=== PATIENT | female | born 1950 | race Caucasian/White ===

== ENCOUNTER 2017-06-19 12:05 | Inpatient (IN) | payer BC, OTHER ==
[2017-06-19 12:10] VITALS: BMI 24.2
--- NOTE | 2017-06-19 12:41 | PDOC ---
History of Present Illness <Dominique Nation - Last Filed: 06/19/17 14:27> - History of Present Illness Initial Comments: 06/19/17 12:51 67-year-old female history of hypertension, hyperlipidemia, , non-insulin- dependent diabetes, CAD status post stents 2 years ago, aortic graft repair 2 years ago presents with 3 weeks of progressive shortness of breath and dyspnea on exertion. Patient reports her exercise tolerance is reduced to walking across the room. Reports being unable to sleep flat. She initially thought she had bronchitis but yesterday noticed that her feet and lower extremities were becoming swollen and her family prompted her to come to the emergency department. She was told two years ago that she had heart failure when she had her stents placed but is not on a water pill. Her sister from complications of heart failure. She denies any current chest pain. Denies any fevers, chills, nausea, vomiting, diaphoresis. Does report a cough productive of white sputum for one month. Denies abdominal pain. On arrival to the emergency department the patient was hypoxic to 71%. Nonrebreather mask was placed with recovery of her pulse ox to the low 90s, and then quickly titrated down to 4 L with a pulse ox in the low 90s. Home Therapy Clinician: Dr. Cassidy 06/19/17 13:17 <Gen Camp - Last Filed: 06/19/17 15:10> - General Chief Complaint: Shortness of Breath Stated Complaint: SOB Time Seen by Provider: 06/19/17 12:21 Past History <Dominique Nation - Last Filed: 06/19/17 14:27> - Past Medical History COPD: Yes ([place]) GI Disorders: Yes (diverticulitis) - Surgical History Appendectomy: Yes - Immunization History Immunization Up to Date: Yes - Psycho/Social/Smoking Cessation Hx Anxiety: No Suicidal Ideation: No Smoking History: Former smoker Have you smoked in the past 12 months: Yes Number of Cigarettes Smoked Daily: 20 If you are a former smoker, when did you quit?: 2 WKS Information on smoking cessation initiated: No 'Breaking Loose' booklet given: 09/14/14 Hx Alcohol Use: No Drug/Substance Use Hx: No Substance Use Type: None <Gen Camp - Last Filed: 06/19/17 15:10> - Past Medical History Allergies/Adverse Reactions: Allergies Allergy/AdvReac Type Severity Reaction Status Date / Time Penicillins Allergy Intermediate Rash Verified 06/19/17 12:11 Home Medications: Ambulatory Orders Fenofibrate Nanocrystallized [Fenofibrate] 145 mg PO DAILY 06/19/17 Linagliptin/Metformin HCl [Jentadueto 2.5 mg-1000 mg Tab] 1 each PO DAILY Metoprolol Tartrate [Lopressor -] 25 mg PO DAILY 06/19/17 Simvastatin [Zocor -] 20 mg PO HS 06/19/17 *Physical Exam - Vital Signs Last Vital Signs Temp Pulse Resp BP Pulse Ox 97.8 F 82 20 152/65 71 L 06/19/17 12:06 06/19/17 12:06 06/19/17 12:06 06/19/17 12:06 06/19/17 12:06 <Dominique Nation - Last Filed: 06/19/17 14:27> - Vital Signs Last Vital Signs Temp Pulse Resp BP Pulse Ox 97.8 F 82 20 152/65 71 L 06/19/17 12:06 06/19/17 12:06 06/19/17 12:06 06/19/17 12:06 06/19/17 12:06 <Gen Camp - Last Filed: 06/19/17 15:10> Heart Score/ECG Review - History History: Moderately suspicious - Electrocardiogram EKG: Non specific repolarization disturbance - Age Age: >/= 65 - Risk Factors Risk Factors Heart Score: Yes Hx Hypercholesterolemia, Yes Hx Hypertension, Yes Hx Diabetes, Yes Smoking History Based on the list above the patient has:: >/=3 risk factors or Hx atherosclerotic disease - Troponin Troponin: </= normal limit - Score Heart Score - Total: 6 #1 06/19/17 13:12 My read: Normal sinus rhythm, rate of 76 normal axis and intervals no ST elevations or T-wave inversions. Mild T-wave flattening in lead 3 and lead V2. <Gen Camp - Last Filed: 06/19/17 15:10> ED Treatment Course - LABORATORY CBC & Chemistry Diagram: 06/19/17 13:01 06/19/17 13:01 - RADIOLOGY Radiograph Interpretation: 06/19/17 14:27 Chest x-ray Impression: No evidence of active pulmonary disease Reported by: Yordy Alcala MD <Dominique Nation - Last Filed: 06/19/17 14:27> - LABORATORY CBC & Chemistry Diagram: 06/19/17 13:01 06/19/17 13:01 <Gen Camp - Last Filed: 06/19/17 15:10> Medical Decision Making - Medical Decision Making 06/19/17 13:13 67-year-old female history of CAD, smoking, aortic graft repair, hypertension, and diabetes presents with progressive shortness of breath for 3 weeks. Initial vitals remarkable for hypoxia to 71% that improved with nasal cannula to low 90s. Exam remarkable for diffuse wheezing, fair air movement and lower extremity edema. Differential includes COPD +/- CHF exacerbation. PE also on differential however patient with no recent immobility and no other risk factors. Absence of chest pain and shortness of breath for a many weeks also not likely consistent with PE. Pneumonia also on the differential however patient has no fevers. ACS also on differential given hx CAD. -labs -nebs, steroids, azithro -portable CXR -likely admit 06/19/17 15:05 labs unremarkable, mildly elevated BNP. Chest x-ray with no acute findings. Likely COPD exacerbation. Patient has been given nebs, steroids, and IV Zithromax with improvement in symptoms. Patient also reports significant improvement in shortness of breath with nasal cannula. I spoke with Dr. Funk and will admit the patient. He requests that we consult Dr. Cedeño from pul - a consult has been placed. I also contacted the patient's monument setter Dr. Rodarte and am awaiting a call back. 06/19/17 15:09 Discussed the case with Dr. Cedeño who will see the patient <Gen Camp - Last Filed: 06/19/17 15:10> *DC/Admit/Observation/Transfer <Dominique Nation - Last Filed: 06/19/17 14:27> - Discharge Dispostion Admit: Yes - Attestations Physician Attestion: 06/19/17 15:09 I, Dr. Gen Camp MD, attest that this document has been prepared under my direction and personally reviewed by me in its entirety. I further attest, that it accurately reflects all work, treatment, procedures and medical decision -making performed by me. <Gen Camp - Last Filed: 06/19/17 15:10> Diagnosis at time of Disposition: Shortness of breath - Discharge Dispostion Condition at time of disposition: Stable
[2017-06-19] MEDS ORDERED: ALBUTEROL SO4 2.5/IPRATROPIUM 0.5 INH SOL 3 ML VIAL.NEB. NEB ONE ×4 (12:55→18:40)
[2017-06-19] MEDS ORDERED: methylPREDNISolone NA SUCC 125 MG/2 ML VIAL IVPB ONE (13:05)
[2017-06-19] MEDS ORDERED: AZITHROMYCIN IVPB 500 MG in DEXTROSE 5%-WATER - 250 ML IVPB ONE (13:06)
[2017-06-19] MEDS ORDERED: methylPREDNISolone NA SUCC 125 MG/2 ML VIAL ONE ×2 (13:28)
[2017-06-19] MEDS ORDERED: AZITHROMYCIN IVPB 250 ML IVPB ONE (13:28)
[2017-06-19 13:32] LABS: BASOPHIL 0.8 % (0-2.0); EOSINOPHIL 10.7 % (0-4.5); MCH 29.1 pg (25.7-33.7); MCHC 31.2 g/dl (32.0-36.0); MEAN CELL VOLUME 93.2 fl (80-96); MEAN PLT VOLUME 8.4 fl (7.5-11.1); NEUTROPHILS 58.8 % (42.8-82.8); PLATELET COUNT 239 K/MM3 (134-434); RDW 15.2 % (11.6-15.6)
[2017-06-19 14:17] LABS: ALBUMIN 3.8 g/dl (3.4-5.0); ALK PHOS 50 U/L (45-117); ANION GAP 6 (8-16); BILIRUBIN,TOTAL 0.7 mg/dL (0.2-1.0); CALCIUM 9.2 mg/dL (8.5-10.1); CO2 33 mmol/L (21-32); CREATININE 0.9 mg/dL (0.55-1.02); GLUCOSE,RANDOM 110 mg/dL (74-106); SGOT/AST 17 U/L (15-37); SGPT/ALT 20 U/L (12-78); TOT PROT 7.2 g/dl (6.4-8.2)
[2017-06-19 14:19] LABS: TROPONIN I < 0.02 ng/ml (0.00-0.05)
[2017-06-19] MEDS ORDERED: ALBUTEROL SO4 0.083% IH SOL 2.5 MG/3 ML VIAL.NEB. NEB ONE ×2 (15:16→15:21)
[2017-06-19] MEDS ORDERED: ONDANSETRON 4 MG/2 ML VIAL IVPUSH ONE (15:17)
[2017-06-19] MEDS ORDERED: ONDANSETRON 4 MG/2 ML VIAL ONE (15:21)
--- NOTE | 2017-06-19 16:22 | EKG ---
Test Reason : Blood Pressure : / mmHG Vent. Rate : 076 BPM Atrial Rate : 076 BPM P-R Int : 122 ms QRS Dur : 082 ms QT Int : 390 ms P-R-T Axes : 067 073 069 degrees QTc Int : 438 ms NORMAL SINUS RHYTHM LOW VOLTAGE QRS BORDERLINE ECG WHEN COMPARED WITH ECG OF 16-SEP-2014 08:36, NONSPECIFIC T WAVE ABNORMALITY NO LONGER EVIDENT IN INFERIOR LEADS T WAVE INVERSION NO LONGER EVIDENT IN LATERAL LEADS Confirmed by HAWA MOTT MD ([id number]) on 06/19/2017 4:21:37 PM Referred By: Confirmed By:HAWA MOTT MD
[2017-06-19] MEDS ORDERED: ACETAMINOPHEN 325 MG TABLET (FP) PO PRN (17:56)
[2017-06-19] MEDS ORDERED: ALBUTEROL SO4 2.5/IPRATROPIUM 0.5 INH SOL 3 ML VIAL.NEB. NEB PRN (17:56)
--- NOTE | 2017-06-19 18:09 | PDOC ---
*Physical Exam - Vital Signs Last Vital Signs Temp Pulse Resp BP Pulse Ox 98.7 F 92 H 22 142/78 98 06/19/17 16:29 06/19/17 17:54 06/19/17 17:54 06/19/17 17:54 06/19/17 17:54 ED Treatment Course - LABORATORY CBC & Chemistry Diagram: 06/19/17 13:01 06/19/17 13:01 - ADDITIONAL ORDERS Additional order review: Laboratory Results 06/19/17 06/19/17 13:20 13:01 Sodium 141 Potassium 5.1 Chloride 102 Carbon Dioxide 33 H D Anion Gap 6 L BUN 23 H D Creatinine 0.9 Creat Clearance w eGFR > 60 Random Glucose 110 H D Calcium 9.2 Magnesium 2.0 Total Bilirubin 0.7 D AST 17 ALT 20 D Alkaline Phosphatase 50 D Troponin I < 0.02 B-Natriuretic Peptide 255.27 H Total Protein 7.2 Albumin 3.8 D 06/19/17 13:01 RBC 5.35 H MCV 93.2 MCHC 31.2 L RDW 15.2 MPV 8.4 Neutrophils % 58.8 Lymphocytes % 21.9 D Monocytes % 7.8 Eosinophils % 10.7 H Basophils % 0.8 - Medications Given in the ED: ED Medications Discontinued Medications Generic Name Dose Route Start Last Admin Trade Name Maryjo PRN Reason Stop Dose Admin Albuterol Sulfate 1 amp 06/19/17 15:16 06/19/17 15:27 Ventolin 0.083% Nebulizer Soln - NEB 06/19/17 15:17 1 amp ONCE ONE Administration Albuterol/Ipratropium 1 amp 06/19/17 13:06 06/19/17 13:14 Duoneb - NEB 06/19/17 13:07 1 amp ONCE ONE Administration Azithromycin 500 mg/ Dextrose 250 mls @ 250 mls/hr 06/19/17 13:06 06/19/17 13: 37 IVPB 06/19/17 14:05 250 mls/hr ONCE ONE Administration Methylprednisolone Sodium Succinate 125 mg 06/19/17 13:05 06/19/17 13:37 Solu-Medrol - IVPB 06/19/17 13:06 125 mg ONCE ONE Administration Ondansetron HCl 4 mg 06/19/17 15:17 06/19/17 15:27 Zofran Injection IVPUSH 06/19/17 15:18 4 mg ONCE ONE Administration Medical Decision Making - Medical Decision Making 06/19/17 18:07 pt signed out to me by dr Humphreys. admitted, awaiting a bed. pt h/o DM CAD HTN HLD, long time smoker here with progressive sob, and exertional dyspnea, today more sleepy. repsonded to nebs prior to my arrival. now called to bedside for difficult to arrouse. on eval. pt arousable to loud voice, oxygen saturation on room air 78%, entidal oxygen 42. repeat gas given. given repeat neb. will start on BIPAP. called dr hutson to update ( admiting physician) will consult the ICU) 06/19/17 21:10 pt failed Bipap, Co2 worsening and pt more lethargic. intubated with RSI. etomidate, succ, tolerated well. informed Dr. Funk, awaiting ICU bed. *DC/Admit/Observation/Transfer Diagnosis at time of Disposition: Shortness of breath - Discharge Dispostion Condition at time of disposition: Stable
[2017-06-19 18:25] LABS: ARTERIAL BLD GAS O2 SATURATION 81.9 % (90-98.9); ARTERIAL BLOOD GAS PO2 54.4 mmHg (80-100)
[2017-06-19 18:28] LABS: LPM/O2% 3L; PT. ON O2? yes
[2017-06-19 18:29] LABS: ARTERIAL BLOOD GAS pH 7.15 (7.35-7.45)
[2017-06-19 20:00] LABS: ARTERIAL BLD GAS O2 SATURATION 98.5 % (90-98.9); ARTERIAL BLOOD GAS BASE EXCESS -2.1 meq/l (-2-2); ARTERIAL BLOOD GAS HCO3 32.9 meq/L (22-26)
[2017-06-19 20:10] LABS: ALLENS TEST POSITIVE; ART PUNCT SITE RIGHT RADIAL
[2017-06-19 20:11] LABS: LPM/O2% 60; PT. ON O2? YES; TYPE OF O2 BIPAP; VENT RATE 14; VT/PRESS 14/6
[2017-06-19 20:12] LABS: ARTERIAL BLOOD GAS pH 7.08 (7.35-7.45)
[2017-06-19] MEDS ORDERED: RAPID SEQUENCE INTUBATION KIT NR ONE (20:22)
[2017-06-19] MEDS ORDERED: ETOMIDATE 40 MG/20 ML VIAL IVPUSH ONE (21:06)
[2017-06-19] MEDS ORDERED: SUCCINYLCHOLINE CHLORIDE 200 MG/10 ML VIAL IVPUSH ONE (21:06)
[2017-06-19] MEDS ORDERED: MIDAZOLAM HCL 2 MG/2 ML SINGLE DOSE VIAL IVPUSH ONE (21:23)
[2017-06-19] MEDS ORDERED: SODIUM CHLORIDE 0.9% 1000 ML INFUS.BAG IV ONE (21:24)
[2017-06-19] MEDS ORDERED: MIDAZOLAM HCL 2 MG/2 ML SINGLE DOSE VIAL ONE (21:24)
[2017-06-19] MEDS ORDERED: MIDAZOLAM 100 MG in SODIUM CHLORIDE 100 ML IVPB SCH (21:30)
[2017-06-19] MEDS: ATORVASTATIN CA 20 MG TABLET (FP) PO SCH (22:00)
[2017-06-19] MEDS: INSULIN SLIDING SCALE (NOVOLOG) 1 VIAL SQ SCH (22:30)
[2017-06-19] MEDS ORDERED: PROPOFOL 100 ML ONE (22:39)
[2017-06-19] MEDS: PROPOFOL 100 ML IVPB SCH ×2 (22:45→23:30)
[2017-06-19] MEDS ORDERED: FENTANYL INJECTION 500 MCG in DEXTROSE 5%-WATER - 90 ML IJ SCH (22:45)
--- NOTE | 2017-06-19 23:05 | CONSULT ---
Consult Consult Specialty:: Pulmonary Critical Care Referred by:: Dr. Funk Reason for Consultation:: Respiratory failure - History of Present Illness Chief Complaint: SOB History of Present Illness: 67 yo female with h/o HTN ,HL, DM2, CAD s/p stents (2 yrs ago), aortic graft repair 2 yrs ago who presents with SOB for the past 3 weeks. Pt also reports decreased exercise tolerance and orthopnea and recently lower extremity edema. Patient has family history of heart failure and has been told that she had heart failure 2 years ago when she had her stents placed. On arrival to ER denied any chest pain, fevers, n/v. Upon arrival to ER patient hypoxic to 71%, she was placed on NRB with initial improvement in her sats however shortly thereafter she became unresponsive. ABG 7.15/97/54. She was placed on BiPAP, repeat ABG 1.5 hours after initiation was 7.08/114/145. She was then intubated and transferred to ICU for further monitoring. Prior to transfer she had received a dose of methylpred, was also started on Azithro. As per report pt with undiagnosed COPD. Current Medications Acetaminophen (Tylenol -) 650 mg PO Q6H PRN PRN Reason: FEVER OR PAIN Albuterol/Ipratropium (Duoneb -) 1 amp NEB Q6H PRN PRN Reason: SHORTNESS OF BREATH Atorvastatin Calcium (Lipitor -) 20 mg PO HS MICKEY Ceftriaxone Sodium (Rocephin 1gm Ivpb (Pre-Docked)) 1 gm IVPB DAILY MICKEY Midazolam HCl 100 mg/ Sodium (Chloride) 100 mls @ 1 mls/hr IVPB TITR MICKEY; 1 MG/ HR PRN Reason: Protocol Stop: 06/20/17 21:29 Last Titration: 06/19/17 22:01 Dose: 4 mg/hr Propofol (Diprivan -) 100 mls @ 2.041 mls/hr IVPB TITR MICKEY; 5 MCG/KG/MIN PRN Reason: Protocol Fentanyl 500 mcg/ Dextrose 100 mls @ 5 mls/hr IJ TITR MICKEY PRN Reason: 25 MCG/HR Stop: 06/20/17 22:44 Insulin Aspart (Novolog Vial Sliding Scale -) 1 vial SQ ACHS MICKEY PRN Reason: Protocol Methylprednisolone Sodium Succinate (Solu-Medrol -) 40 mg IVPB Q8H-IV MICKEY Metoprolol Tartrate (Lopressor -) 25 mg PO DAILY [facility] Sitagliptin Phosphate (Januvia -) 25 mg PO DAILY@0700 MICKEY - History Source History Provided By: Medical Record Limitations to Obtaining History: Intubated - Past Medical History Cardio/Vascular: Yes: CAD, HTN Pulmonary: Yes: COPD Gastrointestinal: Yes: Diverticulitis Renal/: Yes: Renal Calculi - Past Surgical History Past Surgical History: Yes: Appendectomy, , Tubal Ligation - Alcohol/Substance Use Hx Alcohol Use: No History of Substance Use: reports: None - Smoking History Smoking history: Former smoker Have you smoked in the past 12 months: Yes Aproximately how many cigarettes per day: 20 If you are a former smoker, when did you quit?: 2 WKS - Social History Usual Living Arrangement: With Spouse ADL: Independent Occupation: works for [employer] History of Recent Travel: No Home Medications - Allergies Allergies/Adverse Reactions: Allergies Allergy/AdvReac Type Severity Reaction Status Date / Time Penicillins Allergy Intermediate Rash Verified 06/19/17 12:11 - Home Medications Home Medications: Ambulatory Orders Fenofibrate Nanocrystallized [Fenofibrate] 145 mg PO DAILY 06/19/17 Linagliptin/Metformin HCl [Jentadueto 2.5 mg-1000 mg Tab] 1 each PO DAILY Metoprolol Tartrate [Lopressor -] 25 mg PO DAILY 06/19/17 Simvastatin [Zocor -] 20 mg PO HS 06/19/17 Family Disease History - Family Disease History Family History: Unable to Obtain Family Disease History: Diabetes: Mother, Brother, Sister Review of Systems Unable to obtain ROS, reason: pt intubated Physical Exam Vital Signs: Vital Signs Temperature 98.7 F 06/19/17 16:29 Pulse Rate 83 06/19/17 18:57 Respiratory Rate 20 06/19/17 21:30 Blood Pressure 115/42 06/19/17 18:57 O2 Sat by Pulse Oximetry (%) 99 06/19/17 18:57 Eyes: Yes: PERRL HENT: Yes: WNL Cardiovascular: Yes: Regular Rate and Rhythm Respiratory: Yes: Intubated, Rhonchi Gastrointestinal: Yes: Normal Bowel Sounds, Abdomen, Obese Edema: No Peripheral Pulses WNL: Yes Integumentary: Yes: WNL Neurological: Yes: Other (sedated) Labs: ABG Results ABG pH 7.08 (7.35-7.45) L* 06/19/17 20:00 ABG pCO2 at Pt Temp 115.0 mmHg (35-45) H* 06/19/17 20:00 ABG pO2 at Pt Temp 145.0 mmHg (80-100) H D 06/19/17 20:00 ABG HCO3 32.9 meq/L (22-26) H 06/19/17 20:00 ABG O2 Sat (Measured) 98.5 % (90-98.9) 06/19/17 20:00 ABG O2 Content 20.6 % vol (15-22) 06/19/17 20:00 ABG Base Excess -2.1 meq/l (-2-2) L 06/19/17 20:00 CBCD WBC 9.0 K/mm3 (4.0-10.0) 06/19/17 13:01 RBC 5.35 M/mm3 (3.60-5.2) H 06/19/17 13:01 Hgb 15.6 GM/dL (10.7-15.3) H 06/19/17 13:01 Hct 49.9 % (32.4-45.2) H 06/19/17 13:01 MCV 93.2 fl (80-96) 06/19/17 13:01 MCHC 31.2 g/dl (32.0-36.0) L 06/19/17 13:01 RDW 15.2 % (11.6-15.6) 06/19/17 13:01 Plt Count 239 K/MM3 (134-434) D 06/19/17 13:01 MPV 8.4 fl (7.5-11.1) 06/19/17 13:01 CMP Sodium 141 mmol/L (136-145) 06/19/17 13:01 Potassium 5.1 mmol/L (3.5-5.1) 06/19/17 13:01 Chloride 102 mmol/L (98-107) 06/19/17 13:01 Carbon Dioxide 33 mmol/L (21-32) H D 06/19/17 13:01 Anion Gap 6 (8-16) L 06/19/17 13:01 BUN 23 mg/dL (7-18) H D 06/19/17 13:01 Creatinine 0.9 mg/dL (0.55-1.02) 06/19/17 13:01 Creat Clearance w eGFR > 60 (>60) 06/19/17 13:01 Calcium 9.2 mg/dL (8.5-10.1) 06/19/17 13:01 Total Bilirubin 0.7 mg/dL (0.2-1.0) D 06/19/17 13:01 AST 17 U/L (15-37) 06/19/17 13:01 ALT 20 U/L (12-78) D 06/19/17 13:01 Alkaline Phosphatase 50 U/L (45-117) D 06/19/17 13:01 Total Protein 7.2 g/dl (6.4-8.2) 06/19/17 13:01 Albumin 3.8 g/dl (3.4-5.0) D 06/19/17 13:01 Imaging - Results Chest X-ray: Image Reviewed Problem List - Problems (1) Shortness of breath Code(s): R06.02 - SHORTNESS OF BREATH (2) COPD (chronic obstructive pulmonary disease) Code(s): J44.9 - CHRONIC OBSTRUCTIVE PULMONARY DISEASE, UNSPECIFIED (3) Coronary artery disease Code(s): I25.10 - ATHSCL HEART DISEASE OF [place] CORONARY ARTERY W/O ANG PCTRS (4) Diabetes Code(s): E11.9 - TYPE 2 DIABETES MELLITUS WITHOUT COMPLICATIONS (5) Respiratory failure with hypercapnia Code(s): J96.92 - RESPIRATORY FAILURE, UNSPECIFIED WITH HYPERCAPNIA Assessment/Plan Hypercapnic respiratory failure of unclear etiology (?aspiration vs PNA vs fluid overload). -full vent support -recheck ABG (RR increased on arrival to ICU) -azithro/ceftriaxone for CAP coverage -send sputum cx -send viral swab -TTE to r/o cardiac cause of SOB (h/o heart failure) -LE dopplers (r/o PE) -nebs -cont methylpred (?report of COPD) -propofol/fent for sedation -SBT francisco morning CCT: 35 minutes Evelin AREVALO
[2017-06-20 00:27] LABS: ARTERIAL BLD GAS O2 SATURATION 96.2 % (90-98.9); ARTERIAL BLOOD GAS BASE EXCESS 2.9 meq/l (-2-2); ARTERIAL BLOOD GAS PO2 67.7 mmHg (80-100)
[2017-06-20 00:29] LABS: ALLENS TEST POSITIVE; ART PUNCT SITE RIGHT BRACHIAL; LPM/O2% 40%; MECH. VENT. YES; PT. ON O2? YES; TYPE OF O2 MECH VENT; VENT RATE 24; VT/PRESS 400
[2017-06-20 00:30] LABS: ARTERIAL BLOOD GAS pH 7.43 (7.35-7.45)
[2017-06-20 01:08] LABS: PH,URINE 5.5 (5.0-8.0); URINE APPEARANCE CLEAR; URINE BILIRUBIN NEGATIVE (NEGATIVE); URINE BLOOD NEGATIVE (NEGATIVE); URINE COLOR YELLOW; URINE GLUCOSE (UA) NEGATIVE (NEGATIVE); URINE KETONE NEGATIVE (NEGATIVE); URINE LEUK ESTERASE NEGATIVE (NEGATIVE); URINE NITRITE NEGATIVE (NEGATIVE); URINE UROBILINOGEN 0.2 mg/dL (0.2-1.0)
[2017-06-20 01:18] LABS: URINE PROTEIN 2+ (NEGATIVE)
[2017-06-20 01:25] LABS: URINE BACTERIA MANY /hpf (NONE SEEN); URINE HYALINE CAST 41 /lpf; URINE MUCUS MANY; URINE RBC 2 /hpf (0-3); URINE WBC 3 /hpf (3-5)
[2017-06-20] MEDS: methylPREDNISolone NA SUCC 40 MG/1 ML VIAL IVPB SCH ×2 (02:00→10:43)
[2017-06-20] MEDS ORDERED: PT OWN MED DRAWER 7, Y5N ONE (06:19)
[2017-06-20 06:43] LABS: MCH 29.8 pg (25.7-33.7); MCHC 32.6 g/dl (32.0-36.0); MEAN CELL VOLUME 91.7 fl (80-96); PLATELET COUNT 228 K/MM3 (134-434); RDW 14.9 % (11.6-15.6); WHITE BLOOD COUNT 7.1 K/mm3 (4.0-10.0)
[2017-06-20 07:02] LABS: ALBUMIN 3.1 g/dl (3.4-5.0); ALK PHOS 41 U/L (45-117); ANION GAP 7 (8-16); BILIRUBIN,TOTAL 0.6 mg/dL (0.2-1.0); CALCIUM 8.2 mg/dL (8.5-10.1); CHOLESTEROL 113 mg/dL (50-200); CO2 29 mmol/L (21-32); CREATININE 0.8 mg/dL (0.55-1.02); GLUCOSE,RANDOM 120 mg/dL (74-106); LDL CHOLESTEROL (ONLY SJRH) 48 mg/dL (5-100); SGOT/AST 17 U/L (15-37); SGPT/ALT 15 U/L (12-78); TOT PROT 5.8 g/dl (6.4-8.2)
[2017-06-20] MEDS: INSULIN SLIDING SCALE (NOVOLOG) 1 VIAL SQ SCH ×4 (07:03→23:58)
--- NOTE | 2017-06-20 09:09 | PN ---
Progress Note, Physician History of Present Illness: 67 year old female with a past medical history of hypertension, hyperlipidemia, diabetes mellitus type II, CAD s/p 2 stents, aortic graft repair 2 years ago, CHF, and 50 pack years of smoking presented to the ED yesterday for shortness of breath of 3 weeks duration and decreased exercise tolerance. Patient was noted to have an O2sat of 71%. She was put on a non-rebreather mask, after which she desaturated further and required intubation. ABG showed acidosis suggestive of hypercapnic respiratory failure. She was given methylprednisolone and azithromycin for COPD prophylaxis and transferred to ICU for management. - Current Medication List Current Medications: Active Medications Acetaminophen (Tylenol -) 650 mg PO Q6H PRN PRN Reason: FEVER OR PAIN Albuterol/Ipratropium (Duoneb -) 1 amp NEB Q6H PRN PRN Reason: SHORTNESS OF BREATH Atorvastatin Calcium (Lipitor -) 20 mg PO HS MICKEY Last Admin: 06/19/17 22:00 Dose: Not Given Ceftriaxone Sodium (Rocephin 1gm Ivpb (Pre-Docked)) 1 gm IVPB DAILY MICKEY Midazolam HCl 100 mg/ Sodium (Chloride) 100 mls @ 1 mls/hr IVPB TITR MICKEY; 1 MG/ HR PRN Reason: Protocol Stop: 06/20/17 21:29 Last Titration: 06/19/17 22:01 Dose: 4 mg/hr Propofol (Diprivan -) 100 mls @ 2.041 mls/hr IVPB TITR MICKEY; 5 MCG/KG/MIN PRN Reason: Protocol Last Admin: 06/19/17 22:45 Dose: 2.041 mls/hr Fentanyl 500 mcg/ Dextrose 100 mls @ 5 mls/hr IJ TITR MICKEY PRN Reason: 25 MCG/HR Stop: 06/20/17 22:44 Last Admin: 06/19/17 22:45 Dose: 5 mls/hr Insulin Aspart (Novolog Vial Sliding Scale -) 1 vial SQ ACHS MICKEY PRN Reason: Protocol Last Admin: 06/20/17 07:03 Dose: Not Given Methylprednisolone Sodium Succinate (Solu-Medrol -) 40 mg IVPB Q8H-IV MICKEY Last Admin: 06/20/17 02:00 Dose: 40 mg Metoprolol Tartrate (Lopressor -) 25 mg PO DAILY MICKEY Sitagliptin Phosphate (Januvia -) 25 mg PO DAILY@0700 [facility] - Objective Vital Signs: Vital Signs Temperature 98.4 F 06/20/17 06:00 Pulse Rate 65 06/20/17 06:00 Respiratory Rate 24 06/20/17 07:24 Blood Pressure 107/57 06/20/17 06:00 O2 Sat by Pulse Oximetry (%) 99 06/20/17 00:25 Constitutional: Yes: No Distress, Other (Intubated and sedated) Eyes: Yes: Conjunctiva Clear HENT: Yes: Atraumatic, Normocephalic Neck: Yes: Supple, Trachea Midline Cardiovascular: Yes: Regular Rate and Rhythm. No: Gallop, Murmur, Rub Respiratory: Yes: Intubated, Rales, Wheezes Gastrointestinal: Yes: Normal Bowel Sounds, Soft Extremities: Yes: WNL Edema: No Peripheral Pulses WNL: Yes Integumentary: Yes: WNL Neurological: No: Alert, Oriented Psychiatric: No: Alert, Oriented Labs: CBC, BMP 06/20/17 05:15 06/20/17 05:15 Problem List - Problems (1) Respiratory failure with hypercapnia Code(s): J96.92 - RESPIRATORY FAILURE, UNSPECIFIED WITH HYPERCAPNIA (2) COPD (chronic obstructive pulmonary disease) Code(s): J44.9 - CHRONIC OBSTRUCTIVE PULMONARY DISEASE, UNSPECIFIED (3) Coronary artery disease Code(s): I25.10 - ATHSCL HEART DISEASE OF [place] CORONARY ARTERY W/O ANG PCTRS (4) Diabetes Code(s): E11.9 - TYPE 2 DIABETES MELLITUS WITHOUT COMPLICATIONS Assessment/Plan Imaging: CXR (06/20): prominent mediastinum without signs of an acute process Echo (06/20): small pericardial effusion with trace tricuspid regurgitation, otherwise within normal limits Assessment/Plan: 67yo F with pmh HTN, HLD, DMII, CAD s/p 2 stents, aortic graft repair, 50 year smoking hx, and CHF in the ICU with acute hypercapnic respiratory failure. Neuro: pt is sedated on propofol, versed and fentanyl while intubated -continue propofol, versed and fentanyl for sedation Cardiovascular: patient has a history of HTN, CAD, and possible new diagnosis of CHF -Continue atorvastatin 20mg PO -Continue metoprolol 25mg PO QD Pulmonary: acute hypercapnic respiratory failure on mechanical ventilation, patient is still in bronchospasm -Start methylprednisolone 80mg IV TID -continue ceftriaxone 1gm IV QD for prophylaxis during COPD exacerbation -continue to mechanically ventilate -start duoneb standing order -AM CXR -assess pulmonary status in AM and potential extubation Gastrointestinal: no acute issues Endocrine: hx of diabetes mellitus type II -hold sitagliptin 25mg PO QD until tomorrow -hold insulin sliding scale until tomorrow FEN: -replete AM electrolytes -no current standing fluids -provide nutrition in am, hold insulin medications Proph: -SCDs for prophylaxis Dispo: -Continue to monitor in ICU, potential extubation tomorrow -critical care time 30 min
[2017-06-20] MEDS ORDERED: CEFTRIAXONE 1 GM in DEXTROSE 5%-WATER - 50 ML IVPB SCH (10:00)
[2017-06-20] MEDS: METOPROLOL TARTRATE 25 MG TABLET (FP) PO SCH (10:14)
[2017-06-20] MEDS: cefTRIAXone 1 GM/50 ML BAG (PRE-DOCKED) IVPB SCH (10:14)
[2017-06-20] MEDS: sitaGLIPtin PHOSPHATE 25 MG TABLET (FP) PO SCH (10:14)
[2017-06-20] MEDS ORDERED: ALBUTEROL SO4 2.5/IPRATROPIUM 0.5 INH SOL 3 ML VIAL.NEB. NEB SCH (11:15)
--- NOTE | 2017-06-20 11:29 | PN ---
Teaching Attending Note Name of Resident: Nathaniel Morales ATTENDING PHYSICIAN STATEMENT I saw and evaluated the patient. I reviewed the resident's note and discussed the case with the resident. I agree with the resident's findings and plan as documented. SUBJECTIVE: Patient seen and examined in the ICU. Remains intubated and sedated. AC mod of vent. No pressors. Obstructive Flow Loops. Intake & Output 06/17/17 06/18/17 06/19/17 06/20/17 23:59 23:59 23:59 23:59 Output Total 400 Balance -400 Weight 150 lb Last Vital Signs Temp Pulse Resp BP Pulse Ox 97.5 F L 65 24 100/57 97 06/20/17 10:00 06/20/17 10:12 06/20/17 10:12 06/20/17 10:00 06/20/17 10:13 Active Medications Acetaminophen (Tylenol -) 650 mg PO Q6H PRN PRN Reason: FEVER OR PAIN Albuterol/Ipratropium (Duoneb -) 1 amp NEB Q6H MICKEY Atorvastatin Calcium (Lipitor -) 20 mg PO HS MICKEY Last Admin: 06/19/17 22:00 Dose: Not Given Ceftriaxone Sodium (Rocephin 1gm Ivpb (Pre-Docked)) 1 gm IVPB DAILY [facility] Last Admin: 06/20/17 10:14 Dose: 1 gm Midazolam HCl 100 mg/ Sodium (Chloride) 100 mls @ 1 mls/hr IVPB TITR MICKEY; 1 MG/ HR PRN Reason: Protocol Stop: 06/20/17 21:29 Last Titration: 06/19/17 22:01 Dose: 4 mg/hr Propofol (Diprivan -) 100 mls @ 2.041 mls/hr IVPB TITR MICKEY; 5 MCG/KG/MIN PRN Reason: Protocol Last Admin: 06/19/17 22:45 Dose: 2.041 mls/hr Fentanyl 500 mcg/ Dextrose 100 mls @ 5 mls/hr IJ TITR MICKEY PRN Reason: 25 MCG/HR Stop: 06/20/17 22:44 Last Admin: 06/19/17 22:45 Dose: 5 mls/hr Insulin Aspart (Novolog Vial Sliding Scale -) 1 vial SQ ACHS MICKEY PRN Reason: Protocol Last Admin: 06/20/17 10:57 Dose: Not Given Methylprednisolone Sodium Succinate (Solu-Medrol -) 80 mg IVPB Q8H-IV MICKEY Metoprolol Tartrate (Lopressor -) 25 mg PO DAILY [facility] Last Admin: 06/20/17 10:14 Dose: 25 mg Sitagliptin Phosphate (Januvia -) 25 mg PO DAILY@0700 [facility] Last Admin: 06/20/17 10:14 Dose: 25 mg Eyes: Yes: (-) Pallor HENT: Yes: Orally intubated Cardiovascular: Yes: Regular Rate and Rhythm Respiratory: Yes: Intubated, Bilateral expiratory wheeze Gastrointestinal: Yes: Normal Bowel Sounds, Abdomen, Obese Edema: No Peripheral Pulses WNL: Yes Integumentary: Yes: WNL Neurological: Yes: Other (sedated) Labs: Laboratory Results - last 24 hr 06/19/17 06/19/17 06/19/17 13:01 13:01 13:20 WBC 9.0 RBC 5.35 H Hgb 15.6 H Hct 49.9 H MCV 93.2 MCH 29.1 MCHC 31.2 L RDW 15.2 Plt Count 239 D MPV 8.4 Neutrophils % 58.8 Lymphocytes % 21.9 D Monocytes % 7.8 Eosinophils % 10.7 H Basophils % 0.8 Puncture Site ABG pH ABG pCO2 at Pt Temp ABG pO2 at Pt Temp ABG HCO3 ABG O2 Sat (Measured) ABG O2 Content ABG Base Excess Carlo Test O2 Delivery Device Oxygen Flow Rate Vent Mode Vent Rate Mechanical Rate PEEP Pressure Support Vent Sodium 141 Potassium 5.1 Chloride 102 Carbon Dioxide 33 H D Anion Gap 6 L BUN 23 H D Creatinine 0.9 Creat Clearance w eGFR > 60 POC Glucometer Random Glucose 110 H D Hemoglobin A1c % Calcium 9.2 Magnesium 2.0 Total Bilirubin 0.7 D AST 17 ALT 20 D Alkaline Phosphatase 50 D Troponin I < 0.02 B-Natriuretic Peptide 255.27 H Total Protein 7.2 Albumin 3.8 D Triglycerides Cholesterol Total LDL Cholesterol HDL Cholesterol Urine Color Urine Appearance Urine pH Ur Specific Rives Urine Protein Urine Glucose (UA) Urine Ketones Urine Blood Urine Nitrite Urine Bilirubin Urine Urobilinogen Ur Leukocyte Esterase Urine RBC Urine WBC Ur Epithelial Cells Urine Bacteria Hyaline Casts Urine Mucus 06/19/17 06/19/17 06/19/17 18:13 20:00 23:00 WBC RBC Hgb Hct MCV MCH MCHC RDW Plt Count MPV Neutrophils % Lymphocytes % Monocytes % Eosinophils % Basophils % Puncture Site Md puncture Right radial ABG pH 7.15 L* 7.08 L* ABG pCO2 at Pt Temp 96.9 H* 115.0 H* ABG pO2 at Pt Temp 54.4 L 145.0 H D ABG HCO3 32.0 H 32.9 H ABG O2 Sat (Measured) 81.9 L 98.5 ABG O2 Content 17.5 20.6 ABG Base Excess -1.0 -2.1 L Carlo Test Not applicable Positive O2 Delivery Device nasal Bipap Oxygen Flow Rate 3l 60 Vent Mode S/t Vent Rate 14 Mechanical Rate PEEP 0.0 Pressure Support Vent 14/6 Sodium Potassium Chloride Carbon Dioxide Anion Gap BUN Creatinine Creat Clearance w eGFR POC Glucometer Random Glucose Hemoglobin A1c % Calcium Magnesium Total Bilirubin AST ALT Alkaline Phosphatase Troponin I B-Natriuretic Peptide Total Protein Albumin Triglycerides Cholesterol Total LDL Cholesterol HDL Cholesterol Urine Color Yellow Urine Appearance Clear Urine pH 5.5 Ur Specific Rives >= 1.030 H Urine Protein 2+ H Urine Glucose (UA) Negative Urine Ketones Negative Urine Blood Negative Urine Nitrite Negative Urine Bilirubin Negative Urine Urobilinogen 0.2 Ur Leukocyte Esterase Negative Urine RBC 2 Urine WBC 3 Ur Epithelial Cells Rare Urine Bacteria Many Hyaline Casts 41 Urine Mucus Many 06/20/17 06/20/17 06/20/17 00:15 01:44 05:15 WBC 7.1 RBC 4.53 Hgb 13.5 D Hct 41.6 D MCV 91.7 MCH 29.8 MCHC 32.6 RDW 14.9 Plt Count 228 MPV 9.0 Neutrophils % Lymphocytes % Monocytes % Eosinophils % Basophils % Puncture Site Right brachial ABG pH 7.43 D ABG pCO2 at Pt Temp 41.1 D ABG pO2 at Pt Temp 67.7 L D ABG HCO3 27.0 H ABG O2 Sat (Measured) 96.2 ABG O2 Content 18.5 ABG Base Excess 2.9 H Carlo Test Positive O2 Delivery Device Mech vent Oxygen Flow Rate 40% Vent Mode A/c Vent Rate 24 Mechanical Rate Yes PEEP 5.0 Pressure Support Vent 400 Sodium Potassium Chloride Carbon Dioxide Anion Gap BUN Creatinine Creat Clearance w eGFR POC Glucometer 186.32558 Random Glucose Hemoglobin A1c % Calcium Magnesium Total Bilirubin AST ALT Alkaline Phosphatase Troponin I B-Natriuretic Peptide Total Protein Albumin Triglycerides Cholesterol Total LDL Cholesterol HDL Cholesterol Urine Color Urine Appearance Urine pH Ur Specific Rives Urine Protein Urine Glucose (UA) Urine Ketones Urine Blood Urine Nitrite Urine Bilirubin Urine Urobilinogen Ur Leukocyte Esterase Urine RBC Urine WBC Ur Epithelial Cells Urine Bacteria Hyaline Casts Urine Mucus 06/20/17 06/20/17 06/20/17 05:15 05:15 05:33 WBC RBC Hgb Hct MCV MCH MCHC RDW Plt Count MPV Neutrophils % Lymphocytes % Monocytes % Eosinophils % Basophils % Puncture Site ABG pH ABG pCO2 at Pt Temp ABG pO2 at Pt Temp ABG HCO3 ABG O2 Sat (Measured) ABG O2 Content ABG Base Excess Carlo Test O2 Delivery Device Oxygen Flow Rate Vent Mode Vent Rate Mechanical Rate PEEP Pressure Support Vent Sodium 139 Potassium 4.9 Chloride 103 Carbon Dioxide 29 Anion Gap 7 L BUN 23 H Creatinine 0.8 Creat Clearance w eGFR > 60 POC Glucometer 147.82995 Random Glucose 120 H Hemoglobin A1c % 6.4 H D Calcium 8.2 L Magnesium Total Bilirubin 0.6 AST 17 ALT 15 D Alkaline Phosphatase 41 L Troponin I B-Natriuretic Peptide Total Protein 5.8 L Albumin 3.1 L Triglycerides 141 Cholesterol 113 Total LDL Cholesterol 48 HDL Cholesterol 51 D Urine Color Urine Appearance Urine pH Ur Specific Rives Urine Protein Urine Glucose (UA) Urine Ketones Urine Blood Urine Nitrite Urine Bilirubin Urine Urobilinogen Ur Leukocyte Esterase Urine RBC Urine WBC Ur Epithelial Cells Urine Bacteria Hyaline Casts Urine Mucus 06/20/17 10:56 WBC RBC Hgb Hct MCV MCH MCHC RDW Plt Count MPV Neutrophils % Lymphocytes % Monocytes % Eosinophils % Basophils % Puncture Site ABG pH ABG pCO2 at Pt Temp ABG pO2 at Pt Temp ABG HCO3 ABG O2 Sat (Measured) ABG O2 Content ABG Base Excess Carlo Test O2 Delivery Device Oxygen Flow Rate Vent Mode Vent Rate Mechanical Rate PEEP Pressure Support Vent Sodium Potassium Chloride Carbon Dioxide Anion Gap BUN Creatinine Creat Clearance w eGFR POC Glucometer 95.30857 Random Glucose Hemoglobin A1c % Calcium Magnesium Total Bilirubin AST ALT Alkaline Phosphatase Troponin I B-Natriuretic Peptide Total Protein Albumin Triglycerides Cholesterol Total LDL Cholesterol HDL Cholesterol Urine Color Urine Appearance Urine pH Ur Specific Rives Urine Protein Urine Glucose (UA) Urine Ketones Urine Blood Urine Nitrite Urine Bilirubin Urine Urobilinogen Ur Leukocyte Esterase Urine RBC Urine WBC Ur Epithelial Cells Urine Bacteria Hyaline Casts Urine Mucus Problem List - Problems (1) Shortness of breath Code(s): R06.02 - SHORTNESS OF BREATH (2) COPD (chronic obstructive pulmonary disease) Code(s): J44.9 - CHRONIC OBSTRUCTIVE PULMONARY DISEASE, UNSPECIFIED (3) Coronary artery disease Code(s): I25.10 - ATHSCL HEART DISEASE OF [place] CORONARY ARTERY W/O ANG PCTRS (4) Diabetes Code(s): E11.9 - TYPE 2 DIABETES MELLITUS WITHOUT COMPLICATIONS (5) Respiratory failure with hypercapnia Code(s): J96.92 - RESPIRATORY FAILURE, UNSPECIFIED WITH HYPERCAPNIA Assessment/Plan Medrol BD TX Standing and PRN VTE prophylaxis ECHO Noted ABX -> Will D/C after cultures are (-) AC mode of vent Sedation for vent synchrony Hopeful SBTs in the AM Dr Cedeño CCTime 35" The care of this patient involved high complexity decision making to prevent further life threatening deterioration of the patient's condition and/or to evaluate & treat vital organ system(s) failure or risk of failure.
[2017-06-20] MEDS: ALBUTEROL SO4 2.5/IPRATROPIUM 0.5 INH SOL 3 ML VIAL.NEB. NEB SCH ×2 (17:25→23:01)
[2017-06-20] MEDS: methylPREDNISolone NA SUCC 125 MG/2 ML VIAL IVPB SCH (17:30)
[2017-06-20] MEDS ORDERED: SODIUM CHLORIDE 1,000 ML IV SCH (19:00)
--- NOTE | 2017-06-20 19:00 | PN ---
Progress Note (short form) - Note Progress Note: Was informed by nurse that the patient has put out 50 cc of urine today. -patient's echo checked; within normal limits -blood pressure 105/54 and MAP of 68 -patient has no standing fluids ordered -BUN 64, Cr 0.8 -will begin gentle hydration of NS @ 75mls/hr
--- NOTE | 2017-06-20 20:59 | HP ---
Admitting History and Physical - Primary Care Physician PCP: Benoit Funk - Admission Chief Complaint: PATIENT IN ICU INTUBATED AND SEDATED DYSPNEA/CHEST PAIN History of Present Illness: 67-year-old female history of hypertension, hyperlipidemia, , non-insulin- dependent diabetes, CAD status post stents 2 years ago, aortic graft repair 2 years ago presents with 3 weeks of progressive shortness of breath and dyspnea on exertion. Patient reports her exercise tolerance is reduced to walking across the room. Reports being unable to sleep flat. She initially thought she had bronchitis but yesterday noticed that her feet and lower extremities were becoming swollen and her family prompted her to come to the emergency department. She was told two years ago that she had heart failure when she had her stents placed but is not on a water pill. Her sister from complications of heart failure. She denies any current chest pain. Denies any fevers, chills, nausea, vomiting, diaphoresis. Does report a cough productive of white sputum for one month. Denies abdominal pain. On arrival to the emergency department the patient was hypoxic to 71%. Nonrebreather mask was placed with recovery of her pulse ox to the low 90s, and then quickly titrated down to 4 L with a pulse ox in the low 90s. History Source: Medical Record Limitations to Obtaining History: Clinical Condition - Past Medical History Cardiovascular: Yes: CAD, HTN Pulmonary: Yes: COPD Gastrointestinal: Yes: Diverticulitis Renal/: Yes: Renal Calculi - Past Surgical History Past Surgical History: Yes: Appendectomy, , Tubal Ligation - Smoking History Smoking history: Former smoker Have you smoked in the past 12 months: Yes Aproximately how many cigarettes per day: 20 If you are a former smoker, when did you quit?: 2 WKS - Alcohol/Substance Use Hx Alcohol Use: No History of Substance Use: reports: None - Social History ADL: Independent Occupation: works for [employer] History of Recent Travel: No Home Medications - Allergies Allergies/Adverse Reactions: Allergies Allergy/AdvReac Type Severity Reaction Status Date / Time Penicillins Allergy Intermediate Rash Verified 06/19/17 12:11 - Home Medications Home Medications: Ambulatory Orders Fenofibrate Nanocrystallized [Fenofibrate] 145 mg PO DAILY 06/19/17 Linagliptin/Metformin HCl [Jentadueto 2.5 mg-1000 mg Tab] 1 each PO DAILY Metoprolol Tartrate [Lopressor -] 25 mg PO DAILY 06/19/17 Simvastatin [Zocor -] 20 mg PO HS 06/19/17 Family Disease History - Family Disease History Family Disease History: Diabetes: Mother, Brother, Sister Review of Systems - Review of Systems Constitutional: reports: Weakness Eyes: reports: No Symptoms HENT: reports: No Symptoms Neck: reports: No Symptoms Cardiovascular: reports: Chest Pain, Edema, Palpitations, Shortness of Breath Respiratory: reports: SOB, SOB on Exertion, Other Gastrointestinal: reports: No Symptoms Genitourinary: reports: Incontinence Musculoskeletal: reports: Muscle Weakness Integumentary: reports: No Symptoms Neurological: reports: Weakness Endocrine: reports: No Symptoms Hematology/Lymphatic: reports: No Symptoms Physical Examination Vital Signs: Vital Signs Temperature 97.6 F 06/20/17 14:00 Pulse Rate 60 06/20/17 20:12 Respiratory Rate 24 06/20/17 18:44 Blood Pressure 121/59 06/20/17 20:12 O2 Sat by Pulse Oximetry (%) 97 06/20/17 10:13 Constitutional: Yes: Severe Distress Eyes: Yes: WNL HENT: Yes: WNL Neck: Yes: WNL Cardiovascular: Yes: Pulse Irregular, Murmur Respiratory: Yes: Mechanically Ventilated, Poor Air Entry Gastrointestinal: Yes: WNL Renal/: No: WNL Musculoskeletal: Yes: Muscle Weakness Extremities: Yes: WNL Edema: No Peripheral Pulses WNL: Yes Integumentary: Yes: WNL Wound/Incision: Yes: Clean/Dry Neurological: Yes: Pre-Existing Deficit ...Motor Strength: LLE, RLE Psychiatric: Yes: Other Labs: CBC, BMP 06/20/17 05:15 06/20/17 05:15 Imaging - Results Chest X-ray: Report Reviewed Problem List - Problems (1) Respiratory failure with hypercapnia Code(s): J96.92 - RESPIRATORY FAILURE, UNSPECIFIED WITH HYPERCAPNIA (2) Shortness of breath Code(s): R06.02 - SHORTNESS OF BREATH (3) Abnormal ECG Code(s): R94.31 - ABNORMAL ELECTROCARDIOGRAM [ECG] [EKG] (4) COPD (chronic obstructive pulmonary disease) Code(s): J44.9 - CHRONIC OBSTRUCTIVE PULMONARY DISEASE, UNSPECIFIED (5) Coronary artery disease Code(s): I25.10 - ATHSCL HEART DISEASE OF [place] CORONARY ARTERY W/O ANG PCTRS (6) Diabetes Code(s): E11.9 - TYPE 2 DIABETES MELLITUS WITHOUT COMPLICATIONS Assessment/Plan VENT INTUBATED MONITOR VITALS/ABG/PULMONARY EVAL CARDIOLOGY FOLLOW UP DVT PROPHYLAXIS LASIX BGM CHECKS
[2017-06-20] MEDS: ATORVASTATIN CA 20 MG TABLET (FP) PO SCH (23:51)
[2017-06-21] MEDS: methylPREDNISolone NA SUCC 125 MG/2 ML VIAL IVPB SCH ×3 (01:49→18:24)
[2017-06-21 06:37] LABS: MCH 29.4 pg (25.7-33.7); MCHC 32.5 g/dl (32.0-36.0); MEAN CELL VOLUME 90.5 fl (80-96); MEAN PLT VOLUME 8.9 fl (7.5-11.1); PLATELET COUNT 215 K/MM3 (134-434); RDW 14.8 % (11.6-15.6); WHITE BLOOD COUNT 9.2 K/mm3 (4.0-10.0)
[2017-06-21] MEDS ORDERED: PT OWN MED DRAWER 7, Y5N ONE ×2 (06:37→07:31)
[2017-06-21] MEDS: ALBUTEROL SO4 2.5/IPRATROPIUM 0.5 INH SOL 3 ML VIAL.NEB. NEB SCH ×4 (06:37→23:43)
[2017-06-21] MEDS: INSULIN SLIDING SCALE (NOVOLOG) 1 VIAL SQ SCH ×4 (06:40→22:54)
[2017-06-21 07:21] LABS: ANION GAP 8 (8-16); CALCIUM 8.5 mg/dL (8.5-10.1); CO2 27 mmol/L (21-32); CREATININE 0.8 mg/dL (0.55-1.02); GLUCOSE,RANDOM 183 mg/dL (74-106)
[2017-06-21] MEDS: sitaGLIPtin PHOSPHATE 25 MG TABLET (FP) PO SCH (07:29)
[2017-06-21] MEDS: METOPROLOL TARTRATE 25 MG TABLET (FP) PO SCH ×3 (09:14→21:50)
[2017-06-21] MEDS: cefTRIAXone 1 GM/50 ML BAG (PRE-DOCKED) IVPB SCH (09:14)
--- NOTE | 2017-06-21 09:23 | CON.CARD ---
Consult Consult Specialty:: cardiology Reason for Consultation:: respiratory failure - History of Present Illness History of Present Illness: 67-year-old white woman with PMHx history of hypertension, hyperlipidemia, , non -insulin-dependent diabetes, CAD status post stents 2 years ago, aortic graft repair 2 years ago, now presents with 3 weeks of progressive shortness of breath and dyspnea on exertion. Patient reports her exercise tolerance is reduced to walking across the room for the past 2 weeks. Reports being unable to sleep flat. She initially thought she had bronchitis but yesterday noticed that her feet and lower extremities were becoming swollen and her family prompted her to come to the emergency department. She was told two years ago that she had heart failure when she had her stents placed but is not on a water pill. Her sister from complications of heart failure. She denies any current chest pain. Denies any fevers, chills, nausea, vomiting, diaphoresis. Does report a cough productive of white sputum for one month. Denies abdominal pain. On arrival to the emergency department the patient was hypoxic to 71%. Nonrebreather mask was placed with recovery of her pulse ox to the low 90s, and then quickly titrated down to 4 L with a pulse ox in the low 90s. Floor Scraper: Dr. Cassidy - History Source History Provided By: Patient, Medical Record Limitations to Obtaining History: Intubated - Past Medical History Cardio/Vascular: Yes: CAD, HTN Pulmonary: Yes: COPD Gastrointestinal: Yes: Diverticulitis Renal/: Yes: Renal Calculi - Past Surgical History Past Surgical History: Yes: Appendectomy, , Tubal Ligation - Alcohol/Substance Use Hx Alcohol Use: No History of Substance Use: reports: None - Smoking History Smoking history: Former smoker Have you smoked in the past 12 months: Yes Aproximately how many cigarettes per day: 20 If you are a former smoker, when did you quit?: 2 WKS - Social History Usual Living Arrangement: With Spouse ADL: Independent Occupation: works for [employer] [place] History of Recent Travel: No Home Medications - Allergies Allergies/Adverse Reactions: Allergies Allergy/AdvReac Type Severity Reaction Status Date / Time Penicillins Allergy Intermediate Rash Verified 06/19/17 12:11 - Home Medications Home Medications: Ambulatory Orders Fenofibrate Nanocrystallized [Fenofibrate] 145 mg PO DAILY 06/19/17 Linagliptin/Metformin HCl [Jentadueto 2.5 mg-1000 mg Tab] 1 each PO DAILY Metoprolol Tartrate [Lopressor -] 25 mg PO DAILY 06/19/17 Simvastatin [Zocor -] 20 mg PO HS 06/19/17 Family Disease History - Family Disease History Family Disease History: Diabetes: Mother, Brother, Sister Review of Systems - Review of Systems Constitutional: reports: No Symptoms Eyes: reports: No Symptoms HENT: reports: No Symptoms Neck: reports: No Symptoms Cardiovascular: reports: Shortness of Breath Respiratory: reports: SOB Gastrointestinal: reports: No Symptoms Genitourinary: reports: No Symptoms Breasts: reports: No Symptoms Reported Musculoskeletal: reports: No Symptoms Integumentary: reports: No Symptoms Neurological: reports: No Symptoms Endocrine: reports: No Symptoms Hematology/Lymphatic: reports: No Symptoms Psychiatric: reports: No Symptoms - Risk Factors Known Risk Factors: Yes: Age, Diabetes Mellitus, Other (COPD) Vital Signs: Vital Signs Temperature 97.8 F 06/21/17 08:00 Pulse Rate 51 L 06/21/17 08:00 Respiratory Rate 24 06/21/17 08:00 Blood Pressure 110/55 06/21/17 08:00 O2 Sat by Pulse Oximetry (%) 93 L 06/21/17 08:00 Constitutional: Yes: No Distress Eyes: Yes: WNL HENT: Yes: WNL Neck: Yes: WNL Respiratory: Yes: Diminished Gastrointestinal: Yes: WNL Renal/: No: Anuria Cardiovascular: Yes: Regular Rate and Rhythm JVD: No Carotid Bruit: No PMI: Non-Displaced Heart Sounds: Yes: S1, S2 Murmur: Yes: Systolic Murmur, Grade 1 Musculoskeletal: Yes: WNL Extremities: Yes: WNL Edema: No Peripheral Pulses WNL: Yes Integumentary: Yes: WNL Neurological: Yes: WNL Psychiatric: Yes: WNL - Other Data Labs, Other Data: CBC, BMP 06/21/17 05:30 06/21/17 05:30 Ejection Fraction %: LVEF > or = 40 % Imaging - Results Chest X-ray: Image Reviewed (increased IS markings) EKG: Image Reviewed Problem List - Problems (1) Respiratory failure with hypercapnia Assessment/Plan: intubated; plans for weaning per tack cutter. ECHO: normal LVEF; normal RVSP; small pericardial effusion. TNI < 9.92; f/u serially. EKG: NSR; no acute STT changes. Code(s): J96.92 - RESPIRATORY FAILURE, UNSPECIFIED WITH HYPERCAPNIA (2) Shortness of breath Code(s): R06.02 - SHORTNESS OF BREATH (3) COPD (chronic obstructive pulmonary disease) Code(s): J44.9 - CHRONIC OBSTRUCTIVE PULMONARY DISEASE, UNSPECIFIED (4) Coronary artery disease Code(s): I25.10 - ATHSCL HEART DISEASE OF [place] CORONARY ARTERY W/O ANG PCTRS (5) Diabetes Assessment/Plan: start ACEI for DM, HTN, renal protection. Code(s): E11.9 - TYPE 2 DIABETES MELLITUS WITHOUT COMPLICATIONS
[2017-06-21 09:28] LABS: ALLENS TEST POSITIVE; ART PUNCT SITE RIGHT RADIAL; ARTERIAL BLD GAS O2 SATURATION 92.8 % (90-98.9); ARTERIAL BLOOD GAS BASE EXCESS 2.9 meq/l (-2-2); ARTERIAL BLOOD GAS HCO3 26.6 meq/L (22-26); ARTERIAL BLOOD GAS pH 7.45 (7.35-7.45)
[2017-06-21 09:29] LABS: ARTERIAL BLOOD GAS PO2 65.3 mmHg (80-100); LPM/O2% 40%; MECH. VENT. YES; PT. ON O2? YES; TYPE OF O2 VENTILATOR; VENT RATE 24; VT/PRESS 400
--- NOTE | 2017-06-21 11:18 | PN ---
Teaching Attending Note Name of Resident: Placido Rodriguez ATTENDING PHYSICIAN STATEMENT I saw and evaluated the patient. I reviewed the resident's note and discussed the case with the resident. I agree with the resident's findings and plan as documented. SUBJECTIVE: Patient seen and examined in the ICU. Remains intubated and sedated. AC mod of vent. No pressors. Flow loops still Obstructive but better than yesterday. Intake & Output 06/18/17 06/19/17 06/20/17 06/21/17 23:59 23:59 23:59 23:59 Intake Total 507.2 1002.9 Output Total 450 350 Balance 57.2 652.9 Weight 150 lb 155 lb 13.869 oz 158 lb 8.198 oz Last Vital Signs Temp Pulse Resp BP Pulse Ox 97.7 F 49 L 24 126/52 93 L 06/21/17 10:00 06/21/17 10:00 06/21/17 09:13 06/21/17 10:00 06/21/17 09:13 Active Medications Acetaminophen (Tylenol -) 650 mg PO Q6H PRN PRN Reason: FEVER OR PAIN Albuterol/Ipratropium (Duoneb -) 1 amp NEB QIDR [facility] Last Admin: 06/21/17 06:37 Dose: 1 amp Atorvastatin Calcium (Lipitor -) 20 mg PO HS [facility] Last Admin: 06/20/17 23:51 Dose: 20 mg Ceftriaxone Sodium (Rocephin 1gm Ivpb (Pre-Docked)) 1 gm IVPB DAILY [facility] Last Admin: 06/21/17 09:14 Dose: 1 gm Propofol (Diprivan -) 100 mls @ 2.041 mls/hr IVPB TITR MICKEY; 5 MCG/KG/MIN PRN Reason: Protocol Last Titration: 06/21/17 01:00 Dose: 30 mcg/kg/min Sodium Chloride (Normal Saline -) 1,000 mls @ 75 mls/hr IV ASDIR [facility] Last Admin: 06/20/17 23:48 Dose: 75 mls/hr Insulin Aspart (Novolog Vial Sliding Scale -) 1 vial SQ ACHS MICKEY PRN Reason: Protocol Last Admin: 06/21/17 06:40 Dose: Not Given Methylprednisolone Sodium Succinate (Solu-Medrol -) 80 mg IVPB Q8H-IV [facility] Last Admin: 06/21/17 09:14 Dose: 80 mg Metoprolol Tartrate (Lopressor -) 12.5 mg PO BID [facility] Last Admin: 06/21/17 10:30 Dose: Not Given Sitagliptin Phosphate (Januvia -) 25 mg PO DAILY@0700 [facility] Last Admin: 06/21/17 07:29 Dose: 25 mg Eyes: Yes: (-) Pallor HENT: Yes: Orally intubated Cardiovascular: Yes: Regular Rate and Rhythm Respiratory: Yes: Intubated, Minimal bilateral expiratory wheeze Gastrointestinal: Yes: Normal Bowel Sounds, Abdomen, Obese Edema: No Peripheral Pulses WNL: Yes Integumentary: Yes: WNL Neurological: Yes: Other (sedated) Labs: Laboratory Results - last 24 hr 06/20/17 06/20/17 06/20/17 10:56 17:28 23:57 WBC RBC Hgb Hct MCV MCH MCHC RDW Plt Count MPV Puncture Site ABG pH ABG pCO2 at Pt Temp ABG pO2 at Pt Temp ABG HCO3 ABG O2 Sat (Measured) ABG O2 Content ABG Base Excess Carlo Test O2 Delivery Device Oxygen Flow Rate Vent Mode Vent Rate Mechanical Rate PEEP Pressure Support Vent Sodium Potassium Chloride Carbon Dioxide Anion Gap BUN Creatinine POC Glucometer 95.10546 170.07327 218.22067 Random Glucose Calcium Creatine Kinase Troponin I 06/21/17 06/21/17 06/21/17 05:30 05:30 06:19 WBC 9.2 RBC 4.59 Hgb 13.5 Hct 41.5 MCV 90.5 MCH 29.4 MCHC 32.5 RDW 14.8 Plt Count 215 MPV 8.9 Puncture Site ABG pH ABG pCO2 at Pt Temp ABG pO2 at Pt Temp ABG HCO3 ABG O2 Sat (Measured) ABG O2 Content ABG Base Excess Carlo Test O2 Delivery Device Oxygen Flow Rate Vent Mode Vent Rate Mechanical Rate PEEP Pressure Support Vent Sodium 139 Potassium 4.3 Chloride 104 Carbon Dioxide 27 Anion Gap 8 BUN 29 H D Creatinine 0.8 POC Glucometer 191.08574 Random Glucose 183 H D Calcium 8.5 Creatine Kinase Troponin I 06/21/17 06/21/17 09:00 09:18 WBC RBC Hgb Hct MCV MCH MCHC RDW Plt Count MPV Puncture Site Right radial ABG pH 7.45 ABG pCO2 at Pt Temp 39.3 ABG pO2 at Pt Temp 65.3 L ABG HCO3 26.6 H ABG O2 Sat (Measured) 92.8 ABG O2 Content 17.5 ABG Base Excess 2.9 H Carlo Test Positive O2 Delivery Device Ventilator Oxygen Flow Rate 40% Vent Mode A/c Vent Rate 24 Mechanical Rate Yes PEEP 5.0 Pressure Support Vent 400 Sodium Potassium Chloride Carbon Dioxide Anion Gap BUN Creatinine POC Glucometer Random Glucose Calcium Creatine Kinase Cancelled Troponin I Cancelled Problem List - Problems (1) Shortness of breath Code(s): R06.02 - SHORTNESS OF BREATH (2) COPD (chronic obstructive pulmonary disease) Code(s): J44.9 - CHRONIC OBSTRUCTIVE PULMONARY DISEASE, UNSPECIFIED (3) Coronary artery disease Code(s): I25.10 - ATHSCL HEART DISEASE OF [place] CORONARY ARTERY W/O ANG PCTRS (4) Diabetes Code(s): E11.9 - TYPE 2 DIABETES MELLITUS WITHOUT COMPLICATIONS (5) Respiratory failure with hypercapnia Code(s): J96.92 - RESPIRATORY FAILURE, UNSPECIFIED WITH HYPERCAPNIA Assessment/Plan IV Medrol BD TX Standing and PRN VTE prophylaxis ECHO Noted ABX -> Will D/C after cultures are (-) AC mode of vent Wean Sedation SBTs as tolerated Dr Cedeño CCTime 35" The care of this patient involved high complexity decision making to prevent further life threatening deterioration of the patient's condition and/or to evaluate & treat vital organ system(s) failure or risk of failure.
[2017-06-21] MEDS ORDERED: INSULIN (NOVOLOG) ASPART 100 UNITS/ML 10ML VIAL ONE (11:20)
[2017-06-21 11:26] LABS: CPK 25 IU/L (26-192); TROPONIN I < 0.02 ng/ml (0.00-0.05)
--- NOTE | 2017-06-21 14:26 | PN ---
Progress Note, Physician History of Present Illness: Patient intubated and sedated. She is alert and responding to commands on sedation. Will wean to extubate today. - Current Medication List Current Medications: Active Medications Acetaminophen (Tylenol -) 650 mg PO Q6H PRN PRN Reason: FEVER OR PAIN Albuterol/Ipratropium (Duoneb -) 1 amp NEB QIDR [facility] Last Admin: 06/21/17 11:04 Dose: 1 amp Atorvastatin Calcium (Lipitor -) 20 mg PO HS [facility] Last Admin: 06/20/17 23:51 Dose: 20 mg Ceftriaxone Sodium (Rocephin 1gm Ivpb (Pre-Docked)) 1 gm IVPB DAILY [facility] Last Admin: 06/21/17 09:14 Dose: 1 gm Insulin Aspart (Novolog Vial Sliding Scale -) 1 vial SQ ACHS [facility] PRN Reason: Protocol Last Admin: 06/21/17 11:00 Dose: 2 units Methylprednisolone Sodium Succinate (Solu-Medrol -) 80 mg IVPB Q8H-IV [facility] Last Admin: 06/21/17 09:14 Dose: 80 mg Metoprolol Tartrate (Lopressor -) 12.5 mg PO BID [facility] Last Admin: 06/21/17 10:30 Dose: Not Given Sitagliptin Phosphate (Januvia -) 25 mg PO DAILY@0700 [facility] Last Admin: 06/21/17 07:29 Dose: 25 mg - Objective Vital Signs: Vital Signs Temperature 97.7 F 06/21/17 14:00 Pulse Rate 79 06/21/17 14:00 Respiratory Rate 16 06/21/17 14:00 Blood Pressure 150/65 06/21/17 14:00 O2 Sat by Pulse Oximetry (%) 94 L 06/21/17 10:55 Constitutional: Yes: Other (patient intubated and sedated. alert and responding to commands) HENT: Yes: Atraumatic, Normocephalic Neck: Yes: Supple, Trachea Midline Cardiovascular: Yes: Regular Rate and Rhythm, S1, S2. No: Gallop, Murmur, Rub Respiratory: Yes: Regular, Hyperresonant, Mechanically Ventilated, Wheezes ( expiratory wheezes bilaterally in all lung lara) Gastrointestinal: Yes: Normal Bowel Sounds, Soft. No: Tenderness Neurological: Yes: Alert, Cran Nerves II-XII Intact Labs: CBC, BMP 06/21/17 05:30 06/21/17 05:30 Problem List - Problems (1) Respiratory failure with hypercapnia Code(s): J96.92 - RESPIRATORY FAILURE, UNSPECIFIED WITH HYPERCAPNIA (2) Shortness of breath Code(s): R06.02 - SHORTNESS OF BREATH (3) COPD (chronic obstructive pulmonary disease) Code(s): J44.9 - CHRONIC OBSTRUCTIVE PULMONARY DISEASE, UNSPECIFIED (4) Diabetes Code(s): E11.9 - TYPE 2 DIABETES MELLITUS WITHOUT COMPLICATIONS Assessment/Plan 67yo F with pmh HTN, HLD, DMII, CAD s/p 2 stents, aortic graft repair, 50 year smoking hx, and CHF in the ICU with acute hypercapnic respiratory failure. Neuro: -pt intubated and sedated on propofol and fentanyl; alert and responding to basic commands -will remove sedation and wean with a goal of extubation. Cardiovascular: -PMH HTN, CAD, and possible new diagnosis of CHF -BP controlled -atorvastatin 20mg PO -metoprolol 25mg PO QD; held this morning 2/2 bradycardia Pulmonary: -acute hypercapnic respiratory failure on mechanical ventilation, patient is still in bronchospasm -methylprednisolone 80mg IV TID -ceftriaxone 1gm IV QD for prophylaxis during COPD exacerbation -duoneb standing order -wean to extubate Endocrine: -hx of diabetes mellitus type II -sitagliptin 25mg PO QD -insulin sliding scale FEN: -no indication for fluids at this time -monitor lytes -will resume diet once patient extubated Proph: -SCDs for prophylaxis Dispo: -Continue to monitor in ICU
--- NOTE | 2017-06-21 14:36 | PN ---
Progress Note, Physician Chief Complaint: AWAKE ALERT AND EXTUBATED FAMILY BEDSIDE - Current Medication List Current Medications: Active Medications Acetaminophen (Tylenol -) 650 mg PO Q6H PRN PRN Reason: FEVER OR PAIN Albuterol/Ipratropium (Duoneb -) 1 amp NEB QIDR [facility] Last Admin: 06/21/17 11:04 Dose: 1 amp Atorvastatin Calcium (Lipitor -) 20 mg PO HS [facility] Last Admin: 06/20/17 23:51 Dose: 20 mg Ceftriaxone Sodium (Rocephin 1gm Ivpb (Pre-Docked)) 1 gm IVPB DAILY [facility] Last Admin: 06/21/17 09:14 Dose: 1 gm Insulin Aspart (Novolog Vial Sliding Scale -) 1 vial SQ ACHS [facility] PRN Reason: Protocol Last Admin: 06/21/17 11:00 Dose: 2 units Methylprednisolone Sodium Succinate (Solu-Medrol -) 80 mg IVPB Q8H-IV [facility] Last Admin: 06/21/17 09:14 Dose: 80 mg Metoprolol Tartrate (Lopressor -) 12.5 mg PO BID [facility] Last Admin: 06/21/17 10:30 Dose: Not Given Sitagliptin Phosphate (Januvia -) 25 mg PO DAILY@0700 [facility] Last Admin: 06/21/17 07:29 Dose: 25 mg - Objective Vital Signs: Vital Signs Temperature 97.7 F 06/21/17 14:00 Pulse Rate 79 06/21/17 14:00 Respiratory Rate 16 06/21/17 14:00 Blood Pressure 150/65 06/21/17 14:00 O2 Sat by Pulse Oximetry (%) 94 L 06/21/17 10:55 Constitutional: Yes: Mild Distress Eyes: Yes: WNL HENT: Yes: WNL Neck: Yes: WNL Cardiovascular: Yes: WNL Respiratory: Yes: On Nasal O2, SOB Gastrointestinal: Yes: WNL Genitourinary: Yes: WNL Integumentary: Yes: WNL Wound/Incision: Yes: Clean/Dry Neurological: Yes: WNL ...Motor Strength: WNL Psychiatric: Yes: WNL Labs: CBC, BMP 06/21/17 05:30 06/21/17 05:30 Problem List - Problems (1) Respiratory failure with hypercapnia Code(s): J96.92 - RESPIRATORY FAILURE, UNSPECIFIED WITH HYPERCAPNIA (2) Shortness of breath Code(s): R06.02 - SHORTNESS OF BREATH (3) Abnormal ECG Code(s): R94.31 - ABNORMAL ELECTROCARDIOGRAM [ECG] [EKG] (4) COPD (chronic obstructive pulmonary disease) Code(s): J44.9 - CHRONIC OBSTRUCTIVE PULMONARY DISEASE, UNSPECIFIED (5) Coronary artery disease Code(s): I25.10 - ATHSCL HEART DISEASE OF [place] CORONARY ARTERY W/O ANG PCTRS (6) Diabetes Code(s): E11.9 - TYPE 2 DIABETES MELLITUS WITHOUT COMPLICATIONS Assessment/Plan PULMONARY F/U OUTPATIENT WILL NEED BIPAP FOR HOME CARE CARDIOLOGY EVAL CHECK ECHO LABS OOB TO CHAIR PT EVAL
[2017-06-21] MEDS ORDERED: ONDANSETRON 4 MG/2 ML VIAL IVPB ONE (19:14)
[2017-06-21] MEDS ORDERED: ONDANSETRON 4 MG/2 ML VIAL ONE (19:16)
[2017-06-21] MEDS: ATORVASTATIN CA 20 MG TABLET (FP) PO SCH (21:50)
[2017-06-21] MEDS ORDERED: HEMOQUE TEST 1 EACH EACH ONE (22:50)
[2017-06-22] MEDS: methylPREDNISolone NA SUCC 125 MG/2 ML VIAL IVPB SCH ×3 (01:09→17:48)
[2017-06-22] MEDS ORDERED: PT OWN MED DRAWER 7, Y5N ONE (06:39)
[2017-06-22] MEDS: sitaGLIPtin PHOSPHATE 25 MG TABLET (FP) PO SCH (06:40)
[2017-06-22 06:49] LABS: MCH 29.4 pg (25.7-33.7); MEAN CELL VOLUME 91.7 fl (80-96); PLATELET COUNT 232 K/MM3 (134-434); RDW 15.2 % (11.6-15.6); WHITE BLOOD COUNT 11.8 K/mm3 (4.0-10.0)
[2017-06-22] MEDS: INSULIN SLIDING SCALE (NOVOLOG) 1 VIAL SQ SCH ×4 (07:04→21:34)
[2017-06-22 07:24] LABS: ALBUMIN 3.2 g/dl (3.4-5.0); ALK PHOS 40 U/L (45-117); ANION GAP 8 (8-16); BILIRUBIN,TOTAL 0.4 mg/dL (0.2-1.0); CALCIUM 8.7 mg/dL (8.5-10.1); CO2 30 mmol/L (21-32); CREATININE 0.6 mg/dL (0.55-1.02); GLUCOSE,RANDOM 165 mg/dL (74-106); MAGNESIUM 2.3 mg/dL (1.8-2.4); PHOSPHOROUS 3.7 mg/dL (2.5-4.9); SGOT/AST 13 U/L (15-37); SGPT/ALT 16 U/L (12-78)
[2017-06-22] MEDS: ALBUTEROL SO4 2.5/IPRATROPIUM 0.5 INH SOL 3 ML VIAL.NEB. NEB SCH ×4 (07:45→23:40)
[2017-06-22] MEDS: cefTRIAXone 1 GM/50 ML BAG (PRE-DOCKED) IVPB SCH (09:31)
[2017-06-22] MEDS: METOPROLOL TARTRATE 25 MG TABLET (FP) PO SCH ×2 (09:31→21:20)
--- NOTE | 2017-06-22 10:03 | PN ---
Progress Note (short form) - Note Progress Note: PULMONARY/CCM Pt seen and examined in the ICU. Extubated yesterday without incident. Still some shortness of breath, cough with pinkish sputum. +wheezing. Saturaing high 80s on nasal cannula. Last Vital Signs Temp Pulse Resp BP Pulse Ox 98.1 F 98 H 20 132/59 94 L 06/22/17 06:00 06/22/17 06:00 06/22/17 06:00 06/22/17 06:00 06/21/17 20:38 Intake & Output 06/19/17 06/20/17 06/21/17 06/22/17 23:59 23:59 23:59 23:59 Intake Total 507.2 1607.9 200 Output Total 450 1750 500 Balance 57.2 -142.1 -300 Weight 150 lb 155 lb 13.869 oz 158 lb 8.198 oz 156 lb 7 oz Gen: tachypneic with speaking Heart: RRR Lung: bilateral rhonchi, wheezes Abd: soft, nontender Ext: no edema CBC, BMP 06/22/17 05:15 06/22/17 05:15 Active Medications Acetaminophen (Tylenol -) 650 mg PO Q6H PRN PRN Reason: FEVER OR PAIN Albuterol/Ipratropium (Duoneb -) 1 amp NEB QIDR [facility] Last Admin: 06/22/17 07:45 Dose: 1 amp Atorvastatin Calcium (Lipitor -) 20 mg PO HS [facility] Last Admin: 06/21/17 21:50 Dose: 20 mg Ceftriaxone Sodium (Rocephin 1gm Ivpb (Pre-Docked)) 1 gm IVPB DAILY [facility] Last Admin: 06/22/17 09:31 Dose: 1 gm Insulin Aspart (Novolog Vial Sliding Scale -) 1 vial SQ ACHS [facility] PRN Reason: Protocol Last Admin: 06/22/17 07:04 Dose: Not Given Methylprednisolone Sodium Succinate (Solu-Medrol -) 80 mg IVPB Q8H-IV [facility] Last Admin: 06/22/17 09:31 Dose: 80 mg Metoprolol Tartrate (Lopressor -) 12.5 mg PO BID [facility] Last Admin: 06/22/17 09:31 Dose: 12.5 mg Sitagliptin Phosphate (Januvia -) 25 mg PO DAILY@0700 [facility] Last Admin: 06/22/17 06:40 Dose: 25 mg A/P s/p Acute Hypercapneic Respiratory Failure Acute COPD Exacerbation LV Diastolic Dysfunction CAD HTN DM - continue medrol at current dose - inhaled bronchodilators standing and PRN - O2 to keep SpO2 >88% - complete empiric antibiotics - continued smoking cessation - will need screening CT chest when stable - PO as tolerated - DVT prophylaxis - continue ICU monitoring critical care time spent in reviewing chart, evaluating patient and formulating plan 35 min
--- NOTE | 2017-06-22 20:41 | PN ---
Progress Note, Physician Chief Complaint: Patient came in because of SOB, intubated and admitted to ICU, S/P extubation At present, still complains of shortness of breath History of Present Illness: Patient awake, still noted to be catching her breath at times, denies pain. Reported she feel much better than yesterday. - Current Medication List Current Medications: Active Medications Acetaminophen (Tylenol -) 650 mg PO Q6H PRN PRN Reason: FEVER OR PAIN Albuterol/Ipratropium (Duoneb -) 1 amp NEB QIDR [facility] Last Admin: 06/22/17 17:45 Dose: 1 amp Atorvastatin Calcium (Lipitor -) 20 mg PO HS [facility] Last Admin: 06/21/17 21:50 Dose: 20 mg Ceftriaxone Sodium (Rocephin 1gm Ivpb (Pre-Docked)) 1 gm IVPB DAILY [facility] Last Admin: 06/22/17 09:31 Dose: 1 gm Insulin Aspart (Novolog Vial Sliding Scale -) 1 vial SQ ACHS [facility] PRN Reason: Protocol Last Admin: 06/22/17 16:27 Dose: 4 units Methylprednisolone Sodium Succinate (Solu-Medrol -) 80 mg IVPB Q8H-IV [facility] Last Admin: 06/22/17 17:48 Dose: 80 mg Metoprolol Tartrate (Lopressor -) 12.5 mg PO BID [facility] Last Admin: 06/22/17 09:31 Dose: 12.5 mg Sitagliptin Phosphate (Januvia -) 25 mg PO DAILY@0700 [facility] Last Admin: 06/22/17 06:40 Dose: 25 mg - Objective Vital Signs: Vital Signs Temperature 98.4 F 06/22/17 12:00 Pulse Rate 85 06/22/17 20:00 Respiratory Rate 20 06/22/17 20:00 Blood Pressure 152/85 06/22/17 20:00 O2 Sat by Pulse Oximetry (%) 94 L 06/21/17 20:38 Labs: CBC, BMP 06/22/17 05:15 06/22/17 05:15 Problem List - Problems (1) Respiratory failure with hypercapnia Code(s): J96.92 - RESPIRATORY FAILURE, UNSPECIFIED WITH HYPERCAPNIA (2) Shortness of breath Code(s): R06.02 - SHORTNESS OF BREATH (3) COPD (chronic obstructive pulmonary disease) Code(s): J44.9 - CHRONIC OBSTRUCTIVE PULMONARY DISEASE, UNSPECIFIED (4) Coronary artery disease Code(s): I25.10 - ATHSCL HEART DISEASE OF [place] CORONARY ARTERY W/O ANG PCTRS (5) Diabetes Code(s): E11.9 - TYPE 2 DIABETES MELLITUS WITHOUT COMPLICATIONS Assessment/Plan -seen by pulmonary -continue medrol, and inhaled bronchodilators -keep O2 sat >88% -continue IV antibiotics -monitor labs in am -PT eval
[2017-06-22] MEDS: ATORVASTATIN CA 20 MG TABLET (FP) PO SCH (21:20)
[2017-06-22] MEDS ORDERED: HEMOQUE TEST 1 EACH EACH ONE (21:26)
[2017-06-23] MEDS: methylPREDNISolone NA SUCC 125 MG/2 ML VIAL IVPB SCH ×3 (01:54→17:17)
[2017-06-23] MEDS ORDERED: PT OWN MED DRAWER 7, Y5N ONE ×2 (05:49→22:33)
[2017-06-23] MEDS: ALBUTEROL SO4 2.5/IPRATROPIUM 0.5 INH SOL 3 ML VIAL.NEB. NEB SCH ×4 (06:25→23:30)
[2017-06-23 06:33] LABS: BASOPHIL 0.2 % (0-2.0); MCH 29.9 pg (25.7-33.7); MCHC 32.9 g/dl (32.0-36.0); NEUTROPHILS 89.6 % (42.8-82.8); PLATELET COUNT 220 K/MM3 (134-434); RDW 14.6 % (11.6-15.6); WHITE BLOOD COUNT 10.5 K/mm3 (4.0-10.0)
[2017-06-23 06:59] LABS: ALBUMIN 3.2 g/dl (3.4-5.0); ALK PHOS 41 U/L (45-117); ANION GAP 6 (8-16); BILIRUBIN,TOTAL 0.5 mg/dL (0.2-1.0); CALCIUM 8.8 mg/dL (8.5-10.1); CO2 31 mmol/L (21-32); CREATININE 0.7 mg/dL (0.55-1.02); GLUCOSE,RANDOM 181 mg/dL (74-106); MAGNESIUM 2.1 mg/dL (1.8-2.4); PHOSPHOROUS 2.6 mg/dL (2.5-4.9); SGOT/AST 15 U/L (15-37); SGPT/ALT 19 U/L (12-78); TOT PROT 6.3 g/dl (6.4-8.2)
[2017-06-23] MEDS: INSULIN SLIDING SCALE (NOVOLOG) 1 VIAL SQ SCH ×4 (08:12→22:52)
[2017-06-23] MEDS: sitaGLIPtin PHOSPHATE 25 MG TABLET (FP) PO SCH (08:12)
--- NOTE | 2017-06-23 09:22 | PN ---
Progress Note (short form) - Note Progress Note: PULMONARY/CCM Pt seen and examined in the ICU. Still some shortness of breath, cough but improving. Saturating high 80s on 3L nasal cannula. Last Vital Signs Temp Pulse Resp BP Pulse Ox 98.4 F 68 20 150/68 90 L 06/23/17 06:00 06/23/17 06:00 06/23/17 06:00 06/23/17 06:00 06/22/17 21:00 Intake & Output 06/20/17 06/21/17 06/22/17 06/23/17 23:59 23:59 23:59 23:59 Intake Total 507.2 1607.9 1620 140 Output Total 450 1750 1100 200 Balance 57.2 -142.1 520 -60 Weight 155 lb 13.869 oz 158 lb 8.198 oz 156 lb 7 oz 152 lb 14.4 oz Gen: less tachypneic Heart: RRR Lung: distant breath sounds, less wheezes Abd: soft, nontender Ext: no edema CBC, BMP 06/23/17 05:15 06/23/17 05:15 Active Medications Acetaminophen (Tylenol -) 650 mg PO Q6H PRN PRN Reason: FEVER OR PAIN Albuterol/Ipratropium (Duoneb -) 1 amp NEB QIDR [facility] Last Admin: 06/23/17 06:25 Dose: 1 amp Atorvastatin Calcium (Lipitor -) 20 mg PO HS [facility] Last Admin: 06/22/17 21:20 Dose: 20 mg Ceftriaxone Sodium (Rocephin 1gm Ivpb (Pre-Docked)) 1 gm IVPB DAILY [facility] Last Admin: 06/22/17 09:31 Dose: 1 gm Insulin Aspart (Novolog Vial Sliding Scale -) 1 vial SQ ACHS [facility] PRN Reason: Protocol Last Admin: 06/23/17 08:12 Dose: 2 units Methylprednisolone Sodium Succinate (Solu-Medrol -) 80 mg IVPB Q8H-IV [facility] Last Admin: 06/23/17 01:54 Dose: 80 mg Metoprolol Tartrate (Lopressor -) 12.5 mg PO BID [facility] Last Admin: 06/22/17 21:20 Dose: 12.5 mg Sitagliptin Phosphate (Januvia -) 25 mg PO DAILY@0700 [facility] Last Admin: 06/23/17 08:12 Dose: 25 mg A/P s/p Acute Hypercapneic Respiratory Failure Acute COPD Exacerbation LV Diastolic Dysfunction CAD HTN DM - will decrease medrol to 60mg q8h - inhaled bronchodilators standing and PRN - O2 to keep SpO2 >88% - complete empiric antibiotics - continued smoking cessation - will need screening CT chest when stable - PO as tolerated - DVT prophylaxis - will likely need home O2 when ready for discharge critical care time spent in reviewing chart, evaluating patient and formulating plan 35 min
[2017-06-23] MEDS ORDERED: methylPREDNISolone NA SUCC 125 MG/2 ML VIAL ONE (09:51)
--- NOTE | 2017-06-23 09:57 | PN ---
Progress Note, Physician Chief Complaint: Pt A&Ox3; OOB in chair; no chest pain; difficulty with spirometer ("it's too hard to make it move"). History of Present Illness: 67-year-old white woman with PMHx history of hypertension, hyperlipidemia, , non -insulin-dependent diabetes, CAD status post stents 2 years ago, aortic graft repair 2 years ago, now presents with 3 weeks of progressive shortness of breath and dyspnea on exertion. Patient reports her exercise tolerance is reduced to walking across the room for the past 2 weeks. Reports being unable to sleep flat. She initially thought she had bronchitis but yesterday noticed that her feet and lower extremities were becoming swollen and her family prompted her to come to the emergency department. She was told two years ago that she had heart failure when she had her stents placed but is not on a water pill. Her sister from complications of heart failure. She denies any current chest pain. Denies any fevers, chills, nausea, vomiting, diaphoresis. Does report a cough productive of white sputum for one month. Denies abdominal pain. On arrival to the emergency department the patient was hypoxic to 71%. Nonrebreather mask was placed with recovery of her pulse ox to the low 90s, and then quickly titrated down to 4 L with a pulse ox in the low 90s. Ramp Flight Attendant: Dr. Cassidy - Current Medication List Current Medications: Active Medications Acetaminophen (Tylenol -) 650 mg PO Q6H PRN PRN Reason: FEVER OR PAIN Albuterol/Ipratropium (Duoneb -) 1 amp NEB QIDR [facility] Last Admin: 06/23/17 06:25 Dose: 1 amp Atorvastatin Calcium (Lipitor -) 20 mg PO HS [facility] Last Admin: 06/22/17 21:20 Dose: 20 mg Ceftriaxone Sodium (Rocephin 1gm Ivpb (Pre-Docked)) 1 gm IVPB DAILY [facility] Last Admin: 06/22/17 09:31 Dose: 1 gm Insulin Aspart (Novolog Vial Sliding Scale -) 1 vial SQ ACHS [facility] PRN Reason: Protocol Last Admin: 06/23/17 08:12 Dose: 2 units Lisinopril (Prinivil) 2.5 mg PO DAILY [facility] Methylprednisolone Sodium Succinate (Solu-Medrol -) 60 mg IVPB Q8H-IV [facility] Metoprolol Tartrate (Lopressor -) 12.5 mg PO BID [facility] Last Admin: 06/22/17 21:20 Dose: 12.5 mg Sitagliptin Phosphate (Januvia -) 25 mg PO DAILY@0700 [facility] Last Admin: 06/23/17 08:12 Dose: 25 mg - Objective Vital Signs: Vital Signs Temperature 98.4 F 06/23/17 06:00 Pulse Rate 68 06/23/17 06:00 Respiratory Rate 20 06/23/17 06:00 Blood Pressure 150/68 06/23/17 06:00 O2 Sat by Pulse Oximetry (%) 90 L 06/22/17 21:00 Constitutional: Yes: Calm Eyes: Yes: WNL HENT: Yes: WNL Neck: Yes: WNL Cardiovascular: Yes: Regular Rate and Rhythm Respiratory: Yes: Regular Gastrointestinal: Yes: WNL ...Rectal Exam: Yes: Deferred Genitourinary: No: Anuria Breast(s): Yes: WNL Musculoskeletal: Yes: WNL Extremities: Yes: WNL Peripheral Pulses WNL: Yes Integumentary: Yes: WNL Neurological: Yes: WNL Labs: CBC, BMP 06/23/17 05:15 06/23/17 05:15 Problem List - Problems (1) Respiratory failure with hypercapnia Assessment/Plan: iNow extubated; doing well. TNI < 0.02 x 2. Code(s): J96.92 - RESPIRATORY FAILURE, UNSPECIFIED WITH HYPERCAPNIA (2) Shortness of breath Code(s): R06.02 - SHORTNESS OF BREATH (3) COPD (chronic obstructive pulmonary disease) Code(s): J44.9 - CHRONIC OBSTRUCTIVE PULMONARY DISEASE, UNSPECIFIED (4) Coronary artery disease Assessment/Plan: f/u recent coronary angiogram/PCI. Aggressive control of lipids; on statin. Smoking cessation is a must. ASA 81 mg daily. Code(s): I25.10 - ATHSCL HEART DISEASE OF [place] CORONARY ARTERY W/O ANG PCTRS (5) Diabetes Code(s): E11.9 - TYPE 2 DIABETES MELLITUS WITHOUT COMPLICATIONS (6) HTN (hypertension) Assessment/Plan: On metoprolol. Lisinopril added (DM; HTN). Code(s): I10 - ESSENTIAL (PRIMARY) HYPERTENSION
--- NOTE | 2017-06-23 09:59 | PN ---
Progress Note, Physician Chief Complaint: Pt A&Ox3; remains intubated and sedated, but awakens easily; follows commands; periods of agitation. History of Present Illness: 67-year-old white woman with PMHx history of COPD, hypertension, hyperlipidemia , , sli-[id number]-lycytdfrh diabetes, CAD status post stents 2 years ago, aortic graft repair 2 years ago, now presents with 3 weeks of progressive shortness of breath and dyspnea on exertion. Patient reports her exercise tolerance is reduced to walking across the room for the past 2 weeks. Reports being unable to sleep flat. She initially thought she had bronchitis but yesterday noticed that her feet and lower extremities were becoming swollen and her family prompted her to come to the emergency department. She was told two years ago that she had heart failure when she had her stents placed but is not on a water pill. Her sister from complications of heart failure. She denies any current chest pain. Denies any fevers, chills, nausea, vomiting, diaphoresis. Does report a cough productive of white sputum for one month. Denies abdominal pain. On arrival to the emergency department the patient was hypoxic to 71%. Nonrebreather mask was placed with recovery of her pulse ox to the low 90s, and then quickly titrated down to 4 L with a pulse ox in the low 90s. Estate Planning Counselor: Dr. Cassidy - Current Medication List Current Medications: Active Medications Acetaminophen (Tylenol -) 650 mg PO Q6H PRN PRN Reason: FEVER OR PAIN Albuterol/Ipratropium (Duoneb -) [address] [facility] Last Admin: 06/23/17 06:25 Dose: 1 amp Atorvastatin Calcium (Lipitor -) [address] [facility] Last Admin: 06/22/17 21:20 Dose: 20 mg Ceftriaxone Sodium (Rocephin 1gm Ivpb (Pre-Docked)) [address] [facility] Last Admin: 06/22/17 09:31 Dose: 1 gm Insulin Aspart (Novolog Vial Sliding Scale -) [address] [facility] PRN Reason: Protocol Last Admin: 06/23/17 08:12 Dose: 2 units Lisinopril (Prinivil) 2.[address] [facility] Methylprednisolone Sodium Succinate (Solu-Medrol -) 60 mg IVPB Q8H-IV [facility] Metoprolol Tartrate (Lopressor -) 12.[address] [facility] Last Admin: 06/22/17 21:20 Dose: 12.5 mg Sitagliptin Phosphate (Januvia -) 25 mg PO DAILY@0700 [facility] Last Admin: 06/23/17 08:12 Dose: 25 mg - Objective Vital Signs: Vital Signs Temperature 98.4 F 06/23/17 06:00 Pulse Rate 68 06/23/17 06:00 Respiratory Rate 20 06/23/17 06:00 Blood Pressure 150/68 06/23/17 06:00 O2 Sat by Pulse Oximetry (%) 90 L 06/22/17 21:00 Constitutional: Yes: Mild Distress Eyes: Yes: WNL HENT: Yes: WNL Neck: Yes: WNL Cardiovascular: Yes: Regular Rate and Rhythm Respiratory: Yes: Diminished Gastrointestinal: Yes: Soft ...Rectal Exam: Yes: Deferred Genitourinary: No: Anuria Musculoskeletal: Yes: WNL Extremities: Yes: WNL Edema: No Peripheral Pulses WNL: Yes Integumentary: Yes: WNL Neurological: Yes: Alert Labs: CBC, BMP 06/23/17 05:15 06/23/17 05:15 - ....Imaging Chest X-ray: Image Reviewed (no acute changes) EKG: Image Reviewed (NSR) Problem List - Problems (1) Respiratory failure with hypercapnia Assessment/Plan: Weaning per pulmonary. TNI < 0.02 x 2. ECHO: normal LVEF. Code(s): J96.92 - RESPIRATORY FAILURE, UNSPECIFIED WITH HYPERCAPNIA (2) Shortness of breath Code(s): R06.02 - SHORTNESS OF BREATH (3) COPD (chronic obstructive pulmonary disease) Assessment/Plan: risks for COPD (at least 40 pack-yr smoking hx). CT chest. Code(s): J44.9 - CHRONIC OBSTRUCTIVE PULMONARY DISEASE, UNSPECIFIED (4) Coronary artery disease Assessment/Plan: f/u recent coronary angiogram/PCI. Aggressive control of lipids. Smoking cessation is a must. Code(s): I25.10 - ATHSCL HEART DISEASE OF [place] CORONARY ARTERY W/O ANG PCTRS (5) Diabetes Assessment/Plan: start ACEI for DM, HTN, renal protection. Code(s): E11.9 - TYPE 2 DIABETES MELLITUS WITHOUT COMPLICATIONS (6) Cigarette nicotine dependence Assessment/Plan: both pt and her smoke. Code(s): F17.210 - NICOTINE DEPENDENCE, CIGARETTES, UNCOMPLICATED
[2017-06-23] MEDS: METOPROLOL TARTRATE 25 MG TABLET (FP) PO SCH ×2 (10:33→22:44)
[2017-06-23] MEDS: LISINOPRIL 5 MG TABLET (FP) PO SCH (10:33)
[2017-06-23] MEDS: cefTRIAXone 1 GM/50 ML BAG (PRE-DOCKED) IVPB SCH (10:34)
--- NOTE | 2017-06-23 12:47 | EKG ---
Test Reason : Blood Pressure : / mmHG Vent. Rate : 082 BPM Atrial Rate : 082 BPM P-R Int : 114 ms QRS Dur : 084 ms QT Int : 386 ms P-R-T Axes : 069 066 067 degrees QTc Int : 450 ms NORMAL SINUS RHYTHM POSSIBLE LEFT ATRIAL ENLARGEMENT BORDERLINE ECG WHEN COMPARED WITH ECG OF 19-JUN-2017 13:07, NO SIGNIFICANT CHANGE WAS FOUND PATIENT SITTING IN CHAIR DURING EKG Confirmed by SONA PALOMO, NEELA ([id number]) on 06/23/2017 12:46:56 PM Referred By: Jermaine HORTA Confirmed By:NEELA MAGALLANES MD
--- NOTE | 2017-06-23 15:19 | PN ---
Progress Note, Physician Chief Complaint: Patient came in because of SOB, intubated and admitted to ICU, S/P extubation At present, still complains of episodes of shortness of breath. History of Present Illness: Patient awake, still noted to be catching her breath at times, denies pain. - Current Medication List Current Medications: Active Medications Acetaminophen (Tylenol -) 650 mg PO Q6H PRN PRN Reason: FEVER OR PAIN Albuterol/Ipratropium (Duoneb -) 1 amp NEB QIDR [facility] Last Admin: 06/23/17 11:30 Dose: 1 amp Atorvastatin Calcium (Lipitor -) 20 mg PO HS [facility] Last Admin: 06/22/17 21:20 Dose: 20 mg Ceftriaxone Sodium (Rocephin 1gm Ivpb (Pre-Docked)) 1 gm IVPB DAILY [facility] Last Admin: 06/23/17 10:34 Dose: 1 gm Insulin Aspart (Novolog Vial Sliding Scale -) 1 vial SQ ACHS [facility] PRN Reason: Protocol Last Admin: 06/23/17 11:11 Dose: Not Given Lisinopril (Prinivil) 2.5 mg PO DAILY [facility] Last Admin: 06/23/17 10:33 Dose: 2.5 mg Methylprednisolone Sodium Succinate (Solu-Medrol -) 60 mg IVPB Q8H-IV [facility] Last Admin: 06/23/17 10:34 Dose: 60 mg Metoprolol Tartrate (Lopressor -) 12.5 mg PO BID [facility] Last Admin: 06/23/17 10:33 Dose: 12.5 mg Sitagliptin Phosphate (Januvia -) 25 mg PO DAILY@0700 [facility] Last Admin: 06/23/17 08:12 Dose: 25 mg - Objective Vital Signs: Vital Signs Temperature 98.2 F 06/23/17 10:00 Pulse Rate 92 H 06/23/17 12:00 Respiratory Rate 22 06/23/17 12:00 Blood Pressure 146/78 06/23/17 12:00 O2 Sat by Pulse Oximetry (%) 90 L 06/23/17 09:00 Labs: CBC, BMP 06/23/17 05:15 06/23/17 05:15 Problem List - Problems (1) Respiratory failure with hypercapnia Code(s): J96.92 - RESPIRATORY FAILURE, UNSPECIFIED WITH HYPERCAPNIA (2) Shortness of breath Code(s): R06.02 - SHORTNESS OF BREATH (3) COPD (chronic obstructive pulmonary disease) Code(s): J44.9 - CHRONIC OBSTRUCTIVE PULMONARY DISEASE, UNSPECIFIED (4) Coronary artery disease Code(s): I25.10 - ATHSCL HEART DISEASE OF [place] CORONARY ARTERY W/O ANG PCTRS (5) Diabetes Code(s): E11.9 - TYPE 2 DIABETES MELLITUS WITHOUT COMPLICATIONS Assessment/Plan -pulmonary on board -continue medrol (taper dose as per pulmo) -continue inhaled bronchodilators -keep O2 sat >88% -continue IV antibiotics -monitor labs in am -PT eval
--- NOTE | 2017-06-23 21:53 | PN ---
Progress Note, Physician Chief Complaint: Pt A&Ox3; extubated. History of Present Illness: 67-year-old white woman with PMHx history of COPD, hypertension, hyperlipidemia , , [id number] diabetes, CAD status post stents 2 years ago, aortic graft repair 2 years ago, now presents with 3 weeks of progressive shortness of breath and dyspnea on exertion. Patient reports her exercise tolerance is reduced to walking across the room for the past 2 weeks. Reports being unable to sleep flat. She initially thought she had bronchitis but yesterday noticed that her feet and lower extremities were becoming swollen and her family prompted her to come to the emergency department. She was told two years ago that she had heart failure when she had her stents placed but is not on a water pill. Her sister from complications of heart failure. She denies any current chest pain. Denies any fevers, chills, nausea, vomiting, diaphoresis. Does report a cough productive of white sputum for one month. Denies abdominal pain. On arrival to the emergency department the patient was hypoxic to 71%. Nonrebreather mask was placed with recovery of her pulse ox to the low 90s, and then quickly titrated down to 4 L with a pulse ox in the low 90s. Lasting Room Machine Operator: Dr. Cassidy - Current Medication List Current Medications: Active Medications Acetaminophen (Tylenol -) 650 mg PO Q6H PRN PRN Reason: FEVER OR PAIN Albuterol/Ipratropium (Duoneb -) 1 amp NEB QIDR [facility] Last Admin: 06/23/17 17:15 Dose: 1 amp Atorvastatin Calcium (Lipitor -) 20 mg PO HS [facility] Last Admin: 06/22/17 21:20 Dose: 20 mg Ceftriaxone Sodium (Rocephin 1gm Ivpb (Pre-Docked)) 1 gm IVPB DAILY [facility] Last Admin: 06/23/17 10:34 Dose: 1 gm Insulin Aspart (Novolog Vial Sliding Scale -) 1 vial SQ ACHS [facility] PRN Reason: Protocol Last Admin: 06/23/17 17:05 Dose: Not Given Lisinopril (Prinivil) 2.5 mg PO DAILY [facility] Last Admin: 06/23/17 10:33 Dose: 2.5 mg Methylprednisolone Sodium Succinate (Solu-Medrol -) 60 mg IVPB Q8H-IV [facility] Last Admin: 06/23/17 17:17 Dose: 60 mg Metoprolol Tartrate (Lopressor -) 12.5 mg PO BID [facility] Last Admin: 06/23/17 10:33 Dose: 12.5 mg Sitagliptin Phosphate (Januvia -) 25 mg PO DAILY@0700 [facility] Last Admin: 06/23/17 08:12 Dose: 25 mg - Objective Vital Signs: Vital Signs Temperature 99.2 F 06/23/17 18:00 Pulse Rate 87 06/23/17 20:00 Respiratory Rate 06/23/17 21:00 Blood Pressure 160/64 06/23/17 20:00 O2 Sat by Pulse Oximetry (%) 90 L 06/23/17 21:00 Constitutional: Yes: Calm Eyes: Yes: WNL Neck: Yes: WNL Cardiovascular: Yes: WNL Respiratory: Yes: Regular Gastrointestinal: Yes: Soft ...Rectal Exam: Yes: Deferred Genitourinary: No: Anuria Breast(s): Yes: WNL Extremities: Yes: WNL Edema: No Peripheral Pulses WNL: Yes Integumentary: Yes: WNL Psychiatric: Yes: WNL Labs: CBC, BMP 06/23/17 05:15 06/23/17 05:15 - ....Imaging Other: Image Reviewed (telemetry: NSR) Problem List - Problems (1) Respiratory failure with hypercapnia Assessment/Plan: Extubated; dyspneic with mild exertion. TNI < 0.02 x 2. ECHO: normal LVEF. Code(s): J96.92 - RESPIRATORY FAILURE, UNSPECIFIED WITH HYPERCAPNIA (2) Shortness of breath Code(s): R06.02 - SHORTNESS OF BREATH (3) COPD (chronic obstructive pulmonary disease) Assessment/Plan: risks for COPD (at least 40 pack-yr smoking hx). CT chest. Code(s): J44.9 - CHRONIC OBSTRUCTIVE PULMONARY DISEASE, UNSPECIFIED (4) Coronary artery disease Assessment/Plan: f/u recent coronary angiogram/PCI. Aggressive control of lipids; on statin. Smoking cessation is a must. ASA 81 mg daily. Code(s): I25.10 - ATHSCL HEART DISEASE OF [place] CORONARY ARTERY W/O ANG PCTRS (5) Diabetes Assessment/Plan: start ACEI for DM, HTN, renal protection. Code(s): E11.9 - TYPE 2 DIABETES MELLITUS WITHOUT COMPLICATIONS (6) Cigarette nicotine dependence Code(s): F17.210 - NICOTINE DEPENDENCE, CIGARETTES, UNCOMPLICATED Assessment/Plan ccu time spent perusing chart, discussing case, examining pt, formulatin plan: 35 minutes.
[2017-06-23] MEDS ORDERED: HEMOQUE TEST 1 EACH EACH ONE (22:34)
[2017-06-23] MEDS: ATORVASTATIN CA 20 MG TABLET (FP) PO SCH (22:44)
[2017-06-24] MEDS: methylPREDNISolone NA SUCC 125 MG/2 ML VIAL IVPB SCH ×3 (01:10→18:50)
[2017-06-24] MEDS: sitaGLIPtin PHOSPHATE 25 MG TABLET (FP) PO SCH (06:19)
[2017-06-24] MEDS: INSULIN SLIDING SCALE (NOVOLOG) 1 VIAL SQ SCH ×4 (06:19→21:58)
[2017-06-24] MEDS: ALBUTEROL SO4 2.5/IPRATROPIUM 0.5 INH SOL 3 ML VIAL.NEB. NEB SCH ×2 (06:27→10:45)
[2017-06-24 06:45] LABS: BASOPHIL 0.3 % (0-2.0); EOSINOPHIL 0.2 % (0-4.5); MCH 29.7 pg (25.7-33.7); MCHC 32.8 g/dl (32.0-36.0); MEAN CELL VOLUME 90.7 fl (80-96); MEAN PLT VOLUME 9.1 fl (7.5-11.1); PLATELET COUNT 225 K/MM3 (134-434); RDW 14.9 % (11.6-15.6); WHITE BLOOD COUNT 9.6 K/mm3 (4.0-10.0)
--- NOTE | 2017-06-24 08:13 | PN ---
Progress Note, Physician History of Present Illness: feels better no cp no palpitations - Current Medication List Current Medications: Active Medications Acetaminophen (Tylenol -) 650 mg PO Q6H PRN PRN Reason: FEVER OR PAIN Albuterol/Ipratropium (Duoneb -) 1 amp NEB QIDR [facility] Last Admin: 06/24/17 06:27 Dose: 1 amp Atorvastatin Calcium (Lipitor -) 20 mg PO HS [facility] Last Admin: 06/23/17 22:44 Dose: 20 mg Ceftriaxone Sodium (Rocephin 1gm Ivpb (Pre-Docked)) 1 gm IVPB DAILY [facility] Last Admin: 06/23/17 10:34 Dose: 1 gm Insulin Aspart (Novolog Vial Sliding Scale -) 1 vial SQ ACHS [facility] PRN Reason: Protocol Last Admin: 06/24/17 06:19 Dose: 2 units Lisinopril (Prinivil) 2.5 mg PO DAILY [facility] Last Admin: 06/23/17 10:33 Dose: 2.5 mg Methylprednisolone Sodium Succinate (Solu-Medrol -) 60 mg IVPB Q8H-IV [facility] Last Admin: 06/24/17 01:10 Dose: 60 mg Metoprolol Tartrate (Lopressor -) 12.5 mg PO BID [facility] Last Admin: 06/23/17 22:44 Dose: 12.5 mg Sitagliptin Phosphate (Januvia -) 25 mg PO DAILY@0700 [facility] Last Admin: 06/24/17 06:19 Dose: 25 mg - Objective Vital Signs: Vital Signs Temperature 99.1 F 06/24/17 04:00 Pulse Rate 76 06/24/17 06:00 Respiratory Rate 18 06/24/17 06:00 Blood Pressure 152/80 06/24/17 06:00 O2 Sat by Pulse Oximetry (%) 90 L 06/23/17 21:00 Cardiovascular: Yes: Regular Rate and Rhythm Respiratory: Yes: Regular, CTA Bilaterally Gastrointestinal: Yes: Normal Bowel Sounds, Soft. No: Tenderness Labs: CBC, BMP 06/24/17 05:20 Problem List - Problems (1) HTN (hypertension) Code(s): I10 - ESSENTIAL (PRIMARY) HYPERTENSION (2) Respiratory failure with hypercapnia Assessment/Plan: STEROIDS NEBS PULM ON BOARD MONITOR SATS Code(s): J96.92 - RESPIRATORY FAILURE, UNSPECIFIED WITH HYPERCAPNIA (3) COPD (chronic obstructive pulmonary disease) Assessment/Plan: ABOVE Code(s): J44.9 - CHRONIC OBSTRUCTIVE PULMONARY DISEASE, UNSPECIFIED (4) Coronary artery disease Assessment/Plan: S/P PCI STATIN ASA CARDIO ON BOARD Laboratory Tests 06/20/17 05:15 Triglycerides 141 Cholesterol 113 Total LDL Cholesterol 48 HDL Cholesterol 51 D Code(s): I25.10 - ATHSCL HEART DISEASE OF [place] CORONARY ARTERY W/O ANG PCTRS
[2017-06-24 08:21] LABS: ALBUMIN 3.3 g/dl (3.4-5.0)
[2017-06-24 08:27] LABS: ALK PHOS 42 U/L (45-117); ANION GAP 8 (8-16); BILIRUBIN,TOTAL 0.6 mg/dL (0.2-1.0); CO2 32 mmol/L (21-32); CREATININE 0.7 mg/dL (0.55-1.02); GLUCOSE,RANDOM 221 mg/dL (74-106); MAGNESIUM 2.1 mg/dL (1.8-2.4); PHOSPHOROUS 3.3 mg/dL (2.5-4.9); SGOT/AST 15 U/L (15-37); SGPT/ALT 21 U/L (12-78); TOT PROT 6.1 g/dl (6.4-8.2)
[2017-06-24] MEDS: METOPROLOL TARTRATE 25 MG TABLET (FP) PO SCH ×2 (10:50→21:31)
[2017-06-24] MEDS: LISINOPRIL 5 MG TABLET (FP) PO SCH (10:53)
[2017-06-24] MEDS: cefTRIAXone 1 GM/50 ML BAG (PRE-DOCKED) IVPB SCH (11:00)
--- NOTE | 2017-06-24 11:29 | PN ---
Teaching Attending Note Name of Resident: Placido Rodriguez ATTENDING PHYSICIAN STATEMENT I saw and evaluated the patient. I reviewed the resident's note and discussed the case with the resident. I agree with the resident's findings and plan as documented. SUBJECTIVE: Pt seen and examined in the ICU. Continues to improve. Breathing slowly improving. Less cough and wheezing. saturating 90% on 4 L nasal cannula. OBJECTIVE: Last Vital Signs Temp Pulse Resp BP Pulse Ox 99.1 F 88 18 129/65 92 L 06/24/17 04:00 06/24/17 10:30 06/24/17 10:00 06/24/17 10:00 06/24/17 10:30 Intake & Output 06/21/17 06/22/17 06/23/17 06/24/17 23:59 23:59 23:59 23:59 Intake Total 1607.9 1620 1380 140 Output Total 1750 1100 1700 400 Balance -142.1 520 -320 -260 Weight 158 lb 8.198 oz 156 lb 7 oz 152 lb 14.4 oz 151 lb 11.2 oz Gen: NAD in chair Heart: RRR Lung: distant breath sounds, scattered rhonchi Abd: soft, nontender Ext: no edema CBC, BMP 06/24/17 05:20 06/24/17 05:20 Active Medications Acetaminophen (Tylenol -) 650 mg PO Q6H PRN PRN Reason: FEVER OR PAIN Albuterol/Ipratropium (Duoneb -) 1 amp NEB QIDR [facility] Last Admin: 06/24/17 10:45 Dose: 1 amp Atorvastatin Calcium (Lipitor -) 20 mg PO HS [facility] Last Admin: 06/23/17 22:44 Dose: 20 mg Ceftriaxone Sodium (Rocephin 1gm Ivpb (Pre-Docked)) 1 gm IVPB DAILY [facility] Last Admin: 06/23/17 10:34 Dose: 1 gm Insulin Aspart (Novolog Vial Sliding Scale -) 1 vial SQ ACHS [facility] PRN Reason: Protocol Last Admin: 06/24/17 06:19 Dose: 2 units Lisinopril (Prinivil) 2.5 mg PO DAILY [facility] Last Admin: 06/24/17 10:53 Dose: 2.5 mg Methylprednisolone Sodium Succinate (Solu-Medrol -) 60 mg IVPB Q8H-IV [facility] Last Admin: 08/21/17 10:56 Dose: 60 mg Metoprolol Tartrate (Lopressor -) 12.5 mg PO BID [facility] Last Admin: 06/24/17 10:50 Dose: 12.5 mg Sitagliptin Phosphate (Januvia -) 25 mg PO DAILY@0700 [facility] Last Admin: 06/24/17 06:19 Dose: 25 mg ASSESSMENT AND PLAN: s/p Acute Hypercapneic Respiratory Failure Acute COPD Exacerbation LV Diastolic Dysfunction CAD HTN DM - continue medrol 60mg q8h today, likely can decrease to 40mg q8h in AM - inhaled bronchodilators standing and PRN - O2 to keep SpO2 >88% - complete empiric antibiotics - continued smoking cessation - will need screening CT chest when stable or as outpt - PO as tolerated - DVT prophylaxis - will likely need home O2 when ready for discharge
--- NOTE | 2017-06-24 12:56 | PN ---
Progress Note, Physician History of Present Illness: Patient seen and examined in the ICU. She has no new complaints and states that her breathing has improved. She is saturating 92% on 4L nasal cannula. - Current Medication List Current Medications: Active Medications Acetaminophen (Tylenol -) 650 mg PO Q6H PRN PRN Reason: FEVER OR PAIN Albuterol/Ipratropium (Duoneb -) 1 amp NEB QIDR [facility] Last Admin: 06/24/17 10:45 Dose: 1 amp Atorvastatin Calcium (Lipitor -) 20 mg PO HS [facility] Last Admin: 06/23/17 22:44 Dose: 20 mg Ceftriaxone Sodium (Rocephin 1gm Ivpb (Pre-Docked)) 1 gm IVPB DAILY [facility] Last Admin: 06/23/17 10:34 Dose: 1 gm Insulin Aspart (Novolog Vial Sliding Scale -) 1 vial SQ ACHS [facility] PRN Reason: Protocol Last Admin: 06/24/17 06:19 Dose: 2 units Lisinopril (Prinivil) 2.5 mg PO DAILY [facility] Last Admin: 06/24/17 10:53 Dose: 2.5 mg Methylprednisolone Sodium Succinate (Solu-Medrol -) 60 mg IVPB Q8H-IV [facility] Last Admin: 06/24/17 10:56 Dose: 60 mg Metoprolol Tartrate (Lopressor -) 12.5 mg PO BID [facility] Last Admin: 06/24/17 10:50 Dose: 12.5 mg Sitagliptin Phosphate (Januvia -) 25 mg PO DAILY@0700 [facility] Last Admin: 06/24/17 06:19 Dose: 25 mg - Objective Vital Signs: Vital Signs Temperature 99.1 F 06/24/17 04:00 Pulse Rate 85 06/24/17 12:00 Respiratory Rate 18 06/24/17 10:00 Blood Pressure 136/76 06/24/17 12:00 O2 Sat by Pulse Oximetry (%) 92 L 06/24/17 10:30 Constitutional: Yes: Well Nourished, No Distress, Calm HENT: Yes: Atraumatic, Normocephalic Neck: Yes: Supple, Trachea Midline Cardiovascular: Yes: Regular Rate and Rhythm, S1, S2. No: JVD, Gallop, Murmur, Rub Respiratory: Yes: Regular, Rhonchi (scattered ronchi in all lung lara) Gastrointestinal: Yes: Normal Bowel Sounds, Soft Neurological: Yes: Alert, Oriented Psychiatric: Yes: Alert, Oriented Labs: CBC, BMP 06/24/17 05:20 06/24/17 05:20 Problem List - Problems (1) Respiratory failure with hypercapnia Code(s): J96.92 - RESPIRATORY FAILURE, UNSPECIFIED WITH HYPERCAPNIA (2) Shortness of breath Code(s): R06.02 - SHORTNESS OF BREATH (3) COPD (chronic obstructive pulmonary disease) Code(s): J44.9 - CHRONIC OBSTRUCTIVE PULMONARY DISEASE, UNSPECIFIED (4) Diabetes Code(s): E11.9 - TYPE 2 DIABETES MELLITUS WITHOUT COMPLICATIONS Assessment/Plan 67yo F with pmh HTN, HLD, DMII, CAD s/p 2 stents, aortic graft repair, 50 year smoking hx, and CHF in the ICU with acute hypercapnic respiratory failure. Neuro: -pt extubated 06/21, alert and oriented x3 Cardiovascular: -PMH HTN, CAD, and possible new diagnosis of CHF -BP controlled -atorvastatin 20mg PO -metoprolol 12.5 mg PO QD -lisinopril 2.5 PO QD Pulmonary: -acute hypercapnic respiratory failure on mechanical ventilation, improved today saturating in high 80's on average w/ 4L NC -methylprednisolone 60mg IV Q8H -antibiotic course completed -duoneb standing order Endocrine: -hx of diabetes mellitus type II -sitagliptin 25mg PO QD -insulin sliding scale FEN: -no indication for fluids at this time -monitor lytes -sodium controlled diet Proph: -SCDs for prophylaxis Dispo: -stable for transfer to telemetry floor with pulse oximetry monitoring -critical care time 35 mins
--- NOTE | 2017-06-24 17:38 | PN ---
Progress Note, Physician History of Present Illness: 67-year-old white woman with PMHx history of hypertension, hyperlipidemia, , non -insulin-dependent diabetes, CAD status post stents 2 years ago, aortic graft repair 2 years ago, now presents with 3 weeks of progressive shortness of breath and dyspnea on exertion. Patient reports her exercise tolerance is reduced to walking across the room for the past 2 weeks. Reports being unable to sleep flat. She initially thought she had bronchitis but yesterday noticed that her feet and lower extremities were becoming swollen and her family prompted her to come to the emergency department. She was told two years ago that she had heart failure when she had her stents placed but is not on a water pill. Her sister from complications of heart failure. She denies any current chest pain. Denies any fevers, chills, nausea, vomiting, diaphoresis. Does report a cough productive of white sputum for one month. Denies abdominal pain. On arrival to the emergency department the patient was hypoxic to 71%. Nonrebreather mask was placed with recovery of her pulse ox to the low 90s, and then quickly titrated down to 4 L with a pulse ox in the low 90s. Solar Energy Installation Manager: Dr. Cassidy - Current Medication List Current Medications: Active Medications Acetaminophen (Tylenol -) 650 mg PO Q6H PRN PRN Reason: FEVER OR PAIN Albuterol/Ipratropium (Duoneb -) 1 amp NEB QIDR [facility] Last Admin: 06/24/17 10:45 Dose: 1 amp Atorvastatin Calcium (Lipitor -) 20 mg PO HS [facility] Last Admin: 06/23/17 22:44 Dose: 20 mg Ceftriaxone Sodium (Rocephin 1gm Ivpb (Pre-Docked)) 1 gm IVPB DAILY [facility] Last Admin: 06/24/17 11:00 Dose: 1 gm Insulin Aspart (Novolog Vial Sliding Scale -) 1 vial SQ ACHS [facility] PRN Reason: Protocol Last Admin: 06/24/17 13:06 Dose: 8 units Lisinopril (Prinivil) 2.5 mg PO DAILY [facility] Last Admin: 06/24/17 10:53 Dose: 2.5 mg Methylprednisolone Sodium Succinate (Solu-Medrol -) 60 mg IVPB Q8H-IV [facility] Last Admin: 06/24/17 10:56 Dose: 60 mg Metoprolol Tartrate (Lopressor -) 12.5 mg PO BID [facility] Last Admin: 06/24/17 10:50 Dose: 12.5 mg Sitagliptin Phosphate (Januvia -) 25 mg PO DAILY@0700 [facility] Last Admin: 06/24/17 06:19 Dose: 25 mg - Objective Vital Signs: Vital Signs Temperature 98.8 F 06/24/17 14:00 Pulse Rate 87 06/24/17 14:00 Respiratory Rate 20 06/24/17 14:00 Blood Pressure 156/74 06/24/17 14:00 O2 Sat by Pulse Oximetry (%) 92 L 06/24/17 10:30 Eyes: Yes: WNL, Conjunctiva Clear, EOM Intact HENT: Yes: WNL, Atraumatic, Normocephalic Neck: Yes: WNL, Supple, Trachea Midline Cardiovascular: Yes: WNL, Regular Rate and Rhythm Respiratory: Yes: WNL, Regular, CTA Bilaterally Gastrointestinal: Yes: WNL, Normal Bowel Sounds Genitourinary: Yes: WNL Musculoskeletal: Yes: WNL Extremities: Yes: WNL Edema: No Integumentary: Yes: WNL Neurological: Yes: WNL, Alert, Oriented ...Motor Strength: WNL Psychiatric: Yes: WNL Labs: CBC, BMP 06/24/17 05:20 06/24/17 05:20 Assessment/Plan - Problems (1) Respiratory failure with hypercapnia Assessment/Plan: iNow extubated; doing well. TNI < 0.02 x 2. Code(s): J96.92 - RESPIRATORY FAILURE, UNSPECIFIED WITH HYPERCAPNIA (2) Shortness of breath Code(s): R06.02 - SHORTNESS OF BREATH (3) COPD (chronic obstructive pulmonary disease) Code(s): J44.9 - CHRONIC OBSTRUCTIVE PULMONARY DISEASE, UNSPECIFIED (4) Coronary artery disease Assessment/Plan: f/u recent coronary angiogram/PCI. Aggressive control of lipids; on statin. Smoking cessation is a must. ASA 81 mg daily. Code(s): I25.10 - ATHSCL HEART DISEASE OF [place] CORONARY ARTERY W/O ANG PCTRS (5) Diabetes Code(s): E11.9 - TYPE 2 DIABETES MELLITUS WITHOUT COMPLICATIONS (6) HTN (hypertension) Assessment/Plan: On metoprolol. Lisinopril added (DM; HTN). Code(s): I10 - ESSENTIAL (PRIMARY) HYPERTENSION cc time 35 min
[2017-06-24] MEDS ORDERED: INSULIN (NOVOLOG) ASPART 100 UNITS/ML 10ML VIAL ONE (18:01)
[2017-06-24] MEDS ORDERED: BISACODYL 5 MG TABLET.DR (FP) PO ONE (20:00)
[2017-06-24] MEDS: ATORVASTATIN CA 20 MG TABLET (FP) PO SCH (21:31)
[2017-06-24] MEDS ORDERED: ACETAMINOPHEN 325 MG TABLET (FP) PO PRN (22:05)
[2017-06-25] MEDS: methylPREDNISolone NA SUCC 125 MG/2 ML VIAL IVPB SCH ×2 (02:02→10:04)
[2017-06-25] MEDS: ALBUTEROL SO4 2.5/IPRATROPIUM 0.5 INH SOL 3 ML VIAL.NEB. NEB SCH ×4 (06:00→17:10)
[2017-06-25] MEDS ORDERED: PT OWN MED DRAWER 7, Y5N ONE (06:19)
[2017-06-25] MEDS: INSULIN SLIDING SCALE (NOVOLOG) 1 VIAL SQ SCH ×4 (06:21→21:31)
[2017-06-25 06:52] LABS: MCH 29.5 pg (25.7-33.7); MCHC 32.5 g/dl (32.0-36.0); MEAN CELL VOLUME 90.6 fl (80-96); MEAN PLT VOLUME 8.8 fl (7.5-11.1); PLATELET COUNT 250 K/MM3 (134-434); RDW 14.7 % (11.6-15.6); WHITE BLOOD COUNT 11.2 K/mm3 (4.0-10.0)
[2017-06-25 07:18] LABS: ALBUMIN 3.4 g/dl (3.4-5.0); ANION GAP 8 (8-16); BILIRUBIN,TOTAL 0.5 mg/dL (0.2-1.0); CALCIUM 8.9 mg/dL (8.5-10.1); CO2 33 mmol/L (21-32); CREATININE 0.8 mg/dL (0.55-1.02); GLUCOSE,RANDOM 247 mg/dL (74-106); MAGNESIUM 2.1 mg/dL (1.8-2.4); PHOSPHOROUS 3.4 mg/dL (2.5-4.9); SGOT/AST 14 U/L (15-37); SGPT/ALT 24 U/L (12-78); TOT PROT 6.3 g/dl (6.4-8.2)
[2017-06-25 07:19] LABS: ALK PHOS 45 U/L (45-117)
[2017-06-25] MEDS: sitaGLIPtin PHOSPHATE 25 MG TABLET (FP) PO SCH (08:50)
--- NOTE | 2017-06-25 10:03 | PN ---
Progress Note, Physician History of Present Illness: 67-year-old white woman with PMHx history of hypertension, hyperlipidemia, , non -insulin-dependent diabetes, CAD status post stents 2 years ago, aortic graft repair 2 years ago, now presents with 3 weeks of progressive shortness of breath and dyspnea on exertion. Patient reports her exercise tolerance is reduced to walking across the room for the past 2 weeks. Reports being unable to sleep flat. She initially thought she had bronchitis but yesterday noticed that her feet and lower extremities were becoming swollen and her family prompted her to come to the emergency department. She was told two years ago that she had heart failure when she had her stents placed but is not on a water pill. Her sister from complications of heart failure. She denies any current chest pain. Denies any fevers, chills, nausea, vomiting, diaphoresis. Does report a cough productive of white sputum for one month. Denies abdominal pain. On arrival to the emergency department the patient was hypoxic to 71%. Nonrebreather mask was placed with recovery of her pulse ox to the low 90s, and then quickly titrated down to 4 L with a pulse ox in the low 90s. Stoneworker: Dr. Cassidy - Current Medication List Current Medications: Active Medications Acetaminophen (Tylenol -) 650 mg PO Q6H PRN PRN Reason: FEVER OR PAIN Albuterol/Ipratropium (Duoneb -) 1 amp NEB QIDR [facility] Last Admin: 06/25/17 06:00 Dose: 1 amp Atorvastatin Calcium (Lipitor -) 20 mg PO HS [facility] Ceftriaxone Sodium (Rocephin 1gm Ivpb (Pre-Docked)) 1 gm IVPB DAILY [facility] Insulin Aspart (Novolog Vial Sliding Scale -) 1 vial SQ ACHS [facility] PRN Reason: Protocol Last Admin: 06/25/17 06:21 Dose: 6 units Lisinopril (Prinivil) 2.5 mg PO DAILY [facility] Methylprednisolone Sodium Succinate (Solu-Medrol -) 60 mg IVPB Q8H-IV [facility] Last Admin: 06/25/17 02:02 Dose: 60 mg Metoprolol Tartrate (Lopressor -) 12.5 mg PO BID [facility] Sitagliptin Phosphate (Januvia -) 25 mg PO DAILY@0700 [facility] Last Admin: 06/25/17 08:50 Dose: 25 mg - Objective Vital Signs: Vital Signs Temperature 98.1 F 06/25/17 08:54 Pulse Rate 85 06/25/17 08:54 Respiratory Rate 16 06/25/17 08:54 Blood Pressure 143/71 06/25/17 08:54 O2 Sat by Pulse Oximetry (%) 92 L 06/24/17 21:00 Eyes: Yes: WNL, Conjunctiva Clear, EOM Intact HENT: Yes: WNL, Atraumatic, Normocephalic Neck: Yes: WNL, Supple, Trachea Midline Cardiovascular: Yes: WNL, Regular Rate and Rhythm Respiratory: Yes: Poor Air Entry Gastrointestinal: Yes: WNL, Normal Bowel Sounds Genitourinary: Yes: WNL Musculoskeletal: Yes: WNL Extremities: Yes: WNL Edema: No Integumentary: Yes: WNL Neurological: Yes: WNL, Alert, Oriented ...Motor Strength: WNL Psychiatric: Yes: WNL Labs: CBC, BMP 06/25/17 05:20 06/25/17 05:20 Assessment/Plan - Problems (1) Respiratory failure with hypercapnia Assessment/Plan: Extubated; doing well. TNI < 0.02 x 2. Code(s): J96.92 - RESPIRATORY FAILURE, UNSPECIFIED WITH HYPERCAPNIA (2) Shortness of breath Code(s): R06.02 - SHORTNESS OF BREATH (3) COPD (chronic obstructive pulmonary disease) Code(s): J44.9 - CHRONIC OBSTRUCTIVE PULMONARY DISEASE, UNSPECIFIED (4) Coronary artery disease Assessment/Plan: f/u recent coronary angiogram/PCI. Aggressive control of lipids; on statin. Smoking cessation is a must. ASA 81 mg daily. Code(s): I25.10 - ATHSCL HEART DISEASE OF [place] CORONARY ARTERY W/O ANG PCTRS (5) Diabetes Code(s): E11.9 - TYPE 2 DIABETES MELLITUS WITHOUT COMPLICATIONS (6) HTN (hypertension) Assessment/Plan: On metoprolol. Lisinopril added (DM; HTN). Code(s): I10 - ESSENTIAL (PRIMARY) HYPERTENSION cc time 35 min
[2017-06-25] MEDS: cefTRIAXone 1 GM/50 ML BAG (PRE-DOCKED) IVPB SCH (10:05)
[2017-06-25] MEDS: LISINOPRIL 5 MG TABLET (FP) PO SCH (10:05)
[2017-06-25] MEDS: METOPROLOL TARTRATE 25 MG TABLET (FP) PO SCH ×2 (10:06→21:31)
--- NOTE | 2017-06-25 13:17 | PN ---
Progress Note (short form) - Note Progress Note: PULMONARY/CCM Pt seen and examined in the ICU. Still some shortness of breath, cough but continues to improve. Saturating mid 90s on 4L nasal cannula. Last Vital Signs Temp Pulse Resp BP Pulse Ox 98.2 F 78 18 159/65 94 L 06/25/17 12:37 06/25/17 12:37 06/25/17 12:37 06/25/17 12:37 06/25/17 09:00 Intake & Output 06/22/17 06/23/17 06/24/17 06/25/17 23:59 23:59 23:59 23:59 Intake Total 1620 1380 140 50 Output Total 1100 1700 400 Balance 520 -320 -260 50 Weight 156 lb 7 oz 152 lb 14.4 oz 151 lb 11.2 oz Gen: less tachypneic Heart: RRR Lung: distant breath sounds, less wheezes Abd: soft, nontender Ext: no edema CBC, BMP 06/25/17 05:20 06/25/17 05:20 Active Medications Acetaminophen (Tylenol -) 650 mg PO Q6H PRN PRN Reason: FEVER OR PAIN Albuterol/Ipratropium (Duoneb -) 1 amp NEB QIDR [facility] Last Admin: 06/25/17 06:00 Dose: 1 amp Atorvastatin Calcium (Lipitor -) 20 mg PO HS [facility] Ceftriaxone Sodium (Rocephin 1gm Ivpb (Pre-Docked)) 1 gm IVPB DAILY [facility] Last Admin: 06/25/17 10:05 Dose: 1 gm Insulin Aspart (Novolog Vial Sliding Scale -) 1 vial SQ ACHS [facility] PRN Reason: Protocol Last Admin: 06/25/17 11:35 Dose: 6 units Lisinopril (Prinivil) 2.5 mg PO DAILY [facility] Last Admin: 06/25/17 10:05 Dose: 2.5 mg Methylprednisolone Sodium Succinate (Solu-Medrol -) 60 mg IVPB Q8H-IV [facility] Last Admin: 06/25/17 10:04 Dose: 60 mg Metoprolol Tartrate (Lopressor -) 12.5 mg PO BID [facility] Last Admin: 06/25/17 10:06 Dose: 12.5 mg Sitagliptin Phosphate (Januvia -) 25 mg PO DAILY@0700 [facility] Last Admin: 06/25/17 08:50 Dose: 25 mg A/P s/p Acute Hypercapneic Respiratory Failure Acute COPD Exacerbation LV Diastolic Dysfunction CAD HTN DM - will decrease medrol to 40mg q8h - inhaled bronchodilators standing and PRN - O2 to keep SpO2 >88% - complete empiric antibiotics - continued smoking cessation - will need screening CT chest when stable - PO as tolerated - DVT prophylaxis - will likely need home O2 when ready for discharge
--- NOTE | 2017-06-25 17:14 | PN ---
Progress Note, Physician Chief Complaint: seen in icu, on nebulizer treatment comfortable mild distress - Current Medication List Current Medications: Active Medications Acetaminophen (Tylenol -) 650 mg PO Q6H PRN PRN Reason: FEVER OR PAIN Albuterol/Ipratropium (Duoneb -) 1 amp NEB QIDR [facility] Last Admin: 06/25/17 06:00 Dose: 1 amp Atorvastatin Calcium (Lipitor -) 20 mg PO HS [facility] Ceftriaxone Sodium (Rocephin 1gm Ivpb (Pre-Docked)) 1 gm IVPB DAILY [facility] Last Admin: 06/25/17 10:05 Dose: 1 gm Insulin Aspart (Novolog Vial Sliding Scale -) 1 vial SQ ACHS [facility] PRN Reason: Protocol Last Admin: 06/25/17 11:35 Dose: 6 units Lisinopril (Prinivil) 2.5 mg PO DAILY [facility] Last Admin: 06/25/17 10:05 Dose: 2.5 mg Methylprednisolone Sodium Succinate (Solu-Medrol -) 40 mg IVPB Q8H-IV [facility] Metoprolol Tartrate (Lopressor -) 12.5 mg PO BID [facility] Last Admin: 06/25/17 10:06 Dose: 12.5 mg Sitagliptin Phosphate (Januvia -) 25 mg PO DAILY@0700 [facility] Last Admin: 06/25/17 08:50 Dose: 25 mg - Objective Vital Signs: Vital Signs Temperature 98.2 F 06/25/17 12:37 Pulse Rate 78 06/25/17 12:37 Respiratory Rate 18 06/25/17 12:37 Blood Pressure 159/65 06/25/17 12:37 O2 Sat by Pulse Oximetry (%) 94 L 06/25/17 09:00 Constitutional: Yes: Mild Distress Eyes: Yes: WNL HENT: Yes: WNL Neck: Yes: WNL Cardiovascular: Yes: WNL Respiratory: Yes: On Venti-Mask, Poor Air Entry, SOB Gastrointestinal: Yes: WNL Genitourinary: Yes: WNL Musculoskeletal: Yes: WNL Extremities: Yes: WNL Edema: No Peripheral Pulses WNL: Yes Integumentary: Yes: WNL Wound/Incision: Yes: Clean/Dry Neurological: Yes: WNL ...Motor Strength: WNL Psychiatric: Yes: WNL Labs: CBC, BMP 06/25/17 05:20 08/22/17 05:20 Problem List - Problems (1) Respiratory failure with hypercapnia Code(s): J96.92 - RESPIRATORY FAILURE, UNSPECIFIED WITH HYPERCAPNIA (2) Shortness of breath Code(s): R06.02 - SHORTNESS OF BREATH (3) Abnormal ECG Code(s): R94.31 - ABNORMAL ELECTROCARDIOGRAM [ECG] [EKG] (4) COPD (chronic obstructive pulmonary disease) Code(s): J44.9 - CHRONIC OBSTRUCTIVE PULMONARY DISEASE, UNSPECIFIED (5) Coronary artery disease Code(s): I25.10 - ATHSCL HEART DISEASE OF [place] CORONARY ARTERY W/O ANG PCTRS (6) Diabetes Code(s): E11.9 - TYPE 2 DIABETES MELLITUS WITHOUT COMPLICATIONS Assessment/Plan Home 02 when ready for discharge Home bipap for discharge smoking cessation labs reviewed steroid taper oob to chair
[2017-06-25] MEDS: methylPREDNISolone NA SUCC 40 MG/1 ML VIAL IVPB SCH (18:02)
[2017-06-25] MEDS: ATORVASTATIN CA 20 MG TABLET (FP) PO SCH (21:30)
[2017-06-26] MEDS ORDERED: HEMOQUE TEST 1 EACH EACH ONE (04:54)
[2017-06-26] MEDS ORDERED: INSULIN (NOVOLOG) ASPART 100 UNITS/ML 10ML VIAL ONE (05:41)
[2017-06-26] MEDS ORDERED: PT OWN MED DRAWER 7, Y5N ONE (05:42)
[2017-06-26] MEDS: INSULIN SLIDING SCALE (NOVOLOG) 1 VIAL SQ SCH ×4 (08:00→21:57)
--- NOTE | 2017-06-26 09:54 | PN ---
Progress Note, Physician History of Present Illness: 67-year-old white woman with PMHx history of hypertension, hyperlipidemia, , non -insulin-dependent diabetes, CAD status post stents 2 years ago, aortic graft repair 2 years ago, now presents with 3 weeks of progressive shortness of breath and dyspnea on exertion. Patient reports her exercise tolerance is reduced to walking across the room for the past 2 weeks. Reports being unable to sleep flat. She initially thought she had bronchitis but yesterday noticed that her feet and lower extremities were becoming swollen and her family prompted her to come to the emergency department. She was told two years ago that she had heart failure when she had her stents placed but is not on a water pill. Her sister from complications of heart failure. She denies any current chest pain. Denies any fevers, chills, nausea, vomiting, diaphoresis. Does report a cough productive of white sputum for one month. Denies abdominal pain. On arrival to the emergency department the patient was hypoxic to 71%. Nonrebreather mask was placed with recovery of her pulse ox to the low 90s, and then quickly titrated down to 4 L with a pulse ox in the low 90s. Childhood Teacher: Dr. Cassidy - Current Medication List Current Medications: Active Medications Acetaminophen (Tylenol -) 650 mg PO Q6H PRN PRN Reason: FEVER OR PAIN Albuterol/Ipratropium (Duoneb -) 1 amp NEB QIDR [facility] Last Admin: 06/25/17 17:10 Dose: 1 amp Atorvastatin Calcium (Lipitor -) 20 mg PO HS [facility] Last Admin: 06/25/17 21:30 Dose: 20 mg Ceftriaxone Sodium (Rocephin 1gm Ivpb (Pre-Docked)) 1 gm IVPB DAILY [facility] Last Admin: 06/25/17 10:05 Dose: 1 gm Insulin Aspart (Novolog Vial Sliding Scale -) 1 vial SQ ACHS [facility] PRN Reason: Protocol Last Admin: 06/26/17 08:00 Dose: 4 units Lisinopril (Prinivil) 2.5 mg PO DAILY [facility] Last Admin: 06/25/17 10:05 Dose: 2.5 mg Methylprednisolone Sodium Succinate (Solu-Medrol -) 40 mg IVPB Q8H-IV [facility] Last Admin: 06/25/17 18:02 Dose: 40 mg Metoprolol Tartrate (Lopressor -) 12.5 mg PO BID [facility] Last Admin: 06/25/17 21:31 Dose: 12.5 mg Sitagliptin Phosphate (Januvia -) 25 mg PO DAILY@0700 [facility] Last Admin: 06/25/17 08:50 Dose: 25 mg - Objective Vital Signs: Vital Signs Temperature 98 F 06/25/17 23:52 Pulse Rate 78 06/26/17 07:53 Respiratory Rate 22 06/26/17 07:53 Blood Pressure 149/68 06/26/17 07:53 O2 Sat by Pulse Oximetry (%) 96 06/25/17 22:00 Eyes: Yes: WNL, Conjunctiva Clear, EOM Intact HENT: Yes: WNL, Atraumatic, Normocephalic Neck: Yes: WNL, Supple, Trachea Midline Cardiovascular: Yes: WNL, Regular Rate and Rhythm Respiratory: Yes: WNL, Regular, CTA Bilaterally Gastrointestinal: Yes: WNL, Normal Bowel Sounds Genitourinary: Yes: WNL Musculoskeletal: Yes: WNL Extremities: Yes: WNL Edema: No Integumentary: Yes: WNL Neurological: Yes: WNL, Alert, Oriented ...Motor Strength: WNL Psychiatric: Yes: WNL Labs: CBC, BMP 06/25/17 05:20 06/25/17 05:20 Assessment/Plan - Problems (1) Respiratory failure with hypercapnia Assessment/Plan: Extubated; doing well. TNI < 0.02 x 2. Code(s): J96.92 - RESPIRATORY FAILURE, UNSPECIFIED WITH HYPERCAPNIA (2) Shortness of breath Code(s): R06.02 - SHORTNESS OF BREATH (3) COPD (chronic obstructive pulmonary disease) Code(s): J44.9 - CHRONIC OBSTRUCTIVE PULMONARY DISEASE, UNSPECIFIED (4) Coronary artery disease Assessment/Plan: f/u recent coronary angiogram/PCI. Aggressive control of lipids; on statin. Smoking cessation is a must. ASA 81 mg daily. Code(s): I25.10 - ATHSCL HEART DISEASE OF [place] CORONARY ARTERY W/O ANG PCTRS (5) Diabetes Code(s): E11.9 - TYPE 2 DIABETES MELLITUS WITHOUT COMPLICATIONS (6) HTN (hypertension) Assessment/Plan: On metoprolol. Lisinopril added (DM; HTN). Code(s): I10 - ESSENTIAL (PRIMARY) HYPERTENSION cc time 35 min
[2017-06-26] MEDS: METOPROLOL TARTRATE 25 MG TABLET (FP) PO SCH ×2 (10:12→21:55)
[2017-06-26] MEDS: methylPREDNISolone NA SUCC 40 MG/1 ML VIAL IVPB SCH ×2 (10:12→17:00)
[2017-06-26] MEDS: cefTRIAXone 1 GM/50 ML BAG (PRE-DOCKED) IVPB SCH (10:13)
[2017-06-26] MEDS: LISINOPRIL 5 MG TABLET (FP) PO SCH (10:13)
--- NOTE | 2017-06-26 11:26 | PN ---
Progress Note (short form) - Note Progress Note: PULMONARY/CCM Pt seen and examined in the ICU. Breathing continues to improve. Saturating low 90s on 4L nasal cannula. Last Vital Signs Temp Pulse Resp BP Pulse Ox 98 F 78 20 118/70 94 L 06/25/17 23:52 06/26/17 10:26 06/26/17 10:26 06/26/17 10:26 06/26/17 09:00 Intake & Output 06/23/17 06/24/17 06/25/17 06/26/17 23:59 23:59 23:59 23:59 Intake Total 1380 140 780 Output Total 1700 400 Balance -320 -260 780 Weight 152 lb 14.4 oz 151 lb 11.2 oz Gen: less tachypneic Heart: RRR Lung: distant breath sounds, less wheezes Abd: soft, nontender Ext: no edema CBC, BMP 06/25/17 05:20 06/25/17 05:20 Active Medications Acetaminophen (Tylenol -) 650 mg PO Q6H PRN PRN Reason: FEVER OR PAIN Albuterol/Ipratropium (Duoneb -) 1 amp NEB QIDR [facility] Last Admin: 06/25/17 17:10 Dose: 1 amp Atorvastatin Calcium (Lipitor -) 20 mg PO HS [facility] Last Admin: 06/25/17 21:30 Dose: 20 mg Ceftriaxone Sodium (Rocephin 1gm Ivpb (Pre-Docked)) 1 gm IVPB DAILY [facility] Last Admin: 06/26/17 10:13 Dose: 1 gm Insulin Aspart (Novolog Vial Sliding Scale -) 1 vial SQ ACHS [facility] PRN Reason: Protocol Last Admin: 06/26/17 08:00 Dose: 4 units Lisinopril (Prinivil) 2.5 mg PO DAILY [facility] Last Admin: 06/26/17 10:13 Dose: 2.5 mg Methylprednisolone Sodium Succinate (Solu-Medrol -) 40 mg IVPB Q8H-IV [facility] Last Admin: 06/26/17 10:12 Dose: 40 mg Metoprolol Tartrate (Lopressor -) 12.5 mg PO BID [facility] Last Admin: 06/26/17 10:12 Dose: 12.5 mg Sitagliptin Phosphate (Januvia -) 25 mg PO DAILY@0700 [facility] Last Admin: 06/25/17 08:50 Dose: 25 mg A/P s/p Acute Hypercapneic Respiratory Failure Acute COPD Exacerbation LV Diastolic Dysfunction CAD HTN DM - will decrease medrol to 40mg q12h - if continues to improve, can change steroids to PO in AM - inhaled bronchodilators standing and PRN - O2 to keep SpO2 >88% - complete empiric antibiotics - continued smoking cessation - will need screening CT chest when stable - PO as tolerated - DVT prophylaxis - will likely need home O2 when ready for discharge, check ambulatory SpO2 on room air to assess for home O2
[2017-06-26] MEDS: ALBUTEROL SO4 2.5/IPRATROPIUM 0.5 INH SOL 3 ML VIAL.NEB. NEB SCH ×2 (12:25→19:25)
--- NOTE | 2017-06-26 17:07 | PN ---
Progress Note, Physician Chief Complaint: AWAKE ALERT ON 02 NC FEELING BETTER - Current Medication List Current Medications: Active Medications Acetaminophen (Tylenol -) 650 mg PO Q6H PRN PRN Reason: FEVER OR PAIN Albuterol/Ipratropium (Duoneb -) 1 amp NEB QIDR [facility] Last Admin: 06/26/17 12:25 Dose: 1 amp Atorvastatin Calcium (Lipitor -) 20 mg PO HS [facility] Last Admin: 06/25/17 21:30 Dose: 20 mg Ceftriaxone Sodium (Rocephin 1gm Ivpb (Pre-Docked)) 1 gm IVPB DAILY [facility] Last Admin: 06/26/17 10:13 Dose: 1 gm Insulin Aspart (Novolog Vial Sliding Scale -) 1 vial SQ ACHS [facility] PRN Reason: Protocol Last Admin: 06/26/17 16:56 Dose: 10 units Lisinopril (Prinivil) 2.5 mg PO DAILY [facility] Last Admin: 06/26/17 10:13 Dose: 2.5 mg Methylprednisolone Sodium Succinate (Solu-Medrol -) 40 mg IVPB Q8H-IV [facility] Last Admin: 06/26/17 17:00 Dose: 40 mg Metoprolol Tartrate (Lopressor -) 12.5 mg PO BID [facility] Last Admin: 06/26/17 10:12 Dose: 12.5 mg Sitagliptin Phosphate (Januvia -) 25 mg PO DAILY@0700 [facility] Last Admin: 06/25/17 08:50 Dose: 25 mg - Objective Vital Signs: Vital Signs Temperature 98.7 F 06/26/17 16:00 Pulse Rate 75 06/26/17 16:00 Respiratory Rate 18 06/26/17 16:00 Blood Pressure 138/81 06/26/17 16:00 O2 Sat by Pulse Oximetry (%) 89 L 06/26/17 11:39 Constitutional: Yes: Mild Distress Eyes: Yes: WNL HENT: Yes: WNL Neck: Yes: WNL Cardiovascular: Yes: WNL Respiratory: Yes: On Nasal O2, Poor Air Entry Gastrointestinal: Yes: WNL Genitourinary: Yes: WNL Musculoskeletal: Yes: WNL Extremities: Yes: WNL Edema: No Peripheral Pulses WNL: Yes Integumentary: Yes: WNL Wound/Incision: Yes: Clean/Dry Neurological: Yes: WNL ...Motor Strength: WNL Psychiatric: Yes: WNL Labs: CBC, BMP 06/25/17 05:20 06/26/17 12:20 Problem List - Problems (1) Respiratory failure with hypercapnia Code(s): J96.92 - RESPIRATORY FAILURE, UNSPECIFIED WITH HYPERCAPNIA (2) Shortness of breath Code(s): R06.02 - SHORTNESS OF BREATH (3) Abnormal ECG Code(s): R94.31 - ABNORMAL ELECTROCARDIOGRAM [ECG] [EKG] (4) COPD (chronic obstructive pulmonary disease) Code(s): J44.9 - CHRONIC OBSTRUCTIVE PULMONARY DISEASE, UNSPECIFIED (5) Coronary artery disease Code(s): I25.10 - ATHSCL HEART DISEASE OF [place] CORONARY ARTERY W/O ANG PCTRS (6) Diabetes Code(s): E11.9 - TYPE 2 DIABETES MELLITUS WITHOUT COMPLICATIONS Assessment/Plan HOME 02 ORDERED WILL NEED MONITORING WITH PULMONARY NEEDS HOME HEALTH AID WILL DISCUSS WITH RETURNS PROCESSOR BP CONTROL SMOKING CESSATION
[2017-06-26] MEDS: ATORVASTATIN CA 20 MG TABLET (FP) PO SCH (21:55)
[2017-06-27] MEDS: methylPREDNISolone NA SUCC 40 MG/1 ML VIAL IVPB SCH (02:30)
[2017-06-27] MEDS: ALBUTEROL SO4 2.5/IPRATROPIUM 0.5 INH SOL 3 ML VIAL.NEB. NEB SCH ×2 (06:20)
[2017-06-27] MEDS ORDERED: PT OWN MED DRAWER 7, Y5N ONE (06:27)
[2017-06-27] MEDS: sitaGLIPtin PHOSPHATE 25 MG TABLET (FP) PO SCH (06:30)
--- NOTE | 2017-06-27 06:31 | DS ---
Physical Examination Vital Signs: Vital Signs Temperature 98.2 F 06/27/17 02:00 Pulse Rate 69 06/27/17 02:00 Respiratory Rate 17 06/27/17 02:00 Blood Pressure 128/60 06/27/17 02:00 O2 Sat by Pulse Oximetry (%) 93 L 06/26/17 21:00 Findings/Remarks: feeling better, dc home with Home 02 and nurseing home care [facility] Constitutional: Yes: Mild Distress Eyes: Yes: WNL HENT: Yes: WNL Neck: Yes: WNL Cardiovascular: Yes: WNL Respiratory: Yes: Diminished, On Nasal O2 Gastrointestinal: Yes: WNL Renal/: Yes: WNL Musculoskeletal: Yes: WNL Extremities: Yes: WNL Edema: No Peripheral Pulses WNL: Yes Integumentary: Yes: WNL Wound/Incision: Yes: Clean/Dry ...Motor Strength: WNL Psychiatric: Yes: WNL Labs: CBC, BMP 06/25/17 05:20 06/26/17 12:20 Discharge Summary Reason For Visit: COPD EXACERBATION,SOB Current Active Problems Cigarette nicotine dependence (Acute) HTN (hypertension) (Acute) Respiratory failure with hypercapnia (Acute) Shortness of breath (Acute) Procedures: Principal: ct scan Other Procedures: labs/cultures Hospital Course: admitted for acute respiratory distress, in icu and treated with iv abx and steroids, intubated on vent then slowly improved with critical care team and primary team. patient extubated on steroid taper can dc home with strict home 02 use and support group. Home health [facility]. Smoking cessation Condition: Stable - Instructions Diet, Activity, Other Instructions: low salt/ada follow with pulmonary in [address] Funk in 3-4 days for prednisone taper smoking cessation Referrals: Benoit Funk MD [Primary Care Provider] - Disposition: VNS/HOME HEALTH CARE - Home Medications Comprehensive Discharge Medication List: Ambulatory Orders Fenofibrate Nanocrystallized [Fenofibrate] 145 mg PO DAILY 06/19/17 Linagliptin/Metformin HCl [Jentadueto 2.5 mg-1000 mg Tab] 1 each PO DAILY Metoprolol Tartrate [Lopressor -] 25 mg PO DAILY 06/19/17 Simvastatin [Zocor -] 20 mg PO HS 06/19/17
[2017-06-27] MEDS: INSULIN SLIDING SCALE (NOVOLOG) 1 VIAL SQ SCH (08:19)
[2017-06-27] MEDS ORDERED: predniSONE 10 MG TABLET (UD) ONE (09:49)
[2017-06-27] MEDS ORDERED: predniSONE 20 MG TABLET (UD) ONE (09:49)
[2017-06-27] MEDS: LISINOPRIL 5 MG TABLET (FP) PO SCH (09:57)
[2017-06-27] MEDS: METOPROLOL TARTRATE 25 MG TABLET (FP) PO SCH (09:57)
[2017-06-27] MEDS: cefTRIAXone 1 GM/50 ML BAG (PRE-DOCKED) IVPB SCH (09:57)
[2017-06-27] MEDS ORDERED: predniSONE 20 MG TABLET (UD) PO SCH (10:00)
[2017-06-27] MEDS ORDERED: PREDNISONE 40 MG, PREDNISONE 10 MG PO SCH (10:00)
--- NOTE | 2017-06-27 10:14 | PN ---
Progress Note, Physician History of Present Illness: 67-year-old white woman with PMHx history of hypertension, hyperlipidemia, , non -insulin-dependent diabetes, CAD status post stents 2 years ago, aortic graft repair 2 years ago, now presents with 3 weeks of progressive shortness of breath and dyspnea on exertion. Patient reports her exercise tolerance is reduced to walking across the room for the past 2 weeks. Reports being unable to sleep flat. She initially thought she had bronchitis but yesterday noticed that her feet and lower extremities were becoming swollen and her family prompted her to come to the emergency department. She was told two years ago that she had heart failure when she had her stents placed but is not on a water pill. Her sister from complications of heart failure. She denies any current chest pain. Denies any fevers, chills, nausea, vomiting, diaphoresis. Does report a cough productive of white sputum for one month. Denies abdominal pain. On arrival to the emergency department the patient was hypoxic to 71%. Nonrebreather mask was placed with recovery of her pulse ox to the low 90s, and then quickly titrated down to 4 L with a pulse ox in the low 90s. Hydrometeorologist: Dr. Cassidy - Current Medication List Current Medications: Active Medications Acetaminophen (Tylenol -) 650 mg PO Q6H PRN PRN Reason: FEVER OR PAIN Albuterol/Ipratropium (Duoneb -) 1 amp NEB QIDR [facility] Last Admin: 06/27/17 06:20 Dose: 1 amp Atorvastatin Calcium (Lipitor -) 20 mg PO HS [facility] Last Admin: 06/26/17 21:55 Dose: 20 mg Ceftriaxone Sodium (Rocephin 1gm Ivpb (Pre-Docked)) 1 gm IVPB DAILY [facility] Last Admin: 06/27/17 09:57 Dose: 1 gm Insulin Aspart (Novolog Vial Sliding Scale -) 1 vial SQ ACHS [facility] PRN Reason: Protocol Last Admin: 06/27/17 08:19 Dose: Not Given Lisinopril (Prinivil) 2.5 mg PO DAILY [facility] Last Admin: 06/27/17 09:57 Dose: 2.5 mg Metoprolol Tartrate (Lopressor -) 12.5 mg PO BID [facility] Last Admin: 06/27/17 09:57 Dose: 12.5 mg Prednisone 40 mg/ Prednisone (10 mg) 50 mg PO DAILY [facility] Last Admin: 06/27/17 09:57 Dose: 50 mg Sitagliptin Phosphate (Januvia -) 25 mg PO DAILY@0700 [facility] Last Admin: 06/27/17 06:30 Dose: 25 mg - Objective Vital Signs: Vital Signs Temperature 98.5 F 06/27/17 06:00 Pulse Rate 66 06/27/17 06:00 Respiratory Rate 18 06/27/17 06:00 Blood Pressure 121/53 06/27/17 06:00 O2 Sat by Pulse Oximetry (%) 93 L 06/26/17 21:00 Eyes: Yes: WNL, Conjunctiva Clear, EOM Intact HENT: Yes: WNL, Atraumatic, Normocephalic Neck: Yes: WNL, Supple, Trachea Midline Cardiovascular: Yes: WNL, Regular Rate and Rhythm Respiratory: Yes: WNL, Regular, CTA Bilaterally Gastrointestinal: Yes: WNL, Normal Bowel Sounds Genitourinary: Yes: WNL Musculoskeletal: Yes: WNL Extremities: Yes: WNL Edema: No Integumentary: Yes: WNL Neurological: Yes: WNL, Alert, Oriented ...Motor Strength: WNL Psychiatric: Yes: WNL Labs: CBC, BMP 06/25/17 05:20 06/26/17 12:20 Assessment/Plan - Problems (1) Respiratory failure with hypercapnia Assessment/Plan: Extubated; doing well. TNI < 0.02 x 2. Code(s): J96.92 - RESPIRATORY FAILURE, UNSPECIFIED WITH HYPERCAPNIA (2) Shortness of breath Code(s): R06.02 - SHORTNESS OF BREATH (3) COPD (chronic obstructive pulmonary disease) Code(s): J44.9 - CHRONIC OBSTRUCTIVE PULMONARY DISEASE, UNSPECIFIED (4) Coronary artery disease Assessment/Plan: f/u recent coronary angiogram/PCI. Aggressive control of lipids; on statin. Smoking cessation is a must. ASA 81 mg daily. Code(s): I25.10 - ATHSCL HEART DISEASE OF [place] CORONARY ARTERY W/O ANG PCTRS (5) Diabetes Code(s): E11.9 - TYPE 2 DIABETES MELLITUS WITHOUT COMPLICATIONS (6) HTN (hypertension) Assessment/Plan: On metoprolol. Lisinopril added (DM; HTN). Code(s): I10 - ESSENTIAL (PRIMARY) HYPERTENSION cc time 35 min
[2017-06-27 11:53] VITALS: BP 116/49; PULSE 65; TEMP 98.6
--- NOTE | 2017-06-27 14:02 | PN ---
Progress Note (short form) - Note Progress Note: PULMONARY/CCM Pt seen and examined in the ICU. Breathing continues to improve, feels at baseline. Saturating low 90s on 4L nasal cannula. Last Vital Signs Temp Pulse Resp BP Pulse Ox 98.6 F 65 18 116/49 90 L 06/27/17 10:00 06/27/17 10:00 06/27/17 10:00 06/27/17 10:00 06/27/17 10:00 Intake & Output 06/24/17 06/25/17 06/26/17 06/27/17 23:59 23:59 23:59 23:59 Intake Total 839 810 6085 80 Output Total 400 Balance -833 862 6964 80 Weight 151 lb 11.2 oz 153 lb 4 oz Gen: NAD at rest Heart: RRR Lung: distant breath sounds, less wheezes Abd: soft, nontender Ext: no edema CBC, BMP 06/25/17 05:20 06/26/17 12:20 A/P s/p Acute Hypercapneic Respiratory Failure Acute COPD Exacerbation LV Diastolic Dysfunction CAD HTN DM - change steroids to PO - inhaled bronchodilators standing and PRN - O2 to keep SpO2 >88% - complete empiric antibiotics - continued smoking cessation - will need screening CT chest when stable - PO as tolerated - DVT prophylaxis - home O2 - outpt PFTs and f/u
== END 2017-06-27 11:45 | disposition home health service (06) | DRG 208 ==
LOC: JER 12:05 → JERBED 15:10 → JICU 22:27 → J2W 06-24 15:40
PROVIDERS: ADMIT Family Medicine; ATTEND Family Medicine
PROC: 0BH17EZ Insertion of Endotracheal Airway into Trachea, Via Natural or Artificial Opening (ICD-10-PCS; principal; 2017-06-19)
PROC: 5A1945Z Respiratory Ventilation, 24-96 Consecutive Hours (ICD-10-PCS; 2017-06-19)
DX: J96.02 Acute respiratory failure with hypercapnia (principal); J44.1 Chronic obstructive pulmonary disease with (acute) exacerbation; E78.5 Hyperlipidemia, unspecified; E11.9 Type 2 diabetes mellitus without complications; I25.10 Atherosclerotic heart disease of native coronary artery without angina pectoris; I10 Essential (primary) hypertension; R94.31 Abnormal electrocardiogram [ECG] [EKG]; Z87.442 Personal history of urinary calculi; Z87.891 Personal history of nicotine dependence; Z95.5 Presence of coronary angioplasty implant and graft
CPT/HCPCS: 36415; 36600; 71010-TC; 80048; 80053; 80061; 81003; 81015; 82803; 82947; 83036; 83721; 83735; 83880; 84100; 84484; 85025; 85027; 93005; 93010; 93306-TC; 94002; 94640; 94660; 94761; 97116-GP; 97161-GP; 99284-25

== ENCOUNTER 2017-11-10 21:33 | Inpatient (IN) | payer BC, OTHER ==
[2017-11-10 22:15] VITALS: BMI 23.3
[2017-11-10] MEDS ORDERED: ALBUTEROL SO4 2.5/IPRATROPIUM 0.5 INH SOL 3 ML VIAL.NEB. NEB ONE ×3 (22:51→23:12)
[2017-11-10] MEDS ORDERED: methylPREDNISolone NA SUCC 125 MG/2 ML VIAL ONE (22:52)
[2017-11-10] MEDS ORDERED: MAGNESIUM SULF 50% (8.12 MEQ/2 ML-1 GM VIAL) ONE (22:52)
[2017-11-10] MEDS ORDERED: SODIUM CHLORIDE 0.9% 1000 ML INFUS.BAG IV STA (22:55)
[2017-11-10] MEDS ORDERED: ACETAMINOPHEN 325 MG TABLET (FP) PO ONE (22:56)
[2017-11-10] MEDS ORDERED: methylPREDNISolone NA SUCC 125 MG/2 ML VIAL IVPB ONE (22:59)
[2017-11-10] MEDS ORDERED: MAGNESIUM SULF 50% (8.12 MEQ/2 ML-1 GM VIAL) IVPB ONE (22:59)
--- NOTE | 2017-11-10 23:12 | PDOC ---
History of Present Illness - History of Present Illness Initial Comments: 11/10/17 23:21 The patient is a 67 year old female, with a significant past medical history of hypertension, hyperlipidemia, , [id number] diabetes, CAD status post stents 3 years ago, aortic graft repair 3 years ago, COPD, and extensive h/o tobacco use, who presents to the emergency department with her family members for worsening SOB for a week. Patients family states that her SOB has worsened today. They also states that patient is unable to walk more than 15 ft without becoming short of breath. Patients family states patient is oxygen dependent ( PRN-3L), shes uses a nebulizer and C-pap machine at night. Patient also presents with a productive cough and low grade fever. She denies recent, chills, headache or dizziness. She denies recent nausea, vomit, diarrhea or constipation. She denies recent dysuria, frequency, urgency or hematuria. She denies recent chest pain Allergies: penicillins Social Hx: 40 year h/o tobacco use Primary Care Physician: Dr Funk Germination Testing Manager: Dr. Alaniz Housing Relocation: Dr. Gonzalez <Dominique Nation - Last Filed: 11/11/17 00:54> <Margie Robertson - Last Filed: 11/11/17 01:43> - General Chief Complaint: Respiratory Stated Complaint: S.O.B Time Seen by Provider: 11/10/17 21:58 Past History <Dominique Nation - Last Filed: 11/11/17 00:54> - Past Medical History COPD: Yes (BRONCHITIS) Diabetes: Yes GI Disorders: Yes (diverticulitis) HTN: Yes Hypercholesterolemia: Yes - Surgical History Appendectomy: Yes - Immunization History Immunization Up to Date: Yes - Suicide/Smoking/Psychosocial Hx Smoking History: Former smoker Have you smoked in the past 12 months: Yes Number of Cigarettes Smoked Daily: 20 If you are a former smoker, when did you quit?: 06/2017 Information on smoking cessation initiated: No 'Breaking Loose' booklet given: 09/14/14 Hx Alcohol Use: No Drug/Substance Use Hx: No Substance Use Type: None <Margie Robertson - Last Filed: 11/11/17 01:43> - Past Medical History Allergies/Adverse Reactions: Allergies Allergy/AdvReac Type Severity Reaction Status Date / Time Penicillins Allergy Intermediate Rash Verified 06/19/17 12:11 Home Medications: Ambulatory Orders Fenofibrate Nanocrystallized [Fenofibrate] 145 mg PO DAILY 06/19/17 Linagliptin/Metformin HCl [Jentadueto 2.5 mg-1000 mg Tab] 1 each PO DAILY Metoprolol Tartrate [Lopressor -] 25 mg PO DAILY 06/19/17 Simvastatin [Zocor -] 20 mg PO HS 06/19/17 Acetaminophen [Tylenol .Regular Strength -] 650 mg PO Q6H PRN #0 tablet Albuterol 2.5/Ipratropium 0.5 [Duoneb -] 1 amp NEB QIDR #120 amp 06/27/17 Lisinopril [Prinivil] 2.5 mg PO DAILY #30 tablet 06/27/17 Metoprolol Tartrate [Lopressor -] 12.5 mg PO BID tablet 06/27/17 Prednisone [Deltasone -] 50 mg PO DAILY #10 tablet 06/27/17 Review of Systems - Review of Systems Comments:: 11/10/17 23:19 CONSTITUTIONAL: Present: low-grade fever Absent: chills, diaphoresis, generalized weakness, malaise, loss of appetite HEENT: Absent: rhinorrhea, nasal congestion, throat pain, throat swelling, difficulty swallowing, mouth swelling, ear pain, eye pain, visual changes CARDIOVASCULAR: Absent: chest pain, syncope, palpitations, irregular heart rate, lightheadedness , peripheral edema RESPIRATORY: Present: productive cough, SOB (worse on exertion), wheezing Absent: orthopnea, stridor, hemoptysis GASTROINTESTINAL: Absent: abdominal pain, abdominal distension, nausea, vomiting, diarrhea, constipation, melena, hematochezia GENITOURINARY: Absent: dysuria, frequency, urgency, hesitancy, hematuria, flank pain, genital pain MUSCULOSKELETAL: Absent: myalgia, arthralgia, joint swelling SKIN: Absent: rash, itching, pallor HEMATOLOGIC/IMMUNOLOGIC: Absent: easy bleeding, easy bruising, lymphadenopathy, frequent infections ENDOCRINE: Absent: unexplained weight gain, unexplained weight loss, heat intolerance, cold intolerance NEUROLOGIC: Absent: headache, focal weakness or paresthesias, dizziness, unsteady gait, seizure, mental status changes, bladder or bowel incontinence <Dominique Nation - Last Filed: 11/11/17 00:54> *Physical Exam - Vital Signs Last Vital Signs Temp Pulse Resp BP Pulse Ox 99.6 F 110 H 36 H 144/91 99 11/10/17 21:40 11/10/17 21:40 11/10/17 21:40 11/10/17 21:40 11/10/17 21:40 - Physical Exam Comments: 11/10/17 23:18 GENERAL: Thin 67 year old female looking older than her chronological age in moderate respiratory distress. Low grade fever. HEENT: Normocephalic, atraumatic. PERRLA, EOMI. No conjunctival pallor. Sclera are non- icteric. Moist mucous membranes. Oropharynx is clear. NECK: Supple. Full ROM. No JVD. Carotid pulses 2+ and symmetric, without bruits. No thyromegaly. No lymphadenopathy. CARDIOVASCULAR: Tachycardic. No murmurs, rubs, or gallops. Distal pulses are 2+ and symmetric. PULMONARY: Tachypneic. tugging, using accessory muscles to breathe. Bronchiectatic lung sounds, Scattered wheezing in all lung lara. Hypoxic, requiring supplemental oxygen. ABDOMINAL: Soft. Non-tender. Non-distended. No rebound or guarding. No organomegaly. Normoactive bowel sounds. MUSCULOSKELETAL Normal range of motion at all joints. No bony deformities or tenderness. No CVA tenderness. EXTREMITIES: No cyanosis. No clubbing. No edema. No calf tenderness. SKIN: Warm and dry. Normal capillary refill. No rashes. No jaundice. NEUROLOGICAL: Alert, awake, appropriate. Cranial nerves 2-12 intact. No motor deficits in the in face, upper extremities and lower extremities. Normoreflexic in the upper and lower extremities. Normal speech. <Dominique Nation - Last Filed: 11/11/17 00:54> - Vital Signs Last Vital Signs Temp Pulse Resp BP Pulse Ox 99.6 F 110 H 36 H 144/91 99 11/10/17 21:40 11/10/17 21:40 11/10/17 21:40 11/10/17 21:40 11/10/17 21:40 <Margie Robertson - Last Filed: 11/11/17 01:43> Heart Score/ECG Review - ECG Intrepretation Comment:: 11/11/17 23:38:05 EKG Interpretation: Sinus tachycardia Otherwise normal ECG Vent. rate 103 bpm <Dominique Nation - Last Filed: 11/11/17 00:54> ED Treatment Course - LABORATORY CBC & Chemistry Diagram: 11/10/17 23:22 11/10/17 23:22 <Dominique Nation - Last Filed: 11/11/17 00:54> - LABORATORY CBC & Chemistry Diagram: 11/10/17 23:22 11/10/17 23:22 - RADIOLOGY Radiology Studies Ordered: Category Date Time Status CHEST X-RAY PORTABLE* [RAD] Stat Radiology 11/10/17 22:55 Taken <Margie Robertson - Last Filed: 11/11/17 01:43> Medical Decision Making - Medical Decision Making 11/11/17 00:47 67-year-old female brought in by family for increasing difficulty breathing Past medical history of COPD who is oxygen dependent 3 L at home and uses cpap as needed during the evenings. - She has a low-grade temp and cough. On exam, she has use of respiratory accessory muscles, increased respiratory rate PMH , coronary artery disease, status post stents, diabetes, tobacco dependence for 40 years, PCP DR Jermaine Funk -imp copd exacerbation plan - resp tx, antibiotics,steroids,mg bipap 10/5, resp 12 40 % o2 <Margie Robertson - Last Filed: 11/11/17 01:43> *DC/Admit/Observation/Transfer - Attestations Scribe Attestion: 11/10/17 23:21 Documentation prepared by Dominique Nation, acting as medical staffing coordinator for Margie Robertson MD. <Dominique Nation - Last Filed: 11/11/17 00:54> - Discharge Dispostion Admit: Yes <Margie Robertson - Last Filed: 11/11/17 01:43> Diagnosis at time of Disposition: Respiratory failure with hypercapnia Qualifiers: Chronicity: acute on chronic Qualified Code(s): J96.22 - Acute and chronic respiratory failure with hypercapnia - Discharge Dispostion Condition at time of disposition: Good
[2017-11-10] MEDS ORDERED: ACETAMINOPHEN 325 MG TABLET (FP) ONE (23:26)
[2017-11-10 23:36] LABS: BASO % 1.1 % (0-2.0); EOS % 1.4 % (0-4.5); HEMATOCRIT 42.3 % (32.4-45.2); HEMOGLOBIN 13.8 GM/dL (10.7-15.3); MCH 29.2 pg (25.7-33.7); MCHC 32.5 g/dl (32.0-36.0); MEAN PLT VOLUME 8.6 fl (7.5-11.1); MONO % 13.4 % (3.8-10.2); NEUT % 62.1 % (42.8-82.8); PLATELET COUNT 158 K/MM3 (134-434); RBC 4.71 M/mm3 (3.60-5.2); RDW 14.3 % (11.6-15.6); WHITE BLOOD COUNT 8.8 K/mm3 (4.0-10.0)
[2017-11-11 00:01] LABS: ALBUMIN 4.1 g/dl (3.4-5.0); ANION GAP 7 (8-16); BILIRUBIN,TOTAL 0.3 mg/dL (0.2-1.0); BLOOD UREA NITROGEN 35 mg/dL (7-18); CALCIUM 9.6 mg/dL (8.5-10.1); CHLORIDE 103 mmol/L (98-107); CO2 29 mmol/L (21-32); CREATININE 0.9 mg/dL (0.55-1.02); GLUCOSE,RANDOM 167 mg/dL (74-106); POTASSIUM 4.9 mmol/L (3.5-5.1); SGOT/AST 17 U/L (15-37); SGPT/ALT 20 U/L (12-78); SODIUM 139 mmol/L (136-145); TOT PROT 7.5 g/dl (6.4-8.2)
[2017-11-11 00:03] LABS: ALK PHOS 66 U/L (45-117)
[2017-11-11 00:04] LABS: INR 1.01 (0.82-1.09); PROTHROMBIN TIME (PATIENT) 11.4 SEC (9.98-11.88)
[2017-11-11 00:07] LABS: ACTIVATED PTT 32.4 SECONDS (26.9-34.4)
[2017-11-11] MEDS ORDERED: LEVOFLOXACIN 500 MG IVPB 500 MG/100 ML BAG IVPB ONE ×3 (00:16→09:15)
[2017-11-11] MEDS ORDERED: ALBUTEROL SO4 2.5/IPRATROPIUM 0.5 INH SOL 3 ML VIAL.NEB. NEB ONE ×2 (00:31→00:35)
[2017-11-11 00:38] LABS: ARTERIAL BLD GAS O2 SATURATION 92.7 % (90-98.9); ARTERIAL BLOOD GAS PO2 76.8 mmHg (80-100)
[2017-11-11 00:41] LABS: ALLENS TEST POSITIVE
--- NOTE | 2017-11-11 01:09 | HP ---
Admitting History and Physical - Primary Care Physician PCP: Benoit Funk - Admission Chief Complaint: SOB History of Present Illness: This is a 67 y/o woman with a past medical history of HTN, HLD, NIDDM, CAD(stent ), COPD (O2 dep-3L), Former Smoker. Who presents to the Ed with SOB x 1 week. Patient's was at bedside and reports that the patient had a productive cough and low grade fever at home. Patient reports only being able to take 5 steps before she is out of breath. Patient denies CP, palpitations, AP, N/V/D, constipation, dysuria. History Source: Patient, Family Member Limitations to Obtaining History: Clinical Condition - Past Medical History Cardiovascular: Yes: CAD (stent), HTN, Hyperlipdemia Pulmonary: Yes: COPD, O2 Dependent (3L) Gastrointestinal: Yes: Diverticulitis Renal/: Yes: Renal Calculi - Past Surgical History Past Surgical History: Yes: Appendectomy, , Tubal Ligation - Smoking History Smoking history: Former smoker Have you smoked in the past 12 months: Yes Aproximately how many cigarettes per day: 20 If you are a former smoker, when did you quit?: 06/2017 - Alcohol/Substance Use Hx Alcohol Use: No History of Substance Use: reports: None - Social History Usual Living Arrangement: Yes: With Spouse ADL: Independent Occupation: works for [employer] [place] History of Recent Travel: No Home Medications - Allergies Allergies/Adverse Reactions: Allergies Allergy/AdvReac Type Severity Reaction Status Date / Time Penicillins Allergy Intermediate Rash Verified 06/19/17 12:11 - Home Medications Home Medications: Ambulatory Orders Fenofibrate Nanocrystallized [Fenofibrate] 145 mg PO DAILY 06/19/17 Linagliptin/Metformin HCl [Jentadueto 2.5 mg-1000 mg Tab] 1 each PO DAILY Metoprolol Tartrate [Lopressor -] 25 mg PO DAILY 06/19/17 Simvastatin [Zocor -] 20 mg PO HS 06/19/17 Acetaminophen [Tylenol .Regular Strength -] 650 mg PO Q6H PRN #0 tablet Albuterol 2.5/Ipratropium 0.5 [Duoneb -] 1 amp NEB QIDR #120 amp 06/27/17 Lisinopril [Prinivil] 2.5 mg PO DAILY #30 tablet 06/27/17 Family Disease History - Family Disease History Family Disease History: Diabetes: Mother, Brother, Sister Review of Systems - Review of Systems Constitutional: reports: Fever Eyes: reports: No Symptoms HENT: reports: No Symptoms Neck: reports: No Symptoms Cardiovascular: reports: Edema, Shortness of Breath Respiratory: reports: Cough, Orthopnea, SOB, SOB on Exertion, Wheezing Gastrointestinal: reports: No Symptoms Genitourinary: reports: No Symptoms Breasts: reports: No Symptoms Reported Musculoskeletal: reports: No Symptoms Integumentary: reports: No Symptoms Neurological: reports: No Symptoms Endocrine: reports: No Symptoms Hematology/Lymphatic: reports: No Symptoms Psychiatric: reports: No Symptoms Physical Examination Vital Signs: Vital Signs Temperature 99.6 F 11/10/17 21:40 Pulse Rate 110 H 11/10/17 21:40 Respiratory Rate 36 H 11/10/17 21:40 Blood Pressure 144/91 11/10/17 21:40 O2 Sat by Pulse Oximetry (%) 98 11/11/17 00:45 Constitutional: Yes: Moderate Distress Eyes: Yes: WNL, Conjunctiva Clear, EOM Intact, PERRL HENT: Yes: WNL, Atraumatic, Normocephalic Neck: Yes: WNL, Supple, Trachea Midline Cardiovascular: Yes: Tachycardia, S1, S2 Respiratory: Yes: On BiPap, Rales, Rhonchi, SOB, SOB on Exertion Gastrointestinal: Yes: WNL, Normal Bowel Sounds, Soft ...Rectal Exam: Yes: Deferred Renal/: Yes: WNL Breast(s): Yes: WNL Musculoskeletal: Yes: WNL Extremities: Yes: WNL Peripheral Pulses WNL: Yes Neurological: Yes: WNL, Alert, Oriented, Cran Nerves II-XII Intact ...Motor Strength: WNL Psychiatric: Yes: WNL, Alert, Oriented Labs: CBC, BMP 11/10/17 23:22 11/10/17 23:22 Laboratory Results - last 24 hr 11/10/17 11/10/17 11/10/17 22:55 23:22 23:22 WBC 8.8 RBC 4.71 Hgb 13.8 Hct 42.3 MCV 90.0 MCH 29.2 MCHC 32.5 RDW 14.3 Plt Count 158 D MPV 8.6 Neutrophils % 62.1 D Lymphocytes % 22.0 D Monocytes % 13.4 H D Eosinophils % 1.4 D Basophils % 1.1 D PT with INR 11.40 INR 1.01 PTT (Actin FS) 32.4 Anticoagulation Therapy Puncture Site ABG pH ABG pCO2 at Pt Temp ABG pO2 at Pt Temp ABG HCO3 ABG O2 Sat (Measured) ABG O2 Content ABG Base Excess Carlo Test O2 Delivery Device Oxygen Flow Rate Vent Mode Vent Rate Mechanical Rate Pressure Support Vent Sodium Potassium Chloride Carbon Dioxide Anion Gap BUN Creatinine Creat Clearance w eGFR Random Glucose Lactic Acid Calcium Phosphorus Magnesium Total Bilirubin AST ALT Alkaline Phosphatase Creatine Kinase Troponin I B-Natriuretic Peptide Total Protein Albumin Urine Color Urine Appearance Urine pH Ur Specific [place] Urine Protein Urine Glucose (UA) Urine Ketones Urine Blood Urine Nitrite Urine Bilirubin Urine Urobilinogen Ur Leukocyte Esterase Urine WBC (Auto) Urine RBC (Auto) Ur Epithelial Cells Urine Bacteria Hyaline Casts Urine Mucus Blood Type O POSITIVE Antibody Screen Negative 11/10/17 11/10/17 11/11/17 23:22 23:22 00:30 WBC RBC Hgb Hct MCV MCH MCHC RDW Plt Count MPV Neutrophils % Lymphocytes % Monocytes % Eosinophils % Basophils % PT with INR INR PTT (Actin FS) Anticoagulation Therapy No Result Required. Puncture Site Right radial ABG pH 7.20 L* D ABG pCO2 at Pt Temp 66.0 H* D ABG pO2 at Pt Temp 76.8 L ABG HCO3 24.9 ABG O2 Sat (Measured) 92.7 ABG O2 Content 16.8 ABG Base Excess -4.0 L Carlo Test Positive O2 Delivery Device Nasal Oxygen Flow Rate 3l Vent Mode No Result Required. Vent Rate No Result Required. Mechanical Rate No Result Required. Pressure Support Vent No Result Required. Sodium 139 Potassium 4.9 Chloride 103 Carbon Dioxide 29 Anion Gap 7 L BUN 35 H Creatinine 0.9 Creat Clearance w eGFR > 60 Random Glucose 167 H D Lactic Acid 2.0 Calcium 9.6 Phosphorus Magnesium Total Bilirubin 0.3 D AST 17 D ALT 20 Alkaline Phosphatase 66 D Creatine Kinase 30 Troponin I < 0.02 B-Natriuretic Peptide Total Protein 7.5 Albumin 4.1 D Urine Color Urine Appearance Urine pH Ur Specific [place] Urine Protein Urine Glucose (UA) Urine Ketones Urine Blood Urine Nitrite Urine Bilirubin Urine Urobilinogen Ur Leukocyte Esterase Urine WBC (Auto) Urine RBC (Auto) Ur Epithelial Cells Urine Bacteria Hyaline Casts Urine Mucus Blood Type Antibody Screen 11/11/17 11/11/17 11/11/17 00:36 02:00 05:37 WBC 4.1 D RBC 3.83 Hgb 11.3 D Hct 34.8 D MCV 90.9 MCH 29.6 MCHC 32.6 RDW 14.5 Plt Count 119 L D MPV 8.5 Neutrophils % 87.0 H D Lymphocytes % 10.4 D Monocytes % 2.3 L D Eosinophils % 0.0 D Basophils % 0.3 PT with INR INR PTT (Actin FS) Anticoagulation Therapy Puncture Site Right radial ABG pH 7.22 L* ABG pCO2 at Pt Temp 57.6 H ABG pO2 at Pt Temp 128.0 H D ABG HCO3 22.7 ABG O2 Sat (Measured) 98.2 ABG O2 Content 16.8 ABG Base Excess -5.2 L Carlo Test No Result Required. O2 Delivery Device Bipap Oxygen Flow Rate 40% Vent Mode Vent Rate 12 Mechanical Rate Pressure Support Vent 10/5 Sodium Potassium Chloride Carbon Dioxide Anion Gap BUN Creatinine Creat Clearance w eGFR Random Glucose Lactic Acid 2.1 H* Calcium Phosphorus Magnesium Total Bilirubin AST ALT Alkaline Phosphatase Creatine Kinase Troponin I B-Natriuretic Peptide Total Protein Albumin Urine Color Urine Appearance Urine pH Ur Specific [place] Urine Protein Urine Glucose (UA) Urine Ketones Urine Blood Urine Nitrite Urine Bilirubin Urine Urobilinogen Ur Leukocyte Esterase Urine WBC (Auto) Urine RBC (Auto) Ur Epithelial Cells Urine Bacteria Hyaline Casts Urine Mucus Blood Type Antibody Screen 11/11/17 11/11/17 05:37 07:48 WBC RBC Hgb Hct MCV MCH MCHC RDW Plt Count MPV Neutrophils % Lymphocytes % Monocytes % Eosinophils % Basophils % PT with INR INR PTT (Actin FS) Anticoagulation Therapy Puncture Site ABG pH ABG pCO2 at Pt Temp ABG pO2 at Pt Temp ABG HCO3 ABG O2 Sat (Measured) ABG O2 Content ABG Base Excess Carlo Test O2 Delivery Device Oxygen Flow Rate Vent Mode Vent Rate Mechanical Rate Pressure Support Vent Sodium Potassium Chloride Carbon Dioxide Anion Gap BUN Creatinine Creat Clearance w eGFR Random Glucose Lactic Acid Calcium Phosphorus 5.2 H D Magnesium 2.0 Total Bilirubin AST ALT Alkaline Phosphatase Creatine Kinase Troponin I B-Natriuretic Peptide 182.34 H Total Protein Albumin Urine Color Yellow Urine Appearance Slcloudy Urine pH 5.0 Ur Specific [place] 1.018 Urine Protein 1+ H Urine Glucose (UA) Negative Urine Ketones Negative Urine Blood Negative Urine Nitrite Negative Urine Bilirubin Negative Urine Urobilinogen Negative Ur Leukocyte Esterase Negative Urine WBC (Auto) 1 Urine RBC (Auto) 1 Ur Epithelial Cells Rare Urine Bacteria Rare Hyaline Casts 43 Urine Mucus Rare Blood Type Antibody Screen Current Medications Generic Name Dose Route Start Last Admin Trade Name Maryjo PRN Reason Stop Dose Admin Acetaminophen 650 mg 11/11/17 01:27 Tylenol - PO Q6H PRN FEVER OR PAIN Levofloxacin 500 mg in 100 mls @ 100 mls/hr 11/11/17 10:00 11/11/17 09:24 Levaquin 500 Mg Premixed Ivpb - IVPB 100 mls/hr DAILY MICKEY Administration Methylprednisolone Sodium Succinate 40 mg 11/11/17 09:00 11/11/17 09:24 Solu-Medrol - IVPUSH 40 mg Q6H-IV MICKEY Administration Intake & Output 11/08/17 11/09/17 11/10/17 11/11/17 23:59 23:59 23:59 23:59 Weight 63.503 kg Imaging - Results Chest X-ray: Image Reviewed EKG: Image Reviewed (ST 103 VT int 116 QT/QTc 340/445) Problem List - Problems (1) Respiratory failure with hypercapnia Code(s): J96.92 - RESPIRATORY FAILURE, UNSPECIFIED WITH HYPERCAPNIA Qualifiers: Chronicity: acute on chronic Qualified Code(s): J96.22 - Acute and chronic respiratory failure with hypercapnia (2) Shortness of breath Code(s): R06.02 - SHORTNESS OF BREATH (3) COPD (chronic obstructive pulmonary disease) Code(s): J44.9 - CHRONIC OBSTRUCTIVE PULMONARY DISEASE, UNSPECIFIED (4) Coronary artery disease Code(s): I25.10 - ATHSCL HEART DISEASE OF [place] CORONARY ARTERY W/O ANG PCTRS (5) Diabetes Code(s): E11.9 - TYPE 2 DIABETES MELLITUS WITHOUT COMPLICATIONS (6) HTN (hypertension) Code(s): I10 - ESSENTIAL (PRIMARY) HYPERTENSION (7) DVT prophylaxis Code(s): WNW6279 - Assessment/Plan This is a 67 y/o woman with a PMHx of HTN, HLD, NIDDM, CAD (s/p stent), COPD ( O2 dep, 3L), Former Smoker. Admitted to Telemetry for Acute Respiratory failure with Hypercapnia, Acute COPD Exacerbation. Plan: 1. Pulm: Acute Resp Failure w/ Hypercapnia likely secondary to COPD vs Pneumonia - Initial ABG- 7., Placed on BIPAP, will order repeat ABG and adjust settings accordingly. Chest Xray- image reviewed. Blood Cultures-pending Solumederol, Magnesium Sulfate given in ED, will continue Corticosteroid w/taper , Appreciate Pulm consult. Appreciate ID consult, Continue Albuterol nebs prn. Continue Levofloxacin, Continue cardiac monitoring, Repeat CBC, BMP in am, Sputum culture, Urine Legionella 2. Card: CAD// HTN//HLD- Continue home meds, EKG reviewed 3. Endocrine- Monitor BGMs, ISS when diet resumed, Hold Metformin secondary to concern for Lactic Acidosis 4. F/E/N- Replete lytes prn, NPO 5. DVT Prophylaxis- OOB, SCDs, Lovenox SQ Code Status: Full Code Dispo: Requires Inpatient Care Visit type - Emergency Visit Emergency Visit: Yes ED Registration Date: 11/10/17 Care time: The patient presented to the Emergency Department on the above date and was hospitalized for further evaluation of their emergent condition. - New Patient This patient is new to me today: Yes Date on this admission: 11/11/17 - Critical Care Critical Care patient: No
[2017-11-11] MEDS ORDERED: ACETAMINOPHEN 325 MG TABLET (FP) PO PRN (01:27)
[2017-11-11 02:05] LABS: ARTERIAL BLD GAS O2 SATURATION 98.2 % (90-98.9); ARTERIAL BLOOD GAS BASE EXCESS -5.2 meq/l (-2-2); ARTERIAL BLOOD GAS PCO2 57.6 mmHg (35-45)
[2017-11-11 02:09] LABS: ARTERIAL BLOOD GAS pH 7.22 (7.35-7.45)
[2017-11-11 05:57] LABS: BASO % 0.3 % (0-2.0); HEMATOCRIT 34.8 % (32.4-45.2); HEMOGLOBIN 11.3 GM/dL (10.7-15.3); LYMPH % 10.4 % (8-40); MCH 29.6 pg (25.7-33.7); MCHC 32.6 g/dl (32.0-36.0); MEAN CELL VOLUME 90.9 fl (80-96); MEAN PLT VOLUME 8.5 fl (7.5-11.1); MONO % 2.3 % (3.8-10.2); PLATELET COUNT 119 K/MM3 (134-434); RBC 3.83 M/mm3 (3.60-5.2); RDW 14.5 % (11.6-15.6); WHITE BLOOD COUNT 4.1 K/mm3 (4.0-10.0)
[2017-11-11 06:35] LABS: PHOSPHOROUS 5.2 mg/dL (2.5-4.9)
[2017-11-11 06:36] LABS: N-TERMINAL BNP 182.34 pg/ml (5-125)
[2017-11-11 08:22] LABS: URINE APPEARANCE SLCLOUDY; URINE BILIRUBIN NEGATIVE (NEGATIVE); URINE BLOOD NEGATIVE (NEGATIVE); URINE COLOR YELLOW; URINE GLUCOSE (UA) NEGATIVE (NEGATIVE); URINE KETONE NEGATIVE (NEGATIVE); URINE LEUK ESTERASE NEGATIVE (NEGATIVE); URINE NITRITE NEGATIVE (NEGATIVE); URINE UROBILINOGEN NEGATIVE mg/dL (0.2-1.0)
[2017-11-11 08:29] LABS: URINE PROTEIN 1+ (NEGATIVE)
[2017-11-11 08:32] LABS: EPI CELLS RARE /HPF (FEW); URINE BACTERIA RARE /hpf (NONE SEEN); URINE HYALINE CAST 43 /lpf; URINE MUCUS RARE
[2017-11-11] MEDS ORDERED: methylPREDNISolone NA SUCC 40 MG/1 ML VIAL ONE (09:15)
[2017-11-11] MEDS: methylPREDNISolone NA SUCC 40 MG/1 ML VIAL IVPUSH SCH ×3 (09:24→21:31)
[2017-11-11 09:45] LABS: ANION GAP 10 (8-16); BLOOD UREA NITROGEN 37 mg/dL (7-18); CALCIUM 8.4 mg/dL (8.5-10.1); CHLORIDE 106 mmol/L (98-107); CO2 23 mmol/L (21-32); CREATININE 1.2 mg/dL (0.55-1.02); GLUCOSE,RANDOM 256 mg/dL (74-106); POTASSIUM 5.1 mmol/L (3.5-5.1); SODIUM 139 mmol/L (136-145)
[2017-11-11] MEDS ORDERED: LEVOFLOXACIN 500 MG IVPB 500 MG/100 ML BAG IVPB SCH (10:00)
--- NOTE | 2017-11-11 10:23 | PN ---
Progress Note (short form) - Note Progress Note: ID Consult dictated Acute exacerbation COPD Possible CAP PCN allergy (rash) CAD/PCI NIDDM lactic acidosis Thrombocytopenia Hx Aortic graft repair Pending c/s empiric zithromax/ ceftriaxone
--- NOTE | 2017-11-11 11:20 | CON.CARD ---
Consult - History of Present Illness History of Present Illness: This is a 67 y/o woman with a past medical history of HTN, HLD, NIDDM, CAD(stent ), COPD (O2 dep-3L), Former Smoker. Who presents to the Ed with SOB x 1 week. Patient's was at bedside and reports that the patient had a productive cough and low grade fever at home. Patient reports only being able to take 5 steps before she is out of breath. Patient denies CP, palpitations, AP, N/V/D, constipation, dysuria. PMH Nica of mid LAD 09/29/2014 Left common iliac stent 09/27/2014 ([place]) COPD; chronic bronchitis; emphysema diverticulitis DM HTN nephrolithiasis PVD - Past Medical History Cardio/Vascular: Yes: CAD (stent), HTN, Hyperlipdemia Pulmonary: Yes: COPD, O2 Dependent (3L) Gastrointestinal: Yes: Diverticulitis Renal/: Yes: Renal Calculi - Past Surgical History Past Surgical History: Yes: Appendectomy, , Tubal Ligation - Alcohol/Substance Use Hx Alcohol Use: No History of Substance Use: reports: None - Smoking History Smoking history: Former smoker Have you smoked in the past 12 months: Yes Aproximately how many cigarettes per day: 20 If you are a former smoker, when did you quit?: 06/2017 - Social History Usual Living Arrangement: With Spouse ADL: Independent Occupation: works for [employer] History of Recent Travel: No Home Medications - Allergies Allergies/Adverse Reactions: Allergies Allergy/AdvReac Type Severity Reaction Status Date / Time Penicillins Allergy Intermediate Rash Verified 06/19/17 12:11 - Home Medications Home Medications: Ambulatory Orders RX: Fenofibrate Nanocrystallized [Fenofibrate] 145 mg PO DAILY 06/19/17 RX: Linagliptin/Metformin HCl [Jentadueto 2.5 mg-1000 mg Tab] 1 each PO DAILY RX: Simvastatin [Zocor -] 20 mg PO HS 06/19/17 RX: Acetaminophen [Tylenol .Regular Strength -] 650 mg PO Q6H PRN #0 tablet RX: Albuterol 2.5/Ipratropium 0.5 [Duoneb -] 1 amp NEB QIDR #120 amp 06/27/17 RX: Lisinopril [Prinivil] 2.5 mg PO DAILY #30 tablet 06/27/17 Metoprolol Succinate [Toprol Xl -] 25 mg PO DAILY 11/11/17 Family Disease History - Family Disease History Family Disease History: Diabetes: Mother, Brother, Sister Review of Systems - Review of Systems Constitutional: reports: No Symptoms Eyes: reports: No Symptoms HENT: reports: No Symptoms Neck: reports: No Symptoms Cardiovascular: reports: No Symptoms Respiratory: reports: SOB, SOB on Exertion Gastrointestinal: reports: No Symptoms Genitourinary: reports: No Symptoms Breasts: reports: No Symptoms Reported Musculoskeletal: reports: No Symptoms Integumentary: reports: No Symptoms Neurological: reports: No Symptoms Endocrine: reports: No Symptoms Hematology/Lymphatic: reports: No Symptoms Psychiatric: reports: No Symptoms Vital Signs: Vital Signs Temperature 97.8 F 11/11/17 06:34 Pulse Rate 81 11/11/17 08:32 Respiratory Rate 19 11/11/17 08:32 Blood Pressure 111/51 11/11/17 08:32 O2 Sat by Pulse Oximetry (%) 98 11/11/17 08:32 Constitutional: Yes: Well Nourished, No Distress, Calm Eyes: Yes: WNL, Conjunctiva Clear, EOM Intact HENT: Yes: WNL, Atraumatic, Normocephalic Neck: Yes: WNL, Supple, Trachea Midline Respiratory: Yes: WNL, Regular, Diminished Gastrointestinal: Yes: WNL, Normal Bowel Sounds Renal/: Yes: WNL Cardiovascular: Yes: WNL, Regular Rate and Rhythm Musculoskeletal: Yes: WNL Extremities: Yes: WNL Integumentary: Yes: WNL Neurological: Yes: WNL, Alert, Oriented ...Motor Strength: WNL Psychiatric: Yes: WNL, Alert, Oriented - Other Data Labs, Other Data: CBC, BMP 11/11/17 05:37 11/11/17 05:37 INR, PTT INR 1.01 (0.82-1.09) 11/10/17 23:22 Troponin, BNP 11/10/17 11/11/17 23:22 05:37 Troponin I < 0.02 B-Natriuretic Peptide 182.34 H Troponin, BNP 11/10/17 11/11/17 23:22 05:37 Troponin I < 0.02 B-Natriuretic Peptide 182.34 H Laboratory Tests 11/10/17 11/10/17 11/10/17 22:55 23:22 23:22 WBC 8.8 RBC 4.71 Hgb 13.8 Hct 42.3 MCV 90.0 MCH 29.2 MCHC 32.5 RDW 14.3 Plt Count 158 D MPV 8.6 Neutrophils % 62.1 D Lymphocytes % 22.0 D Monocytes % 13.4 H D Eosinophils % 1.4 D Basophils % 1.1 D PT with INR 11.40 INR 1.01 PTT (Actin FS) 32.4 Anticoagulation Therapy Puncture Site ABG pH ABG pCO2 at Pt Temp ABG pO2 at Pt Temp ABG HCO3 ABG O2 Sat (Measured) ABG O2 Content ABG Base Excess Carlo Test O2 Delivery Device Oxygen Flow Rate Vent Mode Vent Rate Mechanical Rate Pressure Support Vent Sodium Potassium Chloride Carbon Dioxide Anion Gap BUN Creatinine Creat Clearance w eGFR Random Glucose Lactic Acid Calcium Phosphorus Magnesium Total Bilirubin AST ALT Alkaline Phosphatase Creatine Kinase Troponin I B-Natriuretic Peptide Total Protein Albumin Urine Color Urine Appearance Urine pH Ur Specific [place] Urine Protein Urine Glucose (UA) Urine Ketones Urine Blood Urine Nitrite Urine Bilirubin Urine Urobilinogen Ur Leukocyte Esterase Urine WBC (Auto) Urine RBC (Auto) Ur Epithelial Cells Urine Bacteria Hyaline Casts Urine Mucus Blood Type O POSITIVE Antibody Screen Negative 11/10/17 11/10/17 11/11/17 23:22 23:22 00:30 WBC RBC Hgb Hct MCV MCH MCHC RDW Plt Count MPV Neutrophils % Lymphocytes % Monocytes % Eosinophils % Basophils % PT with INR INR PTT (Actin FS) Anticoagulation Therapy No Result Required. Puncture Site Right radial ABG pH 7.20 L* D ABG pCO2 at Pt Temp 66.0 H* D ABG pO2 at Pt Temp 76.8 L ABG HCO3 24.9 ABG O2 Sat (Measured) 92.7 ABG O2 Content 16.8 ABG Base Excess -4.0 L Carlo Test Positive O2 Delivery Device Nasal Oxygen Flow Rate 3l Vent Mode No Result Required. Vent Rate No Result Required. Mechanical Rate No Result Required. Pressure Support Vent No Result Required. Sodium 139 Potassium 4.9 Chloride 103 Carbon Dioxide 29 Anion Gap 7 L BUN 35 H Creatinine 0.9 Creat Clearance w eGFR > 60 Random Glucose 167 H D Lactic Acid 2.0 Calcium 9.6 Phosphorus Magnesium Total Bilirubin 0.3 D AST 17 D ALT 20 Alkaline Phosphatase 66 D Creatine Kinase 30 Troponin I < 0.02 B-Natriuretic Peptide Total Protein 7.5 Albumin 4.1 D Urine Color Urine Appearance Urine pH Ur Specific [place] Urine Protein Urine Glucose (UA) Urine Ketones Urine Blood Urine Nitrite Urine Bilirubin Urine Urobilinogen Ur Leukocyte Esterase Urine WBC (Auto) Urine RBC (Auto) Ur Epithelial Cells Urine Bacteria Hyaline Casts Urine Mucus Blood Type Antibody Screen 11/11/17 11/11/17 11/11/17 00:36 02:00 05:37 WBC 4.1 D RBC 3.83 Hgb 11.3 D Hct 34.8 D MCV 90.9 MCH 29.6 MCHC 32.6 RDW 14.5 Plt Count 119 L D MPV 8.5 Neutrophils % 87.0 H D Lymphocytes % 10.4 D Monocytes % 2.3 L D Eosinophils % 0.0 D Basophils % 0.3 PT with INR INR PTT (Actin FS) Anticoagulation Therapy Puncture Site Right radial ABG pH 7.22 L* ABG pCO2 at Pt Temp 57.6 H ABG pO2 at Pt Temp 128.0 H D ABG HCO3 22.7 ABG O2 Sat (Measured) 98.2 ABG O2 Content 16.8 ABG Base Excess -5.2 L Carlo Test No Result Required. O2 Delivery Device Bipap Oxygen Flow Rate 40% Vent Mode Vent Rate 12 Mechanical Rate Pressure Support Vent 10/5 Sodium Potassium Chloride Carbon Dioxide Anion Gap BUN Creatinine Creat Clearance w eGFR Random Glucose Lactic Acid 2.1 H* Calcium Phosphorus Magnesium Total Bilirubin AST ALT Alkaline Phosphatase Creatine Kinase Troponin I B-Natriuretic Peptide Total Protein Albumin Urine Color Urine Appearance Urine pH Ur Specific [place] Urine Protein Urine Glucose (UA) Urine Ketones Urine Blood Urine Nitrite Urine Bilirubin Urine Urobilinogen Ur Leukocyte Esterase Urine WBC (Auto) Urine RBC (Auto) Ur Epithelial Cells Urine Bacteria Hyaline Casts Urine Mucus Blood Type Antibody Screen 11/11/17 11/11/17 05:37 07:48 WBC RBC Hgb Hct MCV MCH MCHC RDW Plt Count MPV Neutrophils % Lymphocytes % Monocytes % Eosinophils % Basophils % PT with INR INR PTT (Actin FS) Anticoagulation Therapy Puncture Site ABG pH ABG pCO2 at Pt Temp ABG pO2 at Pt Temp ABG HCO3 ABG O2 Sat (Measured) ABG O2 Content ABG Base Excess Carlo Test O2 Delivery Device Oxygen Flow Rate Vent Mode Vent Rate Mechanical Rate Pressure Support Vent Sodium 139 Potassium 5.1 Chloride 106 Carbon Dioxide 23 D Anion Gap 10 BUN 37 H Creatinine 1.2 H D Creat Clearance w eGFR Random Glucose 256 H D Lactic Acid Calcium 8.4 L Phosphorus 5.2 H D Magnesium 2.0 Total Bilirubin AST ALT Alkaline Phosphatase Creatine Kinase Troponin I B-Natriuretic Peptide 182.34 H Total Protein Albumin Urine Color Yellow Urine Appearance Slcloudy Urine pH 5.0 Ur Specific [place] 1.018 Urine Protein 1+ H Urine Glucose (UA) Negative Urine Ketones Negative Urine Blood Negative Urine Nitrite Negative Urine Bilirubin Negative Urine Urobilinogen Negative Ur Leukocyte Esterase Negative Urine WBC (Auto) 1 Urine RBC (Auto) 1 Ur Epithelial Cells Rare Urine Bacteria Rare Hyaline Casts 43 Urine Mucus Rare Blood Type Antibody Screen Imaging - Results Chest X-ray: Image Reviewed (hyperinfation) EKG: Image Reviewed (s. tachycardia o/w wnl) Problem List - Problems (1) DVT prophylaxis Code(s): [id number] - (2) Respiratory failure with hypercapnia Code(s): J96.92 - RESPIRATORY FAILURE, UNSPECIFIED WITH HYPERCAPNIA Qualifiers: Chronicity: acute on chronic Qualified Code(s): J96.22 - Acute and chronic respiratory failure with hypercapnia (3) Abnormal CT scan, gallbladder Code(s): R93.2 - ABNORMAL FINDINGS ON DX IMAGING OF LIVER AND BILIARY TRACT (4) Abnormal ECG Code(s): R94.31 - ABNORMAL ELECTROCARDIOGRAM [ECG] [EKG] (5) COPD (chronic obstructive pulmonary disease) Code(s): J44.9 - CHRONIC OBSTRUCTIVE PULMONARY DISEASE, UNSPECIFIED (6) Cigarette nicotine dependence Code(s): F17.210 - NICOTINE DEPENDENCE, CIGARETTES, UNCOMPLICATED (7) Coronary artery disease Code(s): I25.10 - ATHSCL HEART DISEASE OF [place] CORONARY ARTERY W/O ANG PCTRS (8) Diabetes Code(s): E11.9 - TYPE 2 DIABETES MELLITUS WITHOUT COMPLICATIONS (9) Diverticulitis of intestine with abscess Code(s): K57.80 - DVTRCLI OF INTEST, PART UNSP, W PERF AND ABSCESS W/O BLEED (10) HTN (hypertension) Code(s): I10 - ESSENTIAL (PRIMARY) HYPERTENSION (11) Hyperglycemia Code(s): R73.9 - HYPERGLYCEMIA, UNSPECIFIED (12) Shortness of breath Code(s): R06.02 - SHORTNESS OF BREATH (13) Stenosis of infrarenal abdominal aorta due to arteriosclerosis Code(s): I70.0 - ATHEROSCLEROSIS OF AORTA Assessment/Plan copd exacerbation respiratory acidosis lactic acidosis ?chf Nica of mid LAD 09/29/2014 Left common iliac stent 09/27/2014 ([place]) COPD; chronic bronchitis; emphysema diverticulitis DM HTN nephrolithiasis PVD Plan ABX as per ID Pulmonary evaluation clinically not in chf dvt prophylaxis cardiac w/uu when stable from pulmonary point of view
[2017-11-11] MEDS: ENOXAPARIN NA (PORCINE) 30 MG/0.3 ML DISP.SYRIN SQ SCH (11:35)
[2017-11-11] MEDS ORDERED: AZITHROMYCIN IVPB 250 ML IVPB ONE (11:39)
[2017-11-11] MEDS: AZITHROMYCIN IVPB 500 MG in DEXTROSE 5%-WATER - 250 ML IVPB SCH (11:39)
[2017-11-11] MEDS ORDERED: ENOXAPARIN NA (PORCINE) 30 MG/0.3 ML DISP.SYRIN SQ ONE (11:40)
[2017-11-11] MEDS: CEFTRIAXONE IN IS-OSM DEXTROSE 2 GM/50 ML BAG IVPB SCH (12:13)
--- NOTE | 2017-11-11 12:22 | EKG ---
Test Reason : Blood Pressure : / mmHG Vent. Rate : 103 BPM Atrial Rate : 103 BPM P-R Int : 116 ms QRS Dur : 078 ms QT Int : 340 ms P-R-T Axes : 086 079 072 degrees QTc Int : 445 ms SINUS TACHYCARDIA OTHERWISE NORMAL ECG WHEN COMPARED WITH ECG OF 23-JUN-2017 10:37, NO SIGNIFICANT CHANGE WAS FOUND Confirmed by LAURA HERRMANN MD ([id number]) on 11/11/2017 12:22:09 PM Referred By: Confirmed By:LAURA HERRMANN MD
--- NOTE | 2017-11-11 12:31 | CONS ---
DATE OF CONSULTATION: 11/11/2017 HISTORY: The patient is a 67-year-old female with a history of O2-dependent COPD evaluated for possible pneumonia. The patient was admitted from home with a several-day history of worsening shortness of breath, cough productive of whitish sputum, and a fever. She presented to the emergency room where she was found to be tachypneic. She was using accessory muscles of respiration. The patient was placed on BiPAP mask. She was treated with inhaled bronchodilators and intravenous corticosteroids. She was given a dose of Levaquin. The patient reports cough productive of whitish sputum. She denies any hemoptysis. No complaints of chest pain. She lives at home. She is on oxygen. She wears a CPAP. She is not steroid dependent. According to the chart, her last admission for exacerbation of COPD was in June 2017. The patient states several contacts have had respiratory tract illnesses. She denies any recent travel or antibiotic therapy. No recent hospitalizations. She was unsure with respect to influenza and pneumococcal vaccines. PAST MEDICAL HISTORY: Positive for COPD, oxygen dependent, coronary artery disease status post coronary artery stents, hypertension, hyperlipidemia, [id number] diabetes mellitus, diverticulitis. PAST SURGICAL HISTORY: Status post aorta graft repair approximately 3 years ago, appendectomy, section and tubal ligation. ALLERGIES: PENICILLIN. The patient reports developing a rash years ago. No history of anaphylaxis. MEDICATIONS: Zocor, Lopressor, Prinivil, fenofibrate, albuterol. SOCIAL HISTORY: Lives at home. Former smoker. Heavy tobacco use history. No history of alcohol abuse or illicit drug use. SYSTEMS REVIEW: Neurologic: No loss of consciousness, seizure activity, focal weakness. Cardiac: History of coronary artery disease, coronary artery stents, and aortic graft repair. Respiratory: As per HPI. Gastrointestinal: Negative vomiting or diarrhea. Genitourinary: Negative for urinary tract infection. LABORATORY DATA: White count 4.1, 87 neutrophils, 10 lymphocytes, 2 monocytes, hematocrit 34.8, platelet count 119, BUN 37, creatinine 1.2. Influenza screen negative. Urinalysis: 1 white cell, lactic acid 2.1. Legionella and pneumococcal antigens negative. Arterial blood gas: PH 7.2, PCO2 is 66, PO2 of 76. Chest x-ray read as needed for acute infiltrate. There appear to be some increased markings at the right base. PHYSICAL EXAMINATION: General: She is awake. She is no BiPAP mask. She is dyspneic at rest. Vital Signs: Temperature 97.8, blood pressure 111/51, pulse 81 and regular, respirations 19 per minute. HEENT: Sclerae anicteric. Heart: Sounds S1, S2. Lungs: Diminished breath sounds bilaterally. No rhonchi or wheezing. Abdomen: Soft. No tenderness elicited. No mass, rebound, or rigidity. Extremities: Negative for edema. IMPRESSION: 1. Acute exacerbation of chronic obstructive pulmonary disease. 2. Possible community-acquired pneumonia. 3. PENICILLIN allergy (rash). 4. Coronary artery disease status post coronary artery stents. 5. Zpa-fybvxsy-hthimabvh diabetes mellitus. 6. History of aortic graft repair. PLAN: Await culture results. Continue inhaled bronchodilators and intravenous corticosteroids. Empiric antibiotic coverage for community-acquired pneumonia versus atypical pneumonia with Zithromax and ceftriaxone. Aware of PENICILLIN allergy. We will follow. Thank you for the kind referral. GEMINI SEGURA M.D. [id number]
--- NOTE | 2017-11-11 13:47 | CON.PULM ---
Consult Consult Specialty:: PULMONARY Referred by:: Dr. Funk Reason for Consultation:: respiratory failure - History of Present Illness Chief Complaint: shortness of breath History of Present Illness: 67yo female with h/o HTN, hyperlipidemia, DM, CAD, COPD, chronic hypoxic respiratory failure who presents with worsening shortness of breath x 1 week. Reports multiple sick contacts at home. Denies subjective fevers or chills but per chart, reported low grade fever. +cough productive of white sputum and wheezing. No chest pain or palpitations. No nausea, vomiting but reports diarrhea. Uses proair and nebulizers at home. - History Source History Provided By: Patient, Medical Record Limitations to Obtaining History: No Limitations - Past Medical History Cardio/Vascular: Yes: CAD (stent), HTN, Hyperlipdemia Pulmonary: Yes: COPD, O2 Dependent (3L) Gastrointestinal: Yes: Diverticulitis Renal/: Yes: Renal Calculi - Past Surgical History Past Surgical History: Yes: Appendectomy, , Tubal Ligation - Alcohol/Substance Use Hx Alcohol Use: No History of Substance Use: reports: None - Smoking History Smoking history: Former smoker Have you smoked in the past 12 months: Yes Aproximately how many cigarettes per day: 20 If you are a former smoker, when did you quit?: 06/2017 - Social History Usual Living Arrangement: With Spouse ADL: Independent Occupation: works for [employer] History of Recent Travel: No Home Medications - Allergies Allergies/Adverse Reactions: Allergies Allergy/AdvReac Type Severity Reaction Status Date / Time Penicillins Allergy Intermediate Rash Verified 06/19/17 12:11 - Home Medications Home Medications: Ambulatory Orders Fenofibrate Nanocrystallized [Fenofibrate] 145 mg PO DAILY 06/19/17 Linagliptin/Metformin HCl [Jentadueto 2.5 mg-1000 mg Tab] 1 each PO DAILY Simvastatin [Zocor -] 20 mg PO HS 06/19/17 Acetaminophen [Tylenol .Regular Strength -] 650 mg PO Q6H PRN #0 tablet Albuterol 2.5/Ipratropium 0.5 [Duoneb -] 1 amp NEB QIDR #120 amp 06/27/17 Lisinopril [Prinivil] 2.5 mg PO DAILY #30 tablet 06/27/17 Metoprolol Succinate [Toprol Xl -] 25 mg PO DAILY 11/11/17 Family Disease History - Family Disease History Family Disease History: Diabetes: Mother, Brother, Sister Review of Systems - Review of Systems Constitutional: reports: Weakness. denies: Chills, Fever Eyes: denies: Recent Change in Vision HENT: denies: Nasal Congestion, Throat Pain Neck: denies: Stiffness, Tenderness Cardiovascular: reports: Shortness of Breath. denies: Chest Pain, Edema, Palpitations Respiratory: reports: Cough, Exercise Intolerance, SOB on Exertion, Wheezing. denies: Hemoptysis Gastrointestinal: reports: Diarrhea. denies: Abdominal Pain, Nausea, Vomiting Genitourinary: denies: Dysuria, Hematuria Neurological: denies: Dizziness, Headache Endocrine: denies: Unexplained Weight Gain, Unexplained Weight Loss Physical Exam Vital Sings: Vital Signs Temperature 98 F 11/11/17 11:46 Pulse Rate 80 11/11/17 11:46 Respiratory Rate 18 11/11/17 11:46 Blood Pressure 114/83 11/11/17 11:46 O2 Sat by Pulse Oximetry (%) 99 11/11/17 12:34 Constitutional: Yes: Mild Distress (mildly tachypneic with speaking) Eyes: Yes: Conjunctiva Clear, EOM Intact HENT: Yes: Atraumatic, Normocephalic Neck: Yes: Supple, Trachea Midline Cardiovascular: Yes: Regular Rate and Rhythm Respiratory: Yes: Diminished (distant breath sounds), Poor Air Entry ...Clubbing: No Gastrointestinal: Yes: Normal Bowel Sounds, Soft. No: Tenderness Edema: No Neurological: Yes: Alert, Oriented Labs: CBC, BMP 11/11/17 05:37 11/11/17 05:37 ABG Results ABG pH 7.22 (7.35-7.45) L* 11/11/17 02:00 ABG pCO2 at Pt Temp 57.6 mmHg (35-45) H 11/11/17 02:00 ABG pO2 at Pt Temp 128.0 mmHg (80-100) H D 11/11/17 02:00 ABG HCO3 22.7 meq/L (22-26) 11/11/17 02:00 ABG O2 Sat (Measured) 98.2 % (90-98.9) 11/11/17 02:00 ABG O2 Content 16.8 % vol (15-22) 11/11/17 02:00 ABG Base Excess -5.2 meq/l (-2-2) L 11/11/17 02:00 Imaging - Results Chest X-ray: Report Reviewed, Image Reviewed (bibasilar atelectasis) Problem List - Problems (1) Acute respiratory failure with hypercapnia Code(s): J96.02 - ACUTE RESPIRATORY FAILURE WITH HYPERCAPNIA (2) Acute and chronic respiratory failure with hypoxia Code(s): J96.21 - ACUTE AND CHRONIC RESPIRATORY FAILURE WITH HYPOXIA (3) COPD with acute exacerbation Code(s): J44.1 - CHRONIC OBSTRUCTIVE PULMONARY DISEASE W (ACUTE) EXACERBATION (4) Coronary artery disease Code(s): I25.10 - ATHSCL HEART DISEASE OF [place] CORONARY ARTERY W/O ANG PCTRS (5) Diabetes Code(s): E11.9 - TYPE 2 DIABETES MELLITUS WITHOUT COMPLICATIONS (6) HTN (hypertension) Code(s): I10 - ESSENTIAL (PRIMARY) HYPERTENSION Assessment/Plan Acute on Chronic Hypoxic Respiratory Failure Acute Hypercapneic Respiratory Failure Acute COPD Exacerbation CAD HTN DM Hyperlipidemia - IV medrol - inhaled bronchodilators - O2 to keep Spo2 >88% - empiric antibiotics - f/u cultures - flu swab - BiPAP at night and PRN during day - repeat ABG in AM - monitor CXR - DVT prophylaxis Thank you for this consult Uriel Berman MD
[2017-11-11] MEDS: ALBUTEROL SO4 2.5/IPRATROPIUM 0.5 INH SOL 3 ML VIAL.NEB. NEB SCH ×2 (17:10→22:30)
[2017-11-12] MEDS: methylPREDNISolone NA SUCC 40 MG/1 ML VIAL IVPUSH SCH ×4 (03:05→21:35)
[2017-11-12] MEDS: ALBUTEROL SO4 2.5/IPRATROPIUM 0.5 INH SOL 3 ML VIAL.NEB. NEB SCH ×4 (07:15→20:20)
[2017-11-12 07:56] LABS: ARTERIAL BLD GAS O2 SATURATION 97.2 % (90-98.9); ARTERIAL BLOOD GAS BASE EXCESS 0.3 meq/l (-2-2); ARTERIAL BLOOD GAS PCO2 54.4 mmHg (35-45); ARTERIAL BLOOD GAS pH 7.31 (7.35-7.45)
[2017-11-12 08:13] LABS: ALLENS TEST POSITIVE
[2017-11-12] MEDS: ENOXAPARIN NA (PORCINE) 30 MG/0.3 ML DISP.SYRIN SQ SCH (09:15)
[2017-11-12] MEDS: AZITHROMYCIN IVPB 500 MG in DEXTROSE 5%-WATER - 250 ML IVPB SCH (09:47)
[2017-11-12] MEDS: CEFTRIAXONE IN IS-OSM DEXTROSE 2 GM/50 ML BAG IVPB SCH (09:48)
[2017-11-12] MEDS: ALBUTEROL SO4 0.083% IH SOL 2.5 MG/3 ML VIAL.NEB. NEB PRN (10:16)
--- NOTE | 2017-11-12 13:32 | PN ---
Progress Note, Physician History of Present Illness: Awake, alert Slightly tachypneic on nasal cannula O2 Reports less dyspnea. Occasional cough No fever/ chills WBC WNL repeat CXR no infiltrate - Current Medication List Current Medications: Active Medications Acetaminophen (Tylenol -) 650 mg PO Q6H PRN PRN Reason: FEVER OR PAIN Albuterol Sulfate (Ventolin 0.083% Nebulizer Soln -) 1 amp NEB Q4H PRN PRN Reason: SHORT OF BREATH/WHEEZING Last Admin: 11/12/17 10:16 Dose: 1 amp Albuterol/Ipratropium (Duoneb -) 1 amp NEB RQID [facility] Last Admin: 11/12/17 12:01 Dose: Not Given Enoxaparin Sodium (Lovenox -) 30 mg SQ DAILY [facility] Last Admin: 11/12/17 09:15 Dose: 30 mg Azithromycin 500 mg/ Dextrose 250 mls @ 250 mls/hr IVPB DAILY [facility] Last Admin: 11/12/17 09:47 Dose: 250 mls/hr CEFTRIAXONE IN IS-OSM DEXTROSE (Ceftriaxone 2 Gm-D5w Bag) 2 gm in 50 mls @ 100 mls/hr IVPB DAILY [facility] Last Admin: 11/12/17 09:48 Dose: 100 mls/hr Methylprednisolone Sodium Succinate (Solu-Medrol -) 40 mg IVPUSH Q6H-IV [facility] Last Admin: 11/12/17 09:14 Dose: 40 mg - Objective Vital Signs: Vital Signs Temperature 98.0 F 11/12/17 09:00 Pulse Rate 80 11/12/17 10:15 Respiratory Rate 20 11/12/17 09:00 Blood Pressure 123/50 11/12/17 09:00 O2 Sat by Pulse Oximetry (%) 94 L 11/12/17 10:15 Constitutional: Yes: No Distress Eyes: Yes: Conjunctiva Clear Cardiovascular: Yes: Regular Rate and Rhythm, S1, S2 Respiratory: Yes: Diminished Gastrointestinal: Yes: Normal Bowel Sounds, Soft. No: Tenderness Edema: No Labs: CBC, BMP 11/11/17 05:37 11/11/17 05:37 INR, PTT INR 1.01 (0.82-1.09) 11/10/17 23:22 Assessment/Plan Acute exacerbation COPD-improved Possible pneumonia UTI PCN allergy NIDDM Continue empiric zithromax/ ceftriaxone Steroids Bronchodilators
--- NOTE | 2017-11-12 15:14 | PN ---
Progress Note, Physician Chief Complaint: AWAKE STILL SOB ON 02 - Current Medication List Current Medications: Active Medications Acetaminophen (Tylenol -) 650 mg PO Q6H PRN PRN Reason: FEVER OR PAIN Albuterol Sulfate (Ventolin 0.083% Nebulizer Soln -) 1 amp NEB Q4H PRN PRN Reason: SHORT OF BREATH/WHEEZING Last Admin: 11/12/17 10:16 Dose: 1 amp Albuterol/Ipratropium (Duoneb -) 1 amp NEB RQID [facility] Last Admin: 11/12/17 12:01 Dose: Not Given Enoxaparin Sodium (Lovenox -) 30 mg SQ DAILY [facility] Last Admin: 11/12/17 09:15 Dose: 30 mg Azithromycin 500 mg/ Dextrose 250 mls @ 250 mls/hr IVPB DAILY [facility] Last Admin: 11/12/17 09:47 Dose: 250 mls/hr CEFTRIAXONE IN IS-OSM DEXTROSE (Ceftriaxone 2 Gm-D5w Bag) 2 gm in 50 mls @ 100 mls/hr IVPB DAILY [facility] Last Admin: 11/12/17 09:48 Dose: 100 mls/hr Insulin Aspart (Novolog Vial Sliding Scale -) 1 vial SQ ACHS [facility] PRN Reason: Protocol Metformin HCl (Glucophage -) 500 mg PO BID@0700,1630 [facility] Methylprednisolone Sodium Succinate (Solu-Medrol -) 40 mg IVPUSH Q6H-IV [facility] Last Admin: 11/12/17 14:41 Dose: 40 mg Metoprolol Succinate (Toprol Xl -) 25 mg PO DAILY [facility] - Objective Vital Signs: Vital Signs Temperature 98.0 F 11/12/17 14:49 Pulse Rate 96 H 11/12/17 14:49 Respiratory Rate 20 11/12/17 14:49 Blood Pressure 149/85 11/12/17 14:49 O2 Sat by Pulse Oximetry (%) 94 L 11/12/17 10:15 Constitutional: Yes: Mild Distress Eyes: Yes: WNL HENT: Yes: WNL Neck: Yes: WNL Cardiovascular: Yes: WNL Respiratory: Yes: Diminished, On Nasal O2 Gastrointestinal: Yes: WNL ...Rectal Exam: Yes: WNL Genitourinary: Yes: WNL Musculoskeletal: Yes: WNL Extremities: Yes: WNL Edema: No Peripheral Pulses WNL: Yes Integumentary: Yes: WNL Wound/Incision: Yes: Clean/Dry Neurological: Yes: WNL ...Motor Strength: WNL Psychiatric: Yes: WNL Labs: CBC, BMP 11/11/17 05:37 11/11/17 05:37 INR, PTT INR 1.01 (0.82-1.09) 11/10/17 23:22 Problem List - Problems (1) Acute and chronic respiratory failure with hypoxia Code(s): J96.21 - ACUTE AND CHRONIC RESPIRATORY FAILURE WITH HYPOXIA (2) Acute respiratory failure with hypercapnia Code(s): J96.02 - ACUTE RESPIRATORY FAILURE WITH HYPERCAPNIA (3) COPD with acute exacerbation Code(s): J44.1 - CHRONIC OBSTRUCTIVE PULMONARY DISEASE W (ACUTE) EXACERBATION (4) DVT prophylaxis Code(s): [id number] - (5) Diabetes Code(s): E11.9 - TYPE 2 DIABETES MELLITUS WITHOUT COMPLICATIONS Qualifiers: Diabetes mellitus type: type 2 (6) HTN (hypertension) Code(s): I10 - ESSENTIAL (PRIMARY) HYPERTENSION Assessment/Plan IV ABX NEBS SSI ADA/LOW SODIUM OOB TO CHAIR DVT PROPHYLAXIS
[2017-11-12] MEDS: METOPROLOL SUCCINATE 25 MG TAB.SR.24H (FP) PO SCH (15:28)
--- NOTE | 2017-11-12 15:37 | PN ---
Progress Note (short form) - Note Progress Note: PULMONARY States breathing is improving. Still with cough and wheezing but chest feels looser. Last Vital Signs Temp Pulse Resp BP Pulse Ox 98.0 F 96 H 20 149/85 94 L 11/12/17 14:49 11/12/17 14:49 11/12/17 14:49 11/12/17 14:49 11/12/17 10:15 Gen: less tachypneic Heart: RRR Lung: distant breath sounds, no wheezes Abd: soft, nontender Ext: no edema CBC, BMP 11/11/17 05:37 11/11/17 05:37 Active Medications Acetaminophen (Tylenol -) 650 mg PO Q6H PRN PRN Reason: FEVER OR PAIN Albuterol Sulfate (Ventolin 0.083% Nebulizer Soln -) 1 amp NEB Q4H PRN PRN Reason: SHORT OF BREATH/WHEEZING Last Admin: 11/12/17 10:16 Dose: 1 amp Albuterol/Ipratropium (Duoneb -) 1 amp NEB RQID [facility] Last Admin: 11/12/17 12:01 Dose: Not Given Enoxaparin Sodium (Lovenox -) 30 mg SQ DAILY [facility] Last Admin: 11/12/17 09:15 Dose: 30 mg Azithromycin 500 mg/ Dextrose 250 mls @ 250 mls/hr IVPB DAILY [facility] Last Admin: 11/12/17 09:47 Dose: 250 mls/hr CEFTRIAXONE IN IS-OSM DEXTROSE (Ceftriaxone 2 Gm-D5w Bag) 2 gm in 50 mls @ 100 mls/hr IVPB DAILY [facility] Last Admin: 11/12/17 09:48 Dose: 100 mls/hr Insulin Aspart (Novolog Vial Sliding Scale -) 1 vial SQ ACHS [facility] PRN Reason: Protocol Metformin HCl (Glucophage -) 500 mg PO BID@0700,1630 [facility] Methylprednisolone Sodium Succinate (Solu-Medrol -) 40 mg IVPUSH Q6H-IV [facility] Last Admin: 11/12/17 14:41 Dose: 40 mg Metoprolol Succinate (Toprol Xl -) 25 mg PO DAILY [facility] Last Admin: 11/12/17 15:28 Dose: 25 mg A/P Acute on Chronic Hypoxic Respiratory Failure Acute Hypercapneic Respiratory Failure Acute COPD Exacerbation CAD HTN DM Hyperlipidemia - continue medrol at current dose, can taper in AM if continues to improve - inhaled bronchodilators - O2 to keep Spo2 >88% - empiric antibiotics - f/u cultures - BiPAP at night and PRN during day - DVT prophylaxis - will need outpt f/u, PFTs and pulmonary rehab Problem List - Problems (1) Acute respiratory failure with hypercapnia Code(s): J96.02 - ACUTE RESPIRATORY FAILURE WITH HYPERCAPNIA (2) Acute and chronic respiratory failure with hypoxia Code(s): J96.21 - ACUTE AND CHRONIC RESPIRATORY FAILURE WITH HYPOXIA (3) COPD with acute exacerbation Code(s): J44.1 - CHRONIC OBSTRUCTIVE PULMONARY DISEASE W (ACUTE) EXACERBATION (4) Coronary artery disease Code(s): I25.10 - ATHSCL HEART DISEASE OF [place] CORONARY ARTERY W/O ANG PCTRS (5) Diabetes Code(s): E11.9 - TYPE 2 DIABETES MELLITUS WITHOUT COMPLICATIONS Qualifiers: Diabetes mellitus type: type 2 (6) HTN (hypertension) Code(s): I10 - ESSENTIAL (PRIMARY) HYPERTENSION
[2017-11-12] MEDS ORDERED: metFORMIN HCL 500 MG TABLET (FP) PO SCH (16:30)
[2017-11-12] MEDS: INSULIN SLIDING SCALE (NOVOLOG) 1 VIAL SQ SCH ×2 (16:31→21:35)
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
[2017-11-13] MEDS ORDERED: INSULIN (NOVOLOG) ASPART 100 UNITS/ML 10ML VIAL ONE ×2 (00:02→20:38)
[2017-11-13] MEDS: methylPREDNISolone NA SUCC 40 MG/1 ML VIAL IVPUSH SCH ×3 (02:35→17:24)
[2017-11-13] MEDS: INSULIN SLIDING SCALE (NOVOLOG) 1 VIAL SQ SCH ×4 (06:07→21:14)
[2017-11-13 08:25] LABS: CHOLESTEROL 106 mg/dL (50-200); LDL CHOLESTEROL (ONLY SJRH) 50 mg/dL (5-100); TRIGLYCERIDES 105 mg/dL (35-160)
[2017-11-13 08:26] LABS: HDL CHOLESTEROL 45 mg/dL (40-60)
[2017-11-13] MEDS: ALBUTEROL SO4 2.5/IPRATROPIUM 0.5 INH SOL 3 ML VIAL.NEB. NEB SCH ×4 (08:45→21:00)
[2017-11-13] MEDS: ENOXAPARIN NA (PORCINE) 30 MG/0.3 ML DISP.SYRIN SQ SCH (09:38)
[2017-11-13] MEDS: METOPROLOL SUCCINATE 25 MG TAB.SR.24H (FP) PO SCH (09:38)
[2017-11-13] MEDS: CEFTRIAXONE IN IS-OSM DEXTROSE 2 GM/50 ML BAG IVPB SCH (09:38)
--- NOTE | 2017-11-13 10:10 | EKG ---
Test Reason : Blood Pressure : / mmHG Vent. Rate : 076 BPM Atrial Rate : 076 BPM P-R Int : 120 ms QRS Dur : 090 ms QT Int : 366 ms P-R-T Axes : 076 069 075 degrees QTc Int : 411 ms NORMAL SINUS RHYTHM NORMAL ECG WHEN COMPARED WITH ECG OF 10-NOV-2017 23:38, NO SIGNIFICANT CHANGE WAS FOUND Confirmed by RUSSELL MONTEJO MD ([id number]) on 11/13/2017 10:10:30 AM Referred By: Jermaine HORTA Confirmed By:RUSSELL MONTEJO MD
[2017-11-13] MEDS: AZITHROMYCIN IVPB 500 MG in DEXTROSE 5%-WATER - 250 ML IVPB SCH (10:22)
--- NOTE | 2017-11-13 10:38 | PN ---
Progress Note, Physician Chief Complaint: NOW ESBL URINE+ FEELING BETTER BREATHING IMPROVED ON 02NC - Current Medication List Current Medications: Active Medications Acetaminophen (Tylenol -) 650 mg PO Q6H PRN PRN Reason: FEVER OR PAIN Albuterol Sulfate (Ventolin 0.083% Nebulizer Soln -) 1 amp NEB Q4H PRN PRN Reason: SHORT OF BREATH/WHEEZING Last Admin: 11/12/17 10:16 Dose: 1 amp Albuterol/Ipratropium (Duoneb -) 1 amp NEB RQID [facility] Last Admin: 11/13/17 08:45 Dose: 1 amp Enoxaparin Sodium (Lovenox -) 30 mg SQ DAILY [facility] Last Admin: 11/13/17 09:38 Dose: 30 mg Azithromycin 500 mg/ Dextrose 250 mls @ 250 mls/hr IVPB DAILY [facility] Last Admin: 11/13/17 10:22 Dose: 250 mls/hr CEFTRIAXONE IN IS-OSM DEXTROSE (Ceftriaxone 2 Gm-D5w Bag) 2 gm in 50 mls @ 100 mls/hr IVPB DAILY [facility] Last Admin: 11/13/17 09:38 Dose: 100 mls/hr Insulin Aspart (Novolog Vial Sliding Scale -) 1 vial SQ ACHS [facility] PRN Reason: Protocol Last Admin: 11/13/17 06:07 Dose: Not Given Methylprednisolone Sodium Succinate (Solu-Medrol -) 40 mg IVPUSH Q6H-IV [facility] Last Admin: 11/13/17 09:38 Dose: 40 mg Metoprolol Succinate (Toprol Xl -) 25 mg PO DAILY [facility] Last Admin: 11/13/17 09:38 Dose: 25 mg - Objective Vital Signs: Vital Signs Temperature 97.8 F 11/13/17 09:00 Pulse Rate 76 11/13/17 09:00 Respiratory Rate 20 11/13/17 09:00 Blood Pressure 128/51 11/13/17 09:00 O2 Sat by Pulse Oximetry (%) 96 11/13/17 08:29 Constitutional: Yes: Mild Distress Eyes: Yes: WNL HENT: Yes: WNL Neck: Yes: WNL Cardiovascular: Yes: WNL Respiratory: Yes: On Nasal O2, Poor Air Entry, Wheezes Gastrointestinal: Yes: WNL Genitourinary: Yes: WNL Musculoskeletal: Yes: Back Pain, Muscle Weakness Extremities: Yes: WNL Edema: No Peripheral Pulses WNL: Yes Integumentary: Yes: WNL Wound/Incision: Yes: Clean/Dry Neurological: Yes: WNL ...Motor Strength: WNL Psychiatric: Yes: WNL Labs: CBC, BMP 11/11/17 05:37 11/11/17 05:37 INR, PTT INR 1.01 (0.82-1.09) 11/10/17 23:22 Problem List - Problems (1) Acute and chronic respiratory failure with hypoxia Code(s): J96.21 - ACUTE AND CHRONIC RESPIRATORY FAILURE WITH HYPOXIA (2) Acute respiratory failure with hypercapnia Code(s): J96.02 - ACUTE RESPIRATORY FAILURE WITH HYPERCAPNIA (3) COPD with acute exacerbation Code(s): J44.1 - CHRONIC OBSTRUCTIVE PULMONARY DISEASE W (ACUTE) EXACERBATION (4) DVT prophylaxis Code(s): [id number] - (5) Diabetes Code(s): E11.9 - TYPE 2 DIABETES MELLITUS WITHOUT COMPLICATIONS Qualifiers: Diabetes mellitus type: type 2 (6) HTN (hypertension) Code(s): I10 - ESSENTIAL (PRIMARY) HYPERTENSION Assessment/Plan ESBL NEEDS ID F/U ON CEFTRIAXONE AND AZITHRO NEBS STEROIDS DVT PROPHYLAXIS PT EVAL
--- NOTE | 2017-11-13 10:39 | PN ---
Progress Note, Physician History of Present Illness: This is a 67 y/o woman with a past medical history of HTN, HLD, NIDDM, CAD(stent ), COPD (O2 dep-3L), Former Smoker. Who presents to the Ed with SOB x 1 week. Patient's was at bedside and reports that the patient had a productive cough and low grade fever at home. Patient reports only being able to take 5 steps before she is out of breath. Patient denies CP, palpitations, AP, N/V/D, constipation, dysuria. PMH Nica of mid LAD 09/29/2014 Left common iliac stent 09/27/2014 ([place]) COPD; chronic bronchitis; emphysema diverticulitis DM HTN nephrolithiasis PVD - Current Medication List Current Medications: Active Medications Acetaminophen (Tylenol -) 650 mg PO Q6H PRN PRN Reason: FEVER OR PAIN Albuterol Sulfate (Ventolin 0.083% Nebulizer Soln -) 1 amp NEB Q4H PRN PRN Reason: SHORT OF BREATH/WHEEZING Last Admin: 11/12/17 10:16 Dose: 1 amp Albuterol/Ipratropium (Duoneb -) 1 amp NEB RQID [facility] Last Admin: 11/13/17 08:45 Dose: 1 amp Enoxaparin Sodium (Lovenox -) 30 mg SQ DAILY [facility] Last Admin: 11/13/17 09:38 Dose: 30 mg Azithromycin 500 mg/ Dextrose 250 mls @ 250 mls/hr IVPB DAILY [facility] Last Admin: 11/13/17 10:22 Dose: 250 mls/hr CEFTRIAXONE IN IS-OSM DEXTROSE (Ceftriaxone 2 Gm-D5w Bag) 2 gm in 50 mls @ 100 mls/hr IVPB DAILY [facility] Last Admin: 11/13/17 09:38 Dose: 100 mls/hr Insulin Aspart (Novolog Vial Sliding Scale -) 1 vial SQ ACHS [facility] PRN Reason: Protocol Last Admin: 11/13/17 06:07 Dose: Not Given Methylprednisolone Sodium Succinate (Solu-Medrol -) 40 mg IVPUSH Q6H-IV [facility] Last Admin: 11/13/17 09:38 Dose: 40 mg Metoprolol Succinate (Toprol Xl -) 25 mg PO DAILY [facility] Last Admin: 11/13/17 09:38 Dose: 25 mg - Objective Vital Signs: Vital Signs Temperature 97.8 F 11/13/17 09:00 Pulse Rate 76 11/13/17 09:00 Respiratory Rate 20 11/13/17 09:00 Blood Pressure 128/51 11/13/17 09:00 O2 Sat by Pulse Oximetry (%) 96 11/13/17 08:29 Eyes: Yes: WNL, Conjunctiva Clear, EOM Intact HENT: Yes: WNL, Atraumatic, Normocephalic Neck: Yes: WNL, Supple, Trachea Midline Cardiovascular: Yes: WNL, Regular Rate and Rhythm Respiratory: Yes: WNL, Regular, Diminished Gastrointestinal: Yes: WNL, Normal Bowel Sounds Genitourinary: Yes: WNL Musculoskeletal: Yes: WNL Extremities: Yes: WNL Edema: No Integumentary: Yes: WNL Neurological: Yes: WNL, Alert, Oriented ...Motor Strength: WNL Psychiatric: Yes: WNL Labs: CBC, BMP 11/11/17 05:37 11/11/17 05:37 INR, PTT INR 1.01 (0.82-1.09) 11/10/17 23:22 Problem List - Problems (1) DVT prophylaxis Code(s): [id number] - (2) Respiratory failure with hypercapnia Code(s): J96.92 - RESPIRATORY FAILURE, UNSPECIFIED WITH HYPERCAPNIA Qualifiers: Chronicity: acute on chronic Qualified Code(s): J96.22 - Acute and chronic respiratory failure with hypercapnia (3) Abnormal CT scan, gallbladder Code(s): R93.2 - ABNORMAL FINDINGS ON DX IMAGING OF LIVER AND BILIARY TRACT (4) Abnormal ECG Code(s): R94.31 - ABNORMAL ELECTROCARDIOGRAM [ECG] [EKG] (5) COPD (chronic obstructive pulmonary disease) Code(s): J44.9 - CHRONIC OBSTRUCTIVE PULMONARY DISEASE, UNSPECIFIED (6) Cigarette nicotine dependence Code(s): F17.210 - NICOTINE DEPENDENCE, CIGARETTES, UNCOMPLICATED (7) Coronary artery disease Code(s): I25.10 - ATHSCL HEART DISEASE OF [place] CORONARY ARTERY W/O ANG PCTRS (8) Diabetes Code(s): E11.9 - TYPE 2 DIABETES MELLITUS WITHOUT COMPLICATIONS Qualifiers: Diabetes mellitus type: type 2 (9) Diverticulitis of intestine with abscess Code(s): K57.80 - DVTRCLI OF INTEST, PART UNSP, W PERF AND ABSCESS W/O BLEED (10) HTN (hypertension) Code(s): I10 - ESSENTIAL (PRIMARY) HYPERTENSION (11) Hyperglycemia Code(s): R73.9 - HYPERGLYCEMIA, UNSPECIFIED (12) Shortness of breath Code(s): R06.02 - SHORTNESS OF BREATH (13) Stenosis of infrarenal abdominal aorta due to arteriosclerosis Code(s): I70.0 - ATHEROSCLEROSIS OF [place] Assessment/Plan Problems (1) Chronic back pain Assessment/Plan: Pt has been planning to see Dr. Alvares. She is nearly incapacitated by back pain and tightness (unable to walk too far or use treadmill; unable to get out of the house much or drive). Discussed with DR. Funk; appreciate his input. Code(s): M54.9 - DORSALGIA, UNSPECIFIED; G89.29 - OTHER CHRONIC PAIN (2) COPD with acute exacerbation Code(s): J44.1 - CHRONIC OBSTRUCTIVE PULMONARY DISEASE W (ACUTE) EXACERBATION (3) Cigarette nicotine dependence Assessment/Plan: stopped 06/2017. Mild emphysema on CT 2016. Code(s): F17.210 - NICOTINE DEPENDENCE, CIGARETTES, UNCOMPLICATED (4) Coronary artery disease Assessment/Plan: coronary angiogram 09/2014-->PCI. Aggressive control of lipids; should be on statin (lipids pending). PT stopped cigarettes 06/2017. On metoprolol; problemeatic adding ACEI (for DM, HTN, CAD) duet to rising K+ and BUN/Cr. Code(s): I25.10 - ATHSCL HEART DISEASE OF [place] CORONARY ARTERY W/O ANG PCTRS (5) Diabetes Code(s): E11.9 - TYPE 2 DIABETES MELLITUS WITHOUT COMPLICATIONS Qualifiers: Diabetes mellitus type: type 2 (6) HTN (hypertension) Code(s): I10 - ESSENTIAL (PRIMARY) HYPERTENSION (7) Stenosis of infrarenal abdominal aorta due to arteriosclerosis Code(s): I70.0 - ATHEROSCLEROSIS OF [place]
--- NOTE | 2017-11-13 12:17 | PN ---
Progress Note, Physician History of Present Illness: Awake, alert Feeling and looking better Reports dyspnea with exertion. Occasional cough. Appears comfortable on nasal cannula at rest No urinary tract symptoms. Urine c/s ESBL No fever/ chills WBC WNL repeat CXR no infiltrate - Current Medication List Current Medications: Active Medications Acetaminophen (Tylenol -) 650 mg PO Q6H PRN PRN Reason: FEVER OR PAIN Albuterol Sulfate (Ventolin 0.083% Nebulizer Soln -) 1 amp NEB Q4H PRN PRN Reason: SHORT OF BREATH/WHEEZING Last Admin: 11/12/17 10:16 Dose: 1 amp Albuterol/Ipratropium (Duoneb -) 1 amp NEB RQID [facility] Last Admin: 11/13/17 11:41 Dose: 1 amp Azithromycin (Zithromax -) 250 mg PO DAILY [facility] Enoxaparin Sodium (Lovenox -) 30 mg SQ DAILY [facility] Last Admin: 11/13/17 09:38 Dose: 30 mg CEFTRIAXONE IN IS-OSM DEXTROSE (Ceftriaxone 2 Gm-D5w Bag) 2 gm in 50 mls @ 100 mls/hr IVPB DAILY [facility] Last Admin: 11/13/17 09:38 Dose: 100 mls/hr Insulin Aspart (Novolog Vial Sliding Scale -) 1 vial SQ ACHS [facility] PRN Reason: Protocol Last Admin: 11/13/17 11:52 Dose: 6 units Lactobacillus Acidophilus (Bacid -) 1 tab PO DAILY [facility] Methylprednisolone Sodium Succinate (Solu-Medrol -) 40 mg IVPUSH Q6H-IV [facility] Last Admin: 11/13/17 09:38 Dose: 40 mg Metoprolol Succinate (Toprol Xl -) 25 mg PO DAILY [facility] Last Admin: 11/13/17 09:38 Dose: 25 mg - Objective Vital Signs: Vital Signs Temperature 97.8 F 11/13/17 09:00 Pulse Rate 76 11/13/17 09:00 Respiratory Rate 20 11/13/17 09:00 Blood Pressure 128/51 11/13/17 09:00 O2 Sat by Pulse Oximetry (%) 97 11/13/17 09:00 Constitutional: Yes: No Distress Eyes: Yes: Conjunctiva Clear Cardiovascular: Yes: Regular Rate and Rhythm, S1, S2 Respiratory: Yes: Diminished Gastrointestinal: Yes: Normal Bowel Sounds, Soft, Abdomen, Obese. No: Tenderness Edema: No Labs: CBC, BMP 11/11/17 05:37 11/11/17 05:37 INR, PTT INR 1.01 (0.82-1.09) 11/10/17 23:22 Assessment/Plan Acute exacerbation COPD-improved Possible pneumonia + Urine c/s ESBL = contaminant/ colonizer PCN allergy NIDDM Continue empiric zithromax/ ceftriaxone Steroids Bronchodilators No treatment for ESBL in urine Contact precautions
--- NOTE | 2017-11-13 13:03 | PN ---
Progress Note (short form) - Note Progress Note: PULMONARY AWAKE/ALERT EATING LUNCH SUBJECTIVE IMPROVEMENT VSS/AFEBRILE ANICTERIC SCATTERED MILD EXP WHEEZE/RHONCHI S1S2 BS+ NO EDEMA LABS/MEDS/MICRO/NOTES REVIEWED Acute on Chronic Hypoxic Respiratory Failure Acute Hypercapneic Respiratory Failure Acute COPD Exacerbation CAD HTN DM Hyperlipidemia - medrol changed to Q8 - inhaled bronchodilators - O2 to keep Spo2 >88% - antibiotics - BiPAP at night and PRN during day - DVT prophylaxis - will need outpt f/u, PFTs and pulmonary rehab Ashlyn ORTEGA MD
[2017-11-13] MEDS: LACTOBACILLUS ACIDOPHILUS 1 EACH TAB (FP) PO SCH (14:08)
[2017-11-13] MEDS: ALBUTEROL SO4 0.083% IH SOL 2.5 MG/3 ML VIAL.NEB. NEB PRN (23:00)
[2017-11-14] MEDS: methylPREDNISolone NA SUCC 40 MG/1 ML VIAL IVPUSH SCH ×3 (02:53→17:32)
[2017-11-14] MEDS: INSULIN SLIDING SCALE (NOVOLOG) 1 VIAL SQ SCH ×4 (06:37→22:55)
[2017-11-14] MEDS: ALBUTEROL SO4 2.5/IPRATROPIUM 0.5 INH SOL 3 ML VIAL.NEB. NEB SCH ×4 (08:30→20:59)
[2017-11-14] MEDS: ENOXAPARIN NA (PORCINE) 30 MG/0.3 ML DISP.SYRIN SQ SCH (09:59)
[2017-11-14] MEDS ORDERED: AZITHROMYCIN 250 MG TABLET PO SCH (10:00)
[2017-11-14] MEDS: LACTOBACILLUS ACIDOPHILUS 1 EACH TAB (FP) PO SCH (10:00)
[2017-11-14] MEDS: CEFTRIAXONE IN IS-OSM DEXTROSE 2 GM/50 ML BAG IVPB SCH (10:00)
[2017-11-14] MEDS: METOPROLOL SUCCINATE 25 MG TAB.SR.24H (FP) PO SCH (10:00)
--- NOTE | 2017-11-14 10:46 | PN ---
Progress Note (short form) - Note Progress Note: PULMONARY States breathing is slowly improving. Still with cough and wheezing but chest feels looser and able to ambulate more. Last Vital Signs Temp Pulse Resp BP Pulse Ox 97.6 F 91 H 20 140/74 95 11/14/17 06:01 11/14/17 09:01 11/14/17 06:01 11/14/17 06:01 11/14/17 09:01 Gen: less tachypneic Heart: RRR Lung: distant breath sounds, scattered anterior wheezes Abd: soft, nontender Ext: no edema CBC, BMP 11/11/17 05:37 11/11/17 05:37 Active Medications Acetaminophen (Tylenol -) 650 mg PO Q6H PRN PRN Reason: FEVER OR PAIN Albuterol Sulfate (Ventolin 0.083% Nebulizer Soln -) 1 amp NEB Q4H PRN PRN Reason: SHORT OF BREATH/WHEEZING Last Admin: 11/13/17 23:00 Dose: 1 amp Albuterol/Ipratropium (Duoneb -) 1 amp NEB RQID [facility] Last Admin: 11/14/17 08:30 Dose: 1 amp Azithromycin (Zithromax -) 250 mg PO DAILY [facility] Last Admin: 11/14/17 10:00 Dose: 250 mg Enoxaparin Sodium (Lovenox -) 30 mg SQ DAILY [facility] Last Admin: 11/14/17 09:59 Dose: 30 mg CEFTRIAXONE IN IS-OSM DEXTROSE (Ceftriaxone 2 Gm-D5w Bag) 2 gm in 50 mls @ 100 mls/hr IVPB DAILY [facility] Last Admin: 11/14/17 10:00 Dose: 100 mls/hr Insulin Aspart (Novolog Vial Sliding Scale -) 1 vial SQ ACHS [facility] PRN Reason: Protocol Last Admin: 11/14/17 06:37 Dose: Not Given Lactobacillus Acidophilus (Bacid -) 1 tab PO DAILY [facility] Last Admin: 11/14/17 10:00 Dose: 1 tab Methylprednisolone Sodium Succinate (Solu-Medrol -) 40 mg IVPUSH Q8H-IV [facility] Last Admin: 11/14/17 10:00 Dose: 40 mg Metoprolol Succinate (Toprol Xl -) 25 mg PO DAILY [facility] Last Admin: 11/14/17 10:00 Dose: 25 mg A/P Acute on Chronic Hypoxic Respiratory Failure Acute Hypercapneic Respiratory Failure Acute COPD Exacerbation CAD HTN DM Hyperlipidemia - can change to PO prednisone and taper as outpt - inhaled bronchodilators - O2 to keep Spo2 >88% - empiric antibiotics - f/u cultures - BiPAP at night and PRN during day - DVT prophylaxis - will need outpt f/u, PFTs and pulmonary rehab Problem List - Problems (1) Acute respiratory failure with hypercapnia Code(s): J96.02 - ACUTE RESPIRATORY FAILURE WITH HYPERCAPNIA (2) Acute and chronic respiratory failure with hypoxia Code(s): J96.21 - ACUTE AND CHRONIC RESPIRATORY FAILURE WITH HYPOXIA (3) COPD with acute exacerbation Code(s): J44.1 - CHRONIC OBSTRUCTIVE PULMONARY DISEASE W (ACUTE) EXACERBATION (4) Coronary artery disease Code(s): I25.10 - ATHSCL HEART DISEASE OF [place] CORONARY ARTERY W/O ANG PCTRS (5) Diabetes Code(s): E11.9 - TYPE 2 DIABETES MELLITUS WITHOUT COMPLICATIONS Qualifiers: Diabetes mellitus type: type 2 (6) HTN (hypertension) Code(s): I10 - ESSENTIAL (PRIMARY) HYPERTENSION
[2017-11-14] MEDS ORDERED: INSULIN (NOVOLOG) ASPART 100 UNITS/ML 10ML VIAL ONE ×2 (11:47→21:01)
--- NOTE | 2017-11-14 13:03 | PN ---
Progress Note, Physician History of Present Illness: Awake, alert OOB in chair Reports dyspnea with exertion. Occasional cough. Looks comfortable on nasal cannula No urinary tract symptoms. Urine c/s ESBL No fever/ chills WBC WNL repeat CXR no infiltrate - Current Medication List Current Medications: Active Medications Acetaminophen (Tylenol -) 650 mg PO Q6H PRN PRN Reason: FEVER OR PAIN Albuterol Sulfate (Ventolin 0.083% Nebulizer Soln -) 1 amp NEB Q4H PRN PRN Reason: SHORT OF BREATH/WHEEZING Last Admin: 11/13/17 23:00 Dose: 1 amp Albuterol/Ipratropium (Duoneb -) 1 amp NEB RQID [facility] Last Admin: 11/14/17 12:42 Dose: 1 amp Azithromycin (Zithromax -) 250 mg PO DAILY [facility] Last Admin: 11/14/17 10:00 Dose: 250 mg Enoxaparin Sodium (Lovenox -) 30 mg SQ DAILY [facility] Last Admin: 11/14/17 09:59 Dose: 30 mg CEFTRIAXONE IN IS-OSM DEXTROSE (Ceftriaxone 2 Gm-D5w Bag) 2 gm in 50 mls @ 100 mls/hr IVPB DAILY [facility] Last Admin: 11/14/17 10:00 Dose: 100 mls/hr Insulin Aspart (Novolog Vial Sliding Scale -) 1 vial SQ ACHS [facility] PRN Reason: Protocol Last Admin: 11/14/17 12:30 Dose: 4 units Lactobacillus Acidophilus (Bacid -) 1 tab PO DAILY [facility] Last Admin: 11/14/17 10:00 Dose: 1 tab Methylprednisolone Sodium Succinate (Solu-Medrol -) 40 mg IVPUSH Q8H-IV [facility] Last Admin: 11/14/17 10:00 Dose: 40 mg Metoprolol Succinate (Toprol Xl -) 25 mg PO DAILY [facility] Last Admin: 11/14/17 10:00 Dose: 25 mg - Objective Vital Signs: Vital Signs Temperature 97.6 F 11/14/17 06:01 Pulse Rate 91 H 11/14/17 09:01 Respiratory Rate 20 11/14/17 06:01 Blood Pressure 140/74 11/14/17 06:01 O2 Sat by Pulse Oximetry (%) 95 11/14/17 09:01 Constitutional: Yes: No Distress Eyes: Yes: Conjunctiva Clear Cardiovascular: Yes: Regular Rate and Rhythm, S1, S2 Respiratory: Yes: CTA Bilaterally Gastrointestinal: Yes: Normal Bowel Sounds, Soft. No: Tenderness Edema: No Labs: CBC, BMP 11/11/17 05:37 11/11/17 05:37 INR, PTT INR 1.01 (0.82-1.09) 11/10/17 23:22 Assessment/Plan Acute exacerbation COPD-improved Possible pneumonia + Urine c/s ESBL = contaminant/ colonizer PCN allergy NIDDM May substitute po ceftin 500mg bid x 7d Steroids Bronchodilators No treatment for ESBL in urine Contact precautions
--- NOTE | 2017-11-14 13:03 | CONSULT ---
Consult Consult Specialty:: PM&R - History of Present Illness Chief Complaint: RETANA History of Present Illness: This is a 67 year old woman with a medical history of CAD s/p stent, HTN, HLD, COPD (O2 dependent), diverticulitis, s/p appendectomy, renal stones, DM, who presented to the ED 11/10/17 with SOB and productive cough x1 week, with low- grade fevers. ID consult felt she had acute COPD exacerbation vs PNA. Cards consult felt she had COPD without CHF component. Pulm consult diagnosed acute respiratory failure and COPD exacerbation. Her hospital course was also complicated by ESBL UTI. 11/14/17 Echo showed EF 65% with mild MR/ TR. She was seen by PT, and on 11/13/17 she ambulated 150 feet Supervision with IV pole. Physiatry is being consulted for further recommendations. - Past Medical History Cardio/Vascular: Yes: CAD (stent), HTN, Hyperlipdemia Pulmonary: Yes: COPD, O2 Dependent (3L) Gastrointestinal: Yes: Diverticulitis Renal/: Yes: Renal Calculi - Past Surgical History Past Surgical History: Yes: Appendectomy, , Tubal Ligation - Alcohol/Substance Use Hx Alcohol Use: No History of Substance Use: reports: None - Smoking History Smoking history: Former smoker Have you smoked in the past 12 months: Yes Aproximately how many cigarettes per day: 20 If you are a former smoker, when did you quit?: 06/2017 - Social History Usual Living Arrangement: With Spouse (lives with and son in house with 7 steps to enter and 1st floor set-up inside) ADL: Independent (Independent ADLs without AD) Occupation: works for [employer] History of Recent Travel: No Home Medications - Allergies Allergies/Adverse Reactions: Allergies Allergy/AdvReac Type Severity Reaction Status Date / Time Penicillins Allergy Intermediate Rash Verified 06/19/17 12:11 - Home Medications Home Medications: Ambulatory Orders Fenofibrate Nanocrystallized [Fenofibrate] 145 mg PO DAILY 06/19/17 Linagliptin/Metformin HCl [Jentadueto 2.5 mg-1000 mg Tab] 1 each PO DAILY Simvastatin [Zocor -] 20 mg PO HS 06/19/17 Acetaminophen [Tylenol .Regular Strength -] 650 mg PO Q6H PRN #0 tablet Albuterol 2.5/Ipratropium 0.5 [Duoneb -] 1 amp NEB QIDR #120 amp 06/27/17 Lisinopril [Prinivil] 2.5 mg PO DAILY #30 tablet 06/27/17 Metoprolol Succinate [Toprol Xl -] 25 mg PO DAILY 11/11/17 Family Disease History - Family Disease History Family Disease History: Diabetes: Mother, Brother, Sister Review of Systems Findings/Remarks: denies fevers, chills, changes in vision/ hearing/ mood, CP, abdominal pain, nausea, vomiting, constipation, diarrhea, dysuria. muscle/ joint pain. She notes RETANA and SOB, and chronic B hand numbness due to carpel tunnel syndrome s/ p release. Physical Exam Vital Signs: Vital Signs Temperature 97.6 F 11/14/17 06:01 Pulse Rate 91 H 11/14/17 09:01 Respiratory Rate 20 11/14/17 06:01 Blood Pressure 140/74 11/14/17 06:01 O2 Sat by Pulse Oximetry (%) 95 11/14/17 09:01 Musculoskeletal: Yes: Other (General: calm elderly F sitting in chair NAD, AAO x3, on supplemental O2 HEENT: NCAT EOMI OP clear N/M: CN II- XII grossly Intact; B shoulder flexion to 140 degrees, 5-/5 BUE/ BLE; Pinprick Intact BUE/ BLE, diffusely hyporeflexic BUE/ BLE, negative B Longoria's sign Extremities: no BLE pitting edema, no B calf tenderness) Labs: CBC, BMP 11/11/17 05:37 11/11/17 05:37 Assessment/Plan Impression: 1) Deficits mobility/ ADLs 2) Gait abnormality 3) Respiratory failure, improving 4) COPD exacerbation with hx O2 dependence 5) hx CAD s/p stent, HTN, HLD with EF 65% and mild TR/ MR 6) hx diverticulitis, s/p appendectomy 7) hx renal stones 8) hx DM 9) Anemia 10) BMI WNL 11) Up to date flu shot/ pneumovax Recommendations: 1) PT for functional mobility, ambulation, stairs, balance, endurance 2) Falls, safety precautions 3) Cardiopulmonary precautions: breathing techniques, energy conservation, endurance 4) Diabetic precautions 5) DVT ppx: on Lovenox 6) Skin protection: float heels, frequent turning 7) Denies constipation on current bowel regimen 8) Monitor CBC given anemia 9) Discharge planning: she will be able to return home once medically cleared. She is refusing home services. Thank you for this referral.
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
--- NOTE | 2017-11-14 19:04 | PN ---
Progress Note, Physician Chief Complaint: AWAKE ALERT COMFORTABLE ON - Current Medication List Current Medications: Active Medications Acetaminophen (Tylenol -) 650 mg PO Q6H PRN PRN Reason: FEVER OR PAIN Albuterol Sulfate (Ventolin 0.083% Nebulizer Soln -) 1 amp NEB Q4H PRN PRN Reason: SHORT OF BREATH/WHEEZING Last Admin: 11/13/17 23:00 Dose: 1 amp Albuterol/Ipratropium (Duoneb -) 1 amp NEB RQID [facility] Last Admin: 11/14/17 16:20 Dose: 1 amp Azithromycin (Zithromax -) 250 mg PO DAILY [facility] Last Admin: 11/14/17 10:00 Dose: 250 mg Enoxaparin Sodium (Lovenox -) 30 mg SQ DAILY [facility] Last Admin: 11/14/17 09:59 Dose: 30 mg CEFTRIAXONE IN IS-OSM DEXTROSE (Ceftriaxone 2 Gm-D5w Bag) 2 gm in 50 mls @ 100 mls/hr IVPB DAILY [facility] Last Admin: 11/14/17 10:00 Dose: 100 mls/hr Insulin Aspart (Novolog Vial Sliding Scale -) 1 vial SQ ACHS [facility] PRN Reason: Protocol Last Admin: 11/14/17 17:00 Dose: 4 units Lactobacillus Acidophilus (Bacid -) 1 tab PO DAILY [facility] Last Admin: 11/14/17 10:00 Dose: 1 tab Methylprednisolone Sodium Succinate (Solu-Medrol -) 40 mg IVPUSH Q8H-IV [facility] Last Admin: 11/14/17 17:32 Dose: 40 mg Metoprolol Succinate (Toprol Xl -) 25 mg PO DAILY [facility] Last Admin: 11/14/17 10:00 Dose: 25 mg - Objective Vital Signs: Vital Signs Temperature 98 F 11/14/17 14:35 Pulse Rate 89 11/14/17 14:35 Respiratory Rate 20 11/14/17 14:35 Blood Pressure 139/67 11/14/17 14:35 O2 Sat by Pulse Oximetry (%) 95 11/14/17 09:01 Constitutional: Yes: Mild Distress Eyes: Yes: WNL HENT: Yes: WNL Neck: Yes: WNL Cardiovascular: Yes: WNL Respiratory: Yes: On Nasal O2, Wheezes Gastrointestinal: Yes: WNL Musculoskeletal: Yes: Muscle Weakness Extremities: Yes: WNL Edema: No Peripheral Pulses WNL: Yes Integumentary: Yes: WNL Wound/Incision: Yes: Clean/Dry Neurological: Yes: Pre-Existing Deficit ...Motor Strength: LLE, RLE Psychiatric: Yes: WNL Labs: CBC, BMP 11/11/17 05:37 11/11/17 05:37 INR, PTT INR 1.01 (0.82-1.09) 11/10/17 23:22 Problem List - Problems (1) Acute and chronic respiratory failure with hypoxia Code(s): J96.21 - ACUTE AND CHRONIC RESPIRATORY FAILURE WITH HYPOXIA (2) Acute respiratory failure with hypercapnia Code(s): J96.02 - ACUTE RESPIRATORY FAILURE WITH HYPERCAPNIA (3) COPD with acute exacerbation Code(s): J44.1 - CHRONIC OBSTRUCTIVE PULMONARY DISEASE W (ACUTE) EXACERBATION (4) DVT prophylaxis Code(s): [id number] - (5) Diabetes Code(s): E11.9 - TYPE 2 DIABETES MELLITUS WITHOUT COMPLICATIONS Qualifiers: Diabetes mellitus type: type 2 (6) HTN (hypertension) Code(s): I10 - ESSENTIAL (PRIMARY) HYPERTENSION Assessment/Plan ESBL NEEDS ID F/U ON CEFTRIAXONE AND AZITHRO NEBS STEROIDS DVT PROPHYLAXIS PT EVAL
[2017-11-15] MEDS: methylPREDNISolone NA SUCC 40 MG/1 ML VIAL IVPUSH SCH ×2 (02:13→11:53)
[2017-11-15] MEDS: INSULIN SLIDING SCALE (NOVOLOG) 1 VIAL SQ SCH (06:30)
[2017-11-15 08:10] LABS: HEMATOCRIT 41.5 % (32.4-45.2); HEMOGLOBIN 13.4 GM/dL (10.7-15.3); MCH 28.8 pg (25.7-33.7); MCHC 32.2 g/dl (32.0-36.0); MEAN CELL VOLUME 89.2 fl (80-96); MEAN PLT VOLUME 9.4 fl (7.5-11.1); PLATELET COUNT 37 K/MM3 (134-434); RBC 4.65 M/mm3 (3.60-5.2); RDW 13.9 % (11.6-15.6); WHITE BLOOD COUNT 7.9 K/mm3 (4.0-10.0)
[2017-11-15 08:31] LABS: ALBUMIN 3.3 g/dl (3.4-5.0); ANION GAP 5 (8-16); BLOOD UREA NITROGEN 30 mg/dL (7-18); CHLORIDE 100 mmol/L (98-107); CO2 31 mmol/L (21-32); GLUCOSE,RANDOM 249 mg/dL (74-106); SODIUM 136 mmol/L (136-145)
[2017-11-15 08:35] LABS: ALK PHOS 55 U/L (45-117); BILIRUBIN,TOTAL 0.4 mg/dL (0.2-1.0); CREATININE 0.7 mg/dL (0.55-1.02); SGOT/AST 14 U/L (15-37); SGPT/ALT 30 U/L (12-78); TOT PROT 6.3 g/dl (6.4-8.2)
[2017-11-15] MEDS: ALBUTEROL SO4 2.5/IPRATROPIUM 0.5 INH SOL 3 ML VIAL.NEB. NEB SCH ×2 (09:07→11:32)
[2017-11-15] MEDS ORDERED: PT OWN MED DRAWER 7, Y5N ONE (10:53)
--- NOTE | 2017-11-15 11:25 | DS ---
Physical Examination Vital Signs: Vital Signs Temperature 97.8 F 11/15/17 06:00 Pulse Rate 80 11/15/17 09:33 Respiratory Rate 20 11/15/17 06:00 Blood Pressure 142/59 11/15/17 06:00 O2 Sat by Pulse Oximetry (%) 95 11/15/17 09:33 Constitutional: Yes: No Distress Eyes: Yes: WNL HENT: Yes: WNL Neck: Yes: WNL Cardiovascular: Yes: WNL Respiratory: Yes: Diminished Gastrointestinal: Yes: WNL Renal/: Yes: WNL Musculoskeletal: Yes: WNL Extremities: Yes: WNL Edema: No Peripheral Pulses WNL: Yes Integumentary: Yes: WNL Wound/Incision: Yes: Clean/Dry Neurological: Yes: WNL ...Motor Strength: WNL Psychiatric: Yes: WNL Labs: CBC, BMP 11/15/17 06:35 11/15/17 06:35 Discharge Summary Reason For Visit: RESPIRATORY FAILURE W HYPERCAPNIA,S.O.B., Current Active Problems Acute and chronic respiratory failure with hypoxia (Acute) Acute respiratory failure with hypercapnia (Acute) COPD with acute exacerbation (Acute) Chronic back pain (Acute) DVT prophylaxis (Acute) Respiratory failure with hypercapnia (Acute) Procedures: Principal: CXR/LABS Other Procedures: ECHO Hospital Course: ADMITTED FOR ACUTE ON CHRONIC COPD EXACERBATION, TREATED WITH IV ABX, AND IV STEROIDS, IMPROVED DC HOME ON PO ABX AND PREDNISONE Condition: Good - Instructions Diet, Activity, Other Instructions: LOW SODIUM SEE DR FUNK IN 1 WEEK Referrals: Benoit Funk MD [Primary Care Provider] - Disposition: HOME - Home Medications Comprehensive Discharge Medication List: Ambulatory Orders Fenofibrate Nanocrystallized [Fenofibrate] 145 mg PO DAILY 06/19/17 Linagliptin/Metformin HCl [Jentadueto 2.5 mg-1000 mg Tab] 1 each PO DAILY Simvastatin [Zocor -] 20 mg PO HS 06/19/17 Acetaminophen [Tylenol .Regular Strength -] 650 mg PO Q6H PRN #0 tablet Albuterol 2.5/Ipratropium 0.5 [Duoneb -] 1 amp NEB QIDR #120 amp 06/27/17 Lisinopril [Prinivil] 2.5 mg PO DAILY #30 tablet 06/27/17 Metoprolol Succinate [Toprol Xl -] 25 mg PO DAILY 11/11/17
[2017-11-15] MEDS: LACTOBACILLUS ACIDOPHILUS 1 EACH TAB (FP) PO SCH (11:42)
[2017-11-15] MEDS: METOPROLOL SUCCINATE 25 MG TAB.SR.24H (FP) PO SCH (11:43)
[2017-11-15 11:52] VITALS: BP 131/66; PULSE 92; TEMP 98.1
[2017-11-15] MEDS: ENOXAPARIN NA (PORCINE) 30 MG/0.3 ML DISP.SYRIN SQ SCH (11:53)
--- NOTE | 2017-11-15 12:33 | PN ---
Progress Note (short form) - Note Progress Note: PULMONARY AWAKE/ALERT EATING LUNCH SUBJECTIVE IMPROVEMENT VSS/AFEBRILE ANICTERIC SCATTERED MILD EXP WHEEZE/RHONCHI S1S2 BS+ NO EDEMA LABS/MEDS/MICRO/NOTES REVIEWED Acute on Chronic Hypoxic Respiratory Failure Acute Hypercapneic Respiratory Failure Acute COPD Exacerbation CAD HTN DM Hyperlipidemia - agree with continuing treatment as an outpatient - inhaled bronchodilators - O2 to keep Spo2 >88% - BiPAP at night and PRN during day - DVT prophylaxis - will need outpt f/u, PFTs and pulmonary rehab - patient follows with DR Cullen ORTEGA MD
== END 2017-11-15 13:32 | disposition home or self-care (01) | DRG 189 ==
LOC: JER 21:33 → JERBED 11-11 00:46 → J7W 11-11 12:03
PROVIDERS: ADMIT Family Medicine; ATTEND Family Medicine
PROC: 5A09557 Assistance with Respiratory Ventilation, Greater than 96 Consecutive Hours, Continuous Positive Airway Pressure (ICD-10-PCS; principal; 2017-11-11)
DX: J96.21 Acute and chronic respiratory failure with hypoxia (principal); J18.9 Pneumonia, unspecified organism; E87.2 Acidosis; J44.1 Chronic obstructive pulmonary disease with (acute) exacerbation; J96.22 Acute and chronic respiratory failure with hypercapnia; I10 Essential (primary) hypertension; E11.9 Type 2 diabetes mellitus without complications; I25.10 Atherosclerotic heart disease of native coronary artery without angina pectoris; Z95.5 Presence of coronary angioplasty implant and graft; Z87.891 Personal history of nicotine dependence; E78.5 Hyperlipidemia, unspecified; R00.0 Tachycardia, unspecified; Z99.89 Dependence on other enabling machines and devices; D69.6 Thrombocytopenia, unspecified; I73.9 Peripheral vascular disease, unspecified; Z99.81 Dependence on supplemental oxygen; Z79.84 Long term (current) use of oral hypoglycemic drugs; J96.02 Acute respiratory failure with hypercapnia; Z88.0 Allergy status to penicillin; D64.9 Anemia, unspecified; M54.9 Dorsalgia, unspecified
CPT/HCPCS: 36415; 36600; 71045-TC; 80048; 80053; 80061; 81003; 81015; 82550; 82803; 82962; 83605; 83721; 83735; 83880; 84100; 84443; 84484; 85025; 85027; 85610; 85730; 86850; 86900; 86901; 87040; 87086; 87186; 87804; 87899; 93005; 93010; 93306-TC; 94640; 94660; 97116-GP; 97161-GP; 99285-25

== ENCOUNTER 2018-07-09 13:20 | Inpatient (IN) | payer BC ==
[2018-07-09 13:28] VITALS: BMI 23.3
[2018-07-09] MEDS ORDERED: methylPREDNISolone NA SUCC 125 MG/2 ML VIAL IVPUSH ONE (13:55)
[2018-07-09] MEDS ORDERED: AZITHROMYCIN IVPB 500 MG in DEXTROSE 5%-WATER - 250 ML IVPB ONE (13:56)
[2018-07-09] MEDS ORDERED: ALBUTEROL SO4 2.5/IPRATROPIUM 0.5 INH SOL 3 ML VIAL.NEB. NEB ONE ×3 (14:12→17:24)
[2018-07-09] MEDS ORDERED: methylPREDNISolone NA SUCC 125 MG/2 ML VIAL ONE (14:12)
--- NOTE | 2018-07-09 14:13 | PDOC ---
History of Present Illness - General Chief Complaint: Shortness of Breath Stated Complaint: SOB Time Seen by Provider: 07/09/18 13:48 History Source: Patient, Family - History of Present Illness Timing/Duration: reports: other Associated Symptoms: reports: cough, shortness of breath. denies: chest pain/ soreness, wheezing Past History - Past Medical History Allergies/Adverse Reactions: Allergies Allergy/AdvReac Type Severity Reaction Status Date / Time Penicillins Allergy Intermediate Rash Verified 07/09/18 13:27 Home Medications: Ambulatory Orders Aspirin [Ecotrin] 81 mg PO DAILY 07/09/18 Ezetimibe [Zetia -] 10 mg PO DAILY 07/09/18 Icosapent Ethyl [Vascepa] 1 gm PO DAILY 07/09/18 Linagliptin/Metformin HCl [Jentadueto 2.5 mg-1000 mg Tab] 1 each PO BID Lisinopril [Zestril] 2.5 mg PO DAILY 07/09/18 Metoprolol Tartrate [Lopressor -] 25 mg PO BID 07/09/18 Simvastatin [Zocor -] 20 mg PO HS 07/09/18 COPD: Yes (BRONCHITIS) Diabetes: Yes GI Disorders: Yes (diverticulitis) HTN: Yes Hypercholesterolemia: Yes - Surgical History Appendectomy: Yes - Immunization History Immunization Up to Date: Yes - Suicide/Smoking/Psychosocial Hx Smoking History: Former smoker Have you smoked in the past 12 months: Yes Number of Cigarettes Smoked Daily: 20 If you are a former smoker, when did you quit?: 06/2017 Information on smoking cessation initiated: No 'Breaking Loose' booklet given: 09/14/14 Hx Alcohol Use: No Drug/Substance Use Hx: No Substance Use Type: None Review of Systems - Review of Systems Constitutional: No: Chills, Fever Respiratory: Yes: Cough, Shortness of Breath. No: Wheezing Cardiac (ROS): No: Chest Pain *Physical Exam - Vital Signs Last Vital Signs Temp Pulse Resp BP Pulse Ox 98.8 F 103 H 22 137/60 98 07/09/18 13:22 07/09/18 13:22 07/09/18 13:22 07/09/18 13:22 07/09/18 13:22 - Physical Exam General Appearance: Yes: Appropriately Dressed, Mild Distress HEENT: positive: Normal Voice Neck: positive: Supple Respiratory/Chest: positive: Lungs Clear, Normal Breath Sounds. negative: Wheezing Cardiovascular: positive: Regular Rate, S1, S2 Gastrointestinal/Abdominal: positive: Soft. negative: Tender Extremity: positive: Normal Inspection, Pedal Edema (trace edema b/l) Integumentary: positive: Dry, Warm Neurologic: positive: Fully Oriented, Alert, Normal Mood/Affect ED Treatment Course - LABORATORY CBC & Chemistry Diagram: 07/09/18 14:30 07/09/18 15:14 - RADIOLOGY Radiology Studies Ordered: Category Date Time Status CHEST X-RAY PORTABLE* [RAD] Stat Radiology 07/09/18 13:55 Ordered Medical Decision Making - Medical Decision Making 07/09/18 14:09 68-year-old female, history of hypertension, hyperlipidemia, non-insulin- dependent diabetes, CAD with stent, former smoker, COPD, oxygen dependent on 3 L , s/p admission 11/21 for respiratory failure w/ hypercapnia, presents with worsening shortness of breath. Patient states for the past 4 days has noticed worsening shortness of breath despite being on her her oxygen. + dry cough, no wheezing, chest pain, nausea, vomiting, fever or chills. Denies palpitations, acute lower extremity pain or swelling. see exam SOB COPD flare vs PNA vs ACS, less likely dissection or PE -sating 98% on 4L w/ clear chest/lungs -nebs -steroids -ekg -cxr -labs -anticipate admission 07/09/18 17:21 EKG and CXR unremarkable. Labs unremarkable except for BG of 352. IV hydration in progress. Pt continues to c/o sob despite tx in ED. Will order mag and admit at this time *DC/Admit/Observation/Transfer Diagnosis at time of Disposition: COPD exacerbation, Hyperglycemia - Discharge Dispostion Condition at time of disposition: Fair Decision to Admit order: Yes - Referrals Referrals: Benoit Funk MD [Primary Care Provider] - - Patient Instructions - Post Discharge Activity
[2018-07-09] MEDS ORDERED: AZITHROMYCIN IVPB 250 ML IVPB ONE (14:14)
[2018-07-09] MEDS: ALBUTEROL SO4 2.5/IPRATROPIUM 0.5 INH SOL 3 ML VIAL.NEB. NEB SCH ×3 (14:20→14:37)
[2018-07-09 14:42] LABS: BASO % 1.6 % (0-2.0); EOS % 0.6 % (0-4.5); HEMATOCRIT 38.7 % (32.4-45.2); HEMOGLOBIN 12.9 GM/dL (10.7-15.3); LYMPH % 14.6 % (8-40); MCH 29.3 pg (25.7-33.7); MCHC 33.4 g/dl (32.0-36.0); MEAN CELL VOLUME 87.7 fl (80-96); MEAN PLT VOLUME 8.8 fl (7.5-11.1); MONO % 4.5 % (3.8-10.2); NEUT % 78.7 % (42.8-82.8); PLATELET COUNT 205 K/MM3 (134-434); RBC 4.41 M/mm3 (3.60-5.2); WHITE BLOOD COUNT 9.8 K/mm3 (4.0-10.0)
[2018-07-09 15:24] LABS: ARTERIAL BLD GAS O2 SATURATION 86.3 % (90-98.9); ARTERIAL BLOOD GAS BASE EXCESS -0.7 meq/l (-2-2); ARTERIAL BLOOD GAS PCO2 47.9 mmHg (35-45); ARTERIAL BLOOD GAS PO2 51.4 mmHg (80-100); ARTERIAL BLOOD GAS pH 7.34 (7.35-7.45)
[2018-07-09 15:25] LABS: ALLENS TEST POSITIVE
--- NOTE | 2018-07-09 15:26 | EKG ---
Test Reason : Blood Pressure : / mmHG Vent. Rate : 099 BPM Atrial Rate : 099 BPM P-R Int : 108 ms QRS Dur : 076 ms QT Int : 332 ms P-R-T Axes : 077 066 083 degrees QTc Int : 426 ms POOR DATA QUALITY, INTERPRETATION MAY BE ADVERSELY AFFECTED SINUS RHYTHM WITH SHORT AK POSSIBLE LEFT ATRIAL ENLARGEMENT BORDERLINE ECG WHEN COMPARED WITH ECG OF 13-NOV-2017 09:39, NO SIGNIFICANT CHANGE WAS FOUND Confirmed by RUSSELL MONTEJO MD ([id number]) on 07/09/2018 3:25:51 PM Referred By: Confirmed By:RUSSELL MONTEJO MD
[2018-07-09 15:44] LABS: ALBUMIN 2.9 g/dl (3.4-5.0); ANION GAP 11 MMOL/L (8-16); BLOOD UREA NITROGEN 27 mg/dL (7-18); CALCIUM 8.4 mg/dL (8.5-10.1); CHLORIDE 101 mmol/L (98-107); CO2 25 mmol/L (21-32); CREATININE 0.9 mg/dL (0.55-1.02); POTASSIUM 4.3 mmol/L (3.5-5.1); SGOT/AST 15 U/L (15-37); SGPT/ALT 24 U/L (12-78); SODIUM 137 mmol/L (136-145); TOT PROT 5.6 g/dl (6.4-8.2)
[2018-07-09 15:46] LABS: ALK PHOS 45 U/L (45-117); BILIRUBIN,TOTAL 0.5 mg/dL (0.2-1.0)
[2018-07-09 15:49] LABS: GLUCOSE,RANDOM 375 mg/dL (74-106)
--- NOTE | 2018-07-09 15:49 | PDOC ---
*Physical Exam - Vital Signs Last Vital Signs Temp Pulse Resp BP Pulse Ox 98.8 F 103 H 22 137/60 98 07/09/18 13:22 07/09/18 13:22 07/09/18 13:22 07/09/18 13:22 07/09/18 13:22 - Physical Exam Comments: 07/09/18 15:49 The patient was examined by DEISY Strong under my direct supervision. I personally evaluated the patient. I concur with the above findings and the plan of care. ED Treatment Course - LABORATORY CBC & Chemistry Diagram: 07/12/18 11:30 07/12/18 11:30 - ADDITIONAL ORDERS Additional order review: Laboratory Results 07/09/18 07/09/18 07/09/18 15:15 14:30 14:30 Anticoagulation Therapy No Result Required. Puncture Site Left radial ABG pH 7.34 L ABG pCO2 at Pt Temp 47.9 H ABG pO2 at Pt Temp 51.4 L D ABG HCO3 25.0 ABG O2 Sat (Measured) 86.3 L ABG O2 Content 14.3 L ABG Base Excess -0.7 Carlo Test Positive O2 Delivery Device No Result Required. Oxygen Flow Rate No Vent Mode No Result Required. Vent Rate No Result Required. Mechanical Rate No Result Required. Pressure Support Vent No Result Required. Sodium Cancelled Potassium Cancelled Chloride Cancelled Carbon Dioxide Cancelled Anion Gap Cancelled BUN Cancelled Creatinine Cancelled Creat Clearance w eGFR Cancelled Random Glucose Cancelled Calcium Cancelled Total Bilirubin Cancelled AST Cancelled ALT Cancelled Alkaline Phosphatase Cancelled Creatine Kinase Cancelled Troponin I Cancelled B-Natriuretic Peptide Cancelled Cancelled Total Protein Cancelled Albumin Cancelled 07/09/18 14:30 RBC 4.41 MCV 87.7 MCHC 33.4 RDW 16.0 H MPV 8.8 Neutrophils % 78.7 Lymphocytes % 14.6 D Monocytes % 4.5 D Eosinophils % 0.6 D Basophils % 1.6 D - Medications Given in the ED: ED Medications Discontinued Medications Generic Name Dose Route Start Last Admin Trade Name Freq PRN Reason Stop Dose Admin Albuterol/Ipratropium 1 amp 07/09/18 14:00 07/09/18 14:37 Duoneb - NEB 07/09/18 14:46 1 amp Q15M MICKEY Administration Azithromycin 500 mg/ Dextrose 250 mls @ 250 mls/hr 07/09/18 13:56 07/09/18 14 :35 IVPB 07/09/18 14:55 250 mls/hr ONCE ONE Administration Methylprednisolone Sodium Succinate 125 mg 07/09/18 13:55 07/09/18 14:30 Solu-Medrol - IVPUSH 07/09/18 13:56 125 mg ONCE ONE Administration *DC/Admit/Observation/Transfer Diagnosis at time of Disposition: COPD exacerbation, Hyperglycemia - Discharge Dispostion Disposition: HOME Condition at time of disposition: Stable - Prescriptions - Referrals - Patient Instructions - Post Discharge Activity
[2018-07-09] MEDS ORDERED: MAGNESIUM SULF 50% (8.12 MEQ/2 ML-1 GM VIAL) IVPB ONE ×2 (16:20→17:20)
[2018-07-09] MEDS ORDERED: SODIUM CHLORIDE 500 ML IV STA (16:35)
[2018-07-09] MEDS ORDERED: MAGNESIUM 1GM/D5W - 2 GM/200 ML IVPB IVPB ONE (17:24)
--- NOTE | 2018-07-09 17:44 | HP ---
Admitting History and Physical - Primary Care Physician PCP: Benoit Funk - Admission Chief Complaint: DYSPNEA/MUSCLE WEAKNESS History of Present Illness: 68 Y/O FEMALE WITH SEVERE COPD EMPHYSEMA FORMER TOBACCO SMOKER FOR OVER 45YEARS HAS BEEN TRYING TO TREAT HER COPD OUTPATIENT ON PREDNISONE ORAL TABS HOWEVER WITH SEVERE HUMID WEATHER SHE IS HAVING SHORTNESS OF BREATH WITH WORSENING MUSCLE WEAKNESS. History Source: Patient Limitations to Obtaining History: Other - Past Medical History Cardiovascular: Yes: CAD (stent), HTN, Hyperlipdemia Pulmonary: Yes: COPD, O2 Dependent (3L) Gastrointestinal: Yes: Diverticulitis Renal/: Yes: Renal Calculi - Past Surgical History Past Surgical History: Yes: Appendectomy, , Tubal Ligation - Smoking History Smoking history: Former smoker Have you smoked in the past 12 months: Yes Aproximately how many cigarettes per day: 20 If you are a former smoker, when did you quit?: 06/2017 - Alcohol/Substance Use Hx Alcohol Use: No History of Substance Use: reports: None - Social History ADL: Independent (Independent ADLs without AD) Occupation: works for [employer] History of Recent Travel: No Home Medications - Allergies Allergies/Adverse Reactions: Allergies Allergy/AdvReac Type Severity Reaction Status Date / Time Penicillins Allergy Intermediate Rash Verified 07/09/18 13:27 - Home Medications Home Medications: Ambulatory Orders Aspirin [Ecotrin] 81 mg PO DAILY 07/09/18 Ezetimibe [Zetia -] 10 mg PO DAILY 07/09/18 Icosapent Ethyl [Vascepa] 1 gm PO DAILY 07/09/18 Linagliptin/Metformin HCl [Jentadueto 2.5 mg-1000 mg Tab] 1 each PO BID Lisinopril [Zestril] 2.5 mg PO DAILY 07/09/18 Metoprolol Tartrate [Lopressor -] 25 mg PO BID 07/09/18 Simvastatin [Zocor -] 20 mg PO HS 07/09/18 Family Disease History - Family Disease History Family Disease History: Diabetes: Mother, Brother, Sister Review of Systems - Review of Systems Constitutional: reports: Weakness Eyes: reports: No Symptoms HENT: reports: No Symptoms Neck: reports: No Symptoms Cardiovascular: reports: Shortness of Breath Respiratory: reports: Cough, SOB, SOB on Exertion, Wheezing Gastrointestinal: reports: No Symptoms Genitourinary: reports: No Symptoms Musculoskeletal: reports: Muscle Weakness Integumentary: reports: No Symptoms Neurological: reports: No Symptoms Endocrine: reports: No Symptoms Hematology/Lymphatic: reports: No Symptoms Psychiatric: reports: No Symptoms Physical Examination Vital Signs: Vital Signs Temperature 98.8 F 07/09/18 13:22 Pulse Rate 99 H 07/09/18 17:22 Respiratory Rate 22 07/09/18 13:22 Blood Pressure 101/56 07/09/18 17:22 O2 Sat by Pulse Oximetry (%) 100 07/09/18 17:22 Constitutional: Yes: Severe Distress Eyes: Yes: WNL HENT: Yes: WNL Neck: Yes: WNL Cardiovascular: Yes: Tachycardia Respiratory: Yes: Diminished, On Nasal O2 Gastrointestinal: Yes: WNL Renal/: Yes: WNL Musculoskeletal: Yes: Muscle Weakness Edema: Yes Edema: LLE: Trace, RLE: Trace Peripheral Pulses WNL: Yes Integumentary: Yes: Venous Stasis Changes Wound/Incision: Yes: Clean/Dry Neurological: Yes: Unsteady Gait, Weakness ...Motor Strength: LLE, RLE Psychiatric: Yes: WNL Labs: CBC, BMP 07/09/18 14:30 07/09/18 15:14 Imaging - Results X-ray: Report Reviewed Problem List - Problems (1) COPD exacerbation Code(s): J44.1 - CHRONIC OBSTRUCTIVE PULMONARY DISEASE W (ACUTE) EXACERBATION (2) Acute and chronic respiratory failure with hypoxia Code(s): J96.21 - ACUTE AND CHRONIC RESPIRATORY FAILURE WITH HYPOXIA (3) Acute respiratory failure with hypercapnia Code(s): J96.02 - ACUTE RESPIRATORY FAILURE WITH HYPERCAPNIA (4) DVT prophylaxis Code(s): [id number] - (5) Diabetes Code(s): E11.9 - TYPE 2 DIABETES MELLITUS WITHOUT COMPLICATIONS Qualifiers: Diabetes mellitus type: type 2 (6) HTN (hypertension) Code(s): I10 - ESSENTIAL (PRIMARY) HYPERTENSION (7) Steroid-induced myopathy Code(s): G72.0 - DRUG-INDUCED MYOPATHY; T38.0X5A - ADVERSE EFFECT OF GLUCOCORT/ SYNTH ANALOG, INIT Assessment/Plan ACUTE ON CHRONIC COPD EXACERBATION STEROID INDUCED MUSCLE MYOPATHY IV STEROIDS NEBS PULM EVAL PT EVAL [facility] FOR PULMONARY REHAB DVT PROPHYLAXIS OOB TO CHAIR WITH ASSIST
[2018-07-09 18:01] LABS: MACROCYTOSIS 1+; PLATELET ESTIMATE ADEQUATE
[2018-07-09] MEDS ORDERED: ACETAMINOPHEN 325 MG TABLET (FP) PO PRN (18:21)
[2018-07-09] MEDS: METOPROLOL TARTRATE 25 MG TABLET (FP) PO SCH (19:06)
[2018-07-09] MEDS ORDERED: METOPROLOL TARTRATE 25 MG TABLET (FP) ONE (19:38)
[2018-07-09] MEDS: methylPREDNISolone NA SUCC 40 MG/1 ML VIAL IVPUSH SCH (21:38)
[2018-07-09] MEDS: HEPARIN NA (PORCINE) 5,000 UNITS/ML 1ML VIAL SQ SCH (22:38)
[2018-07-09] MEDS: ATORVASTATIN CA 20 MG TABLET (FP) PO SCH (22:39)
[2018-07-09] MEDS ORDERED: HEMOQUE TEST 1 EACH EACH ONE (23:22)
[2018-07-09] MEDS ORDERED: ATORVASTATIN CA 10 MG TABLET (FP) ONE (23:28)
[2018-07-09] MEDS ORDERED: HEPARIN NA (PORCINE) 5,000 UNITS/ML 1ML VIAL ONE (23:29)
[2018-07-09] MEDS ORDERED: methylPREDNISolone NA SUCC 40 MG/1 ML VIAL ONE (23:29)
[2018-07-09] MEDS ORDERED: INSULIN (NOVOLOG) ASPART 100 UNITS/ML 10ML VIAL ONE (23:30)
[2018-07-09] MEDS: INSULIN SLIDING SCALE (NOVOLOG) 1 VIAL SQ SCH (23:39)
[2018-07-10] MEDS ORDERED: HEMOQUE CONTROL SOLUTION ONE (02:23)
[2018-07-10] MEDS ORDERED: INSULIN REGULAR HUMAN 100 UNITS/ML *VIAL IVPUSH ONE (02:38)
[2018-07-10] MEDS: methylPREDNISolone NA SUCC 40 MG/1 ML VIAL IVPUSH SCH ×4 (03:41→21:17)
[2018-07-10] MEDS ORDERED: methylPREDNISolone NA SUCC 40 MG/1 ML VIAL ONE ×2 (03:54→08:09)
[2018-07-10] MEDS ORDERED: INSULIN REGULAR HUMAN 100 UNITS/ML *VIAL ONE (03:55)
[2018-07-10] MEDS: HEPARIN NA (PORCINE) 5,000 UNITS/ML 1ML VIAL SQ SCH ×3 (06:02→21:18)
[2018-07-10 06:06] LABS: HEMATOCRIT 32.4 % (32.4-45.2); HEMOGLOBIN 10.6 GM/dL (10.7-15.3); MCH 28.8 pg (25.7-33.7); MCHC 32.6 g/dl (32.0-36.0); MEAN CELL VOLUME 88.4 fl (80-96); PLATELET COUNT 145 K/MM3 (134-434); RBC 3.66 M/mm3 (3.60-5.2); RDW 15.6 % (11.6-15.6)
[2018-07-10] MEDS ORDERED: HEPARIN NA (PORCINE) 5,000 UNITS/ML 1ML VIAL ONE (06:19)
[2018-07-10 06:31] LABS: ALBUMIN 2.6 g/dl (3.4-5.0); ANION GAP 7 MMOL/L (8-16); BILIRUBIN,TOTAL 0.3 mg/dL (0.2-1.0); BLOOD UREA NITROGEN 40 mg/dL (7-18); CALCIUM 8.4 mg/dL (8.5-10.1); CHLORIDE 99 mmol/L (98-107); CHOLESTEROL 164 mg/dL (50-200); CO2 32 mmol/L (21-32); CREATININE 1.1 mg/dL (0.55-1.02); HDL CHOLESTEROL 51 mg/dL (40-60); POTASSIUM 5.4 mmol/L (3.5-5.1); SGOT/AST 16 U/L (15-37); SGPT/ALT 23 U/L (12-78); SODIUM 138 mmol/L (136-145); TOT PROT 5.2 g/dl (6.4-8.2); TRIGLYCERIDES 217 mg/dL (35-160)
[2018-07-10 06:40] LABS: ALK PHOS 38 U/L (45-117)
[2018-07-10 06:41] LABS: GLUCOSE,RANDOM 349 mg/dL (74-106)
[2018-07-10] MEDS: INSULIN SLIDING SCALE (NOVOLOG) 1 VIAL SQ SCH ×4 (07:55→21:25)
[2018-07-10] MEDS ORDERED: metFORMIN HCL 500 MG TABLET (FP) ONE (07:56)
[2018-07-10] MEDS: metFORMIN HCL 500 MG TABLET (FP) PO SCH ×2 (07:57→16:46)
[2018-07-10] MEDS ORDERED: LISINOPRIL 5 MG TABLET (FP) ONE (08:09)
[2018-07-10] MEDS ORDERED: ASPIRIN COATED 81 MG TABLET.EC ONE (08:09)
[2018-07-10] MEDS ORDERED: METOPROLOL TARTRATE 25 MG TABLET (FP) ONE (08:19)
[2018-07-10] MEDS: ASPIRIN COATED 81 MG TABLET.EC PO SCH (09:02)
[2018-07-10] MEDS: METOPROLOL TARTRATE 25 MG TABLET (FP) PO SCH ×2 (09:03→21:17)
[2018-07-10] MEDS: ARFORMOTEROL TARTRATE 15 MCG/2 ML VIAL NEB SCH ×2 (09:55→20:26)
[2018-07-10] MEDS ORDERED: LISINOPRIL 5 MG TABLET (FP) PO SCH (10:00)
--- NOTE | 2018-07-10 10:24 | PN ---
Progress Note, Physician Chief Complaint: patient seen and examined sitting up in the bed no distress alert oriented says breathing is better - Current Medication List Current Medications: Active Medications Acetaminophen (Tylenol -) 650 mg PO Q6H PRN PRN Reason: FEVER Arformoterol Tartrate (Brovana (Restricted To Pulmonology/Resp) -) 1 amp NEB RBID [facility] Aspirin (Ecotrin -) 81 mg PO DAILY [facility] Last Admin: 07/10/18 09:02 Dose: 81 mg Atorvastatin Calcium (Lipitor -) 20 mg PO HS [facility] Last Admin: 07/09/18 22:39 Dose: 20 mg Ezetimibe (Zetia -) 10 mg PO DAILY [facility] Heparin Sodium (Porcine) (Heparin -) 5,000 unit SQ TID [facility] Last Admin: 07/10/18 06:02 Dose: 5,000 unit Insulin Aspart (Novolog Vial Sliding Scale -) 1 vial SQ [facility]; Protocol Last Admin: 07/10/18 07:55 Dose: 8 units Insulin Detemir (Levemir Vial) 10 units SQ [facility] Lisinopril (Prinivil) 2.5 mg PO DAILY [facility] Last Admin: 07/10/18 09:02 Dose: 2.5 mg Metformin HCl (Glucophage -) 1,000 mg PO BID@0700,1630 [facility] Last Admin: 07/10/18 07:57 Dose: 1,000 mg Methylprednisolone Sodium Succinate (Solu-Medrol -) 40 mg IVPUSH Q6H-IV [facility] Last Admin: 07/10/18 08:14 Dose: 40 mg Metoprolol Tartrate (Lopressor -) 25 mg PO DAILY [facility] Last Admin: 07/10/18 09:03 Dose: 25 mg - Objective Vital Signs: Vital Signs Temperature 98.9 F 07/10/18 06:23 Pulse Rate 80 07/10/18 09:15 Respiratory Rate 20 07/10/18 08:07 Blood Pressure 114/53 07/10/18 08:07 O2 Sat by Pulse Oximetry (%) 100 07/10/18 09:15 Constitutional: Yes: Calm Cardiovascular: Yes: Regular Rate and Rhythm, S1, S2 Respiratory: Yes: Diminished, Other (no wheezing) Edema: Yes Neurological: Yes: Alert, Oriented Labs: CBC, BMP 07/10/18 05:55 07/10/18 05:55 Problem List - Problems (1) COPD exacerbation Assessment/Plan: iv steroids nebulizers pulm eval PT eval -SNF? for pulm eval oxygen 3 litres Code(s): J44.1 - CHRONIC OBSTRUCTIVE PULMONARY DISEASE W (ACUTE) EXACERBATION (2) Hyperglycemia Assessment/Plan: secondary to steroids Code(s): R73.9 - HYPERGLYCEMIA, UNSPECIFIED (3) Diabetes Assessment/Plan: hgba1c 11.0 sliding scale levemir 10 units at night metformin bid januvia 100mg daily Code(s): E11.9 - TYPE 2 DIABETES MELLITUS WITHOUT COMPLICATIONS Qualifiers: Diabetes mellitus type: type 2 (4) Coronary artery disease Assessment/Plan: aspirin,statin and metoprolol Code(s): I25.10 - ATHSCL HEART DISEASE OF [place] CORONARY ARTERY W/O ANG PCTRS
[2018-07-10] MEDS ORDERED: SODIUM POLYSTYRENE SULFONATE 15 GM/60 ML BOTTLE PO ONE (11:00)
[2018-07-10] MEDS ORDERED: INSULIN (NOVOLOG) ASPART 100 UNITS/ML 10ML VIAL ONE ×3 (12:03→20:56)
[2018-07-10] MEDS ORDERED: SODIUM POLYSTYRENE SULFONATE 15 GM/60 ML BOTTLE ONE (12:24)
--- NOTE | 2018-07-10 12:41 | CON.CARD ---
Consult Consult Specialty:: cardiology Reason for Consultation:: shortness of breath; hx CAD-->coronary stents; CHF; COPD - History of Present Illness Chief Complaint: Pt A&Ox3; feels better (was able to walk a few steps to the bathroom with "just a little SOB" History of Present Illness: 68-year-old white female,with PMhistory of hypertension, hyperlipidemia, non- insulin-dependent diabetes, CAD with stent, former smoker, severe COPD, oxygen dependent on 3 L, PAD, diverticulitis, nephrolithiasis, s/p admission 11/21 for respiratory failure w/ hypercapnia, presents with worsening shortness of breath. Patient states for the past 4 days has noticed worsening shortness of breath despite being on her her oxygen. + dry cough, no wheezing, chest pain, nausea, vomiting, fever or chills. Denies palpitations, acute lower extremity pain or swelling. Hs MALENA of mid LAD 09/29/2014 Lef common iliac stent 09/27/2014 ([place]) She denies hx of bronchial asthma,and has been on metoprolol for years. - History Source History Provided By: Patient, Family Member (daughter), Medical Record Limitations to Obtaining History: No Limitations - Past Medical History Cardio/Vascular: Yes: CAD (stent), HTN, Hyperlipdemia Pulmonary: Yes: COPD, O2 Dependent (3L) Gastrointestinal: Yes: Diverticulitis Renal/: Yes: Renal Calculi Reproductive: Yes: Postmenopausal ...: No Psych: Yes: Anxiety - Past Surgical History Past Surgical History: Yes: Appendectomy, , Tubal Ligation - Alcohol/Substance Use Hx Alcohol Use: No History of Substance Use: reports: None - Smoking History Smoking history: Former smoker Have you smoked in the past 12 months: Yes Aproximately how many cigarettes per day: 20 If you are a former smoker, when did you quit?: 06/2017 - Social History Usual Living Arrangement: With Spouse (lives with and son in house with 7 steps to enter and 1st floor set-up inside) ADL: Independent (Independent ADLs without AD) Occupation: works for [employer] History of Recent Travel: No Home Medications - Allergies Allergies/Adverse Reactions: Allergies Allergy/AdvReac Type Severity Reaction Status Date / Time Penicillins Allergy Intermediate Rash Verified 07/09/18 13:27 - Home Medications Home Medications: Ambulatory Orders Aspirin [Ecotrin] 81 mg PO DAILY 07/09/18 Ezetimibe [Zetia -] 10 mg PO DAILY 07/09/18 Icosapent Ethyl [Vascepa] 1 gm PO DAILY 07/09/18 Linagliptin/Metformin HCl [Jentadueto 2.5 mg-1000 mg Tab] 1 each PO BID Lisinopril [Zestril] 2.5 mg PO DAILY 07/09/18 Metoprolol Tartrate [Lopressor -] 25 mg PO BID 07/09/18 Simvastatin [Zocor -] 20 mg PO HS 07/09/18 Family Disease History - Family Disease History Family Disease History: Diabetes: Mother, Brother, Sister Vital Signs: Vital Signs Temperature 98.3 F 07/10/18 12:30 Pulse Rate 72 07/10/18 12:30 Respiratory Rate 20 07/10/18 12:30 Blood Pressure 108/74 07/10/18 12:30 O2 Sat by Pulse Oximetry (%) 100 07/10/18 12:30 - Other Data Labs, Other Data: CBC, BMP 07/10/18 05:55 07/10/18 05:55 Troponin, BNP 07/09/18 07/09/18 07/09/18 14:30 14:30 15:14 Troponin I Cancelled < 0.02 B-Natriuretic Peptide Cancelled Cancelled 07/09/18 15:15 Troponin I B-Natriuretic Peptide 579.69 H Troponin, BNP 07/09/18 07/09/18 07/09/18 14:30 14:30 15:14 Troponin I Cancelled < 0.02 B-Natriuretic Peptide Cancelled Cancelled 07/09/18 15:15 Troponin I B-Natriuretic Peptide 579.69 H Problem List - Problems (1) Stented coronary artery Assessment/Plan: s/p coronary stent (MALENA mid-LAD) 09/2014; no known hx IN. s/p left common iliac stent . ECHO 11/21: normal LVEF and wall motion. Plan: As discussed with daughter today, aggressive control of lipids, glucose; follow Heart-healthy (within diabetic guidelines) diet. F/u thyroid studies. Smoking cessation again urged (stopped offically more than a year ago; occasionally has "had a few puffs"). She had been on both nicotine patch and bupropion pills to hlep ally stop. Code(s): Z95.5 - PRESENCE OF CORONARY ANGIOPLASTY IMPLANT AND GRAFT (2) Emphysema lung Assessment/Plan: noted on 2016 CT chest. F/u with director meetings. Code(s): J43.9 - EMPHYSEMA, UNSPECIFIED (3) Cigarette nicotine dependence Code(s): F17.210 - NICOTINE DEPENDENCE, CIGARETTES, UNCOMPLICATED (4) Hyperkalemia Assessment/Plan: discontinue lisinopril; f/u electrolytes. (Pt refused Kayexalate). EKG in am. Code(s): E87.5 - HYPERKALEMIA (5) Hypoalbuminemia Code(s): E88.09 - OTH DISORDERS OF PLASMA-PROTEIN METABOLISM, NEC (6) Chronic steroid use Assessment/Plan: on PO steroids for months. Atrophy of thighs; truncal widening, striae. Code(s): NPH2004 - (7) Bilateral leg edema Assessment/Plan: Likely multifactorial, including diastolic CHF, chronic steroid use, hypoalbuminemia. Code(s): R60.0 - LOCALIZED EDEMA (8) Acute on chronic diastolic CHF (congestive heart failure) Assessment/Plan: ECHO 11/21: normal LVEF. Elevated BNP. No JVD Lisinopril discontinued due to hyperkalemia. On metoprolol. F/u Is and Os, daily weight, BUn/Cr, electrolytes. Code(s): I50.33 - ACUTE ON CHRONIC DIASTOLIC (CONGESTIVE) HEART FAILURE (9) Hyperlipidemia Assessment/Plan: continue statin (on simvastatin at home). Code(s): E78.5 - HYPERLIPIDEMIA, UNSPECIFIED
[2018-07-10] MEDS ORDERED: PT OWN MED DRAWER 7, Y5N ONE ×2 (14:55→22:08)
--- NOTE | 2018-07-10 16:51 | CON.PULM ---
Consult Consult Specialty:: PULMONARY Referred by:: Dr. Funk Reason for Consultation:: shortness of breath - History of Present Illness Chief Complaint: shortness of breath History of Present Illness: 68yo female with h/o HTN, hyperlipidemia, DM, CAD, COPD, chronic hypoxic and hypercapneic respiratory failure who was admitted with worsening shortness of breath and bilateral leg weakness. She denies any chest pain or palpitations. No fevers, chills or sweats. +nonproductive cough with intermittent wheezing. No nausea, vomiting. She was last seen in office in April, at that time she was on chronic prednisone but has not followed up and has since been on prednisone 20mg BID. Compliant with her inhalers and nebulizers. States she has been falling more recently especially with stairs. - History Source History Provided By: Patient, Family Member, Medical Record - Past Medical History Cardio/Vascular: Yes: CAD (stent), HTN, Hyperlipdemia Pulmonary: Yes: COPD, O2 Dependent (3L) Gastrointestinal: Yes: Diverticulitis Renal/: Yes: Renal Calculi ...: No - Past Surgical History Past Surgical History: Yes: Appendectomy, , Tubal Ligation - Alcohol/Substance Use Hx Alcohol Use: No History of Substance Use: reports: None - Smoking History Smoking history: Former smoker Have you smoked in the past 12 months: Yes Aproximately how many cigarettes per day: 20 If you are a former smoker, when did you quit?: 06/2017 - Social History Usual Living Arrangement: With Spouse (lives with and son in house with 7 steps to enter and 1st floor set-up inside) ADL: Independent (Independent ADLs without AD) Occupation: works for [employer] History of Recent Travel: No Home Medications - Allergies Allergies/Adverse Reactions: Allergies Allergy/AdvReac Type Severity Reaction Status Date / Time Penicillins Allergy Intermediate Rash Verified 07/09/18 13:27 - Home Medications Home Medications: Ambulatory Orders Aspirin [Ecotrin] 81 mg PO DAILY 07/09/18 Ezetimibe [Zetia -] 10 mg PO DAILY 07/09/18 Icosapent Ethyl [Vascepa] 1 gm PO DAILY 07/09/18 Linagliptin/Metformin HCl [Jentadueto 2.5 mg-1000 mg Tab] 1 each PO BID Lisinopril [Zestril] 2.5 mg PO DAILY 07/09/18 Metoprolol Tartrate [Lopressor -] 25 mg PO BID 07/09/18 Simvastatin [Zocor -] 20 mg PO HS 07/09/18 Family Disease History - Family Disease History Family Disease History: Diabetes: Mother, Brother, Sister Review of Systems - Review of Systems Constitutional: reports: Weakness. denies: Chills, Fever Eyes: denies: Recent Change in Vision HENT: denies: Nasal Congestion, Throat Pain Neck: denies: Stiffness, Tenderness Cardiovascular: reports: Shortness of Breath. denies: Chest Pain, Palpitations Respiratory: reports: Cough, SOB, SOB on Exertion, Wheezing Gastrointestinal: denies: Abdominal Pain, Nausea, Vomiting Genitourinary: denies: Dysuria, Hematuria Neurological: reports: Unsteady Gait, Weakness Endocrine: denies: Unexplained Weight Loss Physical Exam Vital Sings: Vital Signs Temperature 98.3 F 07/10/18 13:07 Pulse Rate 72 07/10/18 12:30 Respiratory Rate 20 07/10/18 13:07 Blood Pressure 118/54 07/10/18 13:07 O2 Sat by Pulse Oximetry (%) 93 L 07/10/18 13:32 Constitutional: Yes: Calm Eyes: Yes: Conjunctiva Clear, EOM Intact HENT: Yes: Atraumatic, Normocephalic Neck: Yes: Supple, Trachea Midline Cardiovascular: Yes: Regular Rate and Rhythm Respiratory: Yes: Rhonchi (scattered) ...Clubbing: No Gastrointestinal: Yes: Normal Bowel Sounds, Soft. No: Tenderness Edema: No Neurological: Yes: Alert, Oriented Labs: CBC, BMP 07/10/18 05:55 07/10/18 05:55 ABG Results ABG pH 7.34 (7.35-7.45) L 07/09/18 15:15 ABG pCO2 at Pt Temp 47.9 mmHg (35-45) H 07/09/18 15:15 ABG pO2 at Pt Temp 51.4 mmHg (80-100) L D 07/09/18 15:15 ABG HCO3 25.0 meq/L (22-26) 07/09/18 15:15 ABG O2 Sat (Measured) 86.3 % (90-98.9) L 07/09/18 15:15 ABG O2 Content 14.3 % vol (15-22) L 07/09/18 15:15 ABG Base Excess -0.7 meq/l (-2-2) 07/09/18 15:15 Imaging - Results Chest X-ray: Report Reviewed, Image Reviewed (no infiltrates) Problem List - Problems (1) COPD exacerbation Code(s): J44.1 - CHRONIC OBSTRUCTIVE PULMONARY DISEASE W (ACUTE) EXACERBATION (2) Chronic respiratory failure with hypoxia and hypercapnia Code(s): J96.11 - CHRONIC RESPIRATORY FAILURE WITH HYPOXIA; J96.12 - CHRONIC RESPIRATORY FAILURE WITH HYPERCAPNIA Assessment/Plan Acute COPD Exacerbation Chronic Hypoxic and Hypercapneic Respiratory Failure CAD HTN DM Hyperlipidemia - IV medrol - inhaled bronchodilators standing and PRN - O2 to keep SpO2 >90% - empiric azithromycin - when ready for discharge, check ABG to assess for home PAP device - consider physiatry eval for steroid myopathy - DVT prophylaxis Thank you for this consult Uriel Berman MD
[2018-07-10] MEDS ORDERED: ALBUTEROL SO4 0.083% IH SOL 2.5 MG/3 ML VIAL.NEB. NEB PRN (18:27)
[2018-07-10] MEDS: AZITHROMYCIN IVPB 500 MG in DEXTROSE 5%-WATER - 250 ML IVPB SCH (20:27)
[2018-07-10] MEDS: ATORVASTATIN CA 20 MG TABLET (FP) PO SCH (21:18)
[2018-07-10] MEDS: INSULIN (LEVEMIR) 100 UNITS/ML UNITS SQ SCH (21:20)
[2018-07-11] MEDS: methylPREDNISolone NA SUCC 40 MG/1 ML VIAL IVPUSH SCH ×4 (02:49→21:13)
[2018-07-11] MEDS: sitaGLIPtin PHOSPHATE 100 MG TABLET (FP) PO SCH (06:23)
[2018-07-11] MEDS: HEPARIN NA (PORCINE) 5,000 UNITS/ML 1ML VIAL SQ SCH ×3 (06:23→21:12)
[2018-07-11] MEDS: metFORMIN HCL 500 MG TABLET (FP) PO SCH ×2 (06:23→15:44)
[2018-07-11] MEDS: INSULIN SLIDING SCALE (NOVOLOG) 1 VIAL SQ SCH ×4 (06:24→21:14)
[2018-07-11] MEDS: ARFORMOTEROL TARTRATE 15 MCG/2 ML VIAL NEB SCH ×2 (07:25→21:53)
[2018-07-11 07:34] LABS: HEMATOCRIT 29.5 % (32.4-45.2); HEMOGLOBIN 9.9 GM/dL (10.7-15.3); MCH 29.4 pg (25.7-33.7); MCHC 33.5 g/dl (32.0-36.0); MEAN CELL VOLUME 87.8 fl (80-96); MEAN PLT VOLUME 8.1 fl (7.5-11.1); PLATELET COUNT 152 K/MM3 (134-434); RBC 3.37 M/mm3 (3.60-5.2); RDW 15.7 % (11.6-15.6); WHITE BLOOD COUNT 9.4 K/mm3 (4.0-10.0)
[2018-07-11 08:12] LABS: ALBUMIN 2.6 g/dl (3.4-5.0); ALK PHOS 38 U/L (45-117); ANION GAP 9 MMOL/L (8-16); BILIRUBIN,TOTAL 0.3 mg/dL (0.2-1.0); BLOOD UREA NITROGEN 43 mg/dL (7-18); CALCIUM 8.4 mg/dL (8.5-10.1); CHLORIDE 103 mmol/L (98-107); CO2 26 mmol/L (21-32); CREATININE 0.8 mg/dL (0.55-1.02); POTASSIUM 4.9 mmol/L (3.5-5.1); SGOT/AST 13 U/L (15-37); SGPT/ALT 23 U/L (12-78); SODIUM 138 mmol/L (136-145); TOT PROT 5.2 g/dl (6.4-8.2)
[2018-07-11 08:33] LABS: GLUCOSE,RANDOM 333 mg/dL (74-106)
--- NOTE | 2018-07-11 10:30 | PN ---
Progress Note, Physician Chief Complaint: patient seen and examined slept well last night breathing better - Current Medication List Current Medications: Active Medications Acetaminophen (Tylenol -) 650 mg PO Q6H PRN PRN Reason: FEVER Albuterol Sulfate (Ventolin 0.083% Nebulizer Soln -) 1 amp NEB Q4H PRN PRN Reason: SHORT OF BREATH/WHEEZING Arformoterol Tartrate (Brovana (Restricted To Pulmonology/Resp) -) 1 amp NEB RBID [facility] Last Admin: 07/11/18 07:25 Dose: 1 amp Aspirin (Ecotrin -) 81 mg PO DAILY [facility] Last Admin: 07/10/18 09:02 Dose: 81 mg Atorvastatin Calcium (Lipitor -) 20 mg PO HS [facility] Last Admin: 07/10/18 21:18 Dose: 20 mg Ezetimibe (Zetia -) 10 mg PO DAILY [facility] Heparin Sodium (Porcine) (Heparin -) 5,000 unit SQ TID [facility] Last Admin: 07/11/18 06:23 Dose: 5,000 unit Azithromycin 500 mg/ Dextrose 250 mls @ 250 mls/hr IVPB DAILY [facility] Stop: 07/13/18 10:59 Last Admin: 07/10/18 20:27 Dose: 250 mls/hr Insulin Aspart (Novolog Vial Sliding Scale -) 1 vial SQ [facility]; Protocol Last Admin: 07/11/18 06:24 Dose: 8 units Insulin Detemir (Levemir Vial) [address] [facility] Last Admin: 07/10/18 21:20 Dose: 10 units Metformin HCl (Glucophage -) 1,000 mg PO BID@0700,1630 [facility] Last Admin: 07/11/18 06:23 Dose: 1,000 mg Methylprednisolone Sodium Succinate (Solu-Medrol -) 40 mg IVPUSH Q6H-IV [facility] Last Admin: 07/11/18 09:01 Dose: 40 mg Metoprolol Tartrate (Lopressor -) 12.5 mg PO BID [facility] Last Admin: 07/10/18 21:17 Dose: 12.5 mg Sitagliptin Phosphate (Januvia -) 100 mg PO DAILY@0700 [facility] Last Admin: 07/11/18 06:23 Dose: 100 mg Tiotropium [place] (Spiriva Respimat) 2 puff IH DAILY [facility] - Objective Vital Signs: Vital Signs Temperature 97.8 F 07/11/18 10:03 Pulse Rate 74 07/11/18 10:03 Respiratory Rate 20 07/11/18 10:03 Blood Pressure 132/49 07/11/18 10:03 O2 Sat by Pulse Oximetry (%) 96 07/10/18 21:00 Constitutional: Yes: Calm Cardiovascular: Yes: Regular Rate and Rhythm, S1, S2 Respiratory: Yes: Diminished Gastrointestinal: Yes: Normal Bowel Sounds, Soft Neurological: Yes: Alert, Oriented Labs: CBC, BMP 07/11/18 07:00 07/11/18 07:00 Problem List - Problems (1) COPD exacerbation Assessment/Plan: iv steroids nebulizers pulm eval noted PT eval -SNF? for pulm eval oxygen 3 litres Code(s): J44.1 - CHRONIC OBSTRUCTIVE PULMONARY DISEASE W (ACUTE) EXACERBATION (2) Hyperglycemia Assessment/Plan: secondary to steroids Code(s): R73.9 - HYPERGLYCEMIA, UNSPECIFIED (3) Diabetes Assessment/Plan: hgba1c 11.0 sliding scale levemir 10 units at night metformin bid januvia 100mg daily Code(s): E11.9 - TYPE 2 DIABETES MELLITUS WITHOUT COMPLICATIONS Qualifiers: Diabetes mellitus type: type 2 (4) Coronary artery disease Assessment/Plan: aspirin,statin and metoprolol Code(s): I25.10 - ATHSCL HEART DISEASE OF [place] CORONARY ARTERY W/O ANG PCTRS
[2018-07-11] MEDS ORDERED: PT OWN MED DRAWER 7, Y5N ONE (10:38)
[2018-07-11] MEDS: ASPIRIN COATED 81 MG TABLET.EC PO SCH (10:42)
[2018-07-11] MEDS: METOPROLOL TARTRATE 25 MG TABLET (FP) PO SCH ×2 (10:42→21:14)
[2018-07-11] MEDS: EZETIMIBE 10 MG TABLET (FP) PO SCH (10:44)
[2018-07-11] MEDS: TIOTROPIUM BROMIDE 2.5 MCG (SPIRIVA) RESPIMAT INHALER IH SCH (10:45)
[2018-07-11] MEDS ORDERED: INSULIN (NOVOLOG) ASPART 100 UNITS/ML 10ML VIAL ONE ×3 (11:41→21:05)
--- NOTE | 2018-07-11 12:01 | PN ---
Progress Note, Physician History of Present Illness: 68-year-old white female,with PMhistory of hypertension, hyperlipidemia, non- insulin-dependent diabetes, CAD with stent, former smoker, severe COPD, oxygen dependent on 3 L, PAD, diverticulitis, nephrolithiasis, s/p admission 11/21 for respiratory failure w/ hypercapnia, presents with worsening shortness of breath. Patient states for the past 4 days has noticed worsening shortness of breath despite being on her her oxygen. + dry cough, no wheezing, chest pain, nausea, vomiting, fever or chills. Denies palpitations, acute lower extremity pain or swelling. Hs MALENA of mid LAD 09/29/2014 Lef common iliac stent 09/27/2014 ([place]) - Current Medication List Current Medications: Active Medications Acetaminophen (Tylenol -) 650 mg PO Q6H PRN PRN Reason: FEVER Albuterol Sulfate (Ventolin 0.083% Nebulizer Soln -) 1 amp NEB Q4H PRN PRN Reason: SHORT OF BREATH/WHEEZING Arformoterol Tartrate (Brovana (Restricted To Pulmonology/Resp) -) 1 amp NEB RBID [facility] Last Admin: 07/11/18 07:25 Dose: 1 amp Aspirin (Ecotrin -) 81 mg PO DAILY [facility] Last Admin: 07/11/18 10:42 Dose: 81 mg Atorvastatin Calcium (Lipitor -) 20 mg PO HS [facility] Last Admin: 07/10/18 21:18 Dose: 20 mg Ezetimibe (Zetia -) 10 mg PO DAILY [facility] Last Admin: 07/11/18 10:44 Dose: 10 mg Heparin Sodium (Porcine) (Heparin -) 5,000 unit SQ TID [facility] Last Admin: 07/11/18 06:23 Dose: 5,000 unit Azithromycin 500 mg/ Dextrose 250 mls @ 250 mls/hr IVPB DAILY [facility] Stop: 07/13/18 10:59 Last Admin: 07/10/18 20:27 Dose: 250 mls/hr Insulin Aspart (Novolog Vial Sliding Scale -) 1 vial SQ [facility]; Protocol Last Admin: 07/11/18 11:45 Dose: 10 units Insulin Detemir (Levemir Vial) 10 units SQ [facility] Last Admin: 07/10/18 21:20 Dose: 10 units Metformin HCl (Glucophage -) 1,000 mg PO BID@0700,1630 [facility] Last Admin: 07/11/18 06:23 Dose: 1,000 mg Methylprednisolone Sodium Succinate (Solu-Medrol -) 40 mg IVPUSH Q6H-IV [facility] Last Admin: 07/11/18 09:01 Dose: 40 mg Metoprolol Tartrate (Lopressor -) 12.5 mg PO BID [facility] Last Admin: 07/11/18 10:42 Dose: 12.5 mg Sitagliptin Phosphate (Januvia -) 100 mg PO DAILY@0700 [facility] Last Admin: 07/11/18 06:23 Dose: 100 mg Tiotropium [place] (Spiriva Respimat) 2 puff IH DAILY [facility] Last Admin: 07/11/18 10:45 Dose: 2 puff - Objective Vital Signs: Vital Signs Temperature 97.8 F 07/11/18 10:03 Pulse Rate 74 07/11/18 10:03 Respiratory Rate 20 07/11/18 10:03 Blood Pressure 132/49 07/11/18 10:03 O2 Sat by Pulse Oximetry (%) 96 07/11/18 09:00 Eyes: Yes: WNL, Conjunctiva Clear, EOM Intact HENT: Yes: WNL, Atraumatic, Normocephalic Neck: Yes: WNL, Supple, Trachea Midline Cardiovascular: Yes: WNL, Regular Rate and Rhythm Respiratory: Yes: WNL, Regular, CTA Bilaterally Gastrointestinal: Yes: WNL, Normal Bowel Sounds Genitourinary: Yes: WNL Musculoskeletal: Yes: WNL Extremities: Yes: WNL Edema: No Integumentary: Yes: WNL Neurological: Yes: WNL, Alert, Oriented ...Motor Strength: WNL Psychiatric: Yes: WNL Labs: CBC, BMP 07/11/18 07:00 07/11/18 07:00
[2018-07-11] MEDS: AZITHROMYCIN IVPB 500 MG in DEXTROSE 5%-WATER - 250 ML IVPB SCH (14:02)
--- NOTE | 2018-07-11 16:09 | PN ---
Progress Note (short form) - Note Progress Note: PULMONARY AWAKE/ALERT IMPROVED VSS/AFEBRILE ANICTERIC DIMINISHED BREATH SOUNDS B/L S1S2 BS+ SOFT NO EDEMA LABS/MEDS/NOTES/IMAGES REVIEWED - Results Chest X-ray: Report Reviewed, Image Reviewed (no infiltrates) Problem List - Problems (1) COPD exacerbation Code(s): J44.1 - CHRONIC OBSTRUCTIVE PULMONARY DISEASE W (ACUTE) EXACERBATION (2) Chronic respiratory failure with hypoxia and hypercapnia Code(s): J96.11 - CHRONIC RESPIRATORY FAILURE WITH HYPOXIA; J96.12 - CHRONIC RESPIRATORY FAILURE WITH HYPERCAPNIA Assessment/Plan Acute COPD Exacerbation Chronic Hypoxic and Hypercapneic Respiratory Failure CAD HTN DM Hyperlipidemia - IV medrol - inhaled bronchodilators standing and PRN - O2 to keep SpO2 >90% - empiric azithromycin - when ready for discharge, check ABG to assess for home PAP device - consider physiatry eval for steroid myopathy - DVT prophylaxis Ashlyn ORTEGA MD
--- NOTE | 2018-07-11 18:42 | CONS ---
DATE OF CONSULTATION: 07/11/2018 REFERRING PHYSICIAN: Renee Tyler MD HISTORY OF PRESENT ILLNESS: The patient is a 68-year-old woman with past medical history of severe COPD, emphysema who is former tobacco user for over 45 years and was admitted with increasing shortness of breath. The patient has been treated with steroids both as an outpatient as well as after she was hospitalized. She is complaining of worsening weakness in her hip girdle, particularly difficulty negotiating stairs. On admission, the patient underwent chest x-ray on July 09, 2018, which demonstrated rotation to the right with normal mediastinum, degenerative changes noted in the thoracic spine but clear lung lara, hyperaeration. Blood work on admission, she had normal WBCs 9.8, hemoglobin 12.9, platelet count 205. Her chemistry on admission she had a normal sodium 137, potassium normal at 4.3, chloride 101, CO2 was 25, elevated BUN 27, creatinine 0.9, hemoglobin A1C elevated at 8.4, and a decreased albumin of 2.9. BNP was slightly elevated at 580. The patient has been followed by Cardiology. She was treated with IV steroids, methylprednisolone as well as nebulizer treatments. She was also started on subcutaneous heparin for deep vein thrombosis prophylaxis. Her repeat blood work showed a stable chemistry. BUN remains elevated at 43 to a creatinine 0.8. Her albumin is stable at 2.6. CBC demonstrates normal WBCs 9.4, hemoglobin dropped to 9.9, platelet count of 152. The patient was seen by physical therapy and was able to ambulate 15 feet without assistive device at a supervision level. Transferred independently. The patient was on contact precaution and, therefore, could not leave the room for further ambulation. Currently the patient is feeling improved. She has no current shortness of breath but does complain of weakness in her lower extremities more than upper extremities. No numbness, tingling. No fever or chills. PAST MEDICAL HISTORY: Significant for hypertension, hyperlipidemia, coronary artery disease status post stenting, diverticulitis, renal calculi, appendectomy, section, tubal ligation. SOCIAL HISTORY: The patient lives in a private house. He does have a few steps, perhaps 5-6, to get out of the house, but otherwise, can stay on one level. She is a former tobacco user and quit about a year ago. No reported substance abuse. Premorbidly independent. [place] for [employer] REVIEW OF SYSTEMS: No headache. No current lightheadedness, dizziness. No blurry vision, double vision or change in vision. No nausea, vomiting, difficulty swallowing, difficulty chewing. No chest pain or shortness of breath. She does get dyspneic on exertion at times. No abdominal discomfort. No bowel or bladder incontinence or retention. No dysuria or polyuria. No numbness or tingling reported in the upper and lower extremities. Generalized weakness more in the upper extremities than uppers but no joint arthralgias. No neck or back pain. No skin rash but she does note frail skin and easy bruising with an area of breakdown in her mccrary. PHYSICAL EXAMINATION: General: The patient is a petite woman seen both sitting, standing, and ambulating. She is awake, alert, cooperative in no acute distress. HEENT: She is normocephalic and atraumatic. Extraocular muscles appear intact. Neck: Supple. Extremities: Without any pitting edema or calf tenderness. There is an ecchymotic in the mccrary with slight opening but no surrounding erythema. Neuromuscular: She is awake, alert, and oriented x3. Cranial nerves 2-12 are grossly intact. She has fairly good motor power in the upper extremities with mild weakness in her shoulder girdle at 4/5 to 4+/5, but she has significant weakness in her hip girdle only 2/5 to 3/5. Knee extensors are 4/5. Knee flexors 4+/5. She has good dorsiflexion and plantar flexion. Normal sensation to pinprick, cold and light touch in the upper and lower extremities. She has normal and symmetric reflexes in the upper extremities. Trace to +1 knee jerk. Absent ankle jerk. She can perform bed mobility at an independent level, although it takes her some time to turn. She is able to go from supine to sit and sit to stand without much difficulty and can ambulate short distances without assistive device without any shortness of breath. OVERALL IMPRESSION: 1. Deficits in mobility, activities of daily living, multifactorial. 2. Proximal lower extremity more than upper extremity weakness consistent with steroid myopathy. 3. Deconditioning. 4. Acute on chronic obstructive pulmonary disease exacerbation. 5. Elevated risk for deep vein thrombosis due to immobility. 6. Anemia. 7. Hypoalbuminemia. 8. Coronary artery disease status post stent. 9. History of diabetes, poorly controlled at the moment. 10. Hypertension. PLAN/SUGGESTION: 1. Continue physical therapy at the bedside. 2. Demonstrated to the patient and relative at the bedside some exercises the patient could start with to strengthen her hip girdle including isometrics to strengthen the quadriceps, hip abductor strengthening, and hip extensor strengthening. 3. The patient can also transfer from the bed sitting to standing multiple times to increase conditioning in the muscles. 4. Agree with subcutaneous heparin for deep venous thrombosis until more mobile. 5. Taper steroids as able. 6. Patient probably can return home and get pulmonary rehabilitation as an outpatient. 7. Recommend outpatient physical therapy. 8. Monitor skin for further breakdown. Monitor wound on mccrary. Thank you for this referral. ZHAO VU M.D. [id number]
[2018-07-11] MEDS: INSULIN (LEVEMIR) 100 UNITS/ML UNITS SQ SCH (21:13)
[2018-07-11] MEDS: ATORVASTATIN CA 20 MG TABLET (FP) PO SCH (21:15)
[2018-07-12] MEDS: methylPREDNISolone NA SUCC 40 MG/1 ML VIAL IVPUSH SCH ×3 (02:36→21:20)
[2018-07-12] MEDS: HEPARIN NA (PORCINE) 5,000 UNITS/ML 1ML VIAL SQ SCH ×3 (05:54→21:19)
[2018-07-12] MEDS: metFORMIN HCL 500 MG TABLET (FP) PO SCH ×2 (06:26→17:19)
[2018-07-12] MEDS: INSULIN SLIDING SCALE (NOVOLOG) 1 VIAL SQ SCH ×4 (06:26→21:19)
[2018-07-12] MEDS: sitaGLIPtin PHOSPHATE 100 MG TABLET (FP) PO SCH (06:26)
[2018-07-12] MEDS: ARFORMOTEROL TARTRATE 15 MCG/2 ML VIAL NEB SCH ×2 (07:20→21:20)
[2018-07-12] MEDS ORDERED: PT OWN MED DRAWER 7, Y5N ONE (09:08)
[2018-07-12] MEDS: METOPROLOL TARTRATE 25 MG TABLET (FP) PO SCH ×2 (09:19→21:17)
[2018-07-12] MEDS: ASPIRIN COATED 81 MG TABLET.EC PO SCH (09:20)
[2018-07-12] MEDS: TIOTROPIUM BROMIDE 2.5 MCG (SPIRIVA) RESPIMAT INHALER IH SCH (09:20)
[2018-07-12] MEDS: EZETIMIBE 10 MG TABLET (FP) PO SCH (09:22)
[2018-07-12] MEDS: AZITHROMYCIN IVPB 500 MG in DEXTROSE 5%-WATER - 250 ML IVPB SCH (10:39)
[2018-07-12] MEDS ORDERED: INSULIN (NOVOLOG) ASPART 100 UNITS/ML 10ML VIAL ONE ×2 (11:07→21:13)
[2018-07-12 12:00] LABS: BASO % 0.4 % (0-2.0); HEMATOCRIT 32.4 % (32.4-45.2); LYMPH % 4.5 % (8-40); MCH 29.9 pg (25.7-33.7); MCHC 33.8 g/dl (32.0-36.0); MEAN CELL VOLUME 88.4 fl (80-96); MEAN PLT VOLUME 8.6 fl (7.5-11.1); MONO % 2.6 % (3.8-10.2); NEUT % 92.5 % (42.8-82.8); PLATELET COUNT 196 K/MM3 (134-434); RBC 3.66 M/mm3 (3.60-5.2); RDW 15.6 % (11.6-15.6); WHITE BLOOD COUNT 11.9 K/mm3 (4.0-10.0)
[2018-07-12 12:23] LABS: ALBUMIN 2.9 g/dl (3.4-5.0); ANION GAP 12 MMOL/L (8-16); BILIRUBIN,TOTAL 0.3 mg/dL (0.2-1.0); BLOOD UREA NITROGEN 33 mg/dL (7-18); CALCIUM 8.8 mg/dL (8.5-10.1); CHLORIDE 101 mmol/L (98-107); CO2 26 mmol/L (21-32); CREATININE 0.9 mg/dL (0.55-1.02); POTASSIUM 4.8 mmol/L (3.5-5.1); SGOT/AST 19 U/L (15-37); SGPT/ALT 31 U/L (12-78); SODIUM 139 mmol/L (136-145); TOT PROT 5.6 g/dl (6.4-8.2)
--- NOTE | 2018-07-12 12:24 | PN ---
Progress Note (short form) - Note Progress Note: PULMONARY AWAKE/ALERT IMPROVED/EATING LUNCH VSS/AFEBRILE ANICTERIC DIMINISHED BREATH SOUNDS B/L S1S2 BS+ SOFT NO EDEMA LABS/MEDS/NOTES/IMAGES REVIEWED - Results Chest X-ray: Report Reviewed, Image Reviewed (no infiltrates) Problem List - Problems (1) COPD exacerbation Code(s): J44.1 - CHRONIC OBSTRUCTIVE PULMONARY DISEASE W (ACUTE) EXACERBATION (2) Chronic respiratory failure with hypoxia and hypercapnia Code(s): J96.11 - CHRONIC RESPIRATORY FAILURE WITH HYPOXIA; J96.12 - CHRONIC RESPIRATORY FAILURE WITH HYPERCAPNIA Assessment/Plan Acute COPD Exacerbation Chronic Hypoxic and Hypercapneic Respiratory Failure CAD HTN DM Hyperlipidemia - IV medrol reduced - inhaled bronchodilators standing and PRN - O2 to keep SpO2 >90% - empiric azithromycin - DVT prophylaxis Ashlyn ORTEGA MD
--- NOTE | 2018-07-12 12:28 | PN ---
Progress Note, Physician - Current Medication List Current Medications: Active Medications Acetaminophen (Tylenol -) 650 mg PO Q6H PRN PRN Reason: FEVER Albuterol Sulfate (Ventolin 0.083% Nebulizer Soln -) 1 amp NEB Q4H PRN PRN Reason: SHORT OF BREATH/WHEEZING Arformoterol Tartrate (Brovana (Restricted To Pulmonology/Resp) -) 1 amp NEB RBID [facility] Last Admin: 07/12/18 07:20 Dose: 1 amp Aspirin (Ecotrin -) 81 mg PO DAILY [facility] Last Admin: 07/12/18 09:20 Dose: 81 mg Atorvastatin Calcium (Lipitor -) 20 mg PO HS [facility] Last Admin: 07/11/18 21:15 Dose: 20 mg Ezetimibe (Zetia -) 10 mg PO DAILY [facility] Last Admin: 07/12/18 09:22 Dose: 10 mg Heparin Sodium (Porcine) (Heparin -) 5,000 unit SQ TID [facility] Last Admin: 07/12/18 05:54 Dose: 5,000 unit Azithromycin 500 mg/ Dextrose 250 mls @ 250 mls/hr IVPB DAILY [facility] Stop: 07/13/18 10:59 Last Admin: 07/12/18 10:39 Dose: 250 mls/hr Insulin Aspart (Novolog Vial Sliding Scale -) 1 vial SQ [facility]; Protocol Last Admin: 07/12/18 11:41 Dose: 8 units Insulin Detemir (Levemir Vial) 10 units SQ [facility] Last Admin: 07/11/18 21:13 Dose: 10 units Metformin HCl (Glucophage -) 1,000 mg PO BID@0700,1630 [facility] Last Admin: 07/12/18 06:26 Dose: 1,000 mg Methylprednisolone Sodium Succinate (Solu-Medrol -) 20 mg IVPUSH BID [facility] Metoprolol Tartrate (Lopressor -) 12.5 mg PO BID [facility] Last Admin: 07/12/18 09:19 Dose: 12.5 mg Sitagliptin Phosphate (Januvia -) 100 mg PO DAILY@0700 [facility] Last Admin: 07/12/18 06:26 Dose: 100 mg Tiotropium [place] (Spiriva Respimat) 2 puff IH DAILY [facility] Last Admin: 07/12/18 09:20 Dose: 2 puff - Objective Vital Signs: Vital Signs Temperature 98.4 F 07/12/18 06:00 Pulse Rate 70 07/12/18 06:00 Respiratory Rate 20 07/12/18 06:00 Blood Pressure 130/74 07/12/18 06:00 O2 Sat by Pulse Oximetry (%) 96 07/11/18 20:27 Cardiovascular: Yes: S1, S2 Respiratory: Yes: Regular, CTA Bilaterally, On Nasal O2 Gastrointestinal: Yes: Normal Bowel Sounds, Soft Labs: CBC, BMP 07/12/18 11:30 Problem List - Problems (1) COPD with acute exacerbation Assessment/Plan: iv steroids-Taper nebulizers pulm eval noted PT eval -SNF? for pulm eval oxygen 3 litres Code(s): J44.1 - CHRONIC OBSTRUCTIVE PULMONARY DISEASE W (ACUTE) EXACERBATION (2) Diabetes Assessment/Plan: hgba1c 11.0 sliding scale levemir 10 units at night metformin bid januvia 100mg daily Endo Code(s): E11.9 - TYPE 2 DIABETES MELLITUS WITHOUT COMPLICATIONS Qualifiers: Diabetes mellitus type: type 2 (3) HTN (hypertension) Assessment/Plan: Vital Signs Period Temp Pulse Resp BP Sys/Clancy Pulse Ox Last 24 Hr 98.1 F-98.4 F 70-89 20-20 129-147/63-74 96 Code(s): I10 - ESSENTIAL (PRIMARY) HYPERTENSION (4) Coronary artery disease Assessment/Plan: aspirin,statin and metoprolol Code(s): I25.10 - ATHSCL HEART DISEASE OF [place] CORONARY ARTERY W/O ANG PCTRS
[2018-07-12 12:47] LABS: GLUCOSE,RANDOM 309 mg/dL (74-106)
[2018-07-12 12:48] LABS: ALK PHOS 46 U/L (45-117)
[2018-07-12 14:04] LABS: PLATELET ESTIMATE NORMAL
[2018-07-12] MEDS: ATORVASTATIN CA 20 MG TABLET (FP) PO SCH (21:17)
[2018-07-12] MEDS: INSULIN (LEVEMIR) 100 UNITS/ML UNITS SQ SCH (21:19)
[2018-07-12] MEDS ORDERED: methylPREDNISolone NA SUCC 40 MG/1 ML VIAL IVPUSH SCH (22:00)
[2018-07-13] MEDS: sitaGLIPtin PHOSPHATE 100 MG TABLET (FP) PO SCH (06:24)
[2018-07-13] MEDS: HEPARIN NA (PORCINE) 5,000 UNITS/ML 1ML VIAL SQ SCH ×3 (06:24→21:07)
[2018-07-13] MEDS: metFORMIN HCL 500 MG TABLET (FP) PO SCH ×2 (06:24→17:02)
[2018-07-13] MEDS: INSULIN SLIDING SCALE (NOVOLOG) 1 VIAL SQ SCH ×4 (06:25→21:05)
[2018-07-13] MEDS: ARFORMOTEROL TARTRATE 15 MCG/2 ML VIAL NEB SCH ×2 (07:30→20:07)
[2018-07-13 08:06] LABS: SERUM IRON SATURATION 40 % (15-55); TOTAL IRON BINDING CAPACITY 290 ug/dL (250-450); UIBC 174 ug/dL (118-369)
[2018-07-13] MEDS ORDERED: PT OWN MED DRAWER 7, Y5N ONE (10:26)
[2018-07-13] MEDS: methylPREDNISolone NA SUCC 40 MG/1 ML VIAL IVPUSH SCH (10:33)
[2018-07-13] MEDS: EZETIMIBE 10 MG TABLET (FP) PO SCH (10:34)
[2018-07-13] MEDS: METOPROLOL TARTRATE 25 MG TABLET (FP) PO SCH ×2 (10:34→21:04)
[2018-07-13] MEDS: ASPIRIN COATED 81 MG TABLET.EC PO SCH (10:34)
[2018-07-13] MEDS: AZITHROMYCIN IVPB 500 MG in DEXTROSE 5%-WATER - 250 ML IVPB SCH (10:35)
[2018-07-13] MEDS: TIOTROPIUM BROMIDE 2.5 MCG (SPIRIVA) RESPIMAT INHALER IH SCH (10:35)
[2018-07-13] MEDS ORDERED: INSULIN (NOVOLOG) ASPART 100 UNITS/ML 10ML VIAL ONE ×2 (11:20→20:42)
--- NOTE | 2018-07-13 12:56 | PN ---
Progress Note (short form) - Note Progress Note: PULMONARY AWAKE/ALERT IMPROVED/EATING LUNCH VSS/AFEBRILE ANICTERIC DIMINISHED BREATH SOUNDS B/L S1S2 BS+ SOFT NO EDEMA LABS/MEDS/NOTES/IMAGES REVIEWED - Results Chest X-ray: Report Reviewed, Image Reviewed (no infiltrates) Problem List - Problems (1) COPD exacerbation Code(s): J44.1 - CHRONIC OBSTRUCTIVE PULMONARY DISEASE W (ACUTE) EXACERBATION (2) Chronic respiratory failure with hypoxia and hypercapnia Code(s): J96.11 - CHRONIC RESPIRATORY FAILURE WITH HYPOXIA; J96.12 - CHRONIC RESPIRATORY FAILURE WITH HYPERCAPNIA Assessment/Plan Acute COPD Exacerbation Chronic Hypoxic and Hypercapneic Respiratory Failure CAD HTN DM Hyperlipidemia - IV medrol d/pilar changed to oral prednisone - inhaled bronchodilators standing and PRN - O2 to keep SpO2 >90% - empiric azithromycin oral - DVT prophylaxis Ashlyn ORTEGA MD
--- NOTE | 2018-07-13 14:55 | PN ---
Progress Note, Physician - Current Medication List Current Medications: Active Medications Acetaminophen (Tylenol -) 650 mg PO Q6H PRN PRN Reason: FEVER Albuterol Sulfate (Ventolin 0.083% Nebulizer Soln -) 1 amp NEB Q4H PRN PRN Reason: SHORT OF BREATH/WHEEZING Arformoterol Tartrate (Brovana (Restricted To Pulmonology/Resp) -) 1 amp NEB RBID [facility] Last Admin: 07/13/18 07:30 Dose: 1 amp Aspirin (Ecotrin -) 81 mg PO DAILY [facility] Last Admin: 07/13/18 10:34 Dose: 81 mg Atorvastatin Calcium (Lipitor -) 20 mg PO HS [facility] Last Admin: 07/12/18 21:17 Dose: 20 mg Ezetimibe (Zetia -) 10 mg PO DAILY [facility] Last Admin: 07/13/18 10:34 Dose: 10 mg Heparin Sodium (Porcine) (Heparin -) 5,000 unit SQ TID [facility] Last Admin: 07/13/18 06:24 Dose: 5,000 unit Insulin Aspart (Novolog Vial Sliding Scale -) 1 vial SQ [facility]; Protocol Last Admin: 07/13/18 11:39 Dose: 4 units Insulin Detemir (Levemir Vial) 10 units SQ [facility] Last Admin: 07/12/18 21:19 Dose: 10 units Metformin HCl (Glucophage -) 1,000 mg PO BID@0700,1630 [facility] Last Admin: 07/13/18 06:24 Dose: 1,000 mg Metoprolol Tartrate (Lopressor -) 12.5 mg PO BID [facility] Last Admin: 07/13/18 10:34 Dose: 12.5 mg Prednisone (Deltasone -) 40 mg PO DAILY [facility] Sitagliptin Phosphate (Januvia -) 100 mg PO DAILY@0700 [facility] Last Admin: 07/13/18 06:24 Dose: 100 mg Tiotropium [place] (Spiriva Respimat) 2 puff IH DAILY [facility] Last Admin: 07/13/18 10:35 Dose: 2 puff - Objective Vital Signs: Vital Signs Temperature 98.0 F 07/13/18 06:00 Pulse Rate 71 07/13/18 06:00 Respiratory Rate 18 07/13/18 06:00 Blood Pressure 136/60 07/13/18 06:00 O2 Sat by Pulse Oximetry (%) 96 07/12/18 21:00 Cardiovascular: Yes: S1, S2 Respiratory: Yes: Regular, CTA Bilaterally Gastrointestinal: Yes: Normal Bowel Sounds, Soft Labs: CBC, BMP 07/12/18 11:30 07/12/18 11:30 Problem List - Problems (1) COPD with acute exacerbation Assessment/Plan: iv steroids-Taper--to po prednisone nebulizers pulm eval noted PT eval -SNF? for pulm eval oxygen 3 litres Code(s): J44.1 - CHRONIC OBSTRUCTIVE PULMONARY DISEASE W (ACUTE) EXACERBATION (2) Diabetes Assessment/Plan: hgba1c 11.0 sliding scale levemir 10 units at night metformin bid januvia 100mg daily Endo Code(s): E11.9 - TYPE 2 DIABETES MELLITUS WITHOUT COMPLICATIONS Qualifiers: Diabetes mellitus type: type 2 (3) HTN (hypertension) Assessment/Plan: Vital Signs Period Temp Pulse Resp BP Sys/Clancy Pulse Ox Last 24 Hr 98.1 F-98.4 F 70-89 20-20 129-147/63-74 96 Code(s): I10 - ESSENTIAL (PRIMARY) HYPERTENSION (4) Coronary artery disease Assessment/Plan: aspirin,statin and metoprolol Code(s): I25.10 - ATHSCL HEART DISEASE OF [place] CORONARY ARTERY W/O ANG PCTRS Assessment/Plan pt___snf
[2018-07-13] MEDS: predniSONE 20 MG TABLET (UD) PO SCH (17:56)
[2018-07-13] MEDS ORDERED: AZITHROMYCIN 250 MG TABLET PO ONE (19:49)
[2018-07-13] MEDS: ATORVASTATIN CA 20 MG TABLET (FP) PO SCH (21:05)
[2018-07-13] MEDS: INSULIN (LEVEMIR) 100 UNITS/ML UNITS SQ SCH (21:05)
--- NOTE | 2018-07-13 22:23 | CONSULT ---
Consult Consult Specialty:: endocrine Referred by:: dr.annabi mcarthur Reason for Consultation:: uncontrolled diabetes mellitus - History of Present Illness Chief Complaint: difficulty controlling sugars History of Present Illness: 68-year-old female, history of hypertension, hyperlipidemia, non-insulin- dependent diabetes, CAD with stent, former smoker, COPD, oxygen dependent on 3 L , s/p admissions previously with similar episode w/ hypercapnia, presents with worsening shortness of breath. Patient states for the past 4 days has noticed worsening shortness of breath requiring admission failure to improve with rescue inhalers and po steroids. since admission she noted her sugars higher from iv steroids,despite eating less food. she admits she dose not check sugars at home,and fear of needles prevent her insulin use - History Source History Provided By: Patient - Past Medical History Cardio/Vascular: Yes: CAD (stent), HTN, Hyperlipdemia Pulmonary: Yes: COPD, O2 Dependent (3L) Gastrointestinal: Yes: Diverticulitis Renal/: Yes: Renal Calculi ...: No Psych: Yes: Anxiety - Past Surgical History Past Surgical History: Yes: Appendectomy, , Tubal Ligation - Alcohol/Substance Use Hx Alcohol Use: No History of Substance Use: reports: None - Smoking History Smoking history: Former smoker Have you smoked in the past 12 months: Yes Aproximately how many cigarettes per day: 20 If you are a former smoker, when did you quit?: 06/2017 - Social History Usual Living Arrangement: With Spouse (lives with and son in house with 7 steps to enter and 1st floor set-up inside) ADL: Independent (Independent ADLs without AD) Occupation: works for [employer] [employer] History of Recent Travel: No Home Medications - Allergies Allergies/Adverse Reactions: Allergies Allergy/AdvReac Type Severity Reaction Status Date / Time Penicillins Allergy Intermediate Rash Verified 07/09/18 13:27 - Home Medications Home Medications: Ambulatory Orders Aspirin [Ecotrin] 81 mg PO DAILY 07/09/18 Ezetimibe [Zetia -] 10 mg PO DAILY 07/09/18 Icosapent Ethyl [Vascepa] 1 gm PO DAILY 07/09/18 Linagliptin/Metformin HCl [Jentadueto 2.5 mg-1000 mg Tab] 1 each PO BID Lisinopril [Zestril] 2.5 mg PO DAILY 07/09/18 Metoprolol Tartrate [Lopressor -] 25 mg PO BID 07/09/18 Simvastatin [Zocor -] 20 mg PO HS 07/09/18 Family Disease History - Family Disease History Family Disease History: Diabetes: Mother, Brother, Sister Review of Systems - Review of Systems Constitutional: reports: Weakness Eyes: reports: No Symptoms HENT: reports: No Symptoms Neck: reports: No Symptoms Cardiovascular: reports: Shortness of Breath Respiratory: reports: Exercise Intolerance, SOB, SOB on Exertion Gastrointestinal: reports: Bloating Genitourinary: reports: No Symptoms Breasts: reports: No Symptoms Reported Musculoskeletal: reports: Decreased ROM, Extremity Pain Integumentary: reports: No Symptoms Neurological: reports: No Symptoms Endocrine: reports: Unexplained Weight Gain Physical Exam Vital Signs: Vital Signs Temperature 98.1 F 07/13/18 18:05 Pulse Rate 72 07/13/18 18:05 Respiratory Rate 20 07/13/18 20:28 Blood Pressure 148/57 07/13/18 18:05 O2 Sat by Pulse Oximetry (%) 97 07/13/18 20:28 Constitutional: Yes: Anxious Eyes: Yes: EOM Intact HENT: Yes: Normocephalic Neck: Yes: Trachea Midline Cardiovascular: Yes: Tachycardia Respiratory: Yes: On Nasal O2, Rhonchi, Tachypnea, Wheezes Gastrointestinal: Yes: Abdomen, Obese ...Rectal Exam: Yes: Deferred Renal/: Yes: WNL Musculoskeletal: Yes: WNL Extremities: Yes: WNL, Erythema Labs: CBC, BMP 07/12/18 11:30 07/12/18 11:30 Problem List - Problems (1) Diabetes mellitus Code(s): E11.9 - TYPE 2 DIABETES MELLITUS WITHOUT COMPLICATIONS Qualifiers: Diabetes mellitus complication status: with hyperglycemia (2) Acute on chronic diastolic CHF (congestive heart failure) Code(s): I50.33 - ACUTE ON CHRONIC DIASTOLIC (CONGESTIVE) HEART FAILURE (3) Bilateral leg edema Code(s): R60.0 - LOCALIZED EDEMA (4) Chronic respiratory failure with hypoxia and hypercapnia Code(s): J96.11 - CHRONIC RESPIRATORY FAILURE WITH HYPOXIA; J96.12 - CHRONIC RESPIRATORY FAILURE WITH HYPERCAPNIA (5) Chronic steroid use Code(s): [id number] - (6) Emphysema lung Code(s): J43.9 - EMPHYSEMA, UNSPECIFIED (7) Hyperglycemia Code(s): R73.9 - HYPERGLYCEMIA, UNSPECIFIED (8) Hyperkalemia Code(s): E87.5 - HYPERKALEMIA (9) Hyperlipidemia Code(s): E78.5 - HYPERLIPIDEMIA, UNSPECIFIED Assessment/Plan Current Active Problems Acute on chronic diastolic CHF (congestive heart failure) (Acute) Bilateral leg edema (Acute) Chronic respiratory failure with hypoxia and hypercapnia (Acute) Chronic steroid use (Acute) Emphysema lung (Acute) Hyperglycemia (Acute) Hyperkalemia (Acute) Hyperlipidemia (Acute) Hypoalbuminemia (Acute) Stented coronary artery (Acute) Steroid-induced myopathy (Acute) abnormal tfts / likely steroid related Laboratory Tests 07/10/18 07/10/18 07/12/18 05:55 05:55 11:30 Sodium 139 Potassium 4.8 Chloride 101 Carbon Dioxide 26 Anion Gap 12 BUN 33 H Creatinine 0.9 Creat Clearance w eGFR > 60 POC Glucometer Random Glucose 309 H* Hemoglobin A1c % 11.0 H TSH 0.29 L Free T4 1.47 H 07/12/18 07/12/18 07/12/18 11:45 17:13 21:10 Sodium Potassium Chloride Carbon Dioxide Anion Gap BUN Creatinine Creat Clearance w eGFR POC Glucometer 345 304 282 Random Glucose Hemoglobin A1c % TSH Free T4 Laboratory Results - last 24 hr 07/12/18 07/13/18 07/13/18 11:30 06:22 11:40 POC Glucometer 384 245 Iron 116 TIBC 290 Iron Saturation 40 07/13/18 16:55 POC Glucometer 296 Iron TIBC Iron Saturation plan: bgm qid novolog insulin levemir start 35 units am continue januvia 100mg daily metformin 1gm bid add glimeperide 4mg bid as outpatient will benefit from cgms unit repeat tfts check free t4 direct dialysis as this may be steroid related
[2018-07-14] MEDS: HEPARIN NA (PORCINE) 5,000 UNITS/ML 1ML VIAL SQ SCH ×2 (06:21→14:42)
[2018-07-14] MEDS: metFORMIN HCL 500 MG TABLET (FP) PO SCH ×2 (06:21→17:29)
[2018-07-14] MEDS: sitaGLIPtin PHOSPHATE 100 MG TABLET (FP) PO SCH (06:22)
[2018-07-14] MEDS: INSULIN SLIDING SCALE (NOVOLOG) 1 VIAL SQ SCH ×3 (06:23→17:29)
[2018-07-14] MEDS ORDERED: INSULIN (NOVOLOG) ASPART 100 UNITS/ML 10ML VIAL ONE (06:30)
[2018-07-14] MEDS: ARFORMOTEROL TARTRATE 15 MCG/2 ML VIAL NEB SCH (07:30)
--- NOTE | 2018-07-14 09:09 | PN ---
Progress Note, Physician History of Present Illness: 68-year-old white female,with PMhistory of hypertension, hyperlipidemia, non- insulin-dependent diabetes, CAD with stent, former smoker, severe COPD, oxygen dependent on 3 L, PAD, diverticulitis, nephrolithiasis, s/p admission 11/21 for respiratory failure w/ hypercapnia, presents with worsening shortness of breath. Patient states for the past 4 days has noticed worsening shortness of breath despite being on her her oxygen. + dry cough, no wheezing, chest pain, nausea, vomiting, fever or chills. Denies palpitations, acute lower extremity pain or swelling. Hs MALENA of mid LAD 09/29/2014 Lef common iliac stent 09/27/2014 ([place]) - Current Medication List Current Medications: Active Medications Acetaminophen (Tylenol -) 650 mg PO Q6H PRN PRN Reason: FEVER Albuterol Sulfate (Ventolin 0.083% Nebulizer Soln -) 1 amp NEB Q4H PRN PRN Reason: SHORT OF BREATH/WHEEZING Arformoterol Tartrate (Brovana (Restricted To Pulmonology/Resp) -) 1 amp NEB RBID ON LICENSE OF [facility] Last Admin: 07/14/18 07:30 Dose: 1 amp Aspirin (Ecotrin -) 81 mg PO DAILY ON LICENSE OF [facility] Last Admin: 07/13/18 10:34 Dose: 81 mg Atorvastatin Calcium (Lipitor -) 20 mg PO [facility] Last Admin: 07/13/18 21:05 Dose: 20 mg Ezetimibe (Zetia -) 10 mg PO DAILY ON LICENSE OF [facility] Last Admin: 07/13/18 10:34 Dose: 10 mg Heparin Sodium (Porcine) (Heparin -) 5,000 unit SQ TID ON LICENSE OF [facility] Last Admin: 07/14/18 06:21 Dose: 5,000 unit Insulin Aspart (Novolog Vial Sliding Scale -) [address] [facility] ON LICENSE OF [facility]; Protocol Last Admin: 07/14/18 06:23 Dose: 2 units Insulin Detemir (Levemir Vial) 10 units SQ [facility] Last Admin: 07/13/18 21:05 Dose: 10 units Metformin HCl (Glucophage -) 1,000 mg PO BID@0700,1630 ON LICENSE OF [facility] Last Admin: 07/14/18 06:21 Dose: 1,000 mg Metoprolol Tartrate (Lopressor -) 12.5 mg PO BID ON LICENSE OF [facility] Last Admin: 07/13/18 21:04 Dose: 12.5 mg Prednisone (Deltasone -) 40 mg PO DAILY ON LICENSE OF [facility] Last Admin: 07/13/18 17:56 Dose: 40 mg Sitagliptin Phosphate (Januvia -) 100 mg PO DAILY@0700 ON LICENSE OF [facility] Last Admin: 07/14/18 06:22 Dose: 100 mg Tiotropium [place] (Spiriva Respimat) 2 puff IH DAILY ON LICENSE OF [facility] Last Admin: 07/13/18 10:35 Dose: 2 puff - Objective Vital Signs: Vital Signs Temperature 98.5 F 07/14/18 06:00 Pulse Rate 68 07/14/18 06:00 Respiratory Rate 18 07/14/18 06:00 Blood Pressure 138/55 07/14/18 06:00 O2 Sat by Pulse Oximetry (%) 97 07/13/18 20:28 Eyes: Yes: WNL, Conjunctiva Clear, EOM Intact HENT: Yes: WNL, Atraumatic, Normocephalic Neck: Yes: WNL, Supple, Trachea Midline Cardiovascular: Yes: WNL, Regular Rate and Rhythm Respiratory: Yes: WNL, Regular, CTA Bilaterally Gastrointestinal: Yes: WNL, Normal Bowel Sounds Genitourinary: Yes: WNL Musculoskeletal: Yes: WNL Extremities: Yes: WNL Edema: No Integumentary: Yes: WNL Neurological: Yes: WNL, Alert, Oriented ...Motor Strength: WNL Psychiatric: Yes: WNL Labs: CBC, BMP 07/12/18 11:30 07/12/18 11:30 Assessment/Plan - Problems (1) Stented coronary artery Assessment/Plan: s/p coronary stent (MALENA mid-LAD) 09/2014; no known hx CO. s/p left common iliac stent . ECHO 11/21: normal LVEF and wall motion. Plan: As discussed with daughter today, aggressive control of lipids, glucose; follow Heart-healthy (within diabetic guidelines) diet. F/u thyroid studies. Smoking cessation again urged (stopped offically more than a year ago; occasionally has "had a few puffs"). She had been on both nicotine patch and bupropion pills to hlep ally stop. Code(s): Z95.5 - PRESENCE OF CORONARY ANGIOPLASTY IMPLANT AND GRAFT (2) Emphysema lung Assessment/Plan: noted on 2016 CT chest. F/u with activities specialist. Code(s): J43.9 - EMPHYSEMA, UNSPECIFIED (3) Cigarette nicotine dependence Code(s): F17.210 - NICOTINE DEPENDENCE, CIGARETTES, UNCOMPLICATED (4) Hyperkalemia Assessment/Plan: discontinue lisinopril; f/u electrolytes. (Pt refused Kayexalate). EKG in am. Code(s): E87.5 - HYPERKALEMIA (5) Hypoalbuminemia Code(s): E88.09 - OTH DISORDERS OF PLASMA-PROTEIN METABOLISM, NEC (6) Chronic steroid use Assessment/Plan: on PO steroids for months. Atrophy of thighs; truncal widening, striae. Code(s): ZUV2667 - (7) Bilateral leg edema Assessment/Plan: Likely multifactorial, including diastolic CHF, chronic steroid use, hypoalbuminemia. Code(s): R60.0 - LOCALIZED EDEMA (8) Acute on chronic diastolic CHF (congestive heart failure) Assessment/Plan: ECHO 11/21: normal LVEF. Elevated BNP. No JVD Lisinopril discontinued due to hyperkalemia. On metoprolol. F/u Is and Os, daily weight, BUn/Cr, electrolytes. Code(s): I50.33 - ACUTE ON CHRONIC DIASTOLIC (CONGESTIVE) HEART FAILURE (9) Hyperlipidemia Assessment/Plan: continue statin (on simvastatin at home). Code(s): E78.5 - HYPERLIPIDEMIA, UNSPECIFIED
[2018-07-14] MEDS ORDERED: PT OWN MED DRAWER 7, Y5N ONE ×2 (10:40→11:04)
[2018-07-14] MEDS: TIOTROPIUM BROMIDE 2.5 MCG (SPIRIVA) RESPIMAT INHALER IH SCH (10:43)
[2018-07-14] MEDS: ASPIRIN COATED 81 MG TABLET.EC PO SCH (10:44)
[2018-07-14] MEDS: EZETIMIBE 10 MG TABLET (FP) PO SCH (10:44)
[2018-07-14] MEDS: predniSONE 20 MG TABLET (UD) PO SCH (10:44)
[2018-07-14] MEDS: METOPROLOL TARTRATE 25 MG TABLET (FP) PO SCH (10:45)
--- NOTE | 2018-07-14 11:18 | EKG ---
Test Reason : Blood Pressure : / mmHG Vent. Rate : 076 BPM Atrial Rate : 076 BPM P-R Int : 108 ms QRS Dur : 078 ms QT Int : 378 ms P-R-T Axes : 077 075 086 degrees QTc Int : 425 ms SINUS RHYTHM WITH SHORT AK OTHERWISE NORMAL ECG WHEN COMPARED WITH ECG OF 09-JUL-2018 14:11, NO SIGNIFICANT CHANGE WAS FOUND Confirmed by LAURA HERRMANN MD ([id number]) on 07/14/2018 11:17:36 AM Referred By: NEELA MAGALLANES Confirmed By:LAURA HERRMANN MD
--- NOTE | 2018-07-14 12:12 | PN ---
Progress Note (short form) - Note Progress Note: PULMONARY States breathing is improved. Has been ambulating without dyspnea. Denies cough or wheezing. Vital Signs Period Temp Pulse Resp BP Sys/Clancy Pulse Ox Last 24 Hr 98.1 F-98.5 F 68-72 18-20 138-148/55-57 97 Gen: NAD in chair Heart: RRR Lung: decreased breath sounds at the bases, no wheezes Abd: soft, nontender Ext: no edema CBC, BMP 07/12/18 11:30 07/12/18 11:30 Active Medications Acetaminophen (Tylenol -) 650 mg PO Q6H PRN PRN Reason: FEVER Albuterol Sulfate (Ventolin 0.083% Nebulizer Soln -) 1 amp NEB Q4H PRN PRN Reason: SHORT OF BREATH/WHEEZING Arformoterol Tartrate (Brovana (Restricted To Pulmonology/Resp) -) 1 amp NEB RBID [facility] Last Admin: 07/14/18 07:30 Dose: 1 amp Aspirin (Ecotrin -) 81 mg PO DAILY [facility] Last Admin: 07/14/18 10:44 Dose: 81 mg Atorvastatin Calcium (Lipitor -) 20 mg PO HS [facility] Last Admin: 07/13/18 21:05 Dose: 20 mg Ezetimibe (Zetia -) 10 mg PO DAILY [facility] Last Admin: 07/14/18 10:44 Dose: 10 mg Heparin Sodium (Porcine) (Heparin -) 5,000 unit SQ TID [facility] Last Admin: 07/14/18 06:21 Dose: 5,000 unit Insulin Aspart (Novolog Vial Sliding Scale -) 1 vial SQ [facility]; Protocol Last Admin: 07/14/18 11:49 Dose: 4 units Insulin Detemir (Levemir Vial) 10 units SQ [facility] Last Admin: 07/13/18 21:05 Dose: 10 units Metformin HCl (Glucophage -) 1,000 mg PO BID@0700,1630 [facility] Last Admin: 07/14/18 06:21 Dose: 1,000 mg Metoprolol Tartrate (Lopressor -) 12.5 mg PO BID [facility] Last Admin: 07/14/18 10:45 Dose: 12.5 mg Prednisone (Deltasone -) 40 mg PO DAILY [facility] Last Admin: 07/14/18 10:44 Dose: 40 mg Sitagliptin Phosphate (Januvia -) 100 mg PO DAILY@0700 [facility] Last Admin: 07/14/18 06:22 Dose: 100 mg Tiotropium [place] (Spiriva Respimat) 2 puff IH DAILY [facility] Last Admin: 07/14/18 10:43 Dose: 2 puff A/P Acute COPD Exacerbation Chronic Hypoxic and Hypercapneic Respiratory Failure CAD HTN DM Hyperlipidemia - prednisone taper - inhaled bronchodilators standing and PRN - O2 to keep SpO2 >90% - s/p empiric azithromycin - DVT prophylaxis - can discharge on prednisone 40mg daily, decrease by 10mg q7 days and she will follow up with me as outpt Problem List - Problems (1) COPD exacerbation Code(s): J44.1 - CHRONIC OBSTRUCTIVE PULMONARY DISEASE W (ACUTE) EXACERBATION (2) Chronic respiratory failure with hypoxia and hypercapnia Code(s): J96.11 - CHRONIC RESPIRATORY FAILURE WITH HYPOXIA; J96.12 - CHRONIC RESPIRATORY FAILURE WITH HYPERCAPNIA
--- NOTE | 2018-07-14 12:59 | DS ---
Physical Examination Vital Signs: Vital Signs Temperature 98.5 F 07/14/18 06:00 Pulse Rate 68 07/14/18 06:00 Respiratory Rate 18 07/14/18 06:00 Blood Pressure 138/55 07/14/18 06:00 O2 Sat by Pulse Oximetry (%) 97 07/13/18 20:28 Findings/Remarks: 68 Y/O FEMALE WITH SEVERE COPD EMPHYSEMA FORMER TOBACCO SMOKER FOR OVER 45YEARS HAS BEEN TRYING TO TREAT HER COPD OUTPATIENT ON PREDNISONE ORAL TABS HOWEVER WITH SEVERE HUMID WEATHER SHE IS HAVING SHORTNESS OF BREATH WITH WORSENING MUSCLE WEAKNESS. Constitutional: Yes: Well Nourished, No Distress, Calm Respiratory: Yes: On Nasal O2 Gastrointestinal: Yes: Normal Bowel Sounds, Soft Labs: CBC, BMP 07/12/18 11:30 07/12/18 11:30 Discharge Summary Reason For Visit: ACUTE EXACERBATION OF COPD; HYPERGLYCEMIA Current Active Problems Acute on chronic diastolic CHF (congestive heart failure) (Acute) Bilateral leg edema (Acute) Chronic respiratory failure with hypoxia and hypercapnia (Acute) Chronic steroid use (Acute) Diabetes mellitus (Acute) Emphysema lung (Acute) Hyperglycemia (Acute) Hyperkalemia (Acute) Hyperlipidemia (Acute) Hypoalbuminemia (Acute) Stented coronary artery (Acute) Steroid-induced myopathy (Acute) Condition: Fair - Instructions Diet, Activity, Other Instructions: -take prednisone 40 mg daily for 1 week, then 30 mg daily for 1 week, then 20 mg daily for 1 week, then 10 mg daily for 1 week. -Follow up with Pulmonary within 3 weeks. Referrals: Benoit Funk MD [Primary Care Provider] - Disposition: HOME - Home Medications Comprehensive Discharge Medication List: Ambulatory Orders Aspirin [Ecotrin] 81 mg PO DAILY 07/09/18 Ezetimibe [Zetia -] 10 mg PO DAILY 07/09/18 Icosapent Ethyl [Vascepa] 1 gm PO DAILY 07/09/18 Linagliptin/Metformin HCl [Jentadueto 2.5 mg-1000 mg Tab] 1 each PO BID Lisinopril [Zestril] 2.5 mg PO DAILY 07/09/18 Metoprolol Tartrate [Lopressor -] 25 mg PO BID 07/09/18 Simvastatin [Zocor -] 20 mg PO HS 07/09/18
[2018-07-14 15:43] VITALS: BP 145/68; PULSE 73; TEMP 98.6
== END 2018-07-14 18:46 | disposition home or self-care (01) | DRG 190 ==
LOC: JER 13:20 → JERBED 16:36 → J6S 07-10 12:39
PROVIDERS: ADMIT Internal Medicine; ATTEND Family Medicine
DX: J44.1 Chronic obstructive pulmonary disease with (acute) exacerbation (principal); I50.33 Acute on chronic diastolic (congestive) heart failure; G72.0 Drug-induced myopathy; J96.11 Chronic respiratory failure with hypoxia; J96.12 Chronic respiratory failure with hypercapnia; E78.00 Pure hypercholesterolemia, unspecified; J40 Bronchitis, not specified as acute or chronic; E11.65 Type 2 diabetes mellitus with hyperglycemia; I25.10 Atherosclerotic heart disease of native coronary artery without angina pectoris; T38.0X5A Adverse effect of glucocorticoids and synthetic analogues, initial encounter; F41.8 Other specified anxiety disorders; E87.5 Hyperkalemia; E88.09 Other disorders of plasma-protein metabolism, not elsewhere classified; R60.0 Localized edema; I11.0 Hypertensive heart disease with heart failure; Z87.442 Personal history of urinary calculi; Z79.52 Long term (current) use of systemic steroids; Z95.5 Presence of coronary angioplasty implant and graft; Z78.0 Asymptomatic menopausal state; Z99.81 Dependence on supplemental oxygen
CPT/HCPCS: 36415; 36600; 71045-TC-FY; 80053; 80061; 82085; 82550; 82607; 82728; 82803; 82962; 83036; 83540; 83550; 83721; 83874; 83880; 84439; 84443; 84484; 85025; 85027; 93005; 93010; 94640; 97116-GP; 97161-GP; 99285-25; J1644

== ENCOUNTER 2019-07-16 16:19 | Emergency (ER) | payer BC ==
[2019-07-16 16:56] VITALS: BMI 23.4
--- NOTE | 2019-07-16 17:16 | PDOC ---
History of Present Illness - General Chief Complaint: Blood Sugar Problem Stated Complaint: HYPOGLYCEMIA Time Seen by Provider: 07/16/19 17:10 - History of Present Illness Initial Comments: 07/16/19 17:36 69 y/o F hx of COPD, Diabetes, Diverticulitis, CAD s/p stent placement, HTN, HLD BIBEMS for hypoglycemia. She was at home with her son when she began to act altered i.e not knowing where she was/remembering her dog's name. About 3 hrs ago. Her son found her passed out on the floor. He was able to rouse her but she was combative and incoherent. Initial blood sugar readings when EMS got to the scene was 32. She was given some juice/soda en route and her mentation improved and she is now coherent. She has no memory of the incident and is unable to tell us if she sustained any sort of trauma from a fall/ hit her head. She has had no recent changes to her diabetes medications recently, is not on insulin and can't remember if she ate this morning or not. 07/16/19 17:51 Past History - Past Medical History Allergies/Adverse Reactions: Allergies Allergy/AdvReac Type Severity Reaction Status Date / Time Penicillins Allergy Intermediate Rash Verified 07/09/18 13:27 Home Medications: Ambulatory Orders Aspirin [Ecotrin] 81 mg PO DAILY 07/09/18 Ezetimibe [Zetia -] 10 mg PO DAILY 07/09/18 Icosapent Ethyl [Vascepa] 1 gm PO DAILY 07/09/18 Linagliptin/Metformin HCl [Jentadueto 2.5 mg-1000 mg Tab] 1 each PO BID Simvastatin [Zocor -] 20 mg PO HS 07/09/18 Metoprolol Tartrate [Lopressor -] 12.5 mg PO BID #30 tablet 07/14/18 Tiotropium [place] [Spiriva Respimat] 2 puff IH DAILY #1 inhaler 07/14/18 COPD: Yes ([place]) Diabetes: Yes GI Disorders: Yes (diverticulitis) HTN: Yes Hypercholesterolemia: Yes - Surgical History Appendectomy: Yes - Immunization History Immunization Up to Date: Yes - Suicide/Smoking/Psychosocial Hx Smoking History: Never smoked Have you smoked in the past 12 months: Yes Number of Cigarettes Smoked Daily: 20 If you are a former smoker, when did you quit?: 06/2017 'Breaking Loose' booklet given: 09/14/14 Hx Alcohol Use: No Drug/Substance Use Hx: No Substance Use Type: None Hx Substance Use Treatment: No Review of Systems - Review of Systems Constitutional: No: Chills, Fever HEENTM: No: Blurred Vision Respiratory: No: Cough, Shortness of Breath Cardiac (ROS): Yes: Lightheadedness. No: Chest Pain, Palpitations ABD/GI: Yes: Abdominal cramping : No: Burning, Dysuria, Discharge Musculoskeletal: Yes: Back Pain Integumentary: No: Bruising, Change in Color Neurological: No: Headache, Numbness *Physical Exam - Vital Signs Last Vital Signs Temp Pulse Resp BP Pulse Ox 97.8 F 92 H 18 133/83 96 07/16/19 16:20 07/16/19 16:20 07/16/19 16:20 07/16/19 16:20 07/16/19 16:20 - Physical Exam General Appearance: Yes: Nourished, Appropriately Dressed. No: Apparent Distress HEENT: positive: EOMI, Other (no lacerations, swelling or injury noted on the scalp). negative: Scleral Icterus (R), Scleral Icterus (L) Respiratory/Chest: positive: Lungs Clear. negative: Chest Tender, Respiratory Distress, Accessory Muscle Use, Rhonchi, Wheezing Cardiovascular: positive: Regular Rhythm, Regular Rate, S1, S2. negative: JVD Vascular Pulses: Dorsalis-Pedis (R): 2+, Doralis-Pedis (L): 2+ Gastrointestinal/Abdominal: positive: Normal Bowel Sounds, Soft. negative: Distended, Guarding, Tenderness, Mass Musculoskeletal: positive: Normal Inspection. negative: CVA Tenderness Extremity: positive: Normal Capillary Refill, Normal Inspection, Normal Range of Motion, Pelvis Stable (tenderness in left upper arm and shoulder), Other. negative: Tender Integumentary: positive: Normal Color, Dry, Warm. negative: Cyanotic Neurologic: positive: director account management II-XII NML intact, Fully Oriented, Alert, Normal Mood/ Affect, Normal Response, Motor Strength 5/5 ED Treatment Course - LABORATORY CBC & Chemistry Diagram: 07/16/19 18:40 07/16/19 18:40 Medical Decision Making - Medical Decision Making 07/16/19 17:46 69 y/o F hx of COPD, Diabetes, Diverticulitis, CAD s/p stent placement, HTN, HLD BIBEMS for hypoglycemia. cbc, cmp, fingerstick glucose, head ct w/o contrast, ua, humerus and left shoulder x-ray 07/16/19 17:50 glucose 159 07/16/19 18:10 Pt reports feeling some shortness of breath. She uses O2 at home 3L nasal cannula. placed on cardiac monitoring and on O2 3L 07/16/19 18:13 07/16/19 18:23 *DC/Admit/Observation/Transfer Diagnosis at time of Disposition: Hypoglycemia - Discharge Dispostion Disposition: HOME Condition at time of disposition: Stable - Referrals Referrals: Benoit Funk MD [Primary Care Provider] - - Patient Instructions Printed Discharge Instructions: DI for Hypoglycemia Additional Instructions: Please see your Primary Doctor within the next 48 hours. Make sure to eat and drink at home especially if you start to feel weak. Take your home dosed medications as prescribed. If your shoulder continues to bother you, a referral was sent to an orthopedic surgeon who you may call to set up an appointment and use tylenol or motrin and ice as needed for pain. Return to the ER for new or concerning symptoms including but not limited to: loss of consciousness, weakness, inability to eat or drink, high fevers. Thank you - Post Discharge Activity
[2019-07-16 18:53] LABS: BASO % 0.5 % (0-2.0); EOS % 1.6 % (0-4.5); HEMATOCRIT 32.3 % (32.4-45.2); HEMOGLOBIN 10.4 GM/dL (10.7-15.3); LYMPH % 24.7 % (8-40); MCH 26.7 pg (25.7-33.7); MCHC 32.2 g/dl (32.0-36.0); MEAN PLT VOLUME 8.1 fl (7.5-11.1); MONO % 7.3 % (3.8-10.2); NEUT % 65.9 % (42.8-82.8); PLATELET COUNT 308 K/MM3 (134-434); RBC 3.89 M/mm3 (3.60-5.2); RDW 14.8 % (11.6-15.6); WHITE BLOOD COUNT 7.7 K/mm3 (4.0-10.0)
--- NOTE | 2019-07-16 19:15 | PDOC ---
Attending Attestation - Resident Resident Name: Hair Landry - ED Attending Attestation I have performed the following: I have examined & evaluated the patient, The case was reviewed & discussed with the resident, I agree w/resident's findings & plan - HPI HPI: 07/16/19 18:51 69y/o F niddm biba after found on ground unresponsive with hypoglycemia. pt has limited recollection of event, recalls slipping off the couch. Was noted to have some AMS by son prior to being found down. no medication changes, skipped meds this morning with last dose of jentadueta last night. Admits to decreased PO intake chronically, but today had no meals. no f/c/cough/dysuria/v/d, no cardiopulmonary complaints aside from URI 2wks ago , resolved. Denies any other etiology to decreased appetite, states it's her baseline and niece agrees. completely asx now, no pain/injury other than slight L shoulder discomfort. - Physicial Exam PE: 07/16/19 18:54 afebrile here, HD stable, glucose improved from 32 in field to 159 in ED after glucagon alert, head atraumatic neck supple, no midline ttp s1s2 rrr with occasional premature beats, ctab abd soft/nd, suprapubic discomfort to palpation without guarding/rebound. bs nl , no cvat. neuro nonfocal, LUE discomfort without obvious deformity as noted. FROM with full strength - Medical Decision Making 07/16/19 18:54 69y/o niddm with ams/unresponsiveness in setting of hypoglycemia, etiology decreased PO intake. trauma exam unremarkable, likely shoulder strain but r/o fracture. HD stable here. r/o metabolic/infectious process underlying anorexia. r/o injury. if workup negative, pt feeling well and tolerating PO/ambulating, discuss with Dr. Funk and can consider outpt management. labs, ua ekg, cxr, ct head, LUE xrays iv fluid rehydration monitor glucose, disposition accordingly
[2019-07-16 19:26] LABS: ALBUMIN 3.7 g/dl (3.4-5.0); ALK PHOS 49 U/L (45-117); ANION GAP 7 MMOL/L (8-16); BILIRUBIN,TOTAL 0.3 mg/dL (0.2-1); CALCIUM 9.7 mg/dL (8.5-10.1); CHLORIDE 106 mmol/L (98-107); CO2 28 mmol/L (21-32); CREATININE 0.9 mg/dL (0.55-1.3); GLUCOSE,RANDOM 90 mg/dL (74-106); POTASSIUM 4.1 mmol/L (3.5-5.1); SGOT/AST 26 U/L (15-37); SGPT/ALT 15 U/L (13-61); SODIUM 141 mmol/L (136-145); TOT PROT 6.6 g/dl (6.4-8.2)
--- NOTE | 2019-07-16 20:46 | PDOC ---
*Physical Exam - Vital Signs Last Vital Signs Temp Pulse Resp BP Pulse Ox 97.8 F 92 H 16 158/53 L 97 07/16/19 16:20 07/16/19 18:00 07/16/19 18:00 07/16/19 18:00 07/16/19 18:00 ED Treatment Course - LABORATORY CBC & Chemistry Diagram: 07/16/19 18:40 07/16/19 18:40 - ADDITIONAL ORDERS Additional order review: Laboratory Results 07/16/19 07/16/19 18:40 17:57 Sodium 141 Potassium 4.1 Chloride 106 Carbon Dioxide 28 Anion Gap 7 L BUN 20.0 H Creatinine 0.9 Est GFR (CKD-EPI)AfAm 76.14 Est GFR (CKD-EPI)NonAf 65.70 POC Glucometer 159 Random Glucose 90 Calcium 9.7 Total Bilirubin 0.3 AST 26 ALT 15 Alkaline Phosphatase 49 Troponin I < 0.02 Total Protein 6.6 Albumin 3.7 07/16/19 07/16/19 18:40 17:57 RBC 3.89 MCV 83.0 MCHC 32.2 RDW 14.8 MPV 8.1 Neutrophils % 65.9 Lymphocytes % 24.7 Monocytes % 7.3 Eosinophils % 1.6 Basophils % 0.5 POC Glucometer 159 Medical Decision Making - Medical Decision Making 07/16/19 20:42 S/O from day team in short, 69 yo female hx NIDDM presents with AMS and a period of unresponsiveness after being found hypoglycemic likely from decreased PO intake. Pt had complaints of left shoulder pain after fall, trauma exam noted to be unremarkable. Sugar drink given by EMS on route to ED Fluids and food given Labs WNL BS [address] neg for acute process, fracture or bleed Left shoulder x ray neg for acute fracture or dislocation ED read. Discussed with pt that they will receive a phone call if the official radiology read is positive for concerning findings Repeat finger stick 160 Pt safe for DC home with F/U with PCP and given Ortho f/u incase shoulder pain persists strict return precautions given *DC/Admit/Observation/Transfer Diagnosis at time of Disposition: Hypoglycemia - Discharge Dispostion Disposition: HOME Condition at time of disposition: Stable Decision to Admit order: No - Referrals Referrals: Benoit Funk MD [Primary Care Provider] - - Patient Instructions Printed Discharge Instructions: DI for Hypoglycemia Additional Instructions: Please see your Primary Doctor within the next 48 hours. Make sure to eat and drink at home especially if you start to feel weak. Take your home dosed medications as prescribed. If your shoulder continues to bother you, a referral was sent to an orthopedic surgeon who you may call to set up an appointment and use tylenol or motrin and ice as needed for pain. Return to the ER for new or concerning symptoms including but not limited to: loss of consciousness, weakness, inability to eat or drink, high fevers. Thank you - Post Discharge Activity
[2019-07-16 22:12] LABS: EPI CELLS 0.8 /HPF (0-5/HPF); HYALINE CASTS 1 /lpf (0-8); URINE APPEARANCE CLEAR; URINE BACTERIA 9.6 /hpf (NEGATIVE); URINE BILIRUBIN NEGATIVE (NEGATIVE); URINE COLOR YELLOW; URINE GLUCOSE (UA) NEGATIVE (NEGATIVE); URINE KETONE NEGATIVE (NEGATIVE); URINE LEUK ESTERASE NEGATIVE (NEGATIVE); URINE NITRITE NEGATIVE (NEGATIVE); URINE PROTEIN 1+ (NEGATIVE); URINE RBC 1 /hpf (0-4); URINE UROBILINOGEN 0.2 mg/dL (0.2-1.0); URINE WBC 1 /hpf (0-5)
[2019-07-16 23:25] VITALS: BP 125/52; PULSE 89; TEMP 98.1
== END 2019-07-16 23:23 | disposition home or self-care (01) ==
LOC: JER 16:19
DX: E11.649 Type 2 diabetes mellitus with hypoglycemia without coma (principal)
CPT/HCPCS: 36415; 70450-TC; 73030-TC-LT-FY; 73060-TC-LT-FY; 80053; 81003; 82962; 84484; 85025; 99283-25

== ENCOUNTER 2020-10-18 13:08 | Inpatient (IN) | payer BC ==
[2020-10-18] MEDS ORDERED: LACTATED RINGERS SOLUTION 1000 ML INFUS.BAG IV ONE (14:13)
[2020-10-18] MEDS ORDERED: ONDANSETRON 4 MG/2 ML VIAL IVPB ONE (14:14)
[2020-10-18 14:28] LABS: BASO % 0.3 % (0-2.0); EOS % 0.1 % (0-4.5); HEMATOCRIT 29.1 % (32.4-45.2); HEMOGLOBIN 8.9 GM/dL (10.7-15.3); LYMPH % 13.4 % (8-40); MCH 22.1 pg (25.7-33.7); MCHC 30.5 g/dl (32.0-36.0); MEAN CELL VOLUME 72.3 fl (80-96); MEAN PLT VOLUME 7.9 fl (7.5-11.1); MONO % 5.2 % (3.8-10.2); PLATELET COUNT 240 K/MM3 (134-434); RBC 4.03 M/mm3 (3.60-5.2); RDW 17.7 % (11.6-15.6); WHITE BLOOD COUNT 8.6 K/mm3 (4.0-10.0)
[2020-10-18 14:53] LABS: CHLORIDE 95 mmol/L (98-107); POTASSIUM 3.9 mmol/L (3.5-5.1); SODIUM 132 mmol/L (136-145)
[2020-10-18 14:58] LABS: ALBUMIN 3.1 g/dl (3.4-5.0); ANION GAP 9 MMOL/L (8-16); BLOOD UREA NITROGEN 27.8 mg/dL (7-18); CALCIUM 9.5 mg/dL (8.5-10.1); CO2 29 mmol/L (21-32)
[2020-10-18 14:59] LABS: GLUCOSE,RANDOM 216 mg/dL (74-106)
[2020-10-18 15:02] LABS: CREATININE 1.6 mg/dL (0.55-1.3); SGOT/AST 42 U/L (15-37); SGPT/ALT 32 U/L (13-61)
[2020-10-18 15:03] LABS: TOT PROT 6.4 g/dl (6.4-8.2)
[2020-10-18 15:04] LABS: ALK PHOS 41 U/L (45-117)
[2020-10-18] MEDS ORDERED: DEXAMETHASONE SOD PHOSPHATE 10 MG/1 ML VIAL IVPUSH ONE (15:19)
[2020-10-18] MEDS ORDERED: AZITHROMYCIN IVPB 500 MG in DEXTROSE 5%-WATER - 250 ML IVPB ONE (15:19)
[2020-10-18] MEDS ORDERED: ALBUTEROL SO4 HFA INHALER IH ONE ×2 (15:19→15:36)
[2020-10-18 15:22] LABS: BILIRUBIN,TOTAL 0.6 mg/dL (0.2-1)
[2020-10-18] MEDS ORDERED: DEXAMETHASONE SOD PHOSPHATE 10 MG/1 ML VIAL ONE (15:36)
[2020-10-18] MEDS ORDERED: AZITHROMYCIN IVPB 500 MG/250 ML BAG IVPB ONE (15:36)
[2020-10-18 16:09] LABS: LIPASE 698 U/L (73-393)
[2020-10-18 19:11] LABS: CHLORIDE 96 mmol/L (98-107); POTASSIUM 4.2 mmol/L (3.5-5.1); SODIUM 130 mmol/L (136-145)
[2020-10-18 19:12] LABS: CALCIUM 8.9 mg/dL (8.5-10.1)
[2020-10-18 19:13] LABS: ANION GAP 9 MMOL/L (8-16); BLOOD UREA NITROGEN 27.7 mg/dL (7-18); CO2 25 mmol/L (21-32); GLUCOSE,RANDOM 271 mg/dL (74-106)
[2020-10-18 19:16] LABS: CREATININE 1.4 mg/dL (0.55-1.3)
[2020-10-18 19:47] LABS: LIPASE 692 U/L (73-393); MAGNESIUM 1.8 mg/dL (1.8-2.4)
[2020-10-18 20:41] LABS: INR 1.05 (0.83-1.09); PROTHROMBIN TIME (PATIENT) 12.9 SEC (9.7-13.0)
[2020-10-18 20:44] LABS: ACTIVATED PTT 19.1 SECONDS (25.2-36.5)
[2020-10-18 21:04] LABS: EPI CELLS 28 /uL (0-25.1); HYALINE CASTS 2 /uL (0-3.1); URINE APPEARANCE CLOUDY; URINE BACTERIA 343 /uL (0-1359); URINE BILIRUBIN NEGATIVE (NEGATIVE); URINE COLOR YELLOW; URINE GLUCOSE (UA) 3+ (NEGATIVE); URINE KETONE NEGATIVE (NEGATIVE); URINE LEUK ESTERASE NEGATIVE (NEGATIVE); URINE NITRITE NEGATIVE (NEGATIVE); URINE PROTEIN 2+ (NEGATIVE); URINE RBC 29 /uL (0-23.9); URINE WBC 26 /uL (0-25.8)
[2020-10-18 21:04] LABS: ARTERIAL BLD GAS O2 SATURATION 97.6 mmHg (95-98); ARTERIAL BLOOD GAS BASE EXCESS 3.6 mmol/L (-2-2); ARTERIAL BLOOD GAS PO2 107.9 mmHg (80-100); ARTERIAL BLOOD GAS pH 7.355 (7.350-7.450)
[2020-10-18 21:06] LABS: ALLENS TEST POSITIVE
[2020-10-18 21:38] LABS: N-TERMINAL BNP 995.1 pg/ml (5-125)
[2020-10-18] MEDS ORDERED: CEFTRIAXONE 1,000 MG in DEXTROSE 5%-WATER - 50 ML IVPB ONE (22:16)
[2020-10-18] MEDS ORDERED: CEFTRIAXONE 1 GM/50 ML BAG ONE (22:34)
[2020-10-18] MEDS ORDERED: ACETAMINOPHEN 1000 MG/100 ML VIAL (NON FORMULARY) IVPB ONE (23:41)
[2020-10-18] MEDS ORDERED: ACETAMINOPHEN INJECTION 100 ML IVPB ONE (23:49)
[2020-10-19] MEDS ORDERED: LACTATED RINGERS SOLUTION 1,000 ML/1,000 ML INFUS.BAG IV SCH (01:15)
[2020-10-19 01:50] LABS: CHOLESTEROL 149 mg/dL (50-200); TRIGLYCERIDES 162 mg/dL (0-150)
[2020-10-19 01:51] LABS: LDL CHOLESTEROL (ONLY SJRH) 77 mg/dL (5-100)
[2020-10-19 01:53] LABS: HDL CHOLESTEROL 53 mg/dL (40-60)
[2020-10-19] MEDS ORDERED: SODIUM CHLORIDE 1,000 ML IV STA (02:43)
[2020-10-19] MEDS ORDERED: SODIUM CHLORIDE 1,000 ML IV SCH (03:00)
[2020-10-19 05:42] VITALS: BMI 24.4
[2020-10-19] MEDS: INSULIN SLIDING SCALE (NOVOLOG) 1 VIAL SQ SCH ×4 (06:06→22:24)
[2020-10-19] MEDS: HEPARIN NA (PORCINE) 5,000 UNITS/ML 1ML VIAL SQ SCH ×3 (06:06→22:06)
[2020-10-19] MEDS ORDERED: cefTRIAXone SODIUM 1 GM VIAL ONE (09:34)
[2020-10-19] MEDS ORDERED: DEXTROSE 5%-WATER - 50 ML IVPB ONE (09:34)
[2020-10-19] MEDS ORDERED: CEFTRIAXONE 1 GM in DEXTROSE 5%-WATER - 50 ML IVPB SCH (10:00)
[2020-10-19] MEDS: FERROUS SO4/VIT C/FA 1 EACH TABLET.ER PO SCH (10:07)
[2020-10-19 10:57] LABS: BASO % 0.2 % (0-2.0); EOS % 0.1 % (0-4.5); HEMATOCRIT 24.8 % (32.4-45.2); HEMOGLOBIN 7.6 GM/dL (10.7-15.3); LYMPH % 12.3 % (8-40); MCH 22.1 pg (25.7-33.7); MCHC 30.7 g/dl (32.0-36.0); MEAN CELL VOLUME 71.8 fl (80-96); MEAN PLT VOLUME 8.3 fl (7.5-11.1); NEUT % 82.4 % (42.8-82.8); PLATELET COUNT 236 K/MM3 (134-434); RBC 3.45 M/mm3 (3.60-5.2); RDW 17.4 % (11.6-15.6); WHITE BLOOD COUNT 7.4 K/mm3 (4.0-10.0)
[2020-10-19 11:06] LABS: POTASSIUM 4.2 mmol/L (3.5-5.1)
[2020-10-19 11:11] LABS: ALBUMIN 2.6 g/dl (3.4-5.0); BLOOD UREA NITROGEN 33.5 mg/dL (7-18); CALCIUM 8.4 mg/dL (8.5-10.1); MAGNESIUM 1.9 mg/dL (1.8-2.4)
[2020-10-19 11:14] LABS: CREATININE 1.5 mg/dL (0.55-1.3); PHOSPHOROUS 5.7 mg/dL (2.5-4.9)
[2020-10-19 11:15] LABS: BILIRUBIN,TOTAL 0.2 mg/dL (0.2-1); TOT PROT 5.7 g/dl (6.4-8.2)
[2020-10-19 11:16] LABS: N-TERMINAL BNP 813.5 pg/ml (5-125)
[2020-10-19] MEDS ORDERED: ALBUTEROL SO4 HFA INHALER IH PRN (14:07)
[2020-10-19] MEDS ORDERED: REMDESIVIR 200 MG in SODIUM CHLORIDE 210 ML IVPB ONE (18:00)
[2020-10-19] MEDS: AZITHROMYCIN IVPB 500 MG/250 ML BAG IVPB SCH ×2 (18:13→21:23)
[2020-10-19] MEDS: DEXAMETHASONE SOD PHOSPHATE 4 MG/1 ML VIAL IVPUSH SCH (18:13)
[2020-10-19] MEDS: TIOTROPIUM/OLODATEROL HCL (STIOLTO) 4 GM INHALER IH SCH ×2 (18:14→21:23)
[2020-10-19] MEDS ORDERED: PT OWN MED DRAWER 7, Y5N ONE (21:57)
[2020-10-19] MEDS: ASCORBIC ACID 500 MG TABLET (FP) PO SCH (22:07)
[2020-10-19] MEDS ORDERED: INSULIN (NOVOLOG) ASPART 100 UNITS/ML 10ML VIAL ONE (22:18)
[2020-10-20] MEDS: DEXAMETHASONE SOD PHOSPHATE 4 MG/1 ML VIAL IVPUSH SCH ×3 (02:38→17:05)
[2020-10-20] MEDS: HEPARIN NA (PORCINE) 5,000 UNITS/ML 1ML VIAL SQ SCH ×2 (06:57→13:58)
[2020-10-20] MEDS: INSULIN SLIDING SCALE (NOVOLOG) 1 VIAL SQ SCH ×4 (06:58→22:27)
[2020-10-20] MEDS ORDERED: INSULIN (NOVOLOG) ASPART 100 UNITS/ML 10ML VIAL ONE (07:10)
[2020-10-20] MEDS ORDERED: cefTRIAXone SODIUM 1 GM VIAL ONE (09:48)
[2020-10-20] MEDS ORDERED: DEXTROSE 5%-WATER - 50 ML IVPB ONE (09:49)
[2020-10-20] MEDS ORDERED: CHOLECALCIFEROL (VIT D3) 1,000 UNIT (25 MCG) TABLET PO SCH (10:00)
[2020-10-20] MEDS: ASCORBIC ACID 500 MG TABLET (FP) PO SCH ×2 (10:14→22:21)
[2020-10-20] MEDS: ZINC SULFATE 220 MG CAPSULE (FP) PO SCH (10:14)
[2020-10-20] MEDS: guaiFENesin/D-M SUGAR-FREE/ACLHOL-FREE 118 ML BOTTLE PO PRN ×2 (10:14→14:40)
[2020-10-20] MEDS: FUROSEMIDE 40 MG TABLET (FP) PO SCH (10:14)
[2020-10-20] MEDS: CEFTRIAXONE 1 GM in DEXTROSE 5%-WATER - 50 ML IVPB SCH (10:15)
[2020-10-20] MEDS: FERROUS SO4/VIT C/FA 1 EACH TABLET.ER PO SCH (10:15)
[2020-10-20 10:51] LABS: BASO % 0.1 % (0-2.0); HEMATOCRIT 24.1 % (32.4-45.2); HEMOGLOBIN 7.4 GM/dL (10.7-15.3); LYMPH % 5.9 % (8-40); MCH 22.1 pg (25.7-33.7); MCHC 30.7 g/dl (32.0-36.0); MEAN CELL VOLUME 72.2 fl (80-96); MEAN PLT VOLUME 8.2 fl (7.5-11.1); PLATELET COUNT 244 K/MM3 (134-434); RBC 3.33 M/mm3 (3.60-5.2); RDW 17.6 % (11.6-15.6); WHITE BLOOD COUNT 7.3 K/mm3 (4.0-10.0)
[2020-10-20] MEDS: AZITHROMYCIN IVPB 500 MG/250 ML BAG IVPB SCH (11:03)
[2020-10-20] MEDS: TIOTROPIUM/OLODATEROL HCL (STIOLTO) 4 GM INHALER IH SCH (11:05)
[2020-10-20 11:11] LABS: POTASSIUM 4.4 mmol/L (3.5-5.1)
[2020-10-20 11:16] LABS: BLOOD UREA NITROGEN 33.4 mg/dL (7-18); CALCIUM 8.3 mg/dL (8.5-10.1)
[2020-10-20 11:17] LABS: ALBUMIN 2.7 g/dl (3.4-5.0)
[2020-10-20 11:20] LABS: CREATININE 1.5 mg/dL (0.55-1.3); PHOSPHOROUS 3.8 mg/dL (2.5-4.9)
[2020-10-20 11:21] LABS: BILIRUBIN,TOTAL 0.3 mg/dL (0.2-1)
[2020-10-20 14:22] LABS: ANISOCYTOSIS 1+; MACROCYTOSIS 0; OVALOCYTE 2+; PLATELET ESTIMATE NORMAL; TEAR DROP CELLS 1+; TOXIC GRANULATION 2+
[2020-10-20] MEDS ORDERED: PT OWN MED DRAWER 7, Y5N ONE ×3 (14:39→23:30)
[2020-10-20] MEDS: REMDESIVIR 100 MG in SODIUM CHLORIDE 230 ML IVPB SCH (17:24)
[2020-10-20] MEDS ORDERED: guaiFENesin/D-M SUGAR-FREE/ACLHOL-FREE 118 ML BOTTLE PO PRN (20:15)
[2020-10-20] MEDS: guaiFENesin 600 MG TABLET.ER (FP) PO SCH (22:21)
[2020-10-20] MEDS: ATORVASTATIN CA 20 MG TABLET (FP) PO SCH (22:21)
[2020-10-20] MEDS: ENOXAPARIN NA (PORCINE) 60 MG/0.6 ML DISP.SYRIN SQ SCH (23:51)
[2020-10-21] MEDS: DEXAMETHASONE SOD PHOSPHATE 4 MG/1 ML VIAL IVPUSH SCH ×3 (03:19→17:19)
[2020-10-21] MEDS: INSULIN SLIDING SCALE (NOVOLOG) 1 VIAL SQ SCH ×4 (06:23→22:58)
[2020-10-21 07:56] LABS: BASO % 0.1 % (0-2.0); HEMATOCRIT 23.6 % (32.4-45.2); HEMOGLOBIN 7.3 GM/dL (10.7-15.3); LYMPH % 12.1 % (8-40); MCH 22.3 pg (25.7-33.7); MCHC 31.1 g/dl (32.0-36.0); MEAN CELL VOLUME 71.7 fl (80-96); MEAN PLT VOLUME 8.5 fl (7.5-11.1); NEUT % 81.8 % (42.8-82.8); PLATELET COUNT 272 K/MM3 (134-434); RBC 3.29 M/mm3 (3.60-5.2); RDW 17.8 % (11.6-15.6); WHITE BLOOD COUNT 5.5 K/mm3 (4.0-10.0)
[2020-10-21 08:08] LABS: POTASSIUM 4.2 mmol/L (3.5-5.1)
[2020-10-21 08:15] LABS: CALCIUM 8.3 mg/dL (8.5-10.1)
[2020-10-21 08:16] LABS: ALBUMIN 2.6 g/dl (3.4-5.0); BLOOD UREA NITROGEN 33.1 mg/dL (7-18); MAGNESIUM 2.3 mg/dL (1.8-2.4)
[2020-10-21 08:19] LABS: CREATININE 1.3 mg/dL (0.55-1.3); PHOSPHOROUS 3.7 mg/dL (2.5-4.9)
[2020-10-21 08:20] LABS: BILIRUBIN,TOTAL 0.2 mg/dL (0.2-1); TOT PROT 5.8 g/dl (6.4-8.2)
[2020-10-21] MEDS ORDERED: cefTRIAXone SODIUM 1 GM VIAL ONE (08:52)
[2020-10-21] MEDS ORDERED: DEXTROSE 5%-WATER - 50 ML IVPB ONE (08:52)
[2020-10-21] MEDS: FUROSEMIDE 40 MG TABLET (FP) PO SCH (09:13)
[2020-10-21] MEDS: CHOLECALCIFEROL (VIT D3) 1,000 UNIT (25 MCG) TABLET PO SCH (09:13)
[2020-10-21] MEDS: ASCORBIC ACID 500 MG TABLET (FP) PO SCH ×2 (09:13→22:38)
[2020-10-21] MEDS: ZINC SULFATE 220 MG CAPSULE (FP) PO SCH (09:13)
[2020-10-21] MEDS: ENOXAPARIN NA (PORCINE) 60 MG/0.6 ML DISP.SYRIN SQ SCH ×2 (09:13→22:31)
[2020-10-21] MEDS: guaiFENesin 600 MG TABLET.ER (FP) PO SCH ×2 (09:13→22:38)
[2020-10-21] MEDS: FERROUS SO4/VIT C/FA 1 EACH TABLET.ER PO SCH (09:14)
[2020-10-21] MEDS: AZITHROMYCIN IVPB 500 MG/250 ML BAG IVPB SCH (09:20)
[2020-10-21] MEDS: CEFTRIAXONE 1 GM in DEXTROSE 5%-WATER - 50 ML IVPB SCH (09:21)
[2020-10-21] MEDS: TIOTROPIUM/OLODATEROL HCL (STIOLTO) 4 GM INHALER IH SCH (09:21)
[2020-10-21] MEDS: REMDESIVIR 100 MG in SODIUM CHLORIDE 230 ML IVPB SCH (17:19)
[2020-10-21] MEDS: ATORVASTATIN CA 20 MG TABLET (FP) PO SCH (22:38)
[2020-10-21] MEDS: ACETAMINOPHEN 325 MG TABLET (FP) PO PRN (22:38)
[2020-10-22] MEDS: DEXAMETHASONE SOD PHOSPHATE 4 MG/1 ML VIAL IVPUSH SCH ×3 (01:17→21:21)
[2020-10-22] MEDS: INSULIN SLIDING SCALE (NOVOLOG) 1 VIAL SQ SCH ×4 (06:04→21:37)
[2020-10-22] MEDS ORDERED: PT OWN MED DRAWER 7, Y5N ONE (09:31)
[2020-10-22] MEDS ORDERED: DEXTROSE 5%-WATER - 50 ML IVPB ONE (09:32)
[2020-10-22] MEDS ORDERED: cefTRIAXone SODIUM 1 GM VIAL ONE (09:32)
[2020-10-22] MEDS: CEFTRIAXONE 1 GM in DEXTROSE 5%-WATER - 50 ML IVPB SCH (09:40)
[2020-10-22] MEDS: FUROSEMIDE 40 MG TABLET (FP) PO SCH (09:45)
[2020-10-22] MEDS: AZITHROMYCIN IVPB 500 MG/250 ML BAG IVPB SCH (09:45)
[2020-10-22] MEDS: guaiFENesin 600 MG TABLET.ER (FP) PO SCH (09:46)
[2020-10-22] MEDS: CHOLECALCIFEROL (VIT D3) 1,000 UNIT (25 MCG) TABLET PO SCH (09:46)
[2020-10-22] MEDS: ZINC SULFATE 220 MG CAPSULE (FP) PO SCH (09:46)
[2020-10-22] MEDS: ASCORBIC ACID 500 MG TABLET (FP) PO SCH ×2 (09:47→21:23)
[2020-10-22] MEDS: FERROUS SO4/VIT C/FA 1 EACH TABLET.ER PO SCH (09:48)
[2020-10-22] MEDS: TIOTROPIUM/OLODATEROL HCL (STIOLTO) 4 GM INHALER IH SCH (09:48)
[2020-10-22] MEDS: ENOXAPARIN NA (PORCINE) 60 MG/0.6 ML DISP.SYRIN SQ SCH ×2 (09:48→21:24)
[2020-10-22] MEDS ORDERED: guaiFENesin/D-METHORPHAN HB 10 ML UNIT-DOSE CUPS PO PRN (09:53)
[2020-10-22 11:31] LABS: HEMATOCRIT 24.9 % (32.4-45.2); HEMOGLOBIN 7.7 GM/dL (10.7-15.3); MCH 22.4 pg (25.7-33.7); MCHC 30.7 g/dl (32.0-36.0); MEAN CELL VOLUME 73.1 fl (80-96); MEAN PLT VOLUME 8.6 fl (7.5-11.1); PLATELET COUNT 337 K/MM3 (134-434); RBC 3.41 M/mm3 (3.60-5.2); RDW 17.4 % (11.6-15.6); WHITE BLOOD COUNT 7.4 K/mm3 (4.0-10.0)
[2020-10-22 11:54] LABS: POTASSIUM 4.3 mmol/L (3.5-5.1)
[2020-10-22 11:57] LABS: BLOOD UREA NITROGEN 32.9 mg/dL (7-18)
[2020-10-22 12:00] LABS: CREATININE 1.3 mg/dL (0.55-1.3)
[2020-10-22] MEDS ORDERED: INSULIN (NOVOLOG) ASPART 100 UNITS/ML 10ML VIAL ONE (13:48)
[2020-10-22] MEDS: guaiFENesin/CODEINE 5 ML UNIT-DOSE CUPS PO PRN (21:23)
[2020-10-22] MEDS: ATORVASTATIN CA 20 MG TABLET (FP) PO SCH (21:23)
[2020-10-22] MEDS: REMDESIVIR 100 MG in SODIUM CHLORIDE 230 ML IVPB SCH (21:38)
[2020-10-23] MEDS: DEXAMETHASONE SOD PHOSPHATE 4 MG/1 ML VIAL IVPUSH SCH ×3 (01:25→17:00)
[2020-10-23] MEDS: ACETAMINOPHEN 325 MG TABLET (FP) PO PRN (05:58)
[2020-10-23] MEDS: guaiFENesin/CODEINE 5 ML UNIT-DOSE CUPS PO PRN ×2 (05:59→22:14)
[2020-10-23] MEDS: INSULIN SLIDING SCALE (NOVOLOG) 1 VIAL SQ SCH ×4 (06:05→22:08)
[2020-10-23] MEDS ORDERED: PT OWN MED DRAWER 7, Y5N ONE (09:19)
[2020-10-23] MEDS ORDERED: DEXTROSE 5%-WATER - 50 ML IVPB ONE (09:19)
[2020-10-23] MEDS ORDERED: cefTRIAXone SODIUM 1 GM VIAL ONE (09:19)
[2020-10-23 10:25] LABS: HEMATOCRIT 24.3 % (32.4-45.2); HEMOGLOBIN 7.4 GM/dL (10.7-15.3); LYMPH % 9.5 % (8-40); MCHC 30.3 g/dl (32.0-36.0); MEAN CELL VOLUME 72.6 fl (80-96); MEAN PLT VOLUME 8.2 fl (7.5-11.1); MONO % 5.5 % (3.8-10.2); PLATELET COUNT 345 K/MM3 (134-434); RBC 3.36 M/mm3 (3.60-5.2); RDW 17.6 % (11.6-15.6); WHITE BLOOD COUNT 6.1 K/mm3 (4.0-10.0)
[2020-10-23 10:48] LABS: ALBUMIN 2.8 g/dl (3.4-5.0); BILIRUBIN,TOTAL 0.2 mg/dL (0.2-1); CALCIUM 8.5 mg/dL (8.5-10.1); CREATININE 1.3 mg/dL (0.55-1.3); MAGNESIUM 2.1 mg/dL (1.8-2.4); PHOSPHOROUS 3.1 mg/dL (2.5-4.9); POTASSIUM 3.9 mmol/L (3.5-5.1); TOT PROT 5.7 g/dl (6.4-8.2)
[2020-10-23] MEDS: CHOLECALCIFEROL (VIT D3) 1,000 UNIT (25 MCG) TABLET PO SCH (11:22)
[2020-10-23] MEDS: TIOTROPIUM/OLODATEROL HCL (STIOLTO) 4 GM INHALER IH SCH (11:23)
[2020-10-23] MEDS: ENOXAPARIN NA (PORCINE) 60 MG/0.6 ML DISP.SYRIN SQ SCH ×2 (11:23→23:14)
[2020-10-23] MEDS: FUROSEMIDE 40 MG TABLET (FP) PO SCH (11:23)
[2020-10-23] MEDS: ZINC SULFATE 220 MG CAPSULE (FP) PO SCH (11:23)
[2020-10-23] MEDS: CEFTRIAXONE 1 GM in DEXTROSE 5%-WATER - 50 ML IVPB SCH (11:23)
[2020-10-23] MEDS: FERROUS SO4/VIT C/FA 1 EACH TABLET.ER PO SCH (11:23)
[2020-10-23] MEDS: ASCORBIC ACID 500 MG TABLET (FP) PO SCH ×2 (11:24→21:57)
[2020-10-23 11:38] LABS: ANISOCYTOSIS 3+; MACROCYTOSIS 0; PLATELET ESTIMATE NORMAL
[2020-10-23] MEDS: REMDESIVIR 100 MG in SODIUM CHLORIDE 230 ML IVPB SCH (17:00)
[2020-10-23] MEDS ORDERED: PNEUMOC 13-VAL CONJ-DIP CRM/PF 0.5 ML DISP.SYRIN IM ONE (21:45)
[2020-10-23] MEDS ORDERED: FLU VACCINE (FLULAVAL) PF 60 MCG/0.5 ML SYRINGE 2020-2021 IM ONE (21:45)
[2020-10-23] MEDS: ATORVASTATIN CA 20 MG TABLET (FP) PO SCH (21:57)
[2020-10-23] MEDS ORDERED: INSULIN (NOVOLOG) ASPART 100 UNITS/ML 10ML VIAL ONE (22:04)
[2020-10-24] MEDS: DEXAMETHASONE SOD PHOSPHATE 4 MG/1 ML VIAL IVPUSH SCH ×3 (02:17→17:34)
[2020-10-24] MEDS: INSULIN SLIDING SCALE (NOVOLOG) 1 VIAL SQ SCH ×4 (06:12→22:07)
[2020-10-24] MEDS ORDERED: PT OWN MED DRAWER 7, Y5N ONE (08:11)
[2020-10-24] MEDS ORDERED: DEXTROSE 5%-WATER - 50 ML IVPB ONE (08:12)
[2020-10-24] MEDS ORDERED: cefTRIAXone SODIUM 1 GM VIAL ONE (08:12)
[2020-10-24] MEDS: CEFTRIAXONE 1 GM in DEXTROSE 5%-WATER - 50 ML IVPB SCH (09:48)
[2020-10-24] MEDS: ASCORBIC ACID 500 MG TABLET (FP) PO SCH ×2 (09:48→21:41)
[2020-10-24] MEDS: CHOLECALCIFEROL (VIT D3) 1,000 UNIT (25 MCG) TABLET PO SCH (09:48)
[2020-10-24] MEDS: FUROSEMIDE 40 MG TABLET (FP) PO SCH (09:48)
[2020-10-24] MEDS: ZINC SULFATE 220 MG CAPSULE (FP) PO SCH (09:48)
[2020-10-24] MEDS: ENOXAPARIN NA (PORCINE) 60 MG/0.6 ML DISP.SYRIN SQ SCH ×2 (09:49→21:41)
[2020-10-24] MEDS: TIOTROPIUM/OLODATEROL HCL (STIOLTO) 4 GM INHALER IH SCH (09:54)
[2020-10-24 12:14] LABS: HEMATOCRIT 25.1 % (32.4-45.2); HEMOGLOBIN 7.6 GM/dL (10.7-15.3); MCH 22.1 pg (25.7-33.7); MCHC 30.2 g/dl (32.0-36.0); MEAN CELL VOLUME 73.2 fl (80-96); MEAN PLT VOLUME 8.4 fl (7.5-11.1); PLATELET COUNT 402 K/MM3 (134-434); RBC 3.42 M/mm3 (3.60-5.2); WHITE BLOOD COUNT 8.7 K/mm3 (4.0-10.0)
[2020-10-24] MEDS: FERROUS SO4/VIT C/FA 1 EACH TABLET.ER PO SCH (12:18)
[2020-10-24 12:33] LABS: POTASSIUM 4.1 mmol/L (3.5-5.1)
[2020-10-24 12:35] LABS: BLOOD UREA NITROGEN 34.3 mg/dL (7-18); CALCIUM 8.6 mg/dL (8.5-10.1)
[2020-10-24 12:39] LABS: CREATININE 1.2 mg/dL (0.55-1.3)
[2020-10-24 12:40] LABS: BILIRUBIN,TOTAL 0.2 mg/dL (0.2-1)
[2020-10-24] MEDS: PANTOPRAZOLE 40 MG TABLET PO SCH ×2 (14:57→21:41)
[2020-10-24] MEDS: ATORVASTATIN CA 20 MG TABLET (FP) PO SCH (21:41)
[2020-10-24] MEDS: guaiFENesin/CODEINE 5 ML UNIT-DOSE CUPS PO PRN (21:42)
[2020-10-25] MEDS: DEXAMETHASONE SOD PHOSPHATE 4 MG/1 ML VIAL IVPUSH SCH ×2 (01:54→11:38)
[2020-10-25] MEDS: INSULIN SLIDING SCALE (NOVOLOG) 1 VIAL SQ SCH (06:02)
[2020-10-25] MEDS ORDERED: PNEUMOCOCCAL 23 VACCINE 0.5 ML VIAL IM ONE (07:06)
[2020-10-25] MEDS ORDERED: PNEUMOC 13-VAL CONJ-DIP CRM/PF 0.5 ML DISP.SYRIN IM ONE ×2 (08:00→11:15)
[2020-10-25] MEDS ORDERED: DEXTROSE 5%-WATER - 50 ML IVPB ONE (09:40)
[2020-10-25] MEDS ORDERED: cefTRIAXone SODIUM 1 GM VIAL ONE (09:40)
[2020-10-25] MEDS: FERROUS SO4/VIT C/FA 1 EACH TABLET.ER PO SCH (11:37)
[2020-10-25] MEDS: CHOLECALCIFEROL (VIT D3) 1,000 UNIT (25 MCG) TABLET PO SCH (11:37)
[2020-10-25] MEDS: FUROSEMIDE 40 MG TABLET (FP) PO SCH (11:38)
[2020-10-25] MEDS: ZINC SULFATE 220 MG CAPSULE (FP) PO SCH (11:38)
[2020-10-25] MEDS: ASCORBIC ACID 500 MG TABLET (FP) PO SCH (11:38)
[2020-10-25] MEDS: PANTOPRAZOLE 40 MG TABLET PO SCH (11:38)
[2020-10-25] MEDS: TIOTROPIUM/OLODATEROL HCL (STIOLTO) 4 GM INHALER IH SCH (11:41)
[2020-10-25] MEDS: CEFTRIAXONE 1 GM in DEXTROSE 5%-WATER - 50 ML IVPB SCH (11:59)
[2020-10-25] MEDS: ENOXAPARIN NA (PORCINE) 60 MG/0.6 ML DISP.SYRIN SQ SCH (11:59)
[2020-10-25] MEDS ORDERED: FLU VACCINE (FLULAVAL) PF 60 MCG/0.5 ML SYRINGE 2020-2021 IM ONE (12:00)
[2020-10-25 14:15] VITALS: BP 126/74; PULSE 85; TEMP 98
== END 2020-10-25 13:56 | disposition home or self-care (01) | DRG 177 ==
LOC: JER 13:08 → JERBED 23:43 → J7W 10-19 04:46
PROVIDERS: ADMIT Hospitalist; ATTEND Internal Medicine
PROC: XW13325 Transfusion of Convalescent Plasma (Nonautologous) into Peripheral Vein, Percutaneous Approach, New Technology Group 5 (ICD-10-PCS; principal; 2020-10-19)
PROC: XW033E5 Introduction of Remdesivir Anti-infective into Peripheral Vein, Percutaneous Approach, New Technology Group 5 (ICD-10-PCS; 2020-10-19)
DX: U07.1 COVID-19 (principal); J12.89 Other viral pneumonia; J96.21 Acute and chronic respiratory failure with hypoxia; N17.9 Acute kidney failure, unspecified; E87.1 Hypo-osmolality and hyponatremia; J44.1 Chronic obstructive pulmonary disease with (acute) exacerbation; I50.32 Chronic diastolic (congestive) heart failure; E46 Unspecified protein-calorie malnutrition; I25.10 Atherosclerotic heart disease of native coronary artery without angina pectoris; I11.0 Hypertensive heart disease with heart failure; E11.9 Type 2 diabetes mellitus without complications; E78.5 Hyperlipidemia, unspecified; M54.9 Dorsalgia, unspecified; Z88.0 Allergy status to penicillin; Z99.81 Dependence on supplemental oxygen; E87.6 Hypokalemia; D50.9 Iron deficiency anemia, unspecified; E86.0 Dehydration; E86.1 Hypovolemia
CPT/HCPCS: 36415; 36430; 36600; 71045-TC-FY; 71275-TC; 74177-TC; 80048; 80053; 80061; 81003; 82272; 82550; 82565; 82607; 82728; 82746; 82803; 82962; 83036; 83540; 83550; 83605; 83615; 83690; 83721; 83735; 83880; 84100; 84300; 84439; 84443; 84481; 84484; 85025; 85027; 85379; 85384; 85610; 85730; 86140; 86850; 86900; 86901; 87045; 87046; 87077; 87086; 87177; 87209; 87804; 90670; 93005; 93010; 94761; 99285-25; C9399; C9803; G0008; G0009; J0131; J1100; J1644; J3535; P9017; Q2036; U0003

== ENCOUNTER 2021-07-18 21:46 | Inpatient (IN) | payer BC, OTHER ==
[2021-07-18] MEDS ORDERED: ALBUTEROL SO4 2.5/IPRATROPIUM 0.5 INH SOL 3 ML VIAL.NEB. NEB ONE (21:55)
[2021-07-18] MEDS ORDERED: methylPREDNISolone NA SUCC 125 MG/2 ML VIAL ONE (21:56)
[2021-07-18] MEDS ORDERED: ROCURONIUM BROMIDE 100 MG/10 ML VIAL ONE ×2 (22:06)
[2021-07-18] MEDS ORDERED: KETAMINE HCL 200 MG/20 ML VIAL ONE (22:06)
[2021-07-18 22:20] LABS: ARTERIAL BLD GAS O2 SATURATION 98.2 % (95-98)
[2021-07-18 22:20] LABS: BASO % 0.8 % (0-2.0); EOS % 0.2 % (0-4.5); HEMATOCRIT 20.2 % (32.4-45.2); LYMPH % 15.1 % (8-40); MCHC 28.6 g/dl (32.0-36.0); NEUT % 79.9 % (42.8-82.8); PLATELET COUNT 439 10^3/uL (134-434); RBC 3.05 M/mm3 (3.60-5.2); WHITE BLOOD COUNT 19.1 K/mm3 (4.0-10.0)
[2021-07-18 22:22] LABS: MCH 18.9 pg (25.7-33.7)
[2021-07-18 22:24] LABS: HEMOGLOBIN 5.8 GM/dL (10.7-15.3)
[2021-07-18] MEDS ORDERED: MIDAZOLAM HCL 2 MG/2 ML SINGLE DOSE VIAL IVPUSH ONE (22:32)
[2021-07-18] MEDS ORDERED: MIDAZOLAM HCL 2 MG/2 ML SINGLE DOSE VIAL ONE (22:34)
[2021-07-18 22:38] LABS: ALBUMIN 3.4 g/dl (3.4-5.0); CALCIUM 9.2 mg/dL (8.5-10.1)
[2021-07-18 22:41] LABS: CREATININE 1.4 mg/dL (0.55-1.3)
[2021-07-18 22:43] LABS: BILIRUBIN,TOTAL 0.4 mg/dL (0.2-1); TOT PROT 7.3 g/dl (6.4-8.2)
[2021-07-18] MEDS ORDERED: KETAMINE HCL 200 MG/20 ML VIAL IVPUSH ONE (23:05)
[2021-07-18] MEDS ORDERED: ROCURONIUM BROMIDE 50 MG/5 ML VIAL IV ONE (23:05)
[2021-07-18 23:06] LABS: ARTERIAL BLOOD GAS pH 7.023 (7.350-7.450)
[2021-07-18] MEDS ORDERED: SODIUM CHLORIDE 1,000 ML IV STA (23:16)
[2021-07-18] MEDS ORDERED: MIDAZOLAM IN 0.9 % SOD.CHLORID 1 MG/1 ML PLAST..BAG ONE (23:17)
[2021-07-18] MEDS: MIDAZOLAM IN 0.9 % SOD.CHLORID 100 MG/100 ML PLAST..BAG IVPB SCH (23:19)
[2021-07-18] MEDS ORDERED: MIDAZOLAM IN 0.9 % SOD.CHLORID 100 MG/100 ML PLAST..BAG IVPB SCH (23:30)
[2021-07-18 23:36] LABS: ARTERIAL BLD GAS O2 SATURATION 99.7 % (95-98); ARTERIAL BLOOD GAS BASE EXCESS 4.4 mmol/L (-2-2); ARTERIAL BLOOD GAS PO2 355.2 mmHg (80-100); ARTERIAL BLOOD GAS pH 7.276 (7.350-7.450)
[2021-07-18 23:37] LABS: ALLENS TEST POSITIVE
[2021-07-18 23:38] LABS: VENT MODE A/C; VENT RATE 14
[2021-07-18 23:39] LABS: ANISOCYTOSIS 3+; MACROCYTOSIS 1+; OVALOCYTE 1+; PLATELET ESTIMATE NORMAL; TARGET CELLS 1+
[2021-07-18] MEDS ORDERED: CEFEPIME HCL/D5W 1 GM/50 ML BAG IVPB ONE (23:48)
[2021-07-18] MEDS ORDERED: VANCOMYCIN 1 GM in D5W (PRE-DOCKED) 1,000 MG/250 ML IVPB ONE (23:48)
[2021-07-18] MEDS ORDERED: CEFEPIME 1 GM/100 ML BAG IVPB ONE (23:58)
[2021-07-19] MEDS ORDERED: MEROPENEM 1 GM in DEXTROSE 5%-WATER 100 ML IVPB ONE (00:01)
[2021-07-19] MEDS ORDERED: VANCOMYCIN 1 GM in D5W (PRE-DOCKED) 1,000 MG/250 ML IVPB ONE (00:01)
[2021-07-19 00:08] LABS: EPI CELLS >36 /uL (0-25.1); HYALINE CASTS 11 /uL (0-3.1); URINE APPEARANCE CLOUDY; URINE BACTERIA 2209 /uL (0-1359); URINE BILIRUBIN NEGATIVE (NEGATIVE); URINE COLOR YELLOW; URINE GLUCOSE (UA) NEGATIVE (NEGATIVE); URINE KETONE NEGATIVE (NEGATIVE); URINE LEUK ESTERASE TRACE (NEGATIVE); URINE NITRITE NEGATIVE (NEGATIVE); URINE PROTEIN 3+ (NEGATIVE); URINE RBC 11 /uL (0-23.9); URINE WBC 74 /uL (0-25.8)
[2021-07-19] MEDS ORDERED: MEROPENEM 1 GM VIAL (RESTRICTED TO ID) IVPB ONE (00:13)
[2021-07-19] MEDS: PROPOFOL 1,000,000 MCG/100 ML VIAL IVPB SCH ×2 (05:00→13:26)
[2021-07-19] MEDS: NOREPINEPHRINE BITARTRATE 8,000 MCG/500 ML BAG IVPB SCH (05:55)
[2021-07-19 05:59] LABS: ARTERIAL BLD GAS O2 SATURATION 97.8 % (95-98); ARTERIAL BLOOD GAS BASE EXCESS 0.4 mmol/L (-2-2); ARTERIAL BLOOD GAS PO2 109.4 mmHg (80-100); ARTERIAL BLOOD GAS pH 7.353 (7.350-7.450)
[2021-07-19 06:02] LABS: HIV INTERPRETATION PRESUMPTIVE POSITIVE (NEGATIVE)
[2021-07-19 06:11] LABS: ALLENS TEST POSITIVE; VENT MODE A/C; VENT RATE 20
[2021-07-19] MEDS: INSULIN SLIDING SCALE (NOVOLOG) 1 VIAL SQ SCH ×3 (07:09→18:30)
[2021-07-19 07:55] LABS: HEMATOCRIT 21.5 % (32.4-45.2); MCH 21.7 pg (25.7-33.7); MCHC 31.6 g/dl (32.0-36.0); MEAN CELL VOLUME 68.5 fl (80-96); MEAN PLT VOLUME 8.3 fl (7.5-11.1); PLATELET COUNT 244 10^3/uL (134-434); RBC 3.14 M/mm3 (3.60-5.2); RDW 21.3 % (11.6-15.6); WHITE BLOOD COUNT 11.4 K/mm3 (4.0-10.0)
[2021-07-19 08:01] LABS: BLOOD UREA NITROGEN 26.5 mg/dL (7-18); CALCIUM 8.4 mg/dL (8.5-10.1); MAGNESIUM 1.5 mg/dL (1.8-2.4)
[2021-07-19 08:04] LABS: CREATININE 1.1 mg/dL (0.55-1.3); PHOSPHOROUS 3.8 mg/dL (2.5-4.9)
[2021-07-19 08:07] LABS: BILIRUBIN,TOTAL 0.6 mg/dL (0.2-1); TOT PROT 5.8 g/dl (6.4-8.2)
[2021-07-19 08:19] LABS: ALBUMIN 2.7 g/dl (3.4-5.0)
[2021-07-19 08:29] LABS: HEMOGLOBIN 6.8 GM/dL (10.7-15.3)
[2021-07-19] MEDS ORDERED: PT OWN MED DRAWER 7, Y5N ONE ×2 (11:00→16:25)
[2021-07-19] MEDS: MUPIROCIN 2% TOPICAL OINTMENT FOR DECOLONIZATION NS SCH ×2 (11:01→21:48)
[2021-07-19] MEDS ORDERED: FUROSEMIDE 40 MG TABLET (FP) PO SCH (12:15)
[2021-07-19] MEDS ORDERED: AZITHROMYCIN IVPB 500 MG/250 ML BAG IVPB ONE (12:30)
[2021-07-19] MEDS ORDERED: ALBUTEROL SO4 2.5/IPRATROPIUM 0.5 INH SOL 3 ML VIAL.NEB. NEB PRN (12:33)
[2021-07-19 12:50] LABS: ANISOCYTOSIS 1+; MACROCYTOSIS 0; PLATELET ESTIMATE NORMAL
[2021-07-19] MEDS: PANTOPRAZOLE 40 MG TABLET PO SCH (13:00)
[2021-07-19] MEDS ORDERED: MAGNESIUM SULF 50% (8.12 MEQ/2 ML-1 GM VIAL) IVPB ONE ×2 (13:00→16:38)
[2021-07-19] MEDS: methylPREDNISolone NA SUCC 40 MG/1 ML VIAL IVPUSH SCH ×2 (13:25→17:33)
[2021-07-19] MEDS: FUROSEMIDE 40 MG/4 ML INJECTABLE VIAL IVPUSH SCH (13:26)
[2021-07-19] MEDS ORDERED: DEXTROSE 5%-WATER 100 ML IVPB ONE (14:14)
[2021-07-19] MEDS: CEFTRIAXONE 2 GM in DEXTROSE 5%-WATER 2 GM/100 ML BAG IVPB SCH (14:16)
[2021-07-19] MEDS: ALBUTEROL SO4 2.5/IPRATROPIUM 0.5 INH SOL 3 ML VIAL.NEB. NEB SCH ×2 (15:54→20:30)
[2021-07-19] MEDS: FENTANYL NS IVPB 500 MCG/100 ML BAG IVPB SCH (16:22)
[2021-07-19] MEDS: ROFLUMILAST 500 MCG TABLET PO SCH (17:11)
[2021-07-19] MEDS: MIDAZOLAM IN 0.9 % SOD.CHLORID 100 MG/100 ML PLAST..BAG IVPB SCH ×2 (17:32→23:15)
[2021-07-19 19:00] LABS: BASO % 0.1 % (0-2.0); EOS % 0.1 % (0-4.5); HEMATOCRIT 29.7 % (32.4-45.2); HEMOGLOBIN 9.7 GM/dL (10.7-15.3); LYMPH % 6.2 % (8-40); MCH 24.1 pg (25.7-33.7); MCHC 32.6 g/dl (32.0-36.0); MEAN CELL VOLUME 73.8 fl (80-96); MEAN PLT VOLUME 8.5 fl (7.5-11.1); NEUT % 90.6 % (42.8-82.8); PLATELET COUNT 226 10^3/uL (134-434); RBC 4.03 M/mm3 (3.60-5.2); RDW 24.1 % (11.6-15.6); RETICULOCYTES 1.15 % (0.5-1.5); WHITE BLOOD COUNT 9.3 K/mm3 (4.0-10.0)
[2021-07-19 20:45] LABS: INR 1.1 (0.83-1.09); PROTHROMBIN TIME (PATIENT) 13.3 SEC (9.7-13.0)
[2021-07-19 20:48] LABS: ACTIVATED PTT 27.5 SECONDS (25.2-36.5)
[2021-07-19] MEDS: ATORVASTATIN CA 10 MG TABLET (FP) PO SCH (21:47)
[2021-07-19] MEDS: CHLORHEXIDINE GLUCONATE 4% CLEANSER FOR DECOLONIZATION TP SCH (21:47)
[2021-07-20] MEDS: NOREPINEPHRINE BITARTRATE 8,000 MCG/500 ML BAG IVPB SCH (01:15)
[2021-07-20] MEDS: methylPREDNISolone NA SUCC 40 MG/1 ML VIAL IVPUSH SCH ×3 (01:46→17:19)
[2021-07-20] MEDS: PROPOFOL 1,000,000 MCG/100 ML VIAL IVPB SCH (03:31)
[2021-07-20 06:31] LABS: BASO % 0.1 % (0-2.0); HEMATOCRIT 29.2 % (32.4-45.2); HEMOGLOBIN 9.5 GM/dL (10.7-15.3); LYMPH % 7.8 % (8-40); MCHC 32.4 g/dl (32.0-36.0); MEAN PLT VOLUME 8.7 fl (7.5-11.1); MONO % 2.6 % (3.8-10.2); NEUT % 89.5 % (42.8-82.8); PLATELET COUNT 224 10^3/uL (134-434); RBC 3.95 M/mm3 (3.60-5.2); RDW 23.8 % (11.6-15.6); WHITE BLOOD COUNT 7.3 K/mm3 (4.0-10.0)
[2021-07-20] MEDS: INSULIN SLIDING SCALE (NOVOLOG) 1 VIAL SQ SCH ×3 (06:31→17:20)
[2021-07-20 06:51] LABS: ALBUMIN 2.6 g/dl (3.4-5.0); BLOOD UREA NITROGEN 28.9 mg/dL (7-18); CALCIUM 8.5 mg/dL (8.5-10.1); MAGNESIUM 2.2 mg/dL (1.8-2.4)
[2021-07-20 06:54] LABS: PHOSPHOROUS 5.1 mg/dL (2.5-4.9)
[2021-07-20 06:56] LABS: BILIRUBIN,TOTAL 0.3 mg/dL (0.2-1); TOT PROT 5.8 g/dl (6.4-8.2)
[2021-07-20] MEDS ORDERED: PT OWN MED DRAWER 7, Y5N ONE (07:44)
[2021-07-20] MEDS ORDERED: DEXTROSE 5%-WATER 100 ML IVPB ONE (07:45)
[2021-07-20] MEDS: CEFTRIAXONE 2 GM in DEXTROSE 5%-WATER 2 GM/100 ML BAG IVPB SCH (09:01)
[2021-07-20] MEDS: ROFLUMILAST 500 MCG TABLET PO SCH (09:03)
[2021-07-20] MEDS: FENOFIBRIC ACID 135 MG CAP PO SCH (09:03)
[2021-07-20] MEDS: FUROSEMIDE 40 MG/4 ML INJECTABLE VIAL IVPUSH SCH (09:03)
[2021-07-20] MEDS: PANTOPRAZOLE 40 MG TABLET PO SCH (09:03)
[2021-07-20] MEDS: FENTANYL NS IVPB 500 MCG/100 ML BAG IVPB SCH ×2 (09:05→13:01)
[2021-07-20] MEDS: MUPIROCIN 2% TOPICAL OINTMENT FOR DECOLONIZATION NS SCH ×2 (09:10→22:02)
[2021-07-20] MEDS: ALBUTEROL SO4 2.5/IPRATROPIUM 0.5 INH SOL 3 ML VIAL.NEB. NEB SCH ×4 (09:54→20:34)
[2021-07-20] MEDS ORDERED: MEROPENEM 500 MG in DEXTROSE 5%-WATER 100 ML IVPB SCH ×2 (10:00→18:00)
[2021-07-20] MEDS: ENOXAPARIN NA (PORCINE) 40 MG/0.4 ML DISP.SYRIN SQ SCH (12:53)
[2021-07-20] MEDS ORDERED: MIDAZOLAM 100 MG in SODIUM CHLORIDE 100 ML IVPB SCH (17:30)
[2021-07-20] MEDS: ERTAPENEM SODIUM 1 GM in SODIUM CHLORIDE 50 ML IVPB SCH (17:32)
[2021-07-20] MEDS: MIDAZOLAM IN 0.9 % SOD.CHLORID 100 MG/100 ML PLAST..BAG IVPB SCH (19:15)
[2021-07-20] MEDS ORDERED: MIDAZOLAM HCL 10 MG/10 ML VIAL IVPUSH PRN (19:18)
[2021-07-20] MEDS ORDERED: MIDAZOLAM HCL 2 MG/2 ML SINGLE DOSE VIAL IVPUSH PRN (19:26)
[2021-07-20] MEDS: ATORVASTATIN CA 10 MG TABLET (FP) PO SCH (22:02)
[2021-07-20] MEDS: CHLORHEXIDINE GLUCONATE 4% CLEANSER FOR DECOLONIZATION TP SCH (22:02)
[2021-07-21] MEDS: NOREPINEPHRINE BITARTRATE 8,000 MCG/500 ML BAG IVPB SCH (01:15)
[2021-07-21] MEDS: methylPREDNISolone NA SUCC 40 MG/1 ML VIAL IVPUSH SCH ×3 (01:58→17:51)
[2021-07-21] MEDS: INSULIN SLIDING SCALE (NOVOLOG) 1 VIAL SQ SCH ×3 (06:44→16:50)
[2021-07-21] MEDS: PROPOFOL 1,000,000 MCG/100 ML VIAL IVPB SCH (07:10)
[2021-07-21 08:17] LABS: ALBUMIN 2.6 g/dl (3.4-5.0); BLOOD UREA NITROGEN 35.8 mg/dL (7-18); CALCIUM 8.1 mg/dL (8.5-10.1); MAGNESIUM 2.2 mg/dL (1.8-2.4)
[2021-07-21 08:20] LABS: CREATININE 1.1 mg/dL (0.55-1.3); PHOSPHOROUS 4.8 mg/dL (2.5-4.9)
[2021-07-21 08:22] LABS: BASO % 0.1 % (0-2.0); BILIRUBIN,TOTAL 0.2 mg/dL (0.2-1); HEMATOCRIT 27.9 % (32.4-45.2); HEMOGLOBIN 9.2 GM/dL (10.7-15.3); LYMPH % 5.8 % (8-40); MCH 24.4 pg (25.7-33.7); MCHC 32.9 g/dl (32.0-36.0); MEAN CELL VOLUME 74.2 fl (80-96); MEAN PLT VOLUME 8.7 fl (7.5-11.1); MONO % 4.1 % (3.8-10.2); PLATELET COUNT 248 10^3/uL (134-434); RBC 3.76 M/mm3 (3.60-5.2); RDW 24.1 % (11.6-15.6); TOT PROT 5.6 g/dl (6.4-8.2); WHITE BLOOD COUNT 8.4 K/mm3 (4.0-10.0)
[2021-07-21] MEDS: ALBUTEROL SO4 2.5/IPRATROPIUM 0.5 INH SOL 3 ML VIAL.NEB. NEB SCH ×4 (08:25→20:10)
[2021-07-21] MEDS ORDERED: PT OWN MED DRAWER 7, Y5N ONE (09:10)
[2021-07-21] MEDS: ENOXAPARIN NA (PORCINE) 40 MG/0.4 ML DISP.SYRIN SQ SCH (09:46)
[2021-07-21] MEDS: ERTAPENEM SODIUM 1 GM in SODIUM CHLORIDE 50 ML IVPB SCH (09:46)
[2021-07-21] MEDS: FUROSEMIDE 40 MG/4 ML INJECTABLE VIAL IVPUSH SCH (09:47)
[2021-07-21] MEDS: FENOFIBRIC ACID 135 MG CAP PO SCH (09:47)
[2021-07-21] MEDS: PANTOPRAZOLE 40 MG TABLET PO SCH (09:47)
[2021-07-21] MEDS: MUPIROCIN 2% TOPICAL OINTMENT FOR DECOLONIZATION NS SCH ×2 (09:47→21:32)
[2021-07-21] MEDS: AMINO ACIDS/PROTEIN HYDROLYS 30 ML LIQUID.PKT PO SCH (09:47)
[2021-07-21] MEDS: ROFLUMILAST 500 MCG TABLET PO SCH (09:48)
[2021-07-21] MEDS: FENTANYL NS IVPB 500 MCG/100 ML BAG IVPB SCH (16:50)
[2021-07-21] MEDS: MIDAZOLAM IN 0.9 % SOD.CHLORID 100 MG/100 ML PLAST..BAG IVPB SCH (16:50)
[2021-07-21] MEDS: CHLORHEXIDINE GLUCONATE 4% CLEANSER FOR DECOLONIZATION TP SCH (21:32)
[2021-07-21] MEDS: ATORVASTATIN CA 10 MG TABLET (FP) PO SCH (21:32)
[2021-07-22] MEDS: NOREPINEPHRINE BITARTRATE 8,000 MCG/500 ML BAG IVPB SCH ×2 (01:42→05:45)
[2021-07-22] MEDS: methylPREDNISolone NA SUCC 40 MG/1 ML VIAL IVPUSH SCH ×3 (02:08→17:34)
[2021-07-22] MEDS ORDERED: ALBUTEROL SO4 2.5/IPRATROPIUM 0.5 INH SOL 3 ML VIAL.NEB. NEB ONE (04:02)
[2021-07-22] MEDS ORDERED: LORazepam 2 MG/ML SDV VIAL IVPUSH PRN (04:06)
[2021-07-22] MEDS ORDERED: METOPROLOL TARTRATE 5 MG/5 ML VIAL IVPUSH ONE (04:16)
[2021-07-22] MEDS ORDERED: MIDAZOLAM HCL 5 MG/1 ML Single Dose Vial ONE (05:04)
[2021-07-22] MEDS ORDERED: MIDAZOLAM HCL 2 MG/2 ML SINGLE DOSE VIAL ONE (05:04)
[2021-07-22] MEDS ORDERED: MIDAZOLAM HCL 2 MG/2 ML SINGLE DOSE VIAL IVPUSH ONE (05:10)
[2021-07-22] MEDS ORDERED: MIDAZOLAM HCL 10 MG/10 ML VIAL IVPUSH ONE (05:10)
[2021-07-22] MEDS ORDERED: PROPOFOL 1,000,000 MCG/100 ML VIAL ONE (05:11)
[2021-07-22] MEDS ORDERED: MIDAZOLAM IN 0.9 % SOD.CHLORID 1 MG/1 ML PLAST..BAG ONE (05:11)
[2021-07-22] MEDS ORDERED: SODIUM CHLORIDE 0.9% 500 ML INFUS.BAG IV ONE (05:21)
[2021-07-22] MEDS: MIDAZOLAM 100 MG in SODIUM CHLORIDE 100 ML IVPB SCH ×2 (05:41→06:07)
[2021-07-22] MEDS: PROPOFOL 1,000,000 MCG/100 ML VIAL IVPB SCH ×2 (05:41→06:06)
[2021-07-22] MEDS ORDERED: NOREPINEPHRINE BITARTRATE 8,000 MCG/500 ML BAG IVPB ONE (05:50)
[2021-07-22] MEDS: INSULIN SLIDING SCALE (NOVOLOG) 1 VIAL SQ SCH ×3 (06:05→17:21)
[2021-07-22 06:22] LABS: HEMATOCRIT 34.9 % (32.4-45.2); HEMOGLOBIN 10.9 GM/dL (10.7-15.3); MCH 23.9 pg (25.7-33.7); MCHC 31.3 g/dl (32.0-36.0); MEAN CELL VOLUME 76.5 fl (80-96); MEAN PLT VOLUME 8.5 fl (7.5-11.1); PLATELET COUNT 369 10^3/uL (134-434); RBC 4.56 M/mm3 (3.60-5.2); RDW 24.6 % (11.6-15.6); WHITE BLOOD COUNT 18.3 K/mm3 (4.0-10.0)
[2021-07-22 06:27] LABS: ARTERIAL BLOOD GAS BASE EXCESS -2.4 mmol/L (-2-2); ARTERIAL BLOOD GAS PO2 145.3 mmHg (80-100)
[2021-07-22 06:29] LABS: ARTERIAL BLOOD GAS pH 7.141 (7.350-7.450)
[2021-07-22 06:31] LABS: ALLENS TEST POSITIVE; VENT MODE V-A/C; VENT RATE 20
[2021-07-22 06:41] LABS: CALCIUM 8.4 mg/dL (8.5-10.1)
[2021-07-22 06:42] LABS: BLOOD UREA NITROGEN 39.1 mg/dL (7-18); MAGNESIUM 2.2 mg/dL (1.8-2.4)
[2021-07-22 06:45] LABS: CREATININE 1.3 mg/dL (0.55-1.3); PHOSPHOROUS 6.6 mg/dL (2.5-4.9)
[2021-07-22 06:46] LABS: BILIRUBIN,TOTAL 0.4 mg/dL (0.2-1); TOT PROT 6.5 g/dl (6.4-8.2)
[2021-07-22] MEDS: ALBUTEROL SO4 2.5/IPRATROPIUM 0.5 INH SOL 3 ML VIAL.NEB. NEB SCH ×4 (08:20→20:01)
[2021-07-22] MEDS: AMINO ACIDS/PROTEIN HYDROLYS 30 ML LIQUID.PKT PO SCH (08:52)
[2021-07-22 09:11] LABS: ANISOCYTOSIS 1+; MACROCYTOSIS 0; PLATELET ESTIMATE NORMAL
[2021-07-22] MEDS: FUROSEMIDE 40 MG/4 ML INJECTABLE VIAL IVPUSH SCH (10:14)
[2021-07-22] MEDS: ERTAPENEM SODIUM 1 GM in SODIUM CHLORIDE 50 ML IVPB SCH (10:14)
[2021-07-22] MEDS: FENOFIBRIC ACID 135 MG CAP PO SCH (10:14)
[2021-07-22] MEDS: ENOXAPARIN NA (PORCINE) 40 MG/0.4 ML DISP.SYRIN SQ SCH (10:14)
[2021-07-22] MEDS: ROFLUMILAST 500 MCG TABLET PO SCH (10:14)
[2021-07-22] MEDS: PANTOPRAZOLE 40 MG TABLET PO SCH (10:15)
[2021-07-22] MEDS: MUPIROCIN 2% TOPICAL OINTMENT FOR DECOLONIZATION NS SCH ×2 (10:15→21:28)
[2021-07-22] MEDS: MIDAZOLAM IN 0.9 % SOD.CHLORID 100 MG/100 ML PLAST..BAG IVPB SCH ×2 (10:15→20:29)
[2021-07-22] MEDS ORDERED: PT OWN MED DRAWER 7, Y5N ONE (17:27)
[2021-07-22] MEDS: ATORVASTATIN CA 10 MG TABLET (FP) PO SCH (21:27)
[2021-07-22] MEDS: CHLORHEXIDINE GLUCONATE 4% CLEANSER FOR DECOLONIZATION TP SCH (21:27)
[2021-07-23] MEDS: ALBUTEROL SO4 2.5/IPRATROPIUM 0.5 INH SOL 3 ML VIAL.NEB. NEB SCH ×6 (00:03→20:26)
[2021-07-23] MEDS: NOREPINEPHRINE BITARTRATE 8,000 MCG/500 ML BAG IVPB SCH (01:25)
[2021-07-23] MEDS: methylPREDNISolone NA SUCC 40 MG/1 ML VIAL IVPUSH SCH ×3 (01:48→17:09)
[2021-07-23] MEDS: PROPOFOL 1,000,000 MCG/100 ML VIAL IVPB SCH ×3 (06:06→09:17)
[2021-07-23] MEDS: MIDAZOLAM IN 0.9 % SOD.CHLORID 100 MG/100 ML PLAST..BAG IVPB SCH ×2 (06:07→09:18)
[2021-07-23] MEDS: INSULIN SLIDING SCALE (NOVOLOG) 1 VIAL SQ SCH ×3 (06:08→18:46)
[2021-07-23 06:41] LABS: BASO % 0.1 % (0-2.0); HEMATOCRIT 30.6 % (32.4-45.2); HEMOGLOBIN 9.9 GM/dL (10.7-15.3); LYMPH % 11.4 % (8-40); MCH 23.8 pg (25.7-33.7); MCHC 32.4 g/dl (32.0-36.0); MEAN CELL VOLUME 73.5 fl (80-96); MEAN PLT VOLUME 8.1 fl (7.5-11.1); MONO % 4.3 % (3.8-10.2); NEUT % 84.2 % (42.8-82.8); PLATELET COUNT 271 10^3/uL (134-434); RBC 4.16 M/mm3 (3.60-5.2); RDW 25.3 % (11.6-15.6); WHITE BLOOD COUNT 8.2 K/mm3 (4.0-10.0)
[2021-07-23 07:01] LABS: ALBUMIN 2.6 g/dl (3.4-5.0); CALCIUM 8.8 mg/dL (8.5-10.1); MAGNESIUM 2.1 mg/dL (1.8-2.4)
[2021-07-23 07:04] LABS: PHOSPHOROUS 2.4 mg/dL (2.5-4.9)
[2021-07-23 07:05] LABS: BILIRUBIN,TOTAL 0.6 mg/dL (0.2-1); TOT PROT 5.7 g/dl (6.4-8.2)
[2021-07-23 08:45] LABS: ARTERIAL BLD GAS O2 SATURATION 98.4 % (95-98); ARTERIAL BLOOD GAS BASE EXCESS 11.5 mmol/L (-2-2); ARTERIAL BLOOD GAS PO2 111.6 mmHg (80-100); ARTERIAL BLOOD GAS pH 7.503 (7.350-7.450)
[2021-07-23 08:46] LABS: ALLENS TEST POSITIVE
[2021-07-23] MEDS: ROFLUMILAST 500 MCG TABLET PO SCH (09:11)
[2021-07-23] MEDS: MUPIROCIN 2% TOPICAL OINTMENT FOR DECOLONIZATION NS SCH ×2 (09:11→22:09)
[2021-07-23] MEDS: AMINO ACIDS/PROTEIN HYDROLYS 30 ML LIQUID.PKT PO SCH (09:11)
[2021-07-23] MEDS: ERTAPENEM SODIUM 1 GM in SODIUM CHLORIDE 50 ML IVPB SCH (09:15)
[2021-07-23] MEDS: ENOXAPARIN NA (PORCINE) 40 MG/0.4 ML DISP.SYRIN SQ SCH (09:16)
[2021-07-23] MEDS: PANTOPRAZOLE SODIUM 40 MG VIAL IVPUSH SCH (09:16)
[2021-07-23] MEDS: FUROSEMIDE 40 MG/4 ML INJECTABLE VIAL IVPUSH SCH (09:17)
[2021-07-23] MEDS: FENOFIBRIC ACID 135 MG CAP PO SCH (09:17)
[2021-07-23] MEDS: FENTANYL NS IVPB 500 MCG/100 ML BAG IVPB SCH (10:09)
[2021-07-23] MEDS ORDERED: PT OWN MED DRAWER 7, Y5N ONE (18:41)
[2021-07-23] MEDS: ATORVASTATIN CA 10 MG TABLET (FP) PO SCH (22:09)
[2021-07-23] MEDS: CHLORHEXIDINE GLUCONATE 4% CLEANSER FOR DECOLONIZATION TP SCH (22:09)
[2021-07-24] MEDS: NOREPINEPHRINE BITARTRATE 8,000 MCG/500 ML BAG IVPB SCH (01:03)
[2021-07-24] MEDS: FENTANYL NS IVPB 500 MCG/100 ML BAG IVPB SCH ×2 (01:03→13:50)
[2021-07-24] MEDS: PROPOFOL 1,000,000 MCG/100 ML VIAL IVPB SCH ×3 (01:04→08:00)
[2021-07-24] MEDS: methylPREDNISolone NA SUCC 40 MG/1 ML VIAL IVPUSH SCH ×2 (01:04→09:35)
[2021-07-24] MEDS: ALBUTEROL SO4 2.5/IPRATROPIUM 0.5 INH SOL 3 ML VIAL.NEB. NEB SCH ×6 (03:42→20:37)
[2021-07-24] MEDS: MIDAZOLAM IN 0.9 % SOD.CHLORID 100 MG/100 ML PLAST..BAG IVPB SCH ×2 (06:31→13:53)
[2021-07-24] MEDS: INSULIN SLIDING SCALE (NOVOLOG) 1 VIAL SQ SCH ×3 (07:38→17:21)
[2021-07-24] MEDS ORDERED: PT OWN MED DRAWER 7, Y5N ONE ×3 (07:45→17:11)
[2021-07-24] MEDS: AMINO ACIDS/PROTEIN HYDROLYS 30 ML LIQUID.PKT PO SCH (07:52)
[2021-07-24 07:56] LABS: BASO % 0.1 % (0-2.0); EOS % 0.9 % (0-4.5); HEMATOCRIT 30.6 % (32.4-45.2); HEMOGLOBIN 9.7 GM/dL (10.7-15.3); LYMPH % 23.9 % (8-40); MCH 23.9 pg (25.7-33.7); MCHC 31.9 g/dl (32.0-36.0); MEAN CELL VOLUME 75.1 fl (80-96); MEAN PLT VOLUME 8.2 fl (7.5-11.1); MONO % 6.9 % (3.8-10.2); NEUT % 68.2 % (42.8-82.8); PLATELET COUNT 251 10^3/uL (134-434); RBC 4.07 M/mm3 (3.60-5.2); RDW 25.7 % (11.6-15.6); WHITE BLOOD COUNT 7.6 K/mm3 (4.0-10.0)
[2021-07-24 08:00] LABS: CALCIUM 8.6 mg/dL (8.5-10.1)
[2021-07-24 08:01] LABS: ALBUMIN 2.5 g/dl (3.4-5.0); BLOOD UREA NITROGEN 38.8 mg/dL (7-18); MAGNESIUM 2.1 mg/dL (1.8-2.4)
[2021-07-24 08:03] LABS: CREATININE 0.8 mg/dL (0.55-1.3)
[2021-07-24 08:04] LABS: PHOSPHOROUS 2.7 mg/dL (2.5-4.9)
[2021-07-24 08:05] LABS: BILIRUBIN,TOTAL 0.4 mg/dL (0.2-1); TOT PROT 5.5 g/dl (6.4-8.2)
[2021-07-24] MEDS: FUROSEMIDE 40 MG/4 ML INJECTABLE VIAL IVPUSH SCH (09:34)
[2021-07-24] MEDS: PANTOPRAZOLE SODIUM 40 MG VIAL IVPUSH SCH (09:34)
[2021-07-24] MEDS: ENOXAPARIN NA (PORCINE) 40 MG/0.4 ML DISP.SYRIN SQ SCH (09:35)
[2021-07-24] MEDS: ERTAPENEM SODIUM 1 GM in SODIUM CHLORIDE 50 ML IVPB SCH (09:53)
[2021-07-24] MEDS: DEXAMETHASONE SOD PHOSPHATE 10 MG/1 ML VIAL IVPUSH SCH (13:10)
[2021-07-24] MEDS: ROFLUMILAST 500 MCG TABLET PO SCH (13:51)
[2021-07-24] MEDS: FENOFIBRIC ACID 135 MG CAP PO SCH (13:51)
[2021-07-24] MEDS ORDERED: REMDESIVIR 200 MG in SODIUM CHLORIDE 250 ML IVPB ONE (14:00)
[2021-07-24] MEDS: ATORVASTATIN CA 10 MG TABLET (FP) PO SCH (21:06)
[2021-07-24] MEDS: ASCORBIC ACID 500 MG TABLET (FP) GT SCH (21:06)
[2021-07-24] MEDS: CHLORHEXIDINE GLUCONATE 4% CLEANSER FOR DECOLONIZATION TP SCH (21:06)
[2021-07-25] MEDS: FENTANYL NS IVPB 500 MCG/100 ML BAG IVPB SCH ×3 (01:41→20:00)
[2021-07-25] MEDS: NOREPINEPHRINE BITARTRATE 8,000 MCG/500 ML BAG IVPB SCH (01:41)
[2021-07-25] MEDS: MIDAZOLAM IN 0.9 % SOD.CHLORID 100 MG/100 ML PLAST..BAG IVPB SCH ×2 (06:00→20:00)
[2021-07-25] MEDS: PROPOFOL 1,000,000 MCG/100 ML VIAL IVPB SCH ×2 (06:00→20:00)
[2021-07-25] MEDS: INSULIN SLIDING SCALE (NOVOLOG) 1 VIAL SQ SCH ×3 (06:01→17:02)
[2021-07-25 06:19] LABS: BASO % 0.1 % (0-2.0); HEMATOCRIT 30.4 % (32.4-45.2); LYMPH % 22.7 % (8-40); MCH 24.4 pg (25.7-33.7); MCHC 32.9 g/dl (32.0-36.0); MEAN CELL VOLUME 74.1 fl (80-96); MEAN PLT VOLUME 8.5 fl (7.5-11.1); MONO % 5.7 % (3.8-10.2); NEUT % 70.5 % (42.8-82.8); PLATELET COUNT 263 10^3/uL (134-434); RDW 25.5 % (11.6-15.6); WHITE BLOOD COUNT 7.6 K/mm3 (4.0-10.0)
[2021-07-25 06:30] LABS: ALBUMIN 2.5 g/dl (3.4-5.0); CALCIUM 8.8 mg/dL (8.5-10.1); MAGNESIUM 2.1 mg/dL (1.8-2.4)
[2021-07-25 06:34] LABS: CREATININE 0.8 mg/dL (0.55-1.3); PHOSPHOROUS 3.1 mg/dL (2.5-4.9)
[2021-07-25 06:35] LABS: BILIRUBIN,TOTAL 0.4 mg/dL (0.2-1); TOT PROT 5.4 g/dl (6.4-8.2)
[2021-07-25] MEDS: ALBUTEROL SO4 2.5/IPRATROPIUM 0.5 INH SOL 3 ML VIAL.NEB. NEB SCH ×5 (08:32→21:31)
[2021-07-25] MEDS: KCL 10 MEQ IVPB 10 MEQ/100 ML INFUS.BAG IVPB SCH ×3 (09:45→15:26)
[2021-07-25] MEDS: ERTAPENEM SODIUM 1 GM in SODIUM CHLORIDE 50 ML IVPB SCH (09:46)
[2021-07-25] MEDS: ROFLUMILAST 500 MCG TABLET PO SCH (09:47)
[2021-07-25] MEDS: DEXAMETHASONE SOD PHOSPHATE 10 MG/1 ML VIAL IVPUSH SCH (09:47)
[2021-07-25] MEDS: ZINC SULFATE 220 MG CAPSULE (FP) GT SCH (09:47)
[2021-07-25] MEDS: ENOXAPARIN NA (PORCINE) 40 MG/0.4 ML DISP.SYRIN SQ SCH (09:47)
[2021-07-25] MEDS: PANTOPRAZOLE SODIUM 40 MG VIAL IVPUSH SCH (09:47)
[2021-07-25] MEDS: CHOLECALCIFEROL (VIT D3) 1,000 UNIT (25 MCG) TABLET PO SCH (09:47)
[2021-07-25] MEDS: AMINO ACIDS/PROTEIN HYDROLYS 30 ML LIQUID.PKT PO SCH (09:47)
[2021-07-25] MEDS: ASCORBIC ACID 500 MG TABLET (FP) GT SCH ×2 (09:48→21:31)
[2021-07-25] MEDS ORDERED: PT OWN MED DRAWER 7, Y5N ONE (13:10)
[2021-07-25] MEDS: REMDESIVIR 100 MG in SODIUM CHLORIDE 250 ML IVPB SCH (15:26)
[2021-07-25] MEDS: FENOFIBRIC ACID 135 MG CAP PO SCH (18:07)
[2021-07-25] MEDS: ATORVASTATIN CA 10 MG TABLET (FP) PO SCH (21:31)
[2021-07-25] MEDS: CHLORHEXIDINE GLUCONATE 4% CLEANSER FOR DECOLONIZATION TP SCH (21:31)
[2021-07-26] MEDS: ALBUTEROL SO4 2.5/IPRATROPIUM 0.5 INH SOL 3 ML VIAL.NEB. NEB SCH ×6 (03:24→20:17)
[2021-07-26] MEDS: NOREPINEPHRINE BITARTRATE 8,000 MCG/500 ML BAG IVPB SCH (05:51)
[2021-07-26] MEDS: PROPOFOL 1,000,000 MCG/100 ML VIAL IVPB SCH (05:51)
[2021-07-26] MEDS: INSULIN SLIDING SCALE (NOVOLOG) 1 VIAL SQ SCH ×3 (06:01→16:56)
[2021-07-26] MEDS: MIDAZOLAM IN 0.9 % SOD.CHLORID 100 MG/100 ML PLAST..BAG IVPB SCH (06:01)
[2021-07-26 06:45] LABS: BASO % 0.2 % (0-2.0); EOS % 2.3 % (0-4.5); HEMATOCRIT 31.3 % (32.4-45.2); HEMOGLOBIN 9.9 GM/dL (10.7-15.3); LYMPH % 26.5 % (8-40); MCH 23.9 pg (25.7-33.7); MCHC 31.6 g/dl (32.0-36.0); MEAN CELL VOLUME 75.7 fl (80-96); MEAN PLT VOLUME 8.6 fl (7.5-11.1); PLATELET COUNT 241 10^3/uL (134-434); RBC 4.14 M/mm3 (3.60-5.2); RDW 25.8 % (11.6-15.6); WHITE BLOOD COUNT 7.1 K/mm3 (4.0-10.0)
[2021-07-26 07:02] LABS: ALBUMIN 2.5 g/dl (3.4-5.0); BLOOD UREA NITROGEN 46.2 mg/dL (7-18); CALCIUM 8.7 mg/dL (8.5-10.1)
[2021-07-26 07:03] LABS: MAGNESIUM 2.3 mg/dL (1.8-2.4)
[2021-07-26 07:05] LABS: CREATININE 0.8 mg/dL (0.55-1.3)
[2021-07-26 07:07] LABS: BILIRUBIN,TOTAL 0.8 mg/dL (0.2-1); TOT PROT 5.4 g/dl (6.4-8.2)
[2021-07-26 08:52] LABS: ANISOCYTOSIS 2+; MACROCYTOSIS 1+; PLATELET ESTIMATE NORMAL
[2021-07-26] MEDS ORDERED: PT OWN MED DRAWER 7, Y5N ONE ×2 (09:20→14:03)
[2021-07-26] MEDS: PANTOPRAZOLE SODIUM 40 MG VIAL IVPUSH SCH (09:39)
[2021-07-26] MEDS: DEXAMETHASONE SOD PHOSPHATE 10 MG/1 ML VIAL IVPUSH SCH (09:39)
[2021-07-26] MEDS: AMINO ACIDS/PROTEIN HYDROLYS 30 ML LIQUID.PKT PO SCH (09:40)
[2021-07-26] MEDS: ENOXAPARIN NA (PORCINE) 40 MG/0.4 ML DISP.SYRIN SQ SCH (09:40)
[2021-07-26] MEDS: CHOLECALCIFEROL (VIT D3) 1,000 UNIT (25 MCG) TABLET PO SCH (09:40)
[2021-07-26] MEDS: ROFLUMILAST 500 MCG TABLET PO SCH (09:40)
[2021-07-26] MEDS: ZINC SULFATE 220 MG CAPSULE (FP) GT SCH (09:41)
[2021-07-26] MEDS: ASCORBIC ACID 500 MG TABLET (FP) GT SCH ×2 (09:41→22:05)
[2021-07-26] MEDS: ERTAPENEM SODIUM 1 GM in SODIUM CHLORIDE 50 ML IVPB SCH (09:41)
[2021-07-26] MEDS ORDERED: LABETALOL HCL 5 MG/1 ML (100MG/20 ML VIAL) IVPUSH ONE (12:32)
[2021-07-26] MEDS: REMDESIVIR 100 MG in SODIUM CHLORIDE 250 ML IVPB SCH (14:23)
[2021-07-26] MEDS: CHLORHEXIDINE GLUCONATE 4% CLEANSER FOR DECOLONIZATION TP SCH (22:04)
[2021-07-26] MEDS: ATORVASTATIN CA 10 MG TABLET (FP) PO SCH (22:04)
[2021-07-27] MEDS: ALBUTEROL SO4 2.5/IPRATROPIUM 0.5 INH SOL 3 ML VIAL.NEB. NEB SCH ×6 (00:25→20:58)
[2021-07-27 06:55] LABS: BASO % 0.4 % (0-2.0); EOS % 0.5 % (0-4.5); HEMATOCRIT 36.7 % (32.4-45.2); LYMPH % 10.2 % (8-40); MCHC 30.1 g/dl (32.0-36.0); MEAN CELL VOLUME 76.4 fl (80-96); MEAN PLT VOLUME 8.6 fl (7.5-11.1); MONO % 4.9 % (3.8-10.2); PLATELET COUNT 282 10^3/uL (134-434); RDW 25.2 % (11.6-15.6); WHITE BLOOD COUNT 14.2 K/mm3 (4.0-10.0)
[2021-07-27 07:08] LABS: CALCIUM 8.7 mg/dL (8.5-10.1)
[2021-07-27 07:09] LABS: ALBUMIN 2.8 g/dl (3.4-5.0); BLOOD UREA NITROGEN 37.4 mg/dL (7-18); MAGNESIUM 2.3 mg/dL (1.8-2.4)
[2021-07-27 07:12] LABS: CREATININE 0.7 mg/dL (0.55-1.3); PHOSPHOROUS 3.8 mg/dL (2.5-4.9)
[2021-07-27 07:13] LABS: BILIRUBIN,TOTAL 0.4 mg/dL (0.2-1)
[2021-07-27] MEDS: INSULIN SLIDING SCALE (NOVOLOG) 1 VIAL SQ SCH ×2 (07:28→12:06)
[2021-07-27 08:16] LABS: ARTERIAL BLOOD GAS BASE EXCESS 3.6 mmol/L (-2-2); ARTERIAL BLOOD GAS PO2 77.4 mmHg (80-100); ARTERIAL BLOOD GAS pH 7.315 (7.350-7.450)
[2021-07-27 08:38] LABS: ALLENS TEST POSITIVE
[2021-07-27] MEDS: DEXAMETHASONE SOD PHOSPHATE 10 MG/1 ML VIAL IVPUSH SCH (09:22)
[2021-07-27] MEDS: PANTOPRAZOLE SODIUM 40 MG VIAL IVPUSH SCH (09:26)
[2021-07-27] MEDS: ENOXAPARIN NA (PORCINE) 40 MG/0.4 ML DISP.SYRIN SQ SCH (09:26)
[2021-07-27] MEDS: ROFLUMILAST 500 MCG TABLET PO SCH (12:06)
[2021-07-27] MEDS: ZINC SULFATE 220 MG CAPSULE (FP) GT SCH (12:06)
[2021-07-27] MEDS: AMINO ACIDS/PROTEIN HYDROLYS 30 ML LIQUID.PKT PO SCH (12:06)
[2021-07-27] MEDS: ASCORBIC ACID 500 MG TABLET (FP) GT SCH ×2 (12:06→21:28)
[2021-07-27] MEDS: CHOLECALCIFEROL (VIT D3) 1,000 UNIT (25 MCG) TABLET PO SCH (12:07)
[2021-07-27] MEDS: REMDESIVIR 100 MG in SODIUM CHLORIDE 250 ML IVPB SCH (14:12)
[2021-07-27] MEDS: ATORVASTATIN CA 10 MG TABLET (FP) PO SCH (21:28)
[2021-07-27] MEDS: CHLORHEXIDINE GLUCONATE 4% CLEANSER FOR DECOLONIZATION TP SCH (21:54)
[2021-07-27] MEDS ORDERED: ACETAMINOPHEN 1000 MG/100 ML VIAL IVPB ONE (23:38)
[2021-07-28] MEDS: ALBUTEROL SO4 2.5/IPRATROPIUM 0.5 INH SOL 3 ML VIAL.NEB. NEB SCH ×6 (00:35→20:10)
[2021-07-28] MEDS: INSULIN SLIDING SCALE (NOVOLOG) 1 VIAL SQ SCH ×4 (06:40→21:23)
[2021-07-28 07:15] LABS: HEMATOCRIT 39.2 % (32.4-45.2); HEMOGLOBIN 11.8 GM/dL (10.7-15.3); MCH 23.4 pg (25.7-33.7); MEAN CELL VOLUME 77.8 fl (80-96); MEAN PLT VOLUME 9.2 fl (7.5-11.1); PLATELET COUNT 281 10^3/uL (134-434); RBC 5.04 M/mm3 (3.60-5.2); RDW 25.4 % (11.6-15.6)
[2021-07-28 07:43] LABS: CALCIUM 9.5 mg/dL (8.5-10.1)
[2021-07-28 07:44] LABS: ALBUMIN 2.8 g/dl (3.4-5.0); BLOOD UREA NITROGEN 34.4 mg/dL (7-18); MAGNESIUM 2.3 mg/dL (1.8-2.4)
[2021-07-28 07:46] LABS: CREATININE 0.8 mg/dL (0.55-1.3); PHOSPHOROUS 2.5 mg/dL (2.5-4.9)
[2021-07-28 07:48] LABS: BILIRUBIN,TOTAL 0.4 mg/dL (0.2-1)
[2021-07-28] MEDS ORDERED: SODIUM CHLORIDE 0.45% 1,000 ML IV SCH (08:15)
[2021-07-28 09:44] LABS: ANISOCYTOSIS 1+; MACROCYTOSIS 0; PLATELET ESTIMATE NORMAL
[2021-07-28] MEDS: DEXTROSE 5%-WATER - 1,000 ML IV SCH (10:06)
[2021-07-28] MEDS: AMINO ACIDS/PROTEIN HYDROLYS 30 ML LIQUID.PKT PO SCH ×2 (10:06→10:34)
[2021-07-28] MEDS: ENOXAPARIN NA (PORCINE) 40 MG/0.4 ML DISP.SYRIN SQ SCH (10:06)
[2021-07-28] MEDS: ASCORBIC ACID 500 MG TABLET (FP) GT SCH ×3 (10:07→21:23)
[2021-07-28] MEDS: DEXAMETHASONE SOD PHOSPHATE 10 MG/1 ML VIAL IVPUSH SCH (10:07)
[2021-07-28] MEDS: PANTOPRAZOLE SODIUM 40 MG VIAL IVPUSH SCH (10:07)
[2021-07-28] MEDS: CHOLECALCIFEROL (VIT D3) 1,000 UNIT (25 MCG) TABLET PO SCH (10:07)
[2021-07-28] MEDS: ZINC SULFATE 220 MG CAPSULE (FP) GT SCH ×2 (10:07→10:34)
[2021-07-28] MEDS ORDERED: PT OWN MED DRAWER 7, Y5N ONE ×3 (10:19→14:33)
[2021-07-28] MEDS: ROFLUMILAST 500 MCG TABLET PO SCH ×2 (10:19→10:34)
[2021-07-28] MEDS: REMDESIVIR 100 MG in SODIUM CHLORIDE 250 ML IVPB SCH (15:33)
[2021-07-28] MEDS: ATORVASTATIN CA 10 MG TABLET (FP) PO SCH (21:23)
[2021-07-28] MEDS: CHLORHEXIDINE GLUCONATE 4% CLEANSER FOR DECOLONIZATION TP SCH (21:23)
[2021-07-29] MEDS: ALBUTEROL SO4 2.5/IPRATROPIUM 0.5 INH SOL 3 ML VIAL.NEB. NEB SCH ×3 (00:04→08:10)
[2021-07-29] MEDS: INSULIN SLIDING SCALE (NOVOLOG) 1 VIAL SQ SCH ×3 (06:29→17:19)
[2021-07-29 06:40] LABS: HEMATOCRIT 36.8 % (32.4-45.2); HEMOGLOBIN 11.1 GM/dL (10.7-15.3); MCH 23.2 pg (25.7-33.7); MCHC 30.2 g/dl (32.0-36.0); MEAN PLT VOLUME 8.7 fl (7.5-11.1); PLATELET COUNT 254 10^3/uL (134-434); RBC 4.78 M/mm3 (3.60-5.2); RDW 25.7 % (11.6-15.6); WHITE BLOOD COUNT 12.2 K/mm3 (4.0-10.0)
[2021-07-29 07:02] LABS: ALBUMIN 2.5 g/dl (3.4-5.0); BLOOD UREA NITROGEN 33.7 mg/dL (7-18); CALCIUM 8.8 mg/dL (8.5-10.1); MAGNESIUM 2.1 mg/dL (1.8-2.4)
[2021-07-29 07:05] LABS: CREATININE 0.8 mg/dL (0.55-1.3)
[2021-07-29 07:06] LABS: PHOSPHOROUS 2.2 mg/dL (2.5-4.9)
[2021-07-29 07:07] LABS: BILIRUBIN,TOTAL 0.4 mg/dL (0.2-1); TOT PROT 5.3 g/dl (6.4-8.2)
[2021-07-29] MEDS: AMINO ACIDS/PROTEIN HYDROLYS 30 ML LIQUID.PKT PO SCH (08:43)
[2021-07-29] MEDS: ZINC SULFATE 220 MG CAPSULE (FP) GT SCH (09:24)
[2021-07-29] MEDS: ASCORBIC ACID 500 MG TABLET (FP) GT SCH ×2 (09:25→22:17)
[2021-07-29] MEDS: CHOLECALCIFEROL (VIT D3) 1,000 UNIT (25 MCG) TABLET PO SCH (09:25)
[2021-07-29] MEDS: DEXTROSE 5%-WATER - 1,000 ML IV SCH (09:29)
[2021-07-29] MEDS: PANTOPRAZOLE SODIUM 40 MG VIAL IVPUSH SCH (09:30)
[2021-07-29] MEDS: DEXAMETHASONE SOD PHOSPHATE 10 MG/1 ML VIAL IVPUSH SCH (09:30)
[2021-07-29] MEDS: ENOXAPARIN NA (PORCINE) 40 MG/0.4 ML DISP.SYRIN SQ SCH (09:31)
[2021-07-29] MEDS ORDERED: PT OWN MED DRAWER 7, Y5N ONE (09:32)
[2021-07-29] MEDS: ROFLUMILAST 500 MCG TABLET PO SCH (09:33)
[2021-07-29 12:02] LABS: ANISOCYTOSIS 1+; MACROCYTOSIS 0; PLATELET ESTIMATE NORMAL
[2021-07-29] MEDS: REMDESIVIR 100 MG in SODIUM CHLORIDE 250 ML IVPB SCH (14:44)
[2021-07-29] MEDS: ATORVASTATIN CA 10 MG TABLET (FP) PO SCH (22:18)
[2021-07-29] MEDS: CHLORHEXIDINE GLUCONATE 4% CLEANSER FOR DECOLONIZATION TP SCH (22:18)
[2021-07-30 06:44] LABS: HEMATOCRIT 37.4 % (32.4-45.2); HEMOGLOBIN 11.3 GM/dL (10.7-15.3); MCH 23.3 pg (25.7-33.7); MCHC 30.3 g/dl (32.0-36.0); MEAN CELL VOLUME 76.9 fl (80-96); MEAN PLT VOLUME 9.4 fl (7.5-11.1); PLATELET COUNT 295 10^3/uL (134-434); RBC 4.86 M/mm3 (3.60-5.2); RDW 25.8 % (11.6-15.6)
[2021-07-30] MEDS: INSULIN SLIDING SCALE (NOVOLOG) 1 VIAL SQ SCH ×3 (06:48→18:04)
[2021-07-30 07:49] LABS: BLOOD UREA NITROGEN 28.4 mg/dL (7-18); CALCIUM 8.4 mg/dL (8.5-10.1); CREATININE 0.6 mg/dL (0.55-1.3); PHOSPHOROUS 3.2 mg/dL (2.5-4.9)
[2021-07-30] MEDS: AMINO ACIDS/PROTEIN HYDROLYS 30 ML LIQUID.PKT PO SCH (08:32)
[2021-07-30] MEDS ORDERED: PT OWN MED DRAWER 7, Y5N ONE ×2 (08:48→14:08)
[2021-07-30] MEDS: ENOXAPARIN NA (PORCINE) 40 MG/0.4 ML DISP.SYRIN SQ SCH (09:15)
[2021-07-30] MEDS: CHOLECALCIFEROL (VIT D3) 1,000 UNIT (25 MCG) TABLET PO SCH (09:16)
[2021-07-30] MEDS: DEXAMETHASONE SOD PHOSPHATE 10 MG/1 ML VIAL IVPUSH SCH (09:16)
[2021-07-30] MEDS: PANTOPRAZOLE SODIUM 40 MG VIAL IVPUSH SCH (09:16)
[2021-07-30] MEDS: ROFLUMILAST 500 MCG TABLET PO SCH (09:17)
[2021-07-30] MEDS: ZINC SULFATE 220 MG CAPSULE (FP) GT SCH (09:18)
[2021-07-30] MEDS: ASCORBIC ACID 500 MG TABLET (FP) GT SCH (09:18)
[2021-07-30] MEDS: REMDESIVIR 100 MG in SODIUM CHLORIDE 250 ML IVPB SCH (14:16)
[2021-07-30] MEDS ORDERED: CHLORHEXIDINE GLUCONATE 4% CLEANSER FOR DECOLONIZATION TP SCH (22:00)
[2021-07-30] MEDS: ATORVASTATIN CA 10 MG TABLET (FP) PO SCH (22:13)
[2021-07-31] MEDS: INSULIN SLIDING SCALE (NOVOLOG) 1 VIAL SQ SCH ×3 (06:27→16:53)
[2021-07-31] MEDS: VASOPRESSIN 40 UNITS in SODIUM CHLORIDE 98 ML IVPB SCH (07:30)
[2021-07-31 07:37] LABS: ARTERIAL BLOOD GAS BASE EXCESS 0.6 mmol/L (-2-2); ARTERIAL BLOOD GAS PO2 164.7 mmHg (80-100)
[2021-07-31] MEDS ORDERED: SODIUM CHLORIDE 1,000 ML IV STA ×2 (07:40→11:54)
[2021-07-31 07:42] LABS: ARTERIAL BLOOD GAS pH 7.022 (7.350-7.450)
[2021-07-31] MEDS ORDERED: SODIUM BICARBONATE 8.4% 50 MEQ/50 ML DISP.SYRIN IVPUSH SCH (07:45)
[2021-07-31] MEDS: AMINO ACIDS/PROTEIN HYDROLYS 30 ML LIQUID.PKT PO SCH (08:17)
[2021-07-31 08:51] LABS: BASO % 0.4 % (0-2.0); EOS % 0.1 % (0-4.5); HEMATOCRIT 37.1 % (32.4-45.2); HEMOGLOBIN 10.9 GM/dL (10.7-15.3); LYMPH % 6.9 % (8-40); MCH 23.5 pg (25.7-33.7); MCHC 29.4 g/dl (32.0-36.0); MEAN CELL VOLUME 80.2 fl (80-96); MEAN PLT VOLUME 8.9 fl (7.5-11.1); MONO % 7.8 % (3.8-10.2); NEUT % 84.8 % (42.8-82.8); PLATELET COUNT 262 10^3/uL (134-434); RBC 4.62 M/mm3 (3.60-5.2); RDW 24.5 % (11.6-15.6); WHITE BLOOD COUNT 12.3 K/mm3 (4.0-10.0)
[2021-07-31] MEDS ORDERED: dilTIAZem HCL 125 MG/25 ML - 25 ML VIAL ONE (09:00)
[2021-07-31 09:24] LABS: CALCIUM 8.4 mg/dL (8.5-10.1)
[2021-07-31 09:25] LABS: ALBUMIN 2.5 g/dl (3.4-5.0); BLOOD UREA NITROGEN 38.5 mg/dL (7-18); MAGNESIUM 2.2 mg/dL (1.8-2.4)
[2021-07-31 09:28] LABS: PHOSPHOROUS 5.2 mg/dL (2.5-4.9)
[2021-07-31 09:30] LABS: BILIRUBIN,TOTAL 0.3 mg/dL (0.2-1); TOT PROT 5.5 g/dl (6.4-8.2)
[2021-07-31] MEDS ORDERED: PT OWN MED DRAWER 7, Y5N ONE ×2 (09:37→14:18)
[2021-07-31] MEDS ORDERED: PROPOFOL 1,000,000 MCG/100 ML VIAL ONE (09:52)
[2021-07-31] MEDS ORDERED: ENOXAPARIN NA (PORCINE) 40 MG/0.4 ML DISP.SYRIN SQ SCH (10:00)
[2021-07-31] MEDS ORDERED: DEXAMETHASONE SOD PHOSPHATE 10 MG/1 ML VIAL IVPUSH SCH (10:00)
[2021-07-31] MEDS: PROPOFOL 1,000,000 MCG/100 ML VIAL IVPB SCH (10:00)
[2021-07-31] MEDS: DEXMEDETOMIDINE IN 0.9 % NACL 400 MCG/100 ML VIAL IVPB SCH (10:14)
[2021-07-31 10:49] LABS: ARTERIAL BLD GAS O2 SATURATION 82.5 % (95-98); ARTERIAL BLOOD GAS PO2 57.3 mmHg (80-100); ARTERIAL BLOOD GAS pH 7.213 (7.350-7.450)
[2021-07-31 10:58] LABS: ALLENS TEST POSITIVE; VENT MODE A/C; VENT RATE 14
[2021-07-31] MEDS: DEXTROSE 5%-NORMAL SALINE 1,000 ML IV SCH (11:21)
[2021-07-31] MEDS ORDERED: PHENYLEPHRINE HCL 10 MG/1 ML SINGLE DOSE VIAL ONE (11:52)
[2021-07-31] MEDS: PHENYLEPHRINE NS PREMIX 50,000 MCG/500 ML BAG IVPB SCH (12:20)
[2021-07-31] MEDS: REMDESIVIR 100 MG in SODIUM CHLORIDE 250 ML IVPB SCH (13:30)
[2021-07-31] MEDS: CHOLECALCIFEROL (VIT D3) 1,000 UNIT (25 MCG) TABLET PO SCH (14:17)
[2021-07-31] MEDS: ROFLUMILAST 500 MCG TABLET PO SCH (14:23)
[2021-07-31] MEDS ORDERED: DOPAMINE 400 MG/D5W - 400,000 MCG/250 ML INFUS.BAG IVPB ONE (18:12)
[2021-07-31] MEDS: DOPAMINE 400 MG/D5W - 400,000 MCG/250 ML INFUS.BAG IVPB SCH (18:24)
[2021-07-31] MEDS: ENOXAPARIN NA (PORCINE) 40 MG/0.4 ML DISP.SYRIN SQ SCH (18:55)
[2021-07-31] MEDS: FENTANYL NS IVPB 500 MCG/100 ML BAG IVPB SCH ×2 (19:49→19:59)
[2021-07-31] MEDS ORDERED: NOREPINEPHRINE NS PREMIX 16,000 MCG/500 ML BAG IVPB ONE (20:32)
[2021-07-31] MEDS: NOREPINEPHRINE D5W PREMIX 16,000 MCG/500 ML BAG IVPB SCH (20:44)
[2021-07-31] MEDS: methylPREDNISolone NA SUCC 40 MG/1 ML VIAL IVPUSH SCH (21:42)
[2021-07-31] MEDS: ATORVASTATIN CA 10 MG TABLET (FP) PO SCH (21:43)
[2021-08-01] MEDS: DEXMEDETOMIDINE IN 0.9 % NACL 400 MCG/100 ML VIAL IVPB SCH ×3 (02:00→21:43)
[2021-08-01] MEDS: VANCOMYCIN 250 MG/5 ML ORAL SOLUTION PO SCH ×4 (03:13→17:05)
[2021-08-01] MEDS: methylPREDNISolone NA SUCC 40 MG/1 ML VIAL IVPUSH SCH ×4 (03:29→21:55)
[2021-08-01 06:44] LABS: HEMATOCRIT 32.6 % (32.4-45.2); MCH 23.3 pg (25.7-33.7); MCHC 30.7 g/dl (32.0-36.0); MEAN CELL VOLUME 75.8 fl (80-96); MEAN PLT VOLUME 9.1 fl (7.5-11.1); PLATELET COUNT 303 10^3/uL (134-434); RDW 25.6 % (11.6-15.6); WHITE BLOOD COUNT 12.2 K/mm3 (4.0-10.0)
[2021-08-01 07:12] LABS: ALBUMIN 2.3 g/dl (3.4-5.0); BLOOD UREA NITROGEN 36.3 mg/dL (7-18); CALCIUM 8.1 mg/dL (8.5-10.1); MAGNESIUM 1.9 mg/dL (1.8-2.4)
[2021-08-01 07:16] LABS: CREATININE 0.8 mg/dL (0.55-1.3)
[2021-08-01 07:17] LABS: BILIRUBIN,TOTAL 0.3 mg/dL (0.2-1); TOT PROT 5.1 g/dl (6.4-8.2)
[2021-08-01] MEDS: INSULIN SLIDING SCALE (NOVOLOG) 1 VIAL SQ SCH ×4 (07:23→22:01)
[2021-08-01] MEDS ORDERED: PT OWN MED DRAWER 7, Y5N ONE ×4 (09:36→16:16)
[2021-08-01] MEDS: AMINO ACIDS/PROTEIN HYDROLYS 30 ML LIQUID.PKT PO SCH (09:38)
[2021-08-01] MEDS: ROFLUMILAST 500 MCG TABLET PO SCH (09:38)
[2021-08-01] MEDS: ENOXAPARIN NA (PORCINE) 40 MG/0.4 ML DISP.SYRIN SQ SCH (09:38)
[2021-08-01] MEDS: CHOLECALCIFEROL (VIT D3) 1,000 UNIT (25 MCG) TABLET PO SCH (09:38)
[2021-08-01] MEDS: PROPOFOL 1,000,000 MCG/100 ML VIAL IVPB SCH (10:06)
[2021-08-01] MEDS: DEXTROSE 5%-NORMAL SALINE 1,000 ML IV SCH (10:06)
[2021-08-01 10:30] LABS: ARTERIAL BLD GAS O2 SATURATION 98.3 % (95-98); ARTERIAL BLOOD GAS PO2 114.7 mmHg (80-100); ARTERIAL BLOOD GAS pH 7.423 (7.350-7.450)
[2021-08-01 10:32] LABS: ALLENS TEST POSITIVE; VENT MODE CPAP P58
[2021-08-01 10:42] LABS: ANISOCYTOSIS 1+; MACROCYTOSIS 0; PLATELET ESTIMATE NORMAL
[2021-08-01] MEDS: PHENYLEPHRINE NS PREMIX 50,000 MCG/500 ML BAG IVPB SCH (12:10)
[2021-08-01] MEDS ORDERED: MORPHINE SULFATE 2 MG/ML VIAL ONE (12:19)
[2021-08-01] MEDS ORDERED: MORPHINE SULFATE 2 MG/ML VIAL IVPUSH ONE (12:30)
[2021-08-01] MEDS: DEXTROSE 5%-WATER - 1,000 ML IV SCH (13:00)
[2021-08-01] MEDS: VASOPRESSIN 40 UNITS in SODIUM CHLORIDE 98 ML IVPB SCH (13:25)
[2021-08-01] MEDS: REMDESIVIR 100 MG in SODIUM CHLORIDE 250 ML IVPB SCH (16:46)
[2021-08-01] MEDS: FENTANYL NS IVPB 500 MCG/100 ML BAG IVPB SCH (18:50)
[2021-08-01] MEDS: DOPAMINE 400 MG/D5W - 400,000 MCG/250 ML INFUS.BAG IVPB SCH (18:50)
[2021-08-01] MEDS: NOREPINEPHRINE D5W PREMIX 16,000 MCG/500 ML BAG IVPB SCH (20:30)
[2021-08-01] MEDS: ATORVASTATIN CA 10 MG TABLET (FP) PO SCH (21:44)
[2021-08-02] MEDS: VANCOMYCIN 250 MG/5 ML ORAL SOLUTION PO SCH ×4 (00:54→18:53)
[2021-08-02] MEDS ORDERED: SODIUM CHLORIDE 500 ML IV STA (03:01)
[2021-08-02] MEDS: methylPREDNISolone NA SUCC 40 MG/1 ML VIAL IVPUSH SCH ×4 (03:40→21:45)
[2021-08-02] MEDS: INSULIN SLIDING SCALE (NOVOLOG) 1 VIAL SQ SCH ×4 (06:42→22:59)
[2021-08-02] MEDS: AMINO ACIDS/PROTEIN HYDROLYS 30 ML LIQUID.PKT PO SCH (10:44)
[2021-08-02] MEDS: ROFLUMILAST 500 MCG TABLET PO SCH (10:44)
[2021-08-02] MEDS: DEXMEDETOMIDINE IN 0.9 % NACL 400 MCG/100 ML VIAL IVPB SCH (10:45)
[2021-08-02] MEDS: PROPOFOL 1,000,000 MCG/100 ML VIAL IVPB SCH (10:45)
[2021-08-02] MEDS: ENOXAPARIN NA (PORCINE) 40 MG/0.4 ML DISP.SYRIN SQ SCH (10:45)
[2021-08-02] MEDS: CHOLECALCIFEROL (VIT D3) 1,000 UNIT (25 MCG) TABLET PO SCH (10:45)
[2021-08-02] MEDS: DEXTROSE 5%-WATER - 1,000 ML IV SCH (13:01)
[2021-08-02] MEDS: REMDESIVIR 100 MG in SODIUM CHLORIDE 250 ML IVPB SCH (13:01)
[2021-08-02 13:20] LABS: HEMATOCRIT 34.7 % (32.4-45.2); HEMOGLOBIN 10.6 GM/dL (10.7-15.3); MCH 23.9 pg (25.7-33.7); MCHC 30.5 g/dl (32.0-36.0); MEAN CELL VOLUME 78.3 fl (80-96); MEAN PLT VOLUME 8.8 fl (7.5-11.1); PLATELET COUNT 243 10^3/uL (134-434); RBC 4.43 M/mm3 (3.60-5.2); RDW 25.1 % (11.6-15.6); WHITE BLOOD COUNT 10.8 K/mm3 (4.0-10.0)
[2021-08-02 13:50] LABS: CALCIUM 8.7 mg/dL (8.5-10.1)
[2021-08-02 13:51] LABS: ALBUMIN 2.4 g/dl (3.4-5.0); BLOOD UREA NITROGEN 34.2 mg/dL (7-18); MAGNESIUM 1.9 mg/dL (1.8-2.4)
[2021-08-02 13:54] LABS: CREATININE 0.7 mg/dL (0.55-1.3)
[2021-08-02 13:56] LABS: BILIRUBIN,TOTAL 0.3 mg/dL (0.2-1); TOT PROT 5.4 g/dl (6.4-8.2)
[2021-08-02 13:57] LABS: PHOSPHOROUS 3.9 mg/dL (2.5-4.9)
[2021-08-02 15:02] LABS: ANISOCYTOSIS 1+; MACROCYTOSIS 0; OVALOCYTE 1+; PLATELET ESTIMATE NORMAL
[2021-08-02] MEDS ORDERED: PT OWN MED DRAWER 7, Y5N ONE (18:55)
[2021-08-02] MEDS: DOPAMINE 400 MG/D5W - 400,000 MCG/250 ML INFUS.BAG IVPB SCH (19:15)
[2021-08-02] MEDS: FENTANYL NS IVPB 500 MCG/100 ML BAG IVPB SCH (19:45)
[2021-08-02] MEDS: ATORVASTATIN CA 10 MG TABLET (FP) PO SCH (22:58)
[2021-08-03] MEDS: VANCOMYCIN 250 MG/5 ML ORAL SOLUTION PO SCH ×4 (00:28→18:32)
[2021-08-03] MEDS ORDERED: LORazepam 2 MG/ML SDV VIAL IVPUSH ONE (02:48)
[2021-08-03] MEDS: methylPREDNISolone NA SUCC 40 MG/1 ML VIAL IVPUSH SCH ×3 (03:18→20:34)
[2021-08-03] MEDS ORDERED: LACTATED RINGERS SOLUTION 1000 ML INFUS.BAG IV ONE (04:03)
[2021-08-03 04:13] LABS: ARTERIAL BLD GAS O2 SATURATION 97.7 % (95-98); ARTERIAL BLOOD GAS BASE EXCESS -0.1 mmol/L (-2-2); ARTERIAL BLOOD GAS PO2 142.6 mmHg (80-100)
[2021-08-03] MEDS: NOREPINEPHRINE BITARTRATE 16,000 MCG in SODIUM CHLORIDE 484 ML IV SCH (04:13)
[2021-08-03 04:17] LABS: ARTERIAL BLOOD GAS pH 7.106 (7.350-7.450)
[2021-08-03 04:18] LABS: ALLENS TEST POSITIVE
[2021-08-03 04:19] LABS: VENT MODE PSV 16/8; VENT RATE 16/26
[2021-08-03 05:08] LABS: ARTERIAL BLD GAS O2 SATURATION 97.7 % (95-98); ARTERIAL BLOOD GAS PO2 136.6 mmHg (80-100)
[2021-08-03 05:09] LABS: ALLENS TEST POSITIVE; ARTERIAL BLOOD GAS pH 7.128 (7.350-7.450)
[2021-08-03 05:10] LABS: VENT RATE 14
[2021-08-03] MEDS: INSULIN SLIDING SCALE (NOVOLOG) 1 VIAL SQ SCH ×4 (06:55→23:59)
[2021-08-03 07:01] LABS: HEMATOCRIT 34.7 % (32.4-45.2); HEMOGLOBIN 10.2 GM/dL (10.7-15.3); MCH 23.1 pg (25.7-33.7); MCHC 29.5 g/dl (32.0-36.0); MEAN CELL VOLUME 78.2 fl (80-96); MEAN PLT VOLUME 8.9 fl (7.5-11.1); PLATELET COUNT 424 10^3/uL (134-434); RBC 4.43 M/mm3 (3.60-5.2); RDW 24.8 % (11.6-15.6); WHITE BLOOD COUNT 20.7 K/mm3 (4.0-10.0)
[2021-08-03 07:29] LABS: CALCIUM 8.3 mg/dL (8.5-10.1)
[2021-08-03 07:30] LABS: ALBUMIN 2.4 g/dl (3.4-5.0); BLOOD UREA NITROGEN 41.1 mg/dL (7-18); MAGNESIUM 1.9 mg/dL (1.8-2.4)
[2021-08-03 07:33] LABS: CREATININE 0.7 mg/dL (0.55-1.3); PHOSPHOROUS 3.9 mg/dL (2.5-4.9)
[2021-08-03 07:34] LABS: BILIRUBIN,TOTAL 0.2 mg/dL (0.2-1); TOT PROT 5.4 g/dl (6.4-8.2)
[2021-08-03 08:12] LABS: ARTERIAL BLD GAS O2 SATURATION 93.9 % (95-98); ARTERIAL BLOOD GAS BASE EXCESS -4.4 mmol/L (-2-2); ARTERIAL BLOOD GAS PO2 86.8 mmHg (80-100)
[2021-08-03 08:14] LABS: ARTERIAL BLOOD GAS pH 7.182 (7.350-7.450)
[2021-08-03 08:16] LABS: ALLENS TEST POSITIVE
[2021-08-03] MEDS: DEXMEDETOMIDINE IN 0.9 % NACL 400 MCG/100 ML VIAL IVPB SCH (09:00)
[2021-08-03 09:42] LABS: ANISOCYTOSIS 1+; MACROCYTOSIS 0; PLATELET ESTIMATE INCREASED
[2021-08-03] MEDS: CHOLECALCIFEROL (VIT D3) 1,000 UNIT (25 MCG) TABLET PO SCH (10:30)
[2021-08-03] MEDS: AMINO ACIDS/PROTEIN HYDROLYS 30 ML LIQUID.PKT PO SCH (10:30)
[2021-08-03] MEDS: ROFLUMILAST 500 MCG TABLET PO SCH (10:30)
[2021-08-03] MEDS: ENOXAPARIN NA (PORCINE) 40 MG/0.4 ML DISP.SYRIN SQ SCH (10:34)
[2021-08-03 10:48] LABS: ARTERIAL BLD GAS O2 SATURATION 97.7 % (95-98); ARTERIAL BLOOD GAS BASE EXCESS -1.4 mmol/L (-2-2); ARTERIAL BLOOD GAS PO2 138.6 mmHg (80-100)
[2021-08-03 10:49] LABS: ALLENS TEST POSITIVE
[2021-08-03 10:52] LABS: ARTERIAL BLOOD GAS pH 7.126 (7.350-7.450)
[2021-08-03] MEDS: DEXTROSE 5%-WATER - 1,000 ML IV SCH (13:08)
[2021-08-03] MEDS: AMINO ACIDS 4.25%/D5W 1,000 ML IV SCH (13:44)
[2021-08-03] MEDS: MULTIVIT INJ. ADULT COMBO WITH VIT K 1 COMBO 10 ML VIAL IV SCH (13:45)
[2021-08-03 13:59] LABS: ARTERIAL BLD GAS O2 SATURATION 83.3 % (95-98); ARTERIAL BLOOD GAS BASE EXCESS -1.9 mmol/L (-2-2); ARTERIAL BLOOD GAS PO2 54.2 mmHg (80-100); ARTERIAL BLOOD GAS pH 7.272 (7.350-7.450)
[2021-08-03 14:01] LABS: VENT RATE 20
[2021-08-03] MEDS ORDERED: MELATONIN 5 MG TABLETS PO ONE (16:16)
[2021-08-03] MEDS ORDERED: HALOPERIDOL LACTATE 5 MG/ML IM ONE ×3 (20:00→22:45)
[2021-08-03] MEDS ORDERED: HALOPERIDOL LACTATE 5 MG/ML IV ONE (22:23)
[2021-08-03] MEDS: ATORVASTATIN CA 10 MG TABLET (FP) PO SCH (23:07)
[2021-08-04] MEDS: VANCOMYCIN 250 MG/5 ML ORAL SOLUTION PO SCH ×4 (00:26→17:35)
[2021-08-04] MEDS: methylPREDNISolone NA SUCC 40 MG/1 ML VIAL IVPUSH SCH ×3 (05:17→20:23)
[2021-08-04] MEDS: AMINO ACIDS 4.25%/D5W 1,000 ML IV SCH ×2 (05:17→17:34)
[2021-08-04] MEDS: NOREPINEPHRINE BITARTRATE 16,000 MCG in SODIUM CHLORIDE 484 ML IV SCH (05:18)
[2021-08-04 06:06] LABS: ARTERIAL BLD GAS O2 SATURATION 99.1 % (95-98); ARTERIAL BLOOD GAS BASE EXCESS -2.5 mmol/L (-2-2); ARTERIAL BLOOD GAS PO2 198.9 mmHg (80-100); ARTERIAL BLOOD GAS pH 7.228 (7.350-7.450)
[2021-08-04 06:12] LABS: ALLENS TEST POSITIVE; VENT MODE S/T; VENT RATE 20
[2021-08-04] MEDS: INSULIN SLIDING SCALE (NOVOLOG) 1 VIAL SQ SCH ×4 (06:47→21:30)
[2021-08-04 09:07] LABS: HEMATOCRIT 30.3 % (32.4-45.2); HEMOGLOBIN 9.5 GM/dL (10.7-15.3); MCH 23.9 pg (25.7-33.7); MCHC 31.4 g/dl (32.0-36.0); MEAN PLT VOLUME 8.8 fl (7.5-11.1); PLATELET COUNT 244 10^3/uL (134-434); RBC 3.98 M/mm3 (3.60-5.2); RDW 25.2 % (11.6-15.6); WHITE BLOOD COUNT 8.3 K/mm3 (4.0-10.0)
[2021-08-04 09:31] LABS: ALBUMIN 2.2 g/dl (3.4-5.0); BLOOD UREA NITROGEN 52.6 mg/dL (7-18); CALCIUM 8.7 mg/dL (8.5-10.1)
[2021-08-04 09:34] LABS: CREATININE 0.7 mg/dL (0.55-1.3)
[2021-08-04 09:36] LABS: BILIRUBIN,TOTAL 0.2 mg/dL (0.2-1)
[2021-08-04 09:52] LABS: ANISOCYTOSIS 1+; MACROCYTOSIS 0; OVALOCYTE 1+; PLATELET ESTIMATE NORMAL
[2021-08-04] MEDS: ENOXAPARIN NA (PORCINE) 40 MG/0.4 ML DISP.SYRIN SQ SCH (10:11)
[2021-08-04] MEDS: ROFLUMILAST 500 MCG TABLET PO SCH (10:12)
[2021-08-04] MEDS: CHOLECALCIFEROL (VIT D3) 1,000 UNIT (25 MCG) TABLET PO SCH (10:12)
[2021-08-04] MEDS: DEXMEDETOMIDINE IN 0.9 % NACL 400 MCG/100 ML VIAL IVPB SCH ×2 (11:00→20:36)
[2021-08-04] MEDS ORDERED: HALOPERIDOL DECANOATE 100 MG/ML IM ONE ×2 (13:55)
[2021-08-04] MEDS ORDERED: HALOPERIDOL LACTATE 5 MG/ML ONE (13:58)
[2021-08-04] MEDS ORDERED: HALOPERIDOL LACTATE 5 MG/ML IM ONE (14:07)
[2021-08-04] MEDS: MULTIVIT INJ. ADULT COMBO WITH VIT K 1 COMBO 10 ML VIAL IV SCH (15:00)
[2021-08-04] MEDS ORDERED: PT OWN MED DRAWER 7, Y5N ONE (15:28)
[2021-08-04] MEDS ORDERED: ALBUTEROL SO4 2.5/IPRATROPIUM 0.5 INH SOL 3 ML VIAL.NEB. NEB PRN (17:15)
[2021-08-04] MEDS ORDERED: ALBUTEROL SO4 2.5/IPRATROPIUM 0.5 INH SOL 3 ML VIAL.NEB. NEB ONE (17:24)
[2021-08-04] MEDS ORDERED: HALOPERIDOL LACTATE 5 MG/ML IM PRN (20:15)
[2021-08-04] MEDS: ALBUTEROL SO4 2.5/IPRATROPIUM 0.5 INH SOL 3 ML VIAL.NEB. NEB SCH (20:16)
[2021-08-04] MEDS ORDERED: SMOFLIPID - FAT EMUL/SOY/MCT/OLIV/FISH OIL 250 ML EMULSION IV SCH (22:00)
[2021-08-04] MEDS: FAT EMUL/SOY/MCT/OLIV/FISH OIL 250 ML IV SCH (22:04)
[2021-08-04] MEDS: ATORVASTATIN CA 10 MG TABLET (FP) PO SCH (22:14)
[2021-08-05] MEDS: VANCOMYCIN 250 MG/5 ML ORAL SOLUTION PO SCH ×4 (00:04→17:15)
[2021-08-05] MEDS: methylPREDNISolone NA SUCC 40 MG/1 ML VIAL IVPUSH SCH ×3 (03:51→18:20)
[2021-08-05] MEDS: AMINO ACIDS 4.25%/D5W 1,000 ML IV SCH ×5 (04:10→20:30)
[2021-08-05] MEDS: NOREPINEPHRINE BITARTRATE 16,000 MCG in SODIUM CHLORIDE 484 ML IV SCH (05:58)
[2021-08-05] MEDS: INSULIN SLIDING SCALE (NOVOLOG) 1 VIAL SQ SCH ×4 (06:09→22:23)
[2021-08-05 06:28] LABS: HEMATOCRIT 27.6 % (32.4-45.2); HEMOGLOBIN 8.9 GM/dL (10.7-15.3); MCH 24.2 pg (25.7-33.7); MCHC 32.4 g/dl (32.0-36.0); MEAN CELL VOLUME 74.8 fl (80-96); MEAN PLT VOLUME 9.3 fl (7.5-11.1); PLATELET COUNT 241 10^3/uL (134-434); RBC 3.69 M/mm3 (3.60-5.2); RDW 25.6 % (11.6-15.6); WHITE BLOOD COUNT 9.2 K/mm3 (4.0-10.0)
[2021-08-05 07:04] LABS: ALBUMIN 2.2 g/dl (3.4-5.0); BLOOD UREA NITROGEN 47.7 mg/dL (7-18); CALCIUM 8.2 mg/dL (8.5-10.1); MAGNESIUM 1.6 mg/dL (1.8-2.4)
[2021-08-05 07:06] LABS: CREATININE 0.6 mg/dL (0.55-1.3)
[2021-08-05 07:08] LABS: BILIRUBIN,TOTAL 0.4 mg/dL (0.2-1); TOT PROT 4.9 g/dl (6.4-8.2)
[2021-08-05] MEDS: ALBUTEROL SO4 2.5/IPRATROPIUM 0.5 INH SOL 3 ML VIAL.NEB. NEB SCH ×4 (07:45→20:10)
[2021-08-05 09:33] LABS: ANISOCYTOSIS 2+; MACROCYTOSIS 0; OVALOCYTE 1+; PLATELET ESTIMATE NORMAL
[2021-08-05] MEDS: ENOXAPARIN NA (PORCINE) 40 MG/0.4 ML DISP.SYRIN SQ SCH (09:53)
[2021-08-05] MEDS: DEXMEDETOMIDINE IN 0.9 % NACL 400 MCG/100 ML VIAL IVPB SCH ×4 (09:53→22:30)
[2021-08-05] MEDS: ROFLUMILAST 500 MCG TABLET PO SCH (09:53)
[2021-08-05] MEDS: CHOLECALCIFEROL (VIT D3) 1,000 UNIT (25 MCG) TABLET PO SCH (09:54)
[2021-08-05] MEDS ORDERED: PT OWN MED DRAWER 7, Y5N ONE ×2 (14:48→22:32)
[2021-08-05] MEDS: MULTIVIT INJ. ADULT COMBO WITH VIT K 1 COMBO 10 ML VIAL IV SCH (17:11)
[2021-08-05] MEDS: ATORVASTATIN CA 10 MG TABLET (FP) PO SCH (22:29)
[2021-08-05] MEDS: FAT EMUL/SOY/MCT/OLIV/FISH OIL 250 ML IV SCH (22:33)
[2021-08-06] MEDS: methylPREDNISolone NA SUCC 40 MG/1 ML VIAL IVPUSH SCH ×3 (02:35→21:37)
[2021-08-06] MEDS: DEXMEDETOMIDINE IN 0.9 % NACL 400 MCG/100 ML VIAL IVPB SCH ×5 (02:36→19:22)
[2021-08-06] MEDS: NOREPINEPHRINE BITARTRATE 16,000 MCG in SODIUM CHLORIDE 484 ML IV SCH (04:53)
[2021-08-06] MEDS: AMINO ACIDS 4.25%/D5W 1,000 ML IV SCH ×4 (05:47→21:12)
[2021-08-06] MEDS: VANCOMYCIN 250 MG/5 ML ORAL SOLUTION PO SCH ×4 (05:47→17:11)
[2021-08-06] MEDS: INSULIN SLIDING SCALE (NOVOLOG) 1 VIAL SQ SCH ×4 (06:36→21:48)
[2021-08-06 06:49] LABS: HEMOGLOBIN 8.6 GM/dL (10.7-15.3); MCH 23.8 pg (25.7-33.7); MCHC 31.7 g/dl (32.0-36.0); MEAN CELL VOLUME 74.9 fl (80-96); PLATELET COUNT 200 10^3/uL (134-434); RBC 3.61 M/mm3 (3.60-5.2); WHITE BLOOD COUNT 7.7 K/mm3 (4.0-10.0)
[2021-08-06 06:50] LABS: MEAN PLT VOLUME 9.7 fl (7.5-11.1)
[2021-08-06] MEDS ORDERED: PT OWN MED DRAWER 7, Y5N ONE ×7 (07:39→21:52)
[2021-08-06 07:40] LABS: BLOOD UREA NITROGEN 43.3 mg/dL (7-18); CREATININE 0.4 mg/dL (0.55-1.3)
[2021-08-06 07:41] LABS: ALBUMIN 2.1 g/dl (3.4-5.0); BILIRUBIN,TOTAL 0.3 mg/dL (0.2-1); CALCIUM 8.7 mg/dL (8.5-10.1); MAGNESIUM 1.9 mg/dL (1.8-2.4); TOT PROT 4.8 g/dl (6.4-8.2)
[2021-08-06] MEDS: ALBUTEROL SO4 2.5/IPRATROPIUM 0.5 INH SOL 3 ML VIAL.NEB. NEB SCH ×4 (08:00→20:30)
[2021-08-06] MEDS: ROFLUMILAST 500 MCG TABLET PO SCH (10:03)
[2021-08-06] MEDS: CHOLECALCIFEROL (VIT D3) 1,000 UNIT (25 MCG) TABLET PO SCH (10:06)
[2021-08-06] MEDS: ENOXAPARIN NA (PORCINE) 40 MG/0.4 ML DISP.SYRIN SQ SCH (10:12)
[2021-08-06] MEDS: chlorproMAZINE HCL 25 MG/1 ML AMP IM PRN (10:17)
[2021-08-06 10:41] LABS: ARTERIAL BLD GAS O2 SATURATION 96.1 % (95-98); ARTERIAL BLOOD GAS BASE EXCESS 2.8 mmol/L (-2-2); ARTERIAL BLOOD GAS pH 7.356 (7.350-7.450)
[2021-08-06 11:39] LABS: ANISOCYTOSIS 2+; MACROCYTOSIS 1+; PLATELET ESTIMATE NORMAL
[2021-08-06] MEDS: MULTIVIT INJ. ADULT COMBO WITH VIT K 1 COMBO 10 ML VIAL IV SCH (16:55)
[2021-08-06] MEDS: ATORVASTATIN CA 10 MG TABLET (FP) PO SCH (21:36)
[2021-08-06] MEDS: FAT EMUL/SOY/MCT/OLIV/FISH OIL 250 ML IV SCH (21:52)
[2021-08-07] MEDS: VANCOMYCIN 250 MG/5 ML ORAL SOLUTION PO SCH ×4 (00:17→17:25)
[2021-08-07] MEDS ORDERED: PT OWN MED DRAWER 7, Y5N ONE ×4 (00:48→21:57)
[2021-08-07] MEDS: chlorproMAZINE HCL 25 MG/1 ML AMP IM PRN (00:53)
[2021-08-07] MEDS: AMINO ACIDS 4.25%/D5W 1,000 ML IV SCH ×3 (01:19→21:55)
[2021-08-07] MEDS: DEXMEDETOMIDINE IN 0.9 % NACL 400 MCG/100 ML VIAL IVPB SCH ×4 (01:22→22:44)
[2021-08-07] MEDS: NOREPINEPHRINE BITARTRATE 16,000 MCG in SODIUM CHLORIDE 484 ML IV SCH (05:24)
[2021-08-07] MEDS: INSULIN SLIDING SCALE (NOVOLOG) 1 VIAL SQ SCH ×4 (06:01→22:19)
[2021-08-07 06:38] LABS: HEMATOCRIT 27.3 % (32.4-45.2); HEMOGLOBIN 8.5 GM/dL (10.7-15.3); MCH 23.7 pg (25.7-33.7); MCHC 31.3 g/dl (32.0-36.0); MEAN CELL VOLUME 75.7 fl (80-96); MEAN PLT VOLUME 9.8 fl (7.5-11.1); PLATELET COUNT 182 10^3/uL (134-434); RDW 26.1 % (11.6-15.6); WHITE BLOOD COUNT 6.9 K/mm3 (4.0-10.0)
[2021-08-07 07:06] LABS: CALCIUM 8.4 mg/dL (8.5-10.1)
[2021-08-07 07:07] LABS: BLOOD UREA NITROGEN 41.9 mg/dL (7-18)
[2021-08-07 07:08] LABS: CREATININE 0.4 mg/dL (0.55-1.3); PHOSPHOROUS 2.5 mg/dL (2.5-4.9)
[2021-08-07 07:09] LABS: BILIRUBIN,TOTAL 0.5 mg/dL (0.2-1); TOT PROT 4.8 g/dl (6.4-8.2)
[2021-08-07] MEDS: ALBUTEROL SO4 2.5/IPRATROPIUM 0.5 INH SOL 3 ML VIAL.NEB. NEB SCH ×4 (08:25→20:30)
[2021-08-07 09:14] LABS: ARTERIAL BLD GAS O2 SATURATION 96.3 % (95-98); ARTERIAL BLOOD GAS BASE EXCESS -0.3 mmol/L (-2-2); ARTERIAL BLOOD GAS PO2 87.4 mmHg (80-100); ARTERIAL BLOOD GAS pH 7.361 (7.350-7.450)
[2021-08-07 09:16] LABS: ALLENS TEST POSITIVE; VENT MODE S/T
[2021-08-07 10:04] LABS: ANISOCYTOSIS 0; MACROCYTOSIS 0; PLATELET ESTIMATE NORMAL
[2021-08-07] MEDS: ROFLUMILAST 500 MCG TABLET PO SCH ×2 (10:33→10:49)
[2021-08-07] MEDS: CHOLECALCIFEROL (VIT D3) 1,000 UNIT (25 MCG) TABLET PO SCH ×2 (10:33→10:50)
[2021-08-07] MEDS: methylPREDNISolone NA SUCC 40 MG/1 ML VIAL IVPUSH SCH ×2 (10:34→21:59)
[2021-08-07] MEDS: ENOXAPARIN NA (PORCINE) 40 MG/0.4 ML DISP.SYRIN SQ SCH (10:35)
[2021-08-07] MEDS: MULTIVIT INJ. ADULT COMBO WITH VIT K 1 COMBO 10 ML VIAL IV SCH (14:21)
[2021-08-07 16:32] VITALS: BMI 25.6
[2021-08-07] MEDS: ATORVASTATIN CA 10 MG TABLET (FP) PO SCH (21:55)
[2021-08-07] MEDS: FAT EMUL/SOY/MCT/OLIV/FISH OIL 250 ML IV SCH (21:58)
[2021-08-07] MEDS ORDERED: NOREPINEPHRINE NS PREMIX 16,000 MCG/500 ML BAG IVPB SCH (22:59)
[2021-08-08] MEDS: VANCOMYCIN 250 MG/5 ML ORAL SOLUTION PO SCH ×2 (00:13→05:49)
[2021-08-08] MEDS: DEXMEDETOMIDINE IN 0.9 % NACL 400 MCG/100 ML VIAL IVPB SCH ×3 (00:13→12:32)
[2021-08-08] MEDS: chlorproMAZINE HCL 25 MG/1 ML AMP IM PRN (01:13)
[2021-08-08] MEDS ORDERED: PT OWN MED DRAWER 7, Y5N ONE ×5 (01:16→22:45)
[2021-08-08] MEDS: AMINO ACIDS 4.25%/D5W 1,000 ML IV SCH ×2 (01:31→13:30)
[2021-08-08] MEDS ORDERED: chlorproMAZINE HCL 25 MG/1 ML AMP IM ONE (02:09)
[2021-08-08 06:03] LABS: HEMATOCRIT 28.2 % (32.4-45.2); HEMOGLOBIN 8.9 GM/dL (10.7-15.3); MCH 24.1 pg (25.7-33.7); MCHC 31.6 g/dl (32.0-36.0); MEAN CELL VOLUME 76.3 fl (80-96); MEAN PLT VOLUME 9.3 fl (7.5-11.1); PLATELET COUNT 168 10^3/uL (134-434); RBC 3.69 M/mm3 (3.60-5.2); RDW 26.3 % (11.6-15.6); WHITE BLOOD COUNT 6.9 K/mm3 (4.0-10.0)
[2021-08-08] MEDS: INSULIN SLIDING SCALE (NOVOLOG) 1 VIAL SQ SCH ×4 (06:08→22:59)
[2021-08-08 06:34] LABS: CALCIUM 8.5 mg/dL (8.5-10.1)
[2021-08-08 06:35] LABS: MAGNESIUM 1.8 mg/dL (1.8-2.4)
[2021-08-08 06:38] LABS: CREATININE 0.5 mg/dL (0.55-1.3)
[2021-08-08 06:39] LABS: BILIRUBIN,TOTAL 0.3 mg/dL (0.2-1); TOT PROT 4.8 g/dl (6.4-8.2)
[2021-08-08 06:47] LABS: BLOOD UREA NITROGEN 46.1 mg/dL (7-18)
[2021-08-08] MEDS: ALBUTEROL SO4 2.5/IPRATROPIUM 0.5 INH SOL 3 ML VIAL.NEB. NEB SCH ×4 (07:50→20:10)
[2021-08-08 08:48] LABS: ANISOCYTOSIS 3+; MACROCYTOSIS 0; PLATELET ESTIMATE NORMAL
[2021-08-08] MEDS: methylPREDNISolone NA SUCC 40 MG/1 ML VIAL IVPUSH SCH ×2 (10:07→23:00)
[2021-08-08] MEDS: CHOLECALCIFEROL (VIT D3) 1,000 UNIT (25 MCG) TABLET PO SCH (10:07)
[2021-08-08] MEDS: ENOXAPARIN NA (PORCINE) 40 MG/0.4 ML DISP.SYRIN SQ SCH (10:08)
[2021-08-08] MEDS: MULTIVIT INJ. ADULT COMBO WITH VIT K 1 COMBO 10 ML VIAL IV SCH (13:31)
[2021-08-08] MEDS ORDERED: LIDOCAINE 5% TOPICAL PATCH TP ONE (17:22)
[2021-08-08] MEDS ORDERED: ACETAMINOPHEN 1000 MG/100 ML VIAL IVPB ONE (17:22)
[2021-08-08] MEDS ORDERED: LIDOCAINE PATCH REMOVAL MC SCH (22:00)
[2021-08-08] MEDS: FAT EMUL/SOY/MCT/OLIV/FISH OIL 250 ML IV SCH (23:31)
[2021-08-09] MEDS: chlorproMAZINE HCL 25 MG/1 ML AMP IM PRN (04:25)
[2021-08-09] MEDS: AMINO ACIDS 4.25%/D5W 1,000 ML IV SCH ×2 (05:40→15:28)
[2021-08-09] MEDS: INSULIN SLIDING SCALE (NOVOLOG) 1 VIAL SQ SCH ×4 (06:03→23:02)
[2021-08-09] MEDS ORDERED: PT OWN MED DRAWER 7, Y5N ONE ×3 (07:09→22:31)
[2021-08-09] MEDS: ALBUTEROL SO4 2.5/IPRATROPIUM 0.5 INH SOL 3 ML VIAL.NEB. NEB SCH ×4 (08:09→20:51)
[2021-08-09] MEDS: CHOLECALCIFEROL (VIT D3) 1,000 UNIT (25 MCG) TABLET PO SCH (09:28)
[2021-08-09] MEDS: methylPREDNISolone NA SUCC 40 MG/1 ML VIAL IVPUSH SCH (09:28)
[2021-08-09] MEDS: DEXMEDETOMIDINE IN 0.9 % NACL 400 MCG/100 ML VIAL IVPB SCH (09:28)
[2021-08-09] MEDS: ENOXAPARIN NA (PORCINE) 40 MG/0.4 ML DISP.SYRIN SQ SCH (09:28)
[2021-08-09] MEDS ORDERED: IRON SUCROSE INJECTION 200 MG in SODIUM CHLORIDE 90 ML IVPB ONE (13:48)
[2021-08-09 14:31] LABS: CALCIUM 8.9 mg/dL (8.5-10.1)
[2021-08-09 14:32] LABS: ALBUMIN 2.2 g/dl (3.4-5.0)
[2021-08-09 14:35] LABS: CREATININE 0.5 mg/dL (0.55-1.3)
[2021-08-09 14:36] LABS: BILIRUBIN,TOTAL 0.3 mg/dL (0.2-1)
[2021-08-09 14:37] LABS: TOT PROT 5.3 g/dl (6.4-8.2)
[2021-08-09 14:42] LABS: BLOOD UREA NITROGEN 53.8 mg/dL (7-18)
[2021-08-09] MEDS: MULTIVIT INJ. ADULT COMBO WITH VIT K 1 COMBO 10 ML VIAL IV SCH (15:28)
[2021-08-09] MEDS: FAT EMUL/SOY/MCT/OLIV/FISH OIL 250 ML IV SCH (22:59)
[2021-08-09] MEDS: QUEtiapine FUMARATE 25 MG TABLET PO SCH (22:59)
[2021-08-10] MEDS: AMINO ACIDS 4.25%/D5W 1,000 ML IV SCH ×2 (01:12→15:38)
[2021-08-10] MEDS: INSULIN SLIDING SCALE (NOVOLOG) 1 VIAL SQ SCH ×4 (06:13→22:44)
[2021-08-10] MEDS: ALBUTEROL SO4 2.5/IPRATROPIUM 0.5 INH SOL 3 ML VIAL.NEB. NEB SCH ×4 (07:20→20:31)
[2021-08-10 09:05] LABS: HEMOGLOBIN 7.2 GM/dL (10.7-15.3); MCHC 31.2 g/dl (32.0-36.0); MEAN PLT VOLUME 10.6 fl (7.5-11.1); PLATELET COUNT 160 10^3/uL (134-434); RBC 2.98 M/mm3 (3.60-5.2); RDW 27.4 % (11.6-15.6); WHITE BLOOD COUNT 14.6 K/mm3 (4.0-10.0)
[2021-08-10 09:34] LABS: BLOOD UREA NITROGEN 66.5 mg/dL (7-18); CALCIUM 8.8 mg/dL (8.5-10.1); MAGNESIUM 1.7 mg/dL (1.8-2.4)
[2021-08-10 09:38] LABS: CREATININE 0.5 mg/dL (0.55-1.3); PHOSPHOROUS 2.3 mg/dL (2.5-4.9)
[2021-08-10 09:48] LABS: BILIRUBIN,TOTAL 0.1 mg/dL (0.2-1); TOT PROT 4.2 g/dl (6.4-8.2)
[2021-08-10 09:52] LABS: ALBUMIN 1.8 g/dl (3.4-5.0)
[2021-08-10] MEDS: methylPREDNISolone NA SUCC 40 MG/1 ML VIAL IVPUSH SCH (09:59)
[2021-08-10] MEDS: CHOLECALCIFEROL (VIT D3) 1,000 UNIT (25 MCG) TABLET PO SCH (09:59)
[2021-08-10] MEDS ORDERED: PANTOPRAZOLE SODIUM 40 MG VIAL IVPUSH SCH (10:00)
[2021-08-10] MEDS: DEXMEDETOMIDINE IN 0.9 % NACL 400 MCG/100 ML VIAL IVPB SCH (10:06)
[2021-08-10] MEDS ORDERED: NAPH,MB-DB/K PH,MBDB POWDER PACKET PO ONE (10:55)
[2021-08-10] MEDS: MAGNESIUM 1GM/D5W - 1 GM/100 ML IVPB IVPB SCH ×2 (11:07→16:29)
[2021-08-10 11:13] LABS: ARTERIAL BLD GAS O2 SATURATION 98.6 % (95-98); ARTERIAL BLOOD GAS BASE EXCESS 0 mmol/L (-2-2); ARTERIAL BLOOD GAS pH 7.286 (7.350-7.450)
[2021-08-10] MEDS: ENOXAPARIN NA (PORCINE) 40 MG/0.4 ML DISP.SYRIN SQ SCH (11:17)
[2021-08-10 11:20] LABS: ALLENS TEST POSITIVE
[2021-08-10 11:21] LABS: VENT MODE PSV
[2021-08-10 11:23] LABS: VENT RATE 16
[2021-08-10 12:27] LABS: ANISOCYTOSIS 1+; MACROCYTOSIS 0; OVALOCYTE 1+; PLATELET ESTIMATE DECREASED
[2021-08-10] MEDS: KCL 10 MEQ IVPB 10 MEQ/100 ML INFUS.BAG IVPB SCH ×3 (12:27→15:35)
[2021-08-10] MEDS ORDERED: PT OWN MED DRAWER 7, Y5N ONE ×2 (14:01→22:17)
[2021-08-10] MEDS: MULTIVIT INJ. ADULT COMBO WITH VIT K 1 COMBO 10 ML VIAL IV SCH (16:36)
[2021-08-10 22:05] LABS: ARTERIAL BLOOD GAS BASE EXCESS -1.1 mmol/L (-2-2); ARTERIAL BLOOD GAS PO2 170.4 mmHg (80-100); ARTERIAL BLOOD GAS pH 7.318 (7.350-7.450)
[2021-08-10 22:06] LABS: ALLENS TEST POSITIVE
[2021-08-10 22:07] LABS: VENT MODE PSY; VENT RATE 16
[2021-08-10] MEDS: FAT EMUL/SOY/MCT/OLIV/FISH OIL 250 ML IV SCH (22:22)
[2021-08-10] MEDS: QUEtiapine FUMARATE 25 MG TABLET PO SCH (22:22)
[2021-08-10] MEDS: PANTOPRAZOLE SODIUM 40 MG VIAL IVPUSH SCH (22:22)
[2021-08-11] MEDS ORDERED: LACTATED RINGERS SOLUTION 1000 ML INFUS.BAG IV ONE (04:23)
[2021-08-11] MEDS: INSULIN SLIDING SCALE (NOVOLOG) 1 VIAL SQ SCH ×4 (06:37→22:23)
[2021-08-11] MEDS: ALBUTEROL SO4 2.5/IPRATROPIUM 0.5 INH SOL 3 ML VIAL.NEB. NEB SCH ×4 (08:02→20:40)
[2021-08-11] MEDS ORDERED: PT OWN MED DRAWER 7, Y5N ONE ×5 (08:48→22:17)
[2021-08-11] MEDS: PANTOPRAZOLE SODIUM 40 MG VIAL IVPUSH SCH ×2 (09:01→22:14)
[2021-08-11] MEDS: methylPREDNISolone NA SUCC 40 MG/1 ML VIAL IVPUSH SCH (09:02)
[2021-08-11] MEDS: CHOLECALCIFEROL (VIT D3) 1,000 UNIT (25 MCG) TABLET PO SCH (09:02)
[2021-08-11 09:35] LABS: ALBUMIN 1.8 g/dl (3.4-5.0); BLOOD UREA NITROGEN 62.2 mg/dL (7-18); CALCIUM 8.8 mg/dL (8.5-10.1)
[2021-08-11 09:38] LABS: CREATININE 0.6 mg/dL (0.55-1.3)
[2021-08-11 09:40] LABS: BILIRUBIN,TOTAL 0.3 mg/dL (0.2-1); TOT PROT 4.4 g/dl (6.4-8.2)
[2021-08-11 11:48] LABS: HEMATOCRIT 23.3 % (32.4-45.2); MCH 23.8 pg (25.7-33.7); MCHC 29.9 g/dl (32.0-36.0); MEAN CELL VOLUME 79.4 fl (80-96); MEAN PLT VOLUME 10.1 fl (7.5-11.1); PLATELET COUNT 138 10^3/uL (134-434); RBC 2.94 M/mm3 (3.60-5.2); RDW 27.6 % (11.6-15.6); WHITE BLOOD COUNT 12.4 K/mm3 (4.0-10.0)
[2021-08-11] MEDS: MULTIVIT INJ. ADULT COMBO WITH VIT K 1 COMBO 10 ML VIAL IV SCH (14:31)
[2021-08-11] MEDS: AMINO ACIDS 4.25%/D5W 1,000 ML IV SCH (14:32)
[2021-08-11] MEDS: FAT EMUL/SOY/MCT/OLIV/FISH OIL 250 ML IV SCH (22:14)
[2021-08-12 02:30] LABS: BASO % 0.4 % (0-2.0); EOS % 0.1 % (0-4.5); HEMATOCRIT 26.1 % (32.4-45.2); HEMOGLOBIN 8.2 GM/dL (10.7-15.3); LYMPH % 3.2 % (8-40); MCH 24.5 pg (25.7-33.7); MCHC 31.3 g/dl (32.0-36.0); MEAN CELL VOLUME 78.1 fl (80-96); MEAN PLT VOLUME 9.7 fl (7.5-11.1); NEUT % 90.3 % (42.8-82.8); PLATELET COUNT 143 10^3/uL (134-434); RBC 3.34 M/mm3 (3.60-5.2); RDW 25.2 % (11.6-15.6); WHITE BLOOD COUNT 13.2 K/mm3 (4.0-10.0)
[2021-08-12] MEDS: INSULIN SLIDING SCALE (NOVOLOG) 1 VIAL SQ SCH ×4 (06:04→23:02)
[2021-08-12 07:50] LABS: CALCIUM 8.6 mg/dL (8.5-10.1)
[2021-08-12 07:54] LABS: CREATININE 0.7 mg/dL (0.55-1.3); PHOSPHOROUS 2.1 mg/dL (2.5-4.9)
[2021-08-12 07:55] LABS: BILIRUBIN,TOTAL 0.5 mg/dL (0.2-1); TOT PROT 4.7 g/dl (6.4-8.2)
[2021-08-12] MEDS: ALBUTEROL SO4 2.5/IPRATROPIUM 0.5 INH SOL 3 ML VIAL.NEB. NEB SCH ×4 (08:15→20:10)
[2021-08-12] MEDS ORDERED: PT OWN MED DRAWER 7, Y5N ONE ×3 (09:32→21:40)
[2021-08-12] MEDS: CHOLECALCIFEROL (VIT D3) 1,000 UNIT (25 MCG) TABLET PO SCH (09:48)
[2021-08-12] MEDS: HEPARIN NA (PORCINE) 5,000 UNITS/ML 1ML VIAL SQ SCH ×2 (09:48→23:02)
[2021-08-12] MEDS: methylPREDNISolone NA SUCC 40 MG/1 ML VIAL IVPUSH SCH (09:48)
[2021-08-12] MEDS: PANTOPRAZOLE SODIUM 40 MG VIAL IVPUSH SCH ×2 (10:16→23:03)
[2021-08-12] MEDS ORDERED: INSULIN (NOVOLOG) ASPART 100 UNITS/ML 10ML VIAL ONE (11:16)
[2021-08-12 14:23] LABS: HEMATOCRIT 26.9 % (32.4-45.2); HEMOGLOBIN 8.5 GM/dL (10.7-15.3); MCH 24.5 pg (25.7-33.7); MCHC 31.4 g/dl (32.0-36.0); MEAN CELL VOLUME 77.9 fl (80-96); PLATELET COUNT 128 10^3/uL (134-434); RBC 3.45 M/mm3 (3.60-5.2); RDW 25.2 % (11.6-15.6); WHITE BLOOD COUNT 11.2 K/mm3 (4.0-10.0)
[2021-08-12] MEDS: MULTIVIT INJ. ADULT COMBO WITH VIT K 1 COMBO 10 ML VIAL IV SCH (16:00)
[2021-08-12] MEDS: AMINO ACIDS 4.25%/D5W 1,000 ML IV SCH (16:24)
[2021-08-12] MEDS: FAT EMUL/SOY/MCT/OLIV/FISH OIL 250 ML IV SCH (23:03)
[2021-08-13] MEDS: INSULIN SLIDING SCALE (NOVOLOG) 1 VIAL SQ SCH ×2 (06:59→22:40)
[2021-08-13 07:09] LABS: BASO % 0.3 % (0-2.0); EOS % 0.4 % (0-4.5); HEMOGLOBIN 7.9 GM/dL (10.7-15.3); LYMPH % 7.4 % (8-40); MCH 25.8 pg (25.7-33.7); MCHC 32.9 g/dl (32.0-36.0); MEAN CELL VOLUME 78.2 fl (80-96); MEAN PLT VOLUME 10.1 fl (7.5-11.1); MONO % 4.8 % (3.8-10.2); NEUT % 87.1 % (42.8-82.8); PLATELET COUNT 154 10^3/uL (134-434); RBC 3.07 M/mm3 (3.60-5.2); RDW 25.5 % (11.6-15.6); WHITE BLOOD COUNT 10.2 K/mm3 (4.0-10.0)
[2021-08-13 07:32] LABS: CALCIUM 8.4 mg/dL (8.5-10.1)
[2021-08-13 07:33] LABS: BLOOD UREA NITROGEN 47.7 mg/dL (7-18)
[2021-08-13 07:36] LABS: CREATININE 0.5 mg/dL (0.55-1.3)
[2021-08-13 07:38] LABS: BILIRUBIN,TOTAL 0.3 mg/dL (0.2-1); TOT PROT 4.4 g/dl (6.4-8.2)
[2021-08-13] MEDS ORDERED: KCL 10 MEQ IVPB 10 MEQ/100 ML INFUS.BAG IVPB SCH (08:00)
[2021-08-13] MEDS: methylPREDNISolone NA SUCC 40 MG/1 ML VIAL IVPUSH SCH (09:34)
[2021-08-13] MEDS: HEPARIN NA (PORCINE) 5,000 UNITS/ML 1ML VIAL SQ SCH ×2 (09:34→21:00)
[2021-08-13] MEDS: PANTOPRAZOLE SODIUM 40 MG VIAL IVPUSH SCH ×2 (09:34→21:00)
[2021-08-13] MEDS: CHOLECALCIFEROL (VIT D3) 1,000 UNIT (25 MCG) TABLET PO SCH (09:35)
[2021-08-13 09:45] LABS: ARTERIAL BLD GAS O2 SATURATION 90.5 % (95-98); ARTERIAL BLOOD GAS BASE EXCESS -2.3 mmol/L (-2-2); ARTERIAL BLOOD GAS PO2 76.7 mmHg (80-100)
[2021-08-13 09:49] LABS: ARTERIAL BLOOD GAS pH 7.152 (7.350-7.450)
[2021-08-13 13:51] LABS: ARTERIAL BLD GAS O2 SATURATION 90.2 % (95-98); ARTERIAL BLOOD GAS BASE EXCESS -1.6 mmol/L (-2-2); ARTERIAL BLOOD GAS PO2 67.7 mmHg (80-100); ARTERIAL BLOOD GAS pH 7.256 (7.350-7.450)
[2021-08-13 13:52] LABS: ALLENS TEST POSITIVE; VENT MODE PS
[2021-08-13 13:53] LABS: VENT RATE 14
[2021-08-13] MEDS ORDERED: HALOPERIDOL LACTATE 5 MG/ML IM ONE (19:48)
[2021-08-13] MEDS ORDERED: PT OWN MED DRAWER 7, Y5N ONE (20:31)
[2021-08-13] MEDS ORDERED: INSULIN (NOVOLOG) ASPART 100 UNITS/ML 10ML VIAL ONE (20:33)
[2021-08-13] MEDS: AMINO ACIDS 4.25%/D5W 1,000 ML IV SCH (22:40)
[2021-08-13] MEDS: MULTIVIT INJ. ADULT COMBO WITH VIT K 1 COMBO 10 ML VIAL IV SCH (22:40)
[2021-08-13] MEDS: QUEtiapine FUMARATE 25 MG TABLET PO SCH (23:18)
[2021-08-14] MEDS: FAT EMUL/SOY/MCT/OLIV/FISH OIL 250 ML IV SCH (01:00)
[2021-08-14] MEDS ORDERED: HALOPERIDOL LACTATE 5 MG/ML IM ONE (01:05)
[2021-08-14] MEDS ORDERED: PT OWN MED DRAWER 7, Y5N ONE ×3 (03:33→22:43)
[2021-08-14] MEDS: chlorproMAZINE HCL 25 MG/1 ML AMP IM PRN ×2 (03:47→09:50)
[2021-08-14] MEDS: INSULIN SLIDING SCALE (NOVOLOG) 1 VIAL SQ SCH ×5 (07:12→23:15)
[2021-08-14] MEDS ORDERED: INSULIN (NOVOLOG) ASPART 100 UNITS/ML 10ML VIAL ONE (07:22)
[2021-08-14] MEDS: methylPREDNISolone NA SUCC 40 MG/1 ML VIAL IVPUSH SCH (09:20)
[2021-08-14] MEDS: CHOLECALCIFEROL (VIT D3) 1,000 UNIT (25 MCG) TABLET PO SCH (09:20)
[2021-08-14] MEDS: HEPARIN NA (PORCINE) 5,000 UNITS/ML 1ML VIAL SQ SCH ×2 (09:21→23:11)
[2021-08-14] MEDS: PANTOPRAZOLE SODIUM 40 MG VIAL IVPUSH SCH ×2 (10:02→23:12)
[2021-08-14] MEDS: AMINO ACIDS 4.25%/D5W 1,000 ML IV SCH ×2 (13:17→13:18)
[2021-08-14] MEDS: MULTIVIT INJ. ADULT COMBO WITH VIT K 1 COMBO 10 ML VIAL IV SCH (13:18)
[2021-08-14] MEDS ORDERED: chlorproMAZINE HCL 25 MG/1 ML AMP IM ONE (15:15)
[2021-08-14] MEDS: QUEtiapine FUMARATE 25 MG TABLET PO SCH (23:12)
[2021-08-15] MEDS ORDERED: PT OWN MED DRAWER 7, Y5N ONE ×5 (02:01→22:24)
[2021-08-15] MEDS: FAT EMUL/SOY/MCT/OLIV/FISH OIL 250 ML IV SCH ×2 (02:45→22:25)
[2021-08-15] MEDS: AMINO ACIDS 4.25%/D5W 1,000 ML IV SCH ×2 (02:47→13:40)
[2021-08-15 06:54] LABS: BASO % 0.3 % (0-2.0); EOS % 0.6 % (0-4.5); HEMATOCRIT 22.9 % (32.4-45.2); HEMOGLOBIN 7.4 GM/dL (10.7-15.3); LYMPH % 11.5 % (8-40); MCH 25.5 pg (25.7-33.7); MCHC 32.3 g/dl (32.0-36.0); MEAN CELL VOLUME 78.7 fl (80-96); MEAN PLT VOLUME 10.2 fl (7.5-11.1); MONO % 4.3 % (3.8-10.2); NEUT % 83.3 % (42.8-82.8); PLATELET COUNT 124 10^3/uL (134-434); RBC 2.91 M/mm3 (3.60-5.2); RDW 26.4 % (11.6-15.6); WHITE BLOOD COUNT 7.2 K/mm3 (4.0-10.0)
[2021-08-15 07:09] LABS: CALCIUM 8.2 mg/dL (8.5-10.1)
[2021-08-15 07:10] LABS: ALBUMIN 1.9 g/dl (3.4-5.0); BLOOD UREA NITROGEN 35.8 mg/dL (7-18); MAGNESIUM 1.7 mg/dL (1.8-2.4)
[2021-08-15 07:13] LABS: CREATININE 0.4 mg/dL (0.55-1.3); PHOSPHOROUS 1.2 mg/dL (2.5-4.9)
[2021-08-15 07:14] LABS: BILIRUBIN,TOTAL 0.3 mg/dL (0.2-1)
[2021-08-15 07:15] LABS: TOT PROT 4.2 g/dl (6.4-8.2)
[2021-08-15] MEDS: INSULIN SLIDING SCALE (NOVOLOG) 1 VIAL SQ SCH ×6 (07:30→22:28)
[2021-08-15] MEDS ORDERED: MAGNESIUM SULF 50% (8.12 MEQ/2 ML-1 GM VIAL) IVPB ONE (09:00)
[2021-08-15] MEDS ORDERED: POTASSIUM PHOSPHATE 30 MM in DEXTROSE 5%-WATER - 250 ML IVPB ONE (10:00)
[2021-08-15] MEDS: PANTOPRAZOLE SODIUM 40 MG VIAL IVPUSH SCH (11:00)
[2021-08-15] MEDS: CHOLECALCIFEROL (VIT D3) 1,000 UNIT (25 MCG) TABLET PO SCH (11:00)
[2021-08-15] MEDS: HEPARIN NA (PORCINE) 5,000 UNITS/ML 1ML VIAL SQ SCH ×2 (11:00→22:26)
[2021-08-15] MEDS: methylPREDNISolone NA SUCC 40 MG/1 ML VIAL IVPUSH SCH (11:00)
[2021-08-15] MEDS: ALBUTEROL SO4 2.5/IPRATROPIUM 0.5 INH SOL 3 ML VIAL.NEB. NEB SCH ×3 (12:10→20:10)
[2021-08-15] MEDS: MULTIVIT INJ. ADULT COMBO WITH VIT K 1 COMBO 10 ML VIAL IV SCH (13:40)
[2021-08-15 14:20] LABS: ANISOCYTOSIS 1+; MACROCYTOSIS 0; PLATELET ESTIMATE NORMAL; TEAR DROP CELLS 1+
[2021-08-15] MEDS: PANTOPRAZOLE SODIUM 80 MG in SODIUM CHLORIDE 100 ML IVPB SCH (17:20)
[2021-08-15] MEDS: QUEtiapine FUMARATE 25 MG TABLET PO SCH (22:21)
[2021-08-16] MEDS ORDERED: PT OWN MED DRAWER 7, Y5N ONE ×2 (01:36→01:51)
[2021-08-16] MEDS: AMINO ACIDS 4.25%/D5W 1,000 ML IV SCH ×2 (01:40→13:26)
[2021-08-16] MEDS: PANTOPRAZOLE SODIUM 80 MG in SODIUM CHLORIDE 100 ML IVPB SCH ×3 (03:00→23:00)
[2021-08-16] MEDS: INSULIN SLIDING SCALE (NOVOLOG) 1 VIAL SQ SCH ×4 (06:40→21:52)
[2021-08-16 06:42] LABS: BASO % 1.1 % (0-2.0); EOS % 1.4 % (0-4.5); HEMATOCRIT 22.3 % (32.4-45.2); HEMOGLOBIN 7.2 GM/dL (10.7-15.3); LYMPH % 9.9 % (8-40); MCH 25.3 pg (25.7-33.7); MCHC 32.1 g/dl (32.0-36.0); MEAN CELL VOLUME 78.9 fl (80-96); MONO % 4.7 % (3.8-10.2); NEUT % 82.9 % (42.8-82.8); PLATELET COUNT 109 10^3/uL (134-434); RBC 2.82 M/mm3 (3.60-5.2); RDW 26.7 % (11.6-15.6); WHITE BLOOD COUNT 7.6 K/mm3 (4.0-10.0)
[2021-08-16 07:17] LABS: CALCIUM 7.4 mg/dL (8.5-10.1)
[2021-08-16 07:18] LABS: ALBUMIN 1.8 g/dl (3.4-5.0); BLOOD UREA NITROGEN 32.1 mg/dL (7-18); MAGNESIUM 1.7 mg/dL (1.8-2.4)
[2021-08-16 07:21] LABS: CREATININE 0.4 mg/dL (0.55-1.3)
[2021-08-16 07:22] LABS: BILIRUBIN,TOTAL 0.2 mg/dL (0.2-1); PHOSPHOROUS 2.2 mg/dL (2.5-4.9); TOT PROT 4.1 g/dl (6.4-8.2)
[2021-08-16] MEDS: ALBUTEROL SO4 2.5/IPRATROPIUM 0.5 INH SOL 3 ML VIAL.NEB. NEB SCH ×4 (08:00→20:22)
[2021-08-16] MEDS ORDERED: POTASSIUM PHOSPHATE 20 MM in SODIUM CHLORIDE 250 ML IVPB ONE (09:00)
[2021-08-16] MEDS ORDERED: MAGNESIUM 2GM/50ML STERILE WATER IVPB IVPB ONE ×2 (09:00)
[2021-08-16] MEDS: methylPREDNISolone NA SUCC 40 MG/1 ML VIAL IVPUSH SCH (09:29)
[2021-08-16] MEDS: CHOLECALCIFEROL (VIT D3) 1,000 UNIT (25 MCG) TABLET PO SCH (09:30)
[2021-08-16] MEDS: HEPARIN NA (PORCINE) 5,000 UNITS/ML 1ML VIAL SQ SCH ×2 (09:30→21:52)
[2021-08-16] MEDS: MULTIVIT INJ. ADULT COMBO WITH VIT K 1 COMBO 10 ML VIAL IV SCH (13:27)
[2021-08-16] MEDS: QUEtiapine FUMARATE 25 MG TABLET PO SCH (21:39)
[2021-08-16] MEDS: FAT EMUL/SOY/MCT/OLIV/FISH OIL 250 ML IV SCH (23:00)
[2021-08-17] MEDS ORDERED: PT OWN MED DRAWER 7, Y5N ONE ×5 (01:13→21:13)
[2021-08-17] MEDS: AMINO ACIDS 4.25%/D5W 1,000 ML IV SCH ×2 (01:16→16:42)
[2021-08-17] MEDS: MULTIVIT INJ. ADULT COMBO WITH VIT K 1 COMBO 10 ML VIAL IV SCH ×2 (03:31→16:52)
[2021-08-17] MEDS: INSULIN SLIDING SCALE (NOVOLOG) 1 VIAL SQ SCH ×4 (06:16→21:15)
[2021-08-17] MEDS ORDERED: ACETAMINOPHEN INJECTION 100 ML IVPB ONE (06:18)
[2021-08-17] MEDS ORDERED: ACETAMINOPHEN 1000 MG/100 ML VIAL IVPB ONE (06:44)
[2021-08-17 06:53] LABS: BASO % 0.7 % (0-2.0); HEMOGLOBIN 10.5 GM/dL (10.7-15.3); LYMPH % 8.7 % (8-40); MCH 26.2 pg (25.7-33.7); MCHC 32.8 g/dl (32.0-36.0); MEAN PLT VOLUME 10.2 fl (7.5-11.1); MONO % 3.5 % (3.8-10.2); NEUT % 86.1 % (42.8-82.8); PLATELET COUNT 140 10^3/uL (134-434); RDW 24.5 % (11.6-15.6)
[2021-08-17 07:32] LABS: BLOOD UREA NITROGEN 29.4 mg/dL (7-18); CALCIUM 7.4 mg/dL (8.5-10.1)
[2021-08-17 07:33] LABS: MAGNESIUM 1.9 mg/dL (1.8-2.4)
[2021-08-17 07:34] LABS: CHOLESTEROL 152 mg/dL (50-200)
[2021-08-17 07:35] LABS: CREATININE 0.4 mg/dL (0.55-1.3); LDL CHOLESTEROL (ONLY SJRH) 58 mg/dL (5-100); PHOSPHOROUS 2.6 mg/dL (2.5-4.9); TRIGLYCERIDES 324 mg/dL (0-150)
[2021-08-17 07:36] LABS: BILIRUBIN,TOTAL 0.4 mg/dL (0.2-1)
[2021-08-17 07:37] LABS: HDL CHOLESTEROL 54 mg/dL (40-60)
[2021-08-17 07:41] LABS: ALBUMIN 2.1 g/dl (3.4-5.0)
[2021-08-17] MEDS: ALBUTEROL SO4 2.5/IPRATROPIUM 0.5 INH SOL 3 ML VIAL.NEB. NEB SCH ×4 (08:56→20:21)
[2021-08-17] MEDS: CHOLECALCIFEROL (VIT D3) 1,000 UNIT (25 MCG) TABLET PO SCH (10:01)
[2021-08-17] MEDS: methylPREDNISolone NA SUCC 40 MG/1 ML VIAL IVPUSH SCH (10:19)
[2021-08-17] MEDS: HEPARIN NA (PORCINE) 5,000 UNITS/ML 1ML VIAL SQ SCH ×2 (11:44→21:15)
[2021-08-17] MEDS: PANTOPRAZOLE SODIUM 80 MG in SODIUM CHLORIDE 100 ML IVPB SCH ×2 (11:51→18:12)
[2021-08-17 13:30] LABS: BASO % 1.1 % (0-2.0); EOS % 0.4 % (0-4.5); HEMATOCRIT 30.9 % (32.4-45.2); HEMOGLOBIN 9.8 GM/dL (10.7-15.3); LYMPH % 5.6 % (8-40); MCH 25.6 pg (25.7-33.7); MCHC 31.7 g/dl (32.0-36.0); MEAN CELL VOLUME 80.8 fl (80-96); MEAN PLT VOLUME 9.3 fl (7.5-11.1); MONO % 2.2 % (3.8-10.2); NEUT % 90.7 % (42.8-82.8); PLATELET COUNT 93 10^3/uL (134-434); RBC 3.83 M/mm3 (3.60-5.2); RDW 24.3 % (11.6-15.6); WHITE BLOOD COUNT 11.2 K/mm3 (4.0-10.0)
[2021-08-17 20:08] LABS: GLIADIN ANTIBODY IGA 2 units (0-19); GLIADIN ANTIBODY IGG 1 units (0-19); TRANSGLUTAMINASE IGG < 2 U/mL (0-5)
[2021-08-17] MEDS: FAT EMUL/SOY/MCT/OLIV/FISH OIL 250 ML IV SCH (21:15)
[2021-08-17] MEDS: QUEtiapine FUMARATE 25 MG TABLET PO SCH (21:15)
[2021-08-17] MEDS ORDERED: ACETAMINOPHEN 1000 MG/100 ML VIAL IVPB PRN (23:42)
[2021-08-18] MEDS ORDERED: PT OWN MED DRAWER 7, Y5N ONE ×3 (05:36→21:21)
[2021-08-18] MEDS: PANTOPRAZOLE SODIUM 80 MG in SODIUM CHLORIDE 100 ML IVPB SCH (06:33)
[2021-08-18] MEDS: INSULIN SLIDING SCALE (NOVOLOG) 1 VIAL SQ SCH ×4 (06:33→21:30)
[2021-08-18] MEDS: AMINO ACIDS 4.25%/D5W 1,000 ML IV SCH (06:33)
[2021-08-18] MEDS: ALBUTEROL SO4 2.5/IPRATROPIUM 0.5 INH SOL 3 ML VIAL.NEB. NEB SCH ×4 (07:20→20:19)
[2021-08-18 07:39] LABS: BASO % 0.3 % (0-2.0); EOS % 0.9 % (0-4.5); HEMATOCRIT 29.8 % (32.4-45.2); HEMOGLOBIN 9.7 GM/dL (10.7-15.3); LYMPH % 9.3 % (8-40); MCH 26.4 pg (25.7-33.7); MCHC 32.6 g/dl (32.0-36.0); MEAN CELL VOLUME 80.9 fl (80-96); MEAN PLT VOLUME 10.5 fl (7.5-11.1); MONO % 3.7 % (3.8-10.2); NEUT % 85.8 % (42.8-82.8); PLATELET COUNT 115 10^3/uL (134-434); RBC 3.68 M/mm3 (3.60-5.2); RDW 24.7 % (11.6-15.6); WHITE BLOOD COUNT 7.1 K/mm3 (4.0-10.0)
[2021-08-18 07:41] LABS: BLOOD UREA NITROGEN 29.4 mg/dL (7-18); CALCIUM 7.9 mg/dL (8.5-10.1); MAGNESIUM 1.5 mg/dL (1.8-2.4)
[2021-08-18 07:43] LABS: ALBUMIN 1.8 g/dl (3.4-5.0)
[2021-08-18 07:45] LABS: CREATININE 0.4 mg/dL (0.55-1.3); PHOSPHOROUS 2.2 mg/dL (2.5-4.9)
[2021-08-18 07:46] LABS: BILIRUBIN,TOTAL 0.3 mg/dL (0.2-1); TOT PROT 4.5 g/dl (6.4-8.2)
[2021-08-18 07:58] LABS: ARTERIAL BLD GAS O2 SATURATION 93.8 % (95-98); ARTERIAL BLOOD GAS BASE EXCESS -0.5 mmol/L (-2-2); ARTERIAL BLOOD GAS PO2 82.3 mmHg (80-100); ARTERIAL BLOOD GAS pH 7.237 (7.350-7.450)
[2021-08-18 07:59] LABS: ALLENS TEST POSITIVE
[2021-08-18] MEDS ORDERED: MAGNESIUM SULF 50% (8.12 MEQ/2 ML-1 GM VIAL) IVPB ONE (09:00)
[2021-08-18] MEDS ORDERED: POTASSIUM PHOSPHATE 30 MM in DEXTROSE 5%-WATER - 250 ML IVPB ONE (10:00)
[2021-08-18] MEDS: methylPREDNISolone NA SUCC 40 MG/1 ML VIAL IVPUSH SCH (10:10)
[2021-08-18] MEDS: HEPARIN NA (PORCINE) 5,000 UNITS/ML 1ML VIAL SQ SCH ×2 (10:11→21:29)
[2021-08-18] MEDS: CHOLECALCIFEROL (VIT D3) 1,000 UNIT (25 MCG) TABLET PO SCH ×2 (10:11→10:44)
[2021-08-18] MEDS: MULTIVIT INJ. ADULT COMBO WITH VIT K 1 COMBO 10 ML VIAL IV SCH (15:08)
[2021-08-18] MEDS: PANTOPRAZOLE SODIUM 40 MG VIAL IVPUSH SCH (21:30)
[2021-08-18] MEDS: QUEtiapine FUMARATE 25 MG TABLET PO SCH (21:30)
[2021-08-18] MEDS ORDERED: PANTOPRAZOLE SODIUM 40 MG VIAL IVPUSH SCH (22:00)
[2021-08-19] MEDS: INSULIN SLIDING SCALE (NOVOLOG) 1 VIAL SQ SCH ×4 (06:28→21:52)
[2021-08-19] MEDS: ALBUTEROL SO4 2.5/IPRATROPIUM 0.5 INH SOL 3 ML VIAL.NEB. NEB SCH ×4 (07:50→20:15)
[2021-08-19] MEDS: HEPARIN NA (PORCINE) 5,000 UNITS/ML 1ML VIAL SQ SCH ×2 (11:00→21:45)
[2021-08-19] MEDS: PANTOPRAZOLE SODIUM 40 MG VIAL IVPUSH SCH ×2 (11:00→21:45)
[2021-08-19] MEDS: CHOLECALCIFEROL (VIT D3) 1,000 UNIT (25 MCG) TABLET PO SCH (11:00)
[2021-08-19] MEDS: methylPREDNISolone NA SUCC 40 MG/1 ML VIAL IVPUSH SCH (11:00)
[2021-08-19] MEDS ORDERED: PT OWN MED DRAWER 7, Y5N ONE (11:15)
[2021-08-19] MEDS: MULTIVIT INJ. ADULT COMBO WITH VIT K 1 COMBO 10 ML VIAL IV SCH (14:00)
[2021-08-19] MEDS: QUEtiapine FUMARATE 25 MG TABLET PO SCH (21:45)
[2021-08-20] MEDS: INSULIN SLIDING SCALE (NOVOLOG) 1 VIAL SQ SCH ×3 (06:51→16:46)
[2021-08-20] MEDS: ALBUTEROL SO4 2.5/IPRATROPIUM 0.5 INH SOL 3 ML VIAL.NEB. NEB SCH (07:30)
[2021-08-20] MEDS: PANTOPRAZOLE SODIUM 40 MG VIAL IVPUSH SCH (09:59)
[2021-08-20] MEDS: methylPREDNISolone NA SUCC 40 MG/1 ML VIAL IVPUSH SCH (09:59)
[2021-08-20] MEDS: HEPARIN NA (PORCINE) 5,000 UNITS/ML 1ML VIAL SQ SCH (10:00)
[2021-08-20] MEDS: CHOLECALCIFEROL (VIT D3) 1,000 UNIT (25 MCG) TABLET PO SCH (10:48)
[2021-08-20] MEDS: MULTIVIT INJ. ADULT COMBO WITH VIT K 1 COMBO 10 ML VIAL IV SCH (13:00)
[2021-08-20 20:31] VITALS: BP 152/62; PULSE 91; TEMP 99.2
== END 2021-08-20 20:00 | DRG 207 ==
LOC: JER 21:46 → JERBED 22:22 → JICU 07-19 02:54 → J8W 07-30 15:55 → JICU 07-31 08:10
PROVIDERS: ADMIT Internal Medicine Pulmonary Disease; ATTEND Internal Medicine Pulmonary Disease
PROC: XW033E5 Introduction of Remdesivir Anti-infective into Peripheral Vein, Percutaneous Approach, New Technology Group 5 (ICD-10-PCS; 2021-07-18)
PROC: 30233N1 Transfusion of Nonautologous Red Blood Cells into Peripheral Vein, Percutaneous Approach (ICD-10-PCS; 2021-07-18)
PROC: 05HM33Z Insertion of Infusion Device into Right Internal Jugular Vein, Percutaneous Approach (ICD-10-PCS; 2021-07-19)
PROC: B543ZZA Ultrasonography of Right Jugular Veins, Guidance (ICD-10-PCS; 2021-07-19)
PROC: 5A1955Z Respiratory Ventilation, Greater than 96 Consecutive Hours (ICD-10-PCS; principal; 2021-07-22)
PROC: 0BH17EZ Insertion of Endotracheal Airway into Trachea, Via Natural or Artificial Opening (ICD-10-PCS; 2021-07-22)
PROC: 05HM33Z Insertion of Infusion Device into Right Internal Jugular Vein, Percutaneous Approach (ICD-10-PCS; 2021-07-31)
PROC: B543ZZA Ultrasonography of Right Jugular Veins, Guidance (ICD-10-PCS; 2021-07-31)
DX: J96.21 Acute and chronic respiratory failure with hypoxia (principal); U07.1 COVID-19; J12.82 Pneumonia due to coronavirus disease 2019; J44.1 Chronic obstructive pulmonary disease with (acute) exacerbation; I13.0 Hypertensive heart and chronic kidney disease with heart failure and stage 1 through stage 4 chronic kidney disease, or unspecified chronic kidney disease; E87.2 Acidosis; N17.9 Acute kidney failure, unspecified; E87.1 Hypo-osmolality and hyponatremia; A04.72 Enterocolitis due to Clostridium difficile, not specified as recurrent; N39.0 Urinary tract infection, site not specified; E87.3 Alkalosis; Z16.12 Extended spectrum beta lactamase (ESBL) resistance; J96.22 Acute and chronic respiratory failure with hypercapnia; E11.22 Type 2 diabetes mellitus with diabetic chronic kidney disease; D64.9 Anemia, unspecified; N18.9 Chronic kidney disease, unspecified; E78.5 Hyperlipidemia, unspecified; I25.10 Atherosclerotic heart disease of native coronary artery without angina pectoris; I27.20 Pulmonary hypertension, unspecified; D69.6 Thrombocytopenia, unspecified; B96.20 Unspecified Escherichia coli [E. coli] as the cause of diseases classified elsewhere; D72.829 Elevated white blood cell count, unspecified; I50.9 Heart failure, unspecified
CPT/HCPCS: 31500; 36415; 36430; 36600; 70450-TC; 71045-TC-FY; 74230-TC-FY; 76937; 80048; 80053; 80061; 81003; 82272; 82550; 82784; 82803; 82962; 83516; 83605; 83615; 83735; 83880; 84100; 84460; 84484; 85025; 85027; 85045; 85379; 85384; 85610; 85730; 86140; 86480; 86705; 86706; 86707; 86803; 86850; 86880; 86900; 86901; 86922; 87040; 87045; 87046; 87070; 87086; 87177; 87186; 87205; 87209; 87324; 87340; 87350; 87389; 87449; 87517; 87536; 87804; 87899; 92611-GN; 93005; 93010; 93306-TC; 93308; 94002; 94640; 94660; 97116-GP; 97161-GP; 99291; C9399; C9803; J0131; J1100; J1644; J1756; P9058; U0003; U0005

== ENCOUNTER 2021-12-01 16:00 | Inpatient (IN) | payer BC, OTHER ==
[~2021-12-01 16:00] MED LIST: SODIUM CHLORIDE 1,000 ML IV SCH
[2021-12-01] MEDS ORDERED: ACETAMINOPHEN 1000 MG/100 ML BAG IVPB ONE (16:42)
[2021-12-01] MEDS ORDERED: ACETAMINOPHEN INJECTION 100 ML IVPB ONE (16:43)
[2021-12-01 16:46] VITALS: BMI 24.1
[2021-12-01] MEDS ORDERED: VANCOMYCIN 1 GM in D5W (PRE-DOCKED) 1,000 MG/250 ML IVPB ONE (17:03)
[2021-12-01] MEDS ORDERED: MEROPENEM 1 GM in DEXTROSE 5%-WATER 100 ML IVPB ONE (17:04)
[2021-12-01] MEDS ORDERED: MEROPENEM 1 GM VIAL (RESTRICTED TO ID) IVPB ONE (17:12)
[2021-12-01 17:29] LABS: BASO % 0.1 % (0-2.0); HEMATOCRIT 31.5 % (32.4-45.2); HEMOGLOBIN 10.2 GM/dL (10.7-15.3); LYMPH % 2.5 % (8-40); MCH 27.2 pg (25.7-33.7); MCHC 32.3 g/dl (32.0-36.0); MEAN CELL VOLUME 84.1 fl (80-96); MEAN PLT VOLUME 8.4 fl (7.5-11.1); MONO % 6.4 % (3.8-10.2); PLATELET COUNT 346 10^3/uL (134-434); RBC 3.74 M/mm3 (3.60-5.2); RDW 15.2 % (11.6-15.6)
[2021-12-01 17:36] LABS: INR 1.4 (0.83-1.09); PROTHROMBIN TIME (PATIENT) 16.2 SEC (9.7-13.0)
[2021-12-01 17:37] LABS: ALBUMIN 2.6 g/dl (3.4-5.0); BLOOD UREA NITROGEN 39.5 mg/dL (7-18); CALCIUM 8.8 mg/dL (8.5-10.1)
[2021-12-01 17:38] LABS: ACTIVATED PTT 32.9 SECONDS (25.2-36.5)
[2021-12-01 17:41] LABS: CREATININE 1.4 mg/dL (0.55-1.3)
[2021-12-01 17:42] LABS: BILIRUBIN,TOTAL 0.5 mg/dL (0.2-1); TOT PROT 6.1 g/dl (6.4-8.2)
[2021-12-01] MEDS ORDERED: LACTATED RINGERS SOLUTION 1000 ML INFUS.BAG IV ONE ×2 (17:54→18:11)
[2021-12-01 18:05] LABS: ANISOCYTOSIS 1+; PLATELET ESTIMATE ADEQUATE
[2021-12-02 07:45] LABS: HEMATOCRIT 31.2 % (32.4-45.2); HEMOGLOBIN 9.8 GM/dL (10.7-15.3); MCH 27.1 pg (25.7-33.7); MCHC 31.5 g/dl (32.0-36.0); MEAN CELL VOLUME 86.2 fl (80-96); MEAN PLT VOLUME 8.5 fl (7.5-11.1); PLATELET COUNT 288 10^3/uL (134-434); RBC 3.62 M/mm3 (3.60-5.2); RDW 15.1 % (11.6-15.6); WHITE BLOOD COUNT 25.9 K/mm3 (4.0-10.0)
[2021-12-02 08:00] LABS: BLOOD UREA NITROGEN 31.8 mg/dL (7-18); CALCIUM 8.5 mg/dL (8.5-10.1)
[2021-12-02 08:01] LABS: ALBUMIN 2.2 g/dl (3.4-5.0)
[2021-12-02 08:05] LABS: BILIRUBIN,TOTAL 0.3 mg/dL (0.2-1); TOT PROT 5.4 g/dl (6.4-8.2)
[2021-12-02 08:26] LABS: ANISOCYTOSIS 1+; MACROCYTOSIS 0; PLATELET ESTIMATE NORMAL
[2021-12-02] MEDS: SODIUM CHLORIDE 1,000 ML IV SCH (08:44)
[2021-12-02] MEDS ORDERED: FAMOTIDINE 20 MG/50 ML IVPB 20 MG/50 ML MG IVPB ONE (08:45)
[2021-12-02] MEDS ORDERED: MEROPENEM 1 GM in DEXTROSE 5%-WATER 100 ML IVPB ONE (09:00)
[2021-12-02 09:09] LABS: EPI CELLS 22 /uL (0-25.1); HYALINE CASTS 6 /uL (0-3.1); URINE APPEARANCE TURBID; URINE BACTERIA 302 /uL (0-1359); URINE BILIRUBIN NEGATIVE (NEGATIVE); URINE COLOR YELLOW; URINE GLUCOSE (UA) NEGATIVE (NEGATIVE); URINE KETONE NEGATIVE (NEGATIVE); URINE LEUK ESTERASE 2+ (NEGATIVE); URINE NITRITE NEGATIVE (NEGATIVE); URINE PROTEIN 2+ (NEGATIVE); URINE WBC 2294 /uL (0-25.8)
[2021-12-02] MEDS ORDERED: DEXTROSE 5%-WATER 100 ML IVPB ONE (09:35)
[2021-12-02] MEDS ORDERED: MEROPENEM 1 GM VIAL (RESTRICTED TO ID) IVPB ONE (09:35)
[2021-12-02] MEDS: CHOLECALCIFEROL (VIT D3) 1,000 UNIT (25 MCG) TABLET PO SCH (09:59)
[2021-12-02] MEDS: ZINC SULFATE 220 MG CAPSULE (FP) PO SCH (09:59)
[2021-12-02] MEDS ORDERED: FLU VACC QS2021-22(6MOS UP)/PF 60 MCG/0.5 ML SYRINGE IM ONE (10:00)
[2021-12-02] MEDS ORDERED: DEXAMETHASONE SOD PHOSPHATE 10 MG/1 ML VIAL IVPUSH SCH (10:00)
[2021-12-02 10:22] LABS: YEAST NON SEEN (NEGATIVE)
[2021-12-02] MEDS: METOPROLOL TARTRATE 25 MG TABLET (FP) PO SCH ×2 (12:05→21:51)
[2021-12-02] MEDS: MOMETASONE FUROATE 220 MCG/IH INHALER IH SCH (12:23)
[2021-12-02] MEDS: ROFLUMILAST 500 MCG TABLET PO SCH (12:23)
[2021-12-02] MEDS: TIOTROPIUM/OLODATEROL HCL (STIOLTO) 4 GM INHALER IH SCH (12:24)
[2021-12-02] MEDS ORDERED: AZITHROMYCIN IVPB 500 MG/250 ML BAG IVPB ONE (13:00)
[2021-12-02] MEDS ORDERED: ALBUTEROL SO4 HFA INHALER IH PRN (13:10)
[2021-12-02] MEDS: HEPARIN NA (PORCINE) 5,000 UNITS/ML 1ML VIAL SQ SCH ×2 (13:28→21:51)
[2021-12-02] MEDS ORDERED: REMDESIVIR 200 MG in SODIUM CHLORIDE 250 ML IVPB ONE (14:00)
[2021-12-02] MEDS ORDERED: METOCLOPRAMIDE HCL INJECTION 10 MG/2 ML VIAL IVPUSH ONE (14:01)
[2021-12-02] MEDS ORDERED: cefTRIAXone SODIUM 1 GM VIAL ONE (15:11)
[2021-12-02] MEDS ORDERED: DEXTROSE 5%-WATER - 50 ML IVPB ONE (15:11)
[2021-12-02] MEDS: CEFTRIAXONE 1 GM in DEXTROSE 5%-WATER - 50 ML IVPB SCH (15:21)
[2021-12-02] MEDS ORDERED: VANCOMYCIN 1 GM in D5W (PRE-DOCKED) 1,000 MG/250 ML IVPB SCH (17:00)
[2021-12-02] MEDS: ATORVASTATIN CA 20 MG TABLET (FP) PO SCH (21:51)
[2021-12-02] MEDS: DEXAMETHASONE SOD PHOSPHATE 10 MG/1 ML VIAL IVPUSH SCH (21:51)
[2021-12-02] MEDS: OMEGA-3 ACID ETHYL ESTERS (FATTY-ACIDS) 1 GM CAPSULE (FP) PO SCH (21:52)
[2021-12-03] MEDS: SODIUM CHLORIDE 1,000 ML IV SCH ×2 (00:20→10:01)
[2021-12-03] MEDS: HEPARIN NA (PORCINE) 5,000 UNITS/ML 1ML VIAL SQ SCH ×3 (05:30→21:26)
[2021-12-03 08:03] LABS: HEMATOCRIT 26.3 % (32.4-45.2); HEMOGLOBIN 8.4 GM/dL (10.7-15.3); MCH 27.1 pg (25.7-33.7); MCHC 31.8 g/dl (32.0-36.0); MEAN CELL VOLUME 85.3 fl (80-96); MEAN PLT VOLUME 9.1 fl (7.5-11.1); PLATELET COUNT 255 10^3/uL (134-434); RBC 3.08 M/mm3 (3.60-5.2); WHITE BLOOD COUNT 12.5 K/mm3 (4.0-10.0)
[2021-12-03 08:22] LABS: CALCIUM 7.7 mg/dL (8.5-10.1)
[2021-12-03 08:23] LABS: ALBUMIN 1.9 g/dl (3.4-5.0); BLOOD UREA NITROGEN 32.2 mg/dL (7-18)
[2021-12-03 08:26] LABS: CREATININE 0.8 mg/dL (0.55-1.3)
[2021-12-03 08:27] LABS: BILIRUBIN,TOTAL 0.2 mg/dL (0.2-1)
[2021-12-03 08:28] LABS: TOT PROT 4.8 g/dl (6.4-8.2)
[2021-12-03] MEDS ORDERED: cefTRIAXone SODIUM 1 GM VIAL ONE (09:53)
[2021-12-03] MEDS ORDERED: DEXTROSE 5%-WATER - 50 ML IVPB ONE (09:53)
[2021-12-03] MEDS: ROFLUMILAST 500 MCG TABLET PO SCH (09:58)
[2021-12-03] MEDS: ZINC SULFATE 220 MG CAPSULE (FP) PO SCH (09:59)
[2021-12-03] MEDS: METOPROLOL TARTRATE 25 MG TABLET (FP) PO SCH ×2 (09:59→21:25)
[2021-12-03] MEDS: DEXAMETHASONE SOD PHOSPHATE 10 MG/1 ML VIAL IVPUSH SCH ×2 (09:59→21:26)
[2021-12-03] MEDS: OMEGA-3 ACID ETHYL ESTERS (FATTY-ACIDS) 1 GM CAPSULE (FP) PO SCH ×2 (10:00→21:25)
[2021-12-03] MEDS: CHOLECALCIFEROL (VIT D3) 1,000 UNIT (25 MCG) TABLET PO SCH (10:00)
[2021-12-03] MEDS: CEFTRIAXONE 1 GM in DEXTROSE 5%-WATER - 50 ML IVPB SCH (10:00)
[2021-12-03] MEDS: MOMETASONE FUROATE 220 MCG/IH INHALER IH SCH (10:01)
[2021-12-03] MEDS: TIOTROPIUM/OLODATEROL HCL (STIOLTO) 4 GM INHALER IH SCH (10:01)
[2021-12-03 10:32] LABS: ANISOCYTOSIS 1+; MACROCYTOSIS 0; PLATELET ESTIMATE NORMAL
[2021-12-03] MEDS: AZITHROMYCIN IVPB 250 MG in DEXTROSE 5%-WATER - 250 ML IVPB SCH (10:44)
[2021-12-03] MEDS: REMDESIVIR 100 MG in SODIUM CHLORIDE 250 ML IVPB SCH (14:31)
[2021-12-03] MEDS: ATORVASTATIN CA 20 MG TABLET (FP) PO SCH (21:26)
[2021-12-04] MEDS: HEPARIN NA (PORCINE) 5,000 UNITS/ML 1ML VIAL SQ SCH ×3 (06:13→22:01)
[2021-12-04 08:24] LABS: BASO % 0.2 % (0-2.0); HEMATOCRIT 27.4 % (32.4-45.2); LYMPH % 9.6 % (8-40); MEAN CELL VOLUME 84.8 fl (80-96); MEAN PLT VOLUME 8.9 fl (7.5-11.1); MONO % 2.7 % (3.8-10.2); NEUT % 87.5 % (42.8-82.8); PLATELET COUNT 290 10^3/uL (134-434); RBC 3.23 M/mm3 (3.60-5.2); RDW 14.9 % (11.6-15.6); WHITE BLOOD COUNT 9.6 K/mm3 (4.0-10.0)
[2021-12-04] MEDS ORDERED: DEXTROSE 5%-WATER - 50 ML IVPB ONE (09:43)
[2021-12-04] MEDS ORDERED: cefTRIAXone SODIUM 1 GM VIAL ONE (09:43)
[2021-12-04] MEDS: MOMETASONE FUROATE 220 MCG/IH INHALER IH SCH (09:56)
[2021-12-04] MEDS: CEFTRIAXONE 1 GM in DEXTROSE 5%-WATER - 50 ML IVPB SCH (09:56)
[2021-12-04] MEDS: SODIUM CHLORIDE 1,000 ML IV SCH (09:56)
[2021-12-04] MEDS: AZITHROMYCIN IVPB 250 MG in DEXTROSE 5%-WATER - 250 ML IVPB SCH (09:56)
[2021-12-04] MEDS: OMEGA-3 ACID ETHYL ESTERS (FATTY-ACIDS) 1 GM CAPSULE (FP) PO SCH ×2 (09:57→22:01)
[2021-12-04] MEDS: ROFLUMILAST 500 MCG TABLET PO SCH (09:57)
[2021-12-04] MEDS: TIOTROPIUM/OLODATEROL HCL (STIOLTO) 4 GM INHALER IH SCH (09:57)
[2021-12-04] MEDS: METOPROLOL TARTRATE 25 MG TABLET (FP) PO SCH ×2 (09:57→22:00)
[2021-12-04] MEDS: ZINC SULFATE 220 MG CAPSULE (FP) PO SCH (09:57)
[2021-12-04] MEDS: CHOLECALCIFEROL (VIT D3) 1,000 UNIT (25 MCG) TABLET PO SCH (09:57)
[2021-12-04] MEDS: DEXAMETHASONE SOD PHOSPHATE 10 MG/1 ML VIAL IVPUSH SCH ×2 (09:57→22:01)
[2021-12-04 10:58] LABS: CALCIUM 8.7 mg/dL (8.5-10.1)
[2021-12-04 10:59] LABS: ALBUMIN 2.1 g/dl (3.4-5.0); BLOOD UREA NITROGEN 29.5 mg/dL (7-18)
[2021-12-04 11:02] LABS: CREATININE 0.8 mg/dL (0.55-1.3)
[2021-12-04 11:04] LABS: BILIRUBIN,TOTAL 0.1 mg/dL (0.2-1); TOT PROT 5.2 g/dl (6.4-8.2)
[2021-12-04] MEDS: ASPIRIN 81 MG CHEWABLE TABLETS PO SCH (11:05)
[2021-12-04] MEDS: REMDESIVIR 100 MG in SODIUM CHLORIDE 250 ML IVPB SCH (14:13)
[2021-12-04] MEDS ORDERED: MELATONIN 5 MG TABLETS PO ONE (21:22)
[2021-12-04] MEDS: ATORVASTATIN CA 20 MG TABLET (FP) PO SCH (22:00)
[2021-12-05] MEDS: HEPARIN NA (PORCINE) 5,000 UNITS/ML 1ML VIAL SQ SCH ×3 (05:26→21:08)
[2021-12-05 07:37] LABS: BASO % 0.4 % (0-2.0); HEMATOCRIT 26.9 % (32.4-45.2); HEMOGLOBIN 8.6 GM/dL (10.7-15.3); LYMPH % 13.3 % (8-40); MCH 27.5 pg (25.7-33.7); MEAN PLT VOLUME 9.2 fl (7.5-11.1); MONO % 3.8 % (3.8-10.2); NEUT % 82.5 % (42.8-82.8); PLATELET COUNT 307 10^3/uL (134-434); RBC 3.13 M/mm3 (3.60-5.2); RDW 15.4 % (11.6-15.6); WHITE BLOOD COUNT 7.5 K/mm3 (4.0-10.0)
[2021-12-05 08:01] LABS: BLOOD UREA NITROGEN 33.2 mg/dL (7-18); MAGNESIUM 1.8 mg/dL (1.8-2.4)
[2021-12-05 08:04] LABS: CALCIUM 8.6 mg/dL (8.5-10.1); CREATININE 0.8 mg/dL (0.55-1.3)
[2021-12-05] MEDS ORDERED: cefTRIAXone SODIUM 1 GM VIAL ONE (08:44)
[2021-12-05] MEDS ORDERED: DEXTROSE 5%-WATER - 50 ML IVPB ONE (08:44)
[2021-12-05] MEDS: ASPIRIN 81 MG CHEWABLE TABLETS PO SCH (09:01)
[2021-12-05] MEDS: MOMETASONE FUROATE 220 MCG/IH INHALER IH SCH (09:01)
[2021-12-05] MEDS: CHOLECALCIFEROL (VIT D3) 1,000 UNIT (25 MCG) TABLET PO SCH (09:01)
[2021-12-05] MEDS: DEXAMETHASONE SOD PHOSPHATE 10 MG/1 ML VIAL IVPUSH SCH (09:01)
[2021-12-05] MEDS: METOPROLOL TARTRATE 25 MG TABLET (FP) PO SCH ×2 (09:01→21:08)
[2021-12-05] MEDS: ROFLUMILAST 500 MCG TABLET PO SCH (09:01)
[2021-12-05] MEDS: OMEGA-3 ACID ETHYL ESTERS (FATTY-ACIDS) 1 GM CAPSULE (FP) PO SCH ×2 (09:01→21:08)
[2021-12-05] MEDS: ZINC SULFATE 220 MG CAPSULE (FP) PO SCH (09:01)
[2021-12-05] MEDS: CEFTRIAXONE 1 GM in DEXTROSE 5%-WATER - 50 ML IVPB SCH (09:02)
[2021-12-05] MEDS: TIOTROPIUM/OLODATEROL HCL (STIOLTO) 4 GM INHALER IH SCH (09:02)
[2021-12-05] MEDS: AZITHROMYCIN IVPB 250 MG in DEXTROSE 5%-WATER - 250 ML IVPB SCH (09:54)
[2021-12-05] MEDS ORDERED: LISINOPRIL 5 MG TABLET PO SCH (10:00)
[2021-12-05] MEDS: REMDESIVIR 100 MG in SODIUM CHLORIDE 250 ML IVPB SCH (13:16)
[2021-12-05] MEDS: ATORVASTATIN CA 20 MG TABLET (FP) PO SCH (21:08)
[2021-12-05] MEDS: MELATONIN 5 MG TABLETS PO PRN (21:08)
[2021-12-06] MEDS: HEPARIN NA (PORCINE) 5,000 UNITS/ML 1ML VIAL SQ SCH ×3 (05:43→21:04)
[2021-12-06 09:15] LABS: BASO % 0.3 % (0-2.0); EOS % 0.4 % (0-4.5); HEMATOCRIT 30.2 % (32.4-45.2); HEMOGLOBIN 9.6 GM/dL (10.7-15.3); MCHC 31.7 g/dl (32.0-36.0); MEAN CELL VOLUME 85.1 fl (80-96); MEAN PLT VOLUME 8.7 fl (7.5-11.1); MONO % 5.7 % (3.8-10.2); NEUT % 72.6 % (42.8-82.8); PLATELET COUNT 347 10^3/uL (134-434); RBC 3.54 M/mm3 (3.60-5.2); RDW 15.1 % (11.6-15.6); WHITE BLOOD COUNT 11.4 K/mm3 (4.0-10.0)
[2021-12-06] MEDS ORDERED: DEXTROSE 5%-WATER - 50 ML IVPB ONE (09:59)
[2021-12-06] MEDS ORDERED: cefTRIAXone SODIUM 1 GM VIAL ONE (09:59)
[2021-12-06] MEDS ORDERED: amLODIPine BESYLATE 2.5 MG TABLET (FP) PO SCH (10:00)
[2021-12-06 10:02] LABS: BLOOD UREA NITROGEN 31.5 mg/dL (7-18)
[2021-12-06 10:04] LABS: CREATININE 0.8 mg/dL (0.55-1.3)
[2021-12-06] MEDS: CEFTRIAXONE 1 GM in DEXTROSE 5%-WATER - 50 ML IVPB SCH (10:25)
[2021-12-06] MEDS: ROFLUMILAST 500 MCG TABLET PO SCH (10:26)
[2021-12-06] MEDS: ZINC SULFATE 220 MG CAPSULE (FP) PO SCH (10:26)
[2021-12-06] MEDS: DEXAMETHASONE SOD PHOSPHATE 10 MG/1 ML VIAL IVPUSH SCH (10:26)
[2021-12-06] MEDS: ASPIRIN 81 MG CHEWABLE TABLETS PO SCH (10:26)
[2021-12-06] MEDS: METOPROLOL TARTRATE 25 MG TABLET (FP) PO SCH ×2 (10:26→21:04)
[2021-12-06] MEDS: CHOLECALCIFEROL (VIT D3) 1,000 UNIT (25 MCG) TABLET PO SCH (10:26)
[2021-12-06] MEDS: TIOTROPIUM/OLODATEROL HCL (STIOLTO) 4 GM INHALER IH SCH (10:27)
[2021-12-06] MEDS: MOMETASONE FUROATE 220 MCG/IH INHALER IH SCH (10:27)
[2021-12-06] MEDS: OMEGA-3 ACID ETHYL ESTERS (FATTY-ACIDS) 1 GM CAPSULE (FP) PO SCH ×2 (10:27→21:04)
[2021-12-06] MEDS: AZITHROMYCIN IVPB 250 MG in DEXTROSE 5%-WATER - 250 ML IVPB SCH (11:18)
[2021-12-06] MEDS ORDERED: TRIMETHOBENZAMIDE HCL 200MG/2ML INJ IM ONE (12:15)
[2021-12-06] MEDS: REMDESIVIR 100 MG in SODIUM CHLORIDE 250 ML IVPB SCH (15:00)
[2021-12-06] MEDS: INSULIN SLIDING SCALE (NOVOLOG) 1 VIAL SQ SCH ×2 (16:39→21:11)
[2021-12-06] MEDS: ATORVASTATIN CA 20 MG TABLET (FP) PO SCH (21:04)
[2021-12-06] MEDS: MELATONIN 5 MG TABLETS PO PRN (21:04)
[2021-12-07] MEDS: HEPARIN NA (PORCINE) 5,000 UNITS/ML 1ML VIAL SQ SCH ×2 (06:24→14:54)
[2021-12-07] MEDS: INSULIN SLIDING SCALE (NOVOLOG) 1 VIAL SQ SCH ×3 (06:35→17:08)
[2021-12-07 07:35] LABS: BASO % 0.2 % (0-2.0); EOS % 0.5 % (0-4.5); HEMATOCRIT 27.9 % (32.4-45.2); HEMOGLOBIN 8.9 GM/dL (10.7-15.3); LYMPH % 18.4 % (8-40); MCH 27.4 pg (25.7-33.7); MCHC 31.9 g/dl (32.0-36.0); MEAN CELL VOLUME 85.8 fl (80-96); MEAN PLT VOLUME 9.1 fl (7.5-11.1); MONO % 4.6 % (3.8-10.2); NEUT % 76.3 % (42.8-82.8); PLATELET COUNT 342 10^3/uL (134-434); RBC 3.25 M/mm3 (3.60-5.2); RDW 14.8 % (11.6-15.6); WHITE BLOOD COUNT 12.3 K/mm3 (4.0-10.0)
[2021-12-07 07:50] LABS: CALCIUM 8.7 mg/dL (8.5-10.1)
[2021-12-07 07:54] LABS: CREATININE 0.6 mg/dL (0.55-1.3)
[2021-12-07] MEDS ORDERED: amLODIPine BESYLATE 5 MG TABLET (FP) PO SCH (08:19)
[2021-12-07] MEDS ORDERED: ERGOCALCIFEROL (VIT D2) 50,000 UNIT (1.25 MG) CAPSULE PO SCH (08:45)
[2021-12-07] MEDS ORDERED: cefTRIAXone SODIUM 1 GM VIAL ONE (09:22)
[2021-12-07] MEDS ORDERED: DEXTROSE 5%-WATER - 50 ML IVPB ONE (09:22)
[2021-12-07] MEDS: ROFLUMILAST 500 MCG TABLET PO SCH (09:26)
[2021-12-07] MEDS: CHOLECALCIFEROL (VIT D3) 1,000 UNIT (25 MCG) TABLET PO SCH (09:26)
[2021-12-07] MEDS: OMEGA-3 ACID ETHYL ESTERS (FATTY-ACIDS) 1 GM CAPSULE (FP) PO SCH (09:26)
[2021-12-07] MEDS: CEFTRIAXONE 1 GM in DEXTROSE 5%-WATER - 50 ML IVPB SCH (09:26)
[2021-12-07] MEDS: MOMETASONE FUROATE 220 MCG/IH INHALER IH SCH (09:27)
[2021-12-07] MEDS: DEXAMETHASONE SOD PHOSPHATE 10 MG/1 ML VIAL IVPUSH SCH (09:27)
[2021-12-07] MEDS: ZINC SULFATE 220 MG CAPSULE (FP) PO SCH (09:27)
[2021-12-07] MEDS: ASPIRIN 81 MG CHEWABLE TABLETS PO SCH (09:27)
[2021-12-07] MEDS: METOPROLOL TARTRATE 25 MG TABLET (FP) PO SCH (09:27)
[2021-12-07] MEDS: TIOTROPIUM/OLODATEROL HCL (STIOLTO) 4 GM INHALER IH SCH (09:28)
[2021-12-07] MEDS ORDERED: ASPIRIN 81 MG CHEWABLE TABLETS PO SCH (10:00)
[2021-12-07] MEDS ORDERED: metoPROLOL SUCCINATE 25 MG TAB.SR.24H (FP) PO SCH (10:00)
[2021-12-07 15:01] VITALS: BP 121/55; PULSE 66; TEMP 97.7
[2021-12-07] MEDS ORDERED: FENOFIBRIC ACID 135 MG CAP PO SCH (22:00)
== END 2021-12-07 16:30 | disposition home or self-care (01) | DRG 871 ==
LOC: JER 16:00 → JERBED 19:50 → J4S 12-02 03:35
PROVIDERS: ADMIT Internal Medicine; ATTEND Internal Medicine
PROC: XW033E5 Introduction of Remdesivir Anti-infective into Peripheral Vein, Percutaneous Approach, New Technology Group 5 (ICD-10-PCS; principal; 2021-12-02)
DX: A41.9 Sepsis, unspecified organism (principal); U07.1 COVID-19; J12.82 Pneumonia due to coronavirus disease 2019; J96.21 Acute and chronic respiratory failure with hypoxia; I10 Essential (primary) hypertension; E78.5 Hyperlipidemia, unspecified; E11.9 Type 2 diabetes mellitus without complications; J44.9 Chronic obstructive pulmonary disease, unspecified; I25.119 Atherosclerotic heart disease of native coronary artery with unspecified angina pectoris; Z98.61 Coronary angioplasty status; I12.9 Hypertensive chronic kidney disease with stage 1 through stage 4 chronic kidney disease, or unspecified chronic kidney disease; N18.9 Chronic kidney disease, unspecified; E11.65 Type 2 diabetes mellitus with hyperglycemia; R00.0 Tachycardia, unspecified
CPT/HCPCS: 36415; 70450-TC; 71045-TC-FY; 71250-TC; 72125-TC; 80048; 80053; 80061; 81003; 82550; 82962; 83036; 83605; 83615; 83735; 84484; 85025; 85379; 85610; 85651; 85730; 86140; 86850; 86900; 86901; 87040; 87086; 87804; 87807; 93005; 93010; 94761; 97116-GP; 97161-GP; 99285-25; C9399; C9803; J0131; J1100; J1644; J3535; U0003; U0005

== ENCOUNTER 2023-01-10 08:39 | Inpatient (IN) | payer BC, OTHER ==
[2023-01-10 09:32] LABS: BASO % 0.6 % (0-2.0); EOS % 4.1 % (0-4.5); HEMOGLOBIN 9.1 GM/dL (10.7-15.3); LYMPH % 24.7 % (8-40); MCH 25.6 pg (25.7-33.7); MCHC 30.2 g/dl (32.0-36.0); MEAN CELL VOLUME 84.9 fl (80-96); MEAN PLT VOLUME 8.3 fl (7.5-11.1); MONO % 7.8 % (3.8-10.2); NEUT % 62.8 % (42.8-82.8); PLATELET COUNT 203 10^3/uL (134-434); RBC 3.54 M/mm3 (3.60-5.2); RDW 15.6 % (11.6-15.6); WHITE BLOOD COUNT 7.3 K/mm3 (4.0-10.0)
[2023-01-10 09:47] VITALS: BMI 24.1
[2023-01-10 09:58] LABS: ALBUMIN 3.5 g/dl (3.4-5.0); BLOOD UREA NITROGEN 46.4 mg/dL (7-18); CALCIUM 9.8 mg/dL (8.5-10.1)
[2023-01-10 09:59] LABS: CREATININE 1.2 mg/dL (0.55-1.3)
[2023-01-10 10:00] LABS: BILIRUBIN,TOTAL 0.2 mg/dL (0.2-1); TOT PROT 6.7 g/dl (6.4-8.2)
[2023-01-10 10:01] LABS: VENOUS BASE EXCESS 1.5 mmol/L (-2-2); VENOUS O2 SATURATION 98.9 % (70-80); VENOUS PH 7.201 (7.310-7.410)
[2023-01-10] MEDS ORDERED: FUROSEMIDE 40 MG/4 ML INJECTABLE VIAL IVPUSH ONE (10:21)
[2023-01-10] MEDS ORDERED: AZITHROMYCIN IVPB 500 MG in DEXTROSE 5%-WATER - 250 ML IVPB ONE (10:29)
[2023-01-10] MEDS ORDERED: CEFTRIAXONE 1,000 MG in DEXTROSE 5%-WATER - 50 ML IVPB ONE (10:33)
[2023-01-10] MEDS ORDERED: CEFTRIAXONE 1 GM/50 ML BAG ONE (10:34)
[2023-01-10] MEDS ORDERED: FUROSEMIDE 40 MG/4 ML INJECTABLE VIAL ONE (10:35)
[2023-01-10] MEDS ORDERED: AZITHROMYCIN IVPB 500 MG/250 ML BAG IVPB ONE (10:35)
[2023-01-10 12:56] LABS: VENOUS BASE EXCESS 0.8 mmol/L (-2-2)
[2023-01-10 12:58] LABS: VENOUS PCO2 83.1 mmHg (38-52); VENOUS PH 7.18 (7.310-7.410)
[2023-01-10] MEDS ORDERED: ALBUTEROL SO4 0.083% IH SOL 2.5 MG/3 ML VIAL.NEB. NEB PRN ×2 (13:24→14:01)
[2023-01-10 18:43] LABS: EPI CELLS 14 /uL (0-25.1); HYALINE CASTS 1 /uL (0-3.1); URINE APPEARANCE TURBID; URINE BACTERIA >9,000 /uL (0-1359); URINE BILIRUBIN NEGATIVE (NEGATIVE); URINE COLOR DK YELLOW; URINE GLUCOSE (UA) NEGATIVE (NEGATIVE); URINE KETONE NEGATIVE (NEGATIVE); URINE LEUK ESTERASE 2+ (NEGATIVE); URINE NITRITE POSITIVE (NEGATIVE); URINE PROTEIN 2+ (NEGATIVE); URINE UROBILINOGEN 0.2 mg/dL (0.2-1.0); URINE WBC 11 /uL (0-25.8)
[2023-01-10 19:17] LABS: URINE RBC 379 /uL (0-23.9)
[2023-01-10] MEDS ORDERED: methylPREDNISolone NA SUCC 40 MG/1 ML VIAL ONE (19:27)
[2023-01-10] MEDS: methylPREDNISolone NA SUCC 40 MG/1 ML VIAL IVPUSH SCH (19:46)
[2023-01-10 21:54] LABS: VENOUS BASE EXCESS 5.2 mmol/L (-2-2)
[2023-01-10 22:15] LABS: VENOUS PCO2 94.6 mmHg (38-52); VENOUS PH 7.19 (7.310-7.410)
[2023-01-10] MEDS: PANTOPRAZOLE 40 MG TABLET PO SCH (22:39)
[2023-01-11] MEDS: methylPREDNISolone NA SUCC 40 MG/1 ML VIAL IVPUSH SCH ×3 (02:06→18:25)
[2023-01-11] MEDS: FUROSEMIDE 40 MG/4 ML INJECTABLE VIAL IVPUSH SCH (10:40)
[2023-01-11] MEDS: CEFTRIAXONE 1 GM in DEXTROSE 5%-WATER - 50 ML IVPB SCH (10:41)
[2023-01-11] MEDS: PANTOPRAZOLE 40 MG TABLET PO SCH ×2 (10:45→20:59)
[2023-01-11 12:43] LABS: BASO % 0.3 % (0-2.0); HEMATOCRIT 25.7 % (32.4-45.2); LYMPH % 11.5 % (8-40); MCH 26.4 pg (25.7-33.7); MCHC 31.1 g/dl (32.0-36.0); MEAN CELL VOLUME 84.9 fl (80-96); MEAN PLT VOLUME 8.8 fl (7.5-11.1); MONO % 3.7 % (3.8-10.2); NEUT % 84.5 % (42.8-82.8); PLATELET COUNT 208 10^3/uL (134-434); RBC 3.02 M/mm3 (3.60-5.2); RDW 15.4 % (11.6-15.6); WHITE BLOOD COUNT 6.4 K/mm3 (4.0-10.0)
[2023-01-11 13:03] LABS: CALCIUM 9.1 mg/dL (8.5-10.1)
[2023-01-11 13:04] LABS: ALBUMIN 3.1 g/dl (3.4-5.0)
[2023-01-11 13:07] LABS: CREATININE 1.4 mg/dL (0.55-1.3)
[2023-01-11 13:08] LABS: IRON SERUM 23 ug/dL (50-175); TOTAL IRON BINDING CAPACITY 344 ug/dL (250-450)
[2023-01-11 13:09] LABS: BILIRUBIN,TOTAL 0.2 mg/dL (0.2-1); TOT PROT 6.1 g/dl (6.4-8.2)
[2023-01-11] MEDS: ACETAMINOPHEN 325 MG TABLET (FP) PO PRN (20:00)
[2023-01-11] MEDS: ALBUTEROL SO4 0.042% IH SOL 1.25 MG/3 ML VIAL.NEB NEB PRN ×2 (20:25→23:37)
[2023-01-11] MEDS: MELATONIN 5 MG TABLETS PO PRN (22:42)
[2023-01-12] MEDS: methylPREDNISolone NA SUCC 40 MG/1 ML VIAL IVPUSH SCH ×3 (01:04→17:07)
[2023-01-12 07:34] LABS: ARTERIAL BLD GAS O2 SATURATION 96.8 % (95-98); ARTERIAL BLOOD GAS BASE EXCESS 5.4 mmol/L (-2-2); ARTERIAL BLOOD GAS pH 7.224 (7.350-7.450)
[2023-01-12 07:45] LABS: ALLENS TEST POSITIVE
[2023-01-12 08:54] LABS: BASO % 0.4 % (0-2.0); HEMATOCRIT 25.9 % (32.4-45.2); HEMOGLOBIN 8.1 GM/dL (10.7-15.3); MCH 26.4 pg (25.7-33.7); MCHC 31.1 g/dl (32.0-36.0); MEAN CELL VOLUME 84.9 fl (80-96); MEAN PLT VOLUME 8.9 fl (7.5-11.1); MONO % 2.1 % (3.8-10.2); NEUT % 89.5 % (42.8-82.8); PLATELET COUNT 186 10^3/uL (134-434); RBC 3.05 M/mm3 (3.60-5.2); RDW 15.6 % (11.6-15.6); WHITE BLOOD COUNT 5.5 K/mm3 (4.0-10.0)
[2023-01-12] MEDS: ALBUTEROL SO4 0.042% IH SOL 1.25 MG/3 ML VIAL.NEB NEB PRN (09:03)
[2023-01-12] MEDS: FUROSEMIDE 40 MG/4 ML INJECTABLE VIAL IVPUSH SCH (09:18)
[2023-01-12] MEDS: CEFTRIAXONE 1 GM in DEXTROSE 5%-WATER - 50 ML IVPB SCH (09:18)
[2023-01-12] MEDS: PANTOPRAZOLE 40 MG TABLET PO SCH ×2 (09:18→21:49)
[2023-01-12 09:30] LABS: BLOOD UREA NITROGEN 69.6 mg/dL (7-18); CALCIUM 8.9 mg/dL (8.5-10.1)
[2023-01-12 09:31] LABS: ALBUMIN 3.1 g/dl (3.4-5.0)
[2023-01-12 09:34] LABS: CREATININE 1.5 mg/dL (0.55-1.3)
[2023-01-12 09:35] LABS: BILIRUBIN,TOTAL 0.2 mg/dL (0.2-1); TOT PROT 6.1 g/dl (6.4-8.2)
[2023-01-12] MEDS: FLUTICASONE/UMECLIDIN/VILANTER(100-62.5-25 TRELEGY ELLIPTA) INAHLER IH SCH ×2 (12:32→12:33)
[2023-01-12] MEDS: ALBUTEROL SO4 2.5/IPRATROPIUM 0.5 INH SOL 3 ML VIAL.NEB. NEB SCH ×2 (15:24→20:42)
[2023-01-12] MEDS: ACETAMINOPHEN 325 MG TABLET (FP) PO PRN (21:48)
[2023-01-12] MEDS: MELATONIN 5 MG TABLETS PO PRN (21:48)
[2023-01-12] MEDS: ALPRAZolam 0.25 MG TABLET PO PRN (21:48)
[2023-01-12] MEDS ORDERED: ERTAPENEM SODIUM 0.5 GM in SODIUM CHLORIDE 50 ML IVPB SCH (22:00)
[2023-01-12] MEDS: MEROPENEM 1 GM in DEXTROSE 5%-WATER 100 ML IVPB SCH (22:15)
[2023-01-13] MEDS: methylPREDNISolone NA SUCC 40 MG/1 ML VIAL IVPUSH SCH ×3 (01:13→17:14)
[2023-01-13] MEDS: ALBUTEROL SO4 2.5/IPRATROPIUM 0.5 INH SOL 3 ML VIAL.NEB. NEB SCH ×4 (07:54→20:23)
[2023-01-13] MEDS: MEROPENEM 1 GM in DEXTROSE 5%-WATER 100 ML IVPB SCH ×2 (09:38→21:44)
[2023-01-13] MEDS: PANTOPRAZOLE 40 MG TABLET PO SCH ×2 (09:38→21:44)
[2023-01-13 13:30] LABS: BLOOD UREA NITROGEN 59.8 mg/dL (7-18)
[2023-01-13 13:33] LABS: CREATININE 1.5 mg/dL (0.55-1.3)
[2023-01-13] MEDS: ALPRAZolam 0.25 MG TABLET PO PRN (21:44)
[2023-01-13] MEDS: MELATONIN 5 MG TABLETS PO PRN (21:44)
[2023-01-14] MEDS: methylPREDNISolone NA SUCC 40 MG/1 ML VIAL IVPUSH SCH ×3 (01:27→18:00)
[2023-01-14] MEDS: ALBUTEROL SO4 2.5/IPRATROPIUM 0.5 INH SOL 3 ML VIAL.NEB. NEB SCH ×4 (07:20→20:42)
[2023-01-14 08:02] LABS: BASO % 0.1 % (0-2.0); HEMATOCRIT 26.3 % (32.4-45.2); HEMOGLOBIN 8.2 GM/dL (10.7-15.3); LYMPH % 9.3 % (8-40); MCH 25.5 pg (25.7-33.7); MEAN CELL VOLUME 82.3 fl (80-96); MEAN PLT VOLUME 9.1 fl (7.5-11.1); MONO % 2.1 % (3.8-10.2); NEUT % 88.5 % (42.8-82.8); PLATELET COUNT 200 10^3/uL (134-434); RDW 15.5 % (11.6-15.6); WHITE BLOOD COUNT 7.2 K/mm3 (4.0-10.0)
[2023-01-14 08:25] LABS: BLOOD UREA NITROGEN 55.6 mg/dL (7-18)
[2023-01-14 08:27] LABS: CALCIUM 8.9 mg/dL (8.5-10.1)
[2023-01-14 08:29] LABS: BILIRUBIN,TOTAL 0.2 mg/dL (0.2-1); CREATININE 1.2 mg/dL (0.55-1.3); TOT PROT 5.9 g/dl (6.4-8.2)
[2023-01-14] MEDS: MEROPENEM 1 GM in DEXTROSE 5%-WATER 100 ML IVPB SCH ×2 (10:35→21:43)
[2023-01-14] MEDS: PANTOPRAZOLE 40 MG TABLET PO SCH ×2 (10:36→21:44)
[2023-01-14] MEDS: MELATONIN 5 MG TABLETS PO PRN (21:51)
[2023-01-14] MEDS: ALPRAZolam 0.25 MG TABLET PO PRN (21:51)
[2023-01-15] MEDS: methylPREDNISolone NA SUCC 40 MG/1 ML VIAL IVPUSH SCH ×4 (01:20→21:05)
[2023-01-15] MEDS: ALBUTEROL SO4 2.5/IPRATROPIUM 0.5 INH SOL 3 ML VIAL.NEB. NEB SCH ×4 (08:20→19:39)
[2023-01-15] MEDS: MEROPENEM 1 GM in DEXTROSE 5%-WATER 100 ML IVPB SCH ×2 (09:30→21:04)
[2023-01-15] MEDS: PANTOPRAZOLE 40 MG TABLET PO SCH ×2 (09:31→21:04)
[2023-01-15] MEDS ORDERED: IRON SUCROSE INJECTION 200 MG in SODIUM CHLORIDE 90 ML IVPB ONE (09:41)
[2023-01-15] MEDS: MELATONIN 5 MG TABLETS PO PRN (21:04)
[2023-01-15] MEDS: guaiFENesin 200 MG/10 ML 10 ML UNIT-DOSE CUPS PO PRN (21:05)
[2023-01-15] MEDS: POLYETHYLENE GLYCOL (HEALTHYLAX) 3350 17 GM PACKET PO SCH (21:13)
[2023-01-16] MEDS: POLYETHYLENE GLYCOL (HEALTHYLAX) 3350 17 GM PACKET PO SCH ×3 (06:07→22:11)
[2023-01-16] MEDS: ALBUTEROL SO4 2.5/IPRATROPIUM 0.5 INH SOL 3 ML VIAL.NEB. NEB SCH ×4 (07:46→20:35)
[2023-01-16] MEDS: MEROPENEM 1 GM in DEXTROSE 5%-WATER 100 ML IVPB SCH ×2 (08:52→22:11)
[2023-01-16 09:10] LABS: BLOOD UREA NITROGEN 47.5 mg/dL (7-18); CALCIUM 9.4 mg/dL (8.5-10.1)
[2023-01-16 09:15] LABS: BILIRUBIN,TOTAL 0.2 mg/dL (0.2-1); TOT PROT 6.1 g/dl (6.4-8.2)
[2023-01-16] MEDS: PANTOPRAZOLE 40 MG TABLET PO SCH ×2 (09:44→22:11)
[2023-01-16] MEDS: methylPREDNISolone NA SUCC 40 MG/1 ML VIAL IVPUSH SCH ×2 (09:44→22:11)
[2023-01-16] MEDS: guaiFENesin 200 MG/10 ML 10 ML UNIT-DOSE CUPS PO PRN (09:45)
[2023-01-16] MEDS ORDERED: IRON SUCROSE INJECTION 200 MG in SODIUM CHLORIDE 90 ML IVPB ONE (10:00)
[2023-01-16] MEDS: amLODIPine BESYLATE 5 MG TABLET (FP) PO SCH (14:40)
[2023-01-17] MEDS: POLYETHYLENE GLYCOL (HEALTHYLAX) 3350 17 GM PACKET PO SCH ×3 (05:39→21:27)
[2023-01-17] MEDS: ALBUTEROL SO4 2.5/IPRATROPIUM 0.5 INH SOL 3 ML VIAL.NEB. NEB SCH ×2 (08:09→11:39)
[2023-01-17] MEDS: MEROPENEM 1 GM in DEXTROSE 5%-WATER 100 ML IVPB SCH ×2 (08:55→21:24)
[2023-01-17] MEDS: PANTOPRAZOLE 40 MG TABLET PO SCH ×2 (09:00→21:26)
[2023-01-17] MEDS: methylPREDNISolone NA SUCC 40 MG/1 ML VIAL IVPUSH SCH (09:00)
[2023-01-17] MEDS: amLODIPine BESYLATE 5 MG TABLET (FP) PO SCH (09:00)
[2023-01-17] MEDS ORDERED: IRON SUCROSE INJECTION 200 MG in SODIUM CHLORIDE 90 ML IVPB ONE (10:00)
[2023-01-17] MEDS: predniSONE 10 MG TABLET (UD) PO SCH ×2 (10:59→21:26)
[2023-01-17 11:17] LABS: BASO % 0.1 % (0-2.0); EOS % 0.2 % (0-4.5); HEMATOCRIT 28.3 % (32.4-45.2); HEMOGLOBIN 8.9 GM/dL (10.7-15.3); LYMPH % 13.3 % (8-40); MCH 26.7 pg (25.7-33.7); MCHC 31.6 g/dl (32.0-36.0); MEAN CELL VOLUME 84.6 fl (80-96); MEAN PLT VOLUME 9.2 fl (7.5-11.1); MONO % 5.5 % (3.8-10.2); NEUT % 80.9 % (42.8-82.8); PLATELET COUNT 247 10^3/uL (134-434); RBC 3.34 M/mm3 (3.60-5.2); RDW 15.2 % (11.6-15.6); WHITE BLOOD COUNT 9.5 K/mm3 (4.0-10.0)
[2023-01-17 11:41] LABS: CALCIUM 8.4 mg/dL (8.5-10.1)
[2023-01-17 11:42] LABS: BLOOD UREA NITROGEN 42.1 mg/dL (7-18)
[2023-01-17 11:45] LABS: CREATININE 1.1 mg/dL (0.55-1.3)
[2023-01-17] MEDS: MELATONIN 5 MG TABLETS PO PRN (21:26)
[2023-01-18] MEDS: POLYETHYLENE GLYCOL (HEALTHYLAX) 3350 17 GM PACKET PO SCH ×3 (05:56→21:22)
[2023-01-18] MEDS: predniSONE 10 MG TABLET (UD) PO SCH ×2 (09:49→21:25)
[2023-01-18] MEDS: MEROPENEM 1 GM in DEXTROSE 5%-WATER 100 ML IVPB SCH ×2 (09:49→21:21)
[2023-01-18] MEDS: amLODIPine BESYLATE 5 MG TABLET (FP) PO SCH (09:49)
[2023-01-18] MEDS: PANTOPRAZOLE 40 MG TABLET PO SCH ×2 (09:49→21:25)
[2023-01-18] MEDS: FUROSEMIDE 40 MG TABLET (FP) PO SCH (11:54)
[2023-01-18] MEDS: FLUTICASONE/UMECLIDIN/VILANTER(200-62.5-25 TRELEGY ELLIPTA) INAHLER IH SCH (14:38)
[2023-01-18] MEDS: ALBUTEROL SO4 0.042% IH SOL 1.25 MG/3 ML VIAL.NEB NEB PRN (16:03)
[2023-01-18] MEDS: MELATONIN 5 MG TABLETS PO PRN (21:25)
[2023-01-19] MEDS: POLYETHYLENE GLYCOL (HEALTHYLAX) 3350 17 GM PACKET PO SCH ×3 (06:04→21:56)
[2023-01-19] MEDS: amLODIPine BESYLATE 5 MG TABLET (FP) PO SCH (09:10)
[2023-01-19] MEDS: MEROPENEM 1 GM in DEXTROSE 5%-WATER 100 ML IVPB SCH (09:10)
[2023-01-19] MEDS: PANTOPRAZOLE 40 MG TABLET PO SCH ×2 (09:11→21:55)
[2023-01-19] MEDS: FLUTICASONE/UMECLIDIN/VILANTER(200-62.5-25 TRELEGY ELLIPTA) INAHLER IH SCH (09:11)
[2023-01-19] MEDS: predniSONE 10 MG TABLET (UD) PO SCH ×2 (09:11→21:55)
[2023-01-19] MEDS: FUROSEMIDE 40 MG TABLET (FP) PO SCH (09:11)
[2023-01-20] MEDS: POLYETHYLENE GLYCOL (HEALTHYLAX) 3350 17 GM PACKET PO SCH ×3 (06:09→21:27)
[2023-01-20] MEDS: FUROSEMIDE 40 MG TABLET (FP) PO SCH (09:37)
[2023-01-20] MEDS: amLODIPine BESYLATE 5 MG TABLET (FP) PO SCH (09:37)
[2023-01-20] MEDS: predniSONE 10 MG TABLET (UD) PO SCH ×2 (09:37→21:27)
[2023-01-20] MEDS: PANTOPRAZOLE 40 MG TABLET PO SCH ×2 (09:37→21:27)
[2023-01-20] MEDS: FLUTICASONE/UMECLIDIN/VILANTER(200-62.5-25 TRELEGY ELLIPTA) INAHLER IH SCH (09:39)
[2023-01-21] MEDS: POLYETHYLENE GLYCOL (HEALTHYLAX) 3350 17 GM PACKET PO SCH ×3 (05:42→21:37)
[2023-01-21] MEDS: ALBUTEROL SO4 0.042% IH SOL 1.25 MG/3 ML VIAL.NEB NEB PRN ×2 (07:20→15:14)
[2023-01-21] MEDS: PANTOPRAZOLE 40 MG TABLET PO SCH ×2 (09:09→21:39)
[2023-01-21] MEDS: amLODIPine BESYLATE 5 MG TABLET (FP) PO SCH (09:09)
[2023-01-21] MEDS: predniSONE 10 MG TABLET (UD) PO SCH ×2 (09:09→21:39)
[2023-01-21] MEDS: FUROSEMIDE 40 MG TABLET (FP) PO SCH (09:09)
[2023-01-21] MEDS: FLUTICASONE/UMECLIDIN/VILANTER(200-62.5-25 TRELEGY ELLIPTA) INAHLER IH SCH (09:10)
[2023-01-22] MEDS: POLYETHYLENE GLYCOL (HEALTHYLAX) 3350 17 GM PACKET PO SCH ×2 (06:30→13:24)
[2023-01-22 08:38] LABS: CALCIUM 8.8 mg/dL (8.5-10.1)
[2023-01-22 08:39] LABS: BLOOD UREA NITROGEN 54.1 mg/dL (7-18)
[2023-01-22 08:43] LABS: BILIRUBIN,TOTAL 0.4 mg/dL (0.2-1); TOT PROT 5.8 g/dl (6.4-8.2)
[2023-01-22] MEDS: amLODIPine BESYLATE 5 MG TABLET (FP) PO SCH (09:14)
[2023-01-22] MEDS: FUROSEMIDE 40 MG TABLET (FP) PO SCH (09:14)
[2023-01-22] MEDS: PANTOPRAZOLE 40 MG TABLET PO SCH (09:14)
[2023-01-22] MEDS: predniSONE 10 MG TABLET (UD) PO SCH (09:15)
[2023-01-22] MEDS: FLUTICASONE/UMECLIDIN/VILANTER(200-62.5-25 TRELEGY ELLIPTA) INAHLER IH SCH (09:16)
[2023-01-22 13:41] VITALS: BP 156/65; PULSE 94; RESP 18; TEMP 99.1
== END 2023-01-22 14:46 | DRG 291 ==
LOC: JER 08:39 → JERBED 09:43 → J4S 23:45
PROVIDERS: ADMIT Family Medicine; ATTEND Family Medicine
DX: I11.0 Hypertensive heart disease with heart failure (principal); I50.33 Acute on chronic diastolic (congestive) heart failure; J96.21 Acute and chronic respiratory failure with hypoxia; J96.22 Acute and chronic respiratory failure with hypercapnia; J18.9 Pneumonia, unspecified organism; J98.11 Atelectasis; N39.0 Urinary tract infection, site not specified; J44.1 Chronic obstructive pulmonary disease with (acute) exacerbation; K86.2 Cyst of pancreas; I31.39 Other pericardial effusion (noninflammatory); J44.0 Chronic obstructive pulmonary disease with (acute) lower respiratory infection; I25.119 Atherosclerotic heart disease of native coronary artery with unspecified angina pectoris; F41.0 Panic disorder [episodic paroxysmal anxiety]; E78.5 Hyperlipidemia, unspecified; I25.10 Atherosclerotic heart disease of native coronary artery without angina pectoris; E11.51 Type 2 diabetes mellitus with diabetic peripheral angiopathy without gangrene; D64.9 Anemia, unspecified; K44.9 Diaphragmatic hernia without obstruction or gangrene; B96.20 Unspecified Escherichia coli [E. coli] as the cause of diseases classified elsewhere; B95.2 Enterococcus as the cause of diseases classified elsewhere; B96.1 Klebsiella pneumoniae [K. pneumoniae] as the cause of diseases classified elsewhere; E87.5 Hyperkalemia; Z88.0 Allergy status to penicillin; Z99.81 Dependence on supplemental oxygen; Z95.5 Presence of coronary angioplasty implant and graft
CPT/HCPCS: 0241U-QW; 36415; 36600; 71045-TC-FY; 71250-TC; 80048; 80053; 81003; 82728; 82803; 82962; 83540; 83550; 83605; 83880; 84484; 85025; 87086; 87186; 93005; 93010; 93306-TC; 93925-TC; 94640; 94660; 97116-GP; 97161-GP; 99291; C9803-CS; J1756; U0003; U0005